=== PATIENT | male | born 2000 | race Caucasian/White ===

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

== ENCOUNTER 2021-06-27 12:58 | Observation (INO) | payer MEDICAID ==
[2021-06-27 15:10] LABS: Hematocrit 16.9 % (42-50); Mean Cell Volume 63.5 fl (78-100); Mean Corpuscular Hemoglobin 16.2 pg (26-32); Mean Corpuscular Hgb Concent. 25.4 g/dl (32-36); Mean Platelet Volume 8.5 fl (7.5-11.0); Platelet Count 655 K/mm3 (150-450); Red Blood Count 2.66 M/mm3 (4.1-5.6); Red Cell Distribution Width 21.7 % (11.5-14.0); White Blood Count 14.9 K/mm3 (4.0-10.5)
[2021-06-27 15:25] LABS: Hemoglobin 4.3 gm/dl (12.5-18.0)
[2021-06-27 15:38] LABS: CK-Creatinine Phosphokinase 74 U/L (55-170); NT PRO BNP 147 pg/mL (0-450)
[2021-06-27 15:42] LABS: Erythrocyte Sedimentation Rate 10 mm/hr (0-15)
[2021-06-27] MEDS ORDERED: NORCO 5/325 MG PO ONE (15:47)
[2021-06-27] MEDS ORDERED: NORCO 5/325 MG ONE (15:51)
[2021-06-27 15:52] LABS: ALBUMIN 2.7 g/dL (3.5-5.0); ALKALINE PHOSPHATASE 75 U/L (38-126); ANION GAP 10.2 MEQ/L (5-15); BILIRUBIN,TOTAL < 0.10 mg/dL (0.2-1.3); BLOOD UREA NITROGEN 7 mg/dL (9-20); CHLORIDE 99 mmol/L (98-107); Calcium 7.8 mg/dL (8.4-10.2); Carbon Dioxide 27 mmol/L (22-30); Creatinine 1 0.81 mg/dL (0.66-1.25); EST GLOMERULAR FILTRATION RATE > 60.0 ML/MIN; Glucose 99 mg/dL (74-106); Potassium 3.3 mmol/L (3.5-5.1); SGOT/AST 16 U/L (17-59); SGPT/ALT 6 U/L (0-50); SODIUM 132 mmol/L (137-145); Total Protein 5.7 g/dL (6.3-8.2)
[2021-06-27 15:55] LABS: BAND 2 % (0.0-2.0); Basophil 1 % (0.0-1.0); Lymphocytes 18 % (24-44); Monocyte 1 % (0.0-12.0); Neutrophils 78 % (36.-66.); Total Cells Counted 100
--- NOTE | 2021-06-27 15:55 | ERPHSYRPT ---
- History of Present Illness Time Seen by Provider: 06/27/21 13:40 Source: patient Exam Limitations: no limitations Patient Subjective Stated Complaint: Pt states "About 10 days ago I got this red bump on my lower left leg and now my foot is really swollen." Triage Nursing Assessment: Pt presented alert and oriented X 3, skin pwd. Pt ambulates witha limp. Pt left foot swollen , csm x 4, pt has small red primitivo on felix of left leg. PT has no apprent respiratory distress. Physician History: Is a 21-year-old white male who presents with a chief complaint of swelling for 10 days of his left lower leg medial aspect just above the ankle it started as a small red spot now is quite large and the ankle is very swollen. It is a burning pain. He also has a diagnosis of ulcerative colitis and has had multiple bloody stools for some time states that he was at [facility] about 3 weeks ago and was told he had about a half of the blood that he needed and his hemoglobin was quite low. However they did not transfuse him. He also complains of being dizzy especially with standing dark vision loss of hearing with these episodes. Method of Injury: unknown Occurred: days ago (10) Quality: burning Severity of Pain-Max: moderate Severity of Pain-Current: moderate Modifying Factors: Improves With: movement Allergies/Adverse Reactions: No Known Drug Allergies Allergy (Verified 07/01/19 19:53) Home Medications: Sulfasalazine [Sulfasalazine Dr] 500 mg PO DAILY 06/27/21 [History] Hx Tetanus, Diphtheria Vaccination/Date Given: No Hx Influenza Vaccination/Date Given: No Hx Pneumococcal Vaccination/Date Given: No Immunizations Up to Date: Yes Travel Risk - International Travel Have you traveled outside of the country in past 3 weeks: No - Coronavirus Screening Are you exhibiting any of the following symptoms?: No Close contact with a COVID-19 positive Pt in past 14-21 Days: No - Vaccine Status Have you recieved a Covid-19 vaccination: No - Review of Systems Constitutional: Fatigue, Lethargy, Malaise, No Fever, No Chills Eyes: Vision Changes Ears, Nose, & Throat: No Symptoms Respiratory: Dyspnea, Dyspnea on Exertion (LU), No Cough Cardiac: No Chest Pain, No Edema, No Syncope Abdominal/Gastrointestinal: Diarrhea, Hematochezia, Melena, No Abdominal Pain, No Nausea, No Vomiting Genitourinary Symptoms: No Dysuria Musculoskeletal: Joint Redness, Joint Pain, Joint Swelling, No Back Pain, No Neck Pain Skin: No Rash Neurological: No Dizziness, No Focal Weakness, No Sensory Changes Psychological: No Symptoms Endocrine: No Symptoms All Other Systems: Reviewed and Negative - Past Medical History Pertinent Past Medical History: Yes Neurological History: No Pertinent History ENT History: No Pertinent History Cardiac History: No Pertinent History Respiratory History: No Pertinent History Endocrine Medical History: No Pertinent History Musculoskeletal History: No Pertinent History GI Medical History: No Pertinent History History: No Pertinent History Psycho-Social History: Other Male Reproductive Disorders: No Pertinent History Other Medical History: pt has ADHD and oppositional defiance disorder - Past Surgical History Past Surgical History: Yes Neuro Surgical History: No Pertinent History Cardiac: No Pertinent History Respiratory: No Pertinent History Gastrointestinal: No Pertinent History Genitourinary: No Pertinent History Musculoskeletal: Orthopedic Surgery Male Surgical History: No Pertinent History Other Surgical History: right wrist glass removed in surgery - Social History Smoking Status: Current every day smoker How long have you smoked: years Exposure to second hand smoke: Yes Drug Use: none Patient Lives Alone: No - Nursing Vital Signs Nursing Vital Signs: Initial Vital Signs Temperature 99.2 F 06/27/21 13:33 Pulse Rate 109 H 06/27/21 13:33 Respiratory Rate 22 06/27/21 13:33 Blood Pressure 108/68 06/27/21 13:33 O2 Sat by Pulse Oximetry 100 06/27/21 13:33 Pain Scale Pain Intensity 4 - Physical Exam General Appearance: moderate distress, alert Eyes, Ears, Nose, Throat Exam: other (Junk of a very pale) Neck Exam: normal inspection, non-tender, supple Cardiovascular/Respiratory Exam: chest non-tender, normal breath sounds, regular rate/rhythm Gastrointestinal/Abdominal Exam: non-tender, soft Back Exam: normal inspection, normal range of motion Legs Exam: left leg: limited range of motion, pain, soft tissue tenderness, swelling Foot Exam: left foot: pain, soft tissue tenderness, swelling Neuro/Tendon Exam: normal sensation, normal motor functions, normal tendon functions Mental Status Exam: alert, oriented x 3, cooperative Skin Exam: warm, dry, pale SpO2 Interpretation: normal SpO2: 100 O2 Delivery: Room Air - Course Nursing assessment & vital signs reviewed: Yes - Radiology Exams Other X-ray Interpretation: Interpreted by me (X-ray of the ankle is negative) Ordered Tests: Active Orders 24 hr Category Date Time Status ANKLE (3 VIEWS) Stat Exams 06/27/21 13:40 Taken LOWER LEG Stat Exams 06/27/21 13:40 Taken CBC W DIFF Stat Lab 06/27/21 14:45 Results CK-Creatinine Phosphokinase Stat Lab 06/27/21 14:45 Completed CMP Stat Lab 06/27/21 14:45 Received D-DIMER QUANTITATIVE Stat Lab 06/27/21 13:41 Completed Erythrocyte Sedimentation Rate Stat Lab 06/27/21 14:45 Results Lactic Acid Stat Lab 06/27/21 13:41 Completed Manual Differential NC Stat Lab 06/27/21 14:45 Results NT PRO BNP Stat Lab 06/27/21 14:45 Completed Pathologist Review Stat Lab 06/27/21 14:45 Results UA W/RFX UR CULTURE Stat Lab 06/27/21 13:42 Ordered Medication Summary Discontinued Medications Generic Name Dose Route Start Last Admin Trade Name Freq PRN Reason Stop Dose Admin Hydrocodone Bitart/Acetaminophen 1 tab 06/27/21 15:47 [place] 5/325 Mg PO 06/27/21 15:48 STAT ONE Lab/Rad Data: Laboratory Result Diagrams 06/27/21 14:45 Laboratory Results 06/27/21 06/27/21 06/27/21 Range/Units 14:45 14:45 13:41 WBC 14.9 H (4.0-10.5) K/mm3 RBC 2.66 L (4.1-5.6) M/mm3 Hgb 4.3 L* (12.5-18.0) gm/dl Hct 16.9 L (42-50) % MCV 63.5 L (78-100) fl MCH 16.2 L (26-32) pg MCHC 25.4 L (32-36) g/dl RDW 21.7 H (11.5-14.0) % Plt Count 655 H (150-450) K/mm3 MPV 8.5 (7.5-11.0) fl Smear Path Review Pending ESR 10 (0-15) mm/hr D-Dimer 2753 H* (215-500) ng/mL Lactic Acid (0.4-2.0) Creatine Kinase 74 (55-170) U/L NT-Pro-B Natriuret Pep 147 (0-450) pg/mL 06/27/21 Range/Units 13:41 WBC (4.0-10.5) K/mm3 RBC (4.1-5.6) M/mm3 Hgb (12.5-18.0) gm/dl Hct (42-50) % MCV (78-100) fl MCH (26-32) pg MCHC (32-36) g/dl RDW (11.5-14.0) % Plt Count (150-450) K/mm3 MPV (7.5-11.0) fl Smear Path Review ESR (0-15) mm/hr D-Dimer (215-500) ng/mL Lactic Acid 1.1 (0.4-2.0) Creatine Kinase (55-170) U/L NT-Pro-B Natriuret Pep (0-450) pg/mL - Progress Progress: unchanged - Departure Departure Disposition: Observation Clinical Impression: Profound anemia, Hematemesis, History of ulcerative colitis, Suspected DVT (deep vein thrombosis) Condition: Fair Critical Care Time: No Referrals: ADRIAN BAIN [employer] DEVELOPER [Primary Care Provider] -
[2021-06-27 15:56] LABS: ANISOCYTOSIS 2+; Basophilic Stippling 1+; Poikilocytosis 2+; Polychromasia 1+
[2021-06-27 15:57] LABS: Hypochromia 2+
[2021-06-27 15:58] LABS: Schistocytes 1+; Spherocyte 1+
[2021-06-27] MEDS ORDERED: Hydromorphone 1 mg/ml Injection IV PRN (15:58)
[2021-06-27 15:59] LABS: Platelet Estimate INCREASED (NORMAL)
[2021-06-27] MEDS ORDERED: Sodium Chloride 0.9% 1000 ML 1,000 ML IV SCH ×2 (16:00→18:00)
[2021-06-27] MEDS ORDERED: Sodium Chloride 0.9% 1000 ML 1,000 ML ONE (16:20)
[2021-06-27 16:59] LABS: ABO TYPING A; Antibody Screen NEGATIVE (NEGATIVE); RH TYPING POSITIVE
[2021-06-27 17:00] LABS: CROSS MATCH (PRBC) COMPATIBLE (COMPATIBLE)
[2021-06-27] MEDS: Hydromorphone 1 mg/ml Injection IV PRN ×2 (18:03→22:31)
[2021-06-27] MEDS ORDERED: Sodium Chloride 0.9% 500 ML 500 ML IV ONE (18:11)
--- NOTE | 2021-06-27 20:18 | XRAY ---
Indication: Pain and swelling. No known injury. Comparison: None 3 view left ankle demonstrates mild anterior medial soft tissue swelling. No other bony, articular, or soft tissue abnormalities.
--- NOTE | 2021-06-27 20:18 | XRAY ---
Indication: Pain and swelling. No known injury. Comparison: None 2 view left lower leg obtained. No bony, articular, or soft tissue abnormalities.
[2021-06-27] MEDS: Zofran 4 MG/2 ML VIAL IV PRN (22:31)
[2021-06-28] MEDS: Hydromorphone 1 mg/ml Injection IV PRN ×3 (03:13→12:44)
[2021-06-28] MEDS: Zofran 4 MG/2 ML VIAL IV PRN (04:46)
[2021-06-28 06:14] LABS: Mean Cell Volume 71.9 fl (78-100); Mean Corpuscular Hemoglobin 21.8 pg (26-32); Mean Corpuscular Hgb Concent. 30.3 g/dl (32-36); Mean Platelet Volume 8.8 fl (7.5-11.0); Platelet Count 636 K/mm3 (150-450); Red Blood Count 4.59 M/mm3 (4.1-5.6)
[2021-06-28 07:00] LABS: ALBUMIN 3.6 g/dL (3.5-5.0); ALKALINE PHOSPHATASE 96 U/L (38-126); ANION GAP 14.9 MEQ/L (5-15); BLOOD UREA NITROGEN 8 mg/dL (9-20); CHLORIDE 94 mmol/L (98-107); Calcium 8.5 mg/dL (8.4-10.2); Carbon Dioxide 28 mmol/L (22-30); Creatinine 1 0.85 mg/dL (0.66-1.25); EST GLOMERULAR FILTRATION RATE > 60.0 ML/MIN; Glucose 105 mg/dL (74-106); Potassium 3.5 mmol/L (3.5-5.1); SGOT/AST 20 U/L (17-59); SGPT/ALT 11 U/L (0-50); SODIUM 134 mmol/L (137-145); Total Protein 7.1 g/dL (6.3-8.2)
[2021-06-28] MEDS ORDERED: Hydromorphone 1 mg/ml Injection ONE (07:29)
--- NOTE | 2021-06-28 07:58 | PCM.HP ---
History of Present Illness - Chief Complaint Chief Complaint: bloody stools for 2-3 days. History of Present Illness: is a 21 year old male.who presents with a chief complaint of swelling for 10 days of his left lower leg medial aspect just above the ankle it started as a small red spot now is quite large and the ankle is very swollen. It is a burning pain. He also has a diagnosis of ulcerative colitis and has had multiple bloody stools for some time states that he was at [facility] about 3 weeks ago and was told he had about a half of the blood that he needed and his hemoglobin was quite low. However they did not transfuse him. He also complains of being dizzy especially with standing dark vision loss of hearing with these episodes. Method of Injury: unknown Occurred: days ago (10) Quality: burning Severity of Pain-Max: moderate Severity of Pain-Current: moderate Modifying Factors: Improves With: movement - Review of Systems Constitutional: No Fever, No Chills Eyes: No Symptoms Ears, Nose, & Throat: No Symptoms Respiratory: No Cough, No Short Of Breath Cardiac: No Chest Pain, No Edema, No Syncope Abdominal/Gastrointestinal: Abdominal Pain, Hematochezia, No Nausea, No Vomiting, No Diarrhea Genitourinary Symptoms: No Dysuria Musculoskeletal: No Back Pain, No Neck Pain Skin: No Rash Neurological: No Dizziness, No Focal Weakness, No Sensory Changes Psychological: No Symptoms Endocrine: No Symptoms Hematologic/Lymphatic: No Symptoms Immunological/Allergic: No Symptoms Medications & Allergies Home Medications: Home Medication List Sulfasalazine [Sulfasalazine Dr] 500 mg PO DAILY 06/27/21 [History Confirmed 06/27/21] Allergies/Adverse Reactions: Allergies Allergy/AdvReac Type Severity Reaction Status Date / Time No Known Drug Allergies Allergy Verified 07/01/19 19:53 - Past Medical History Past Medical History: Yes Neurological History: No Pertinent History ENT History: No Pertinent History Cardiac History: No Pertinent History Respiratory History: No Pertinent History Endocrine Medical History: No Pertinent History Musculoskelatal History: No Pertinent History GI Medical History: Colitis History: No Pertinent History Pyscho-Social History: Other Male Reproductive Disorders: No Pertinent History Comment: pt has ADHD and oppositional defiance disorder - Past Surgical History Past Surgical History: Yes Neuro Surgical History: No Pertinent History Cardiac History: No Pertinent History Respiratory Surgery: No Pertinent History GI Surgical History: No Pertinent History Genitourinary Surgical Hx: No Pertinent History Musculskeletal Surgical Hx: Orthopedic Surgery Male Surgical History: No Pertinent History Other Surgical History: right wrist glass removed in surgery, colonoscopy - Social History Smoking Status: Current every day smoker How long have you smoked: yr Exposure to second hand smoke: Yes Alcohol: None Drug Use: marijuana - Physical Exam Vital Signs: Vital Signs - 24 hr Temp Pulse Resp BP Pulse Ox 06/28/21 07:07 99 06/28/21 03:31 98.0 F 70 20 104/65 98 06/28/21 00:00 98.3 F 89 18 115/58 96 06/27/21 20:00 98.4 F 86 102/63 06/27/21 19:47 97 06/27/21 17:20 98.6 F 76 18 108/61 100 06/27/21 16:26 89 18 112/65 100 06/27/21 15:58 100 06/27/21 15:10 86 18 100/64 100 06/27/21 14:46 74 18 102/59 100 06/27/21 13:33 99.2 F 109 H 22 108/68 100 General Appearance: no apparent distress, alert Neurologic Exam: alert, oriented x 3, cooperative, normal mood/affect, nml cerebellar function, nml station & gait, sensation nml, No motor deficits Eye Exam: PERRL/EOMI, eyes nml inspection Ears, Nose, Throat Exam: normal ENT inspection, TMs normal, pharynx normal, moist mucous membranes Neck Exam: normal inspection, non-tender, supple, full range of motion Respiratory Exam: normal breath sounds, lungs clear, No respiratory distress Cardiovascular Exam: regular rate/rhythm, normal heart sounds, normal peripheral pulses Gastrointestinal/Abdomen Exam: soft, tenderness, guarding, No mass Back Exam: normal inspection, normal range of motion, No CVA tenderness, No vertebral tenderness Extremity Exam: normal inspection, normal range of motion, pelvis stable Skin Exam: normal color, warm, dry, No rash Lymphatic Exam: No adenopathy Results - Labs Lab/Micro Results: Lab Results-Last 24 Hours 06/27/21 06/27/21 06/27/21 Range/Units 13:41 13:41 14:45 WBC 14.9 H (4.0-10.5) K/mm3 RBC 2.66 L (4.1-5.6) M/mm3 Hgb 4.3 L* (12.5-18.0) gm/dl Hct 16.9 L (42-50) % MCV 63.5 L (78-100) fl MCH 16.2 L (26-32) pg MCHC 25.4 L (32-36) g/dl RDW 21.7 H (11.5-14.0) % Plt Count 655 H (150-450) K/mm3 MPV 8.5 (7.5-11.0) fl Segmented Neutrophils 78 H (36.-66.) % Band Neutrophils 2 (0.0-2.0) % Lymphocytes (Manual) 18 L (24-44) % Monocytes (Manual) 1 (0.0-12.0) % Basophils (Manual) 1 (0.0-1.0) % Hypochromia 2+ Platelet Estimate INCREASED (NORMAL) RBC Morphology ABNORMAL Polychromasia 1+ Poikilocytosis 2+ Basophilic Stippling 1+ Anisocytosis 2+ Spherocytes 1+ Schistocytes 1+ Smear Path Review Pending ESR 10 (0-15) mm/hr D-Dimer 2753 H* (215-500) ng/mL Sodium (137-145) mmol/L Potassium (3.5-5.1) mmol/L Chloride (98-107) mmol/L Carbon Dioxide (22-30) mmol/L Anion Gap (5-15) MEQ/L BUN (9-20) mg/dL Creatinine (0.66-1.25) mg/dL Estimated GFR ML/MIN Glucose (74-106) mg/dL Lactic Acid 1.1 (0.4-2.0) Calcium (8.4-10.2) mg/dL Total Bilirubin (0.2-1.3) mg/dL AST (17-59) U/L ALT (0-50) U/L Alkaline Phosphatase (38-126) U/L Creatine Kinase (55-170) U/L NT-Pro-B Natriuret Pep (0-450) pg/mL Serum Total Protein (6.3-8.2) g/dL Albumin (3.5-5.0) g/dL SARS-CoV-2 (PCR) (NEGATIVE) ABO Group Rh Factor Antibody Screen (NEGATIVE) Crossmatch (COMPATIBLE) 06/27/21 06/27/21 06/27/21 Range/Units 14:45 14:45 14:45 WBC (4.0-10.5) K/mm3 RBC (4.1-5.6) M/mm3 Hgb (12.5-18.0) gm/dl Hct (42-50) % MCV (78-100) fl MCH (26-32) pg MCHC (32-36) g/dl RDW (11.5-14.0) % Plt Count (150-450) K/mm3 MPV (7.5-11.0) fl Segmented Neutrophils (36.-66.) % Band Neutrophils (0.0-2.0) % Lymphocytes (Manual) (24-44) % Monocytes (Manual) (0.0-12.0) % Basophils (Manual) (0.0-1.0) % Hypochromia Platelet Estimate (NORMAL) RBC Morphology Polychromasia Poikilocytosis Basophilic Stippling Anisocytosis Spherocytes Schistocytes Smear Path Review ESR (0-15) mm/hr D-Dimer (215-500) ng/mL Sodium 132 L (137-145) mmol/L Potassium 3.3 L (3.5-5.1) mmol/L Chloride 99 (98-107) mmol/L Carbon Dioxide 27 (22-30) mmol/L Anion Gap 10.2 (5-15) MEQ/L BUN 7 L (9-20) mg/dL Creatinine 0.81 (0.66-1.25) mg/dL Estimated GFR > 60.0 ML/MIN Glucose 99 (74-106) mg/dL Lactic Acid (0.4-2.0) Calcium 7.8 L (8.4-10.2) mg/dL Total Bilirubin < 0.10 L (0.2-1.3) mg/dL AST 16 L (17-59) U/L ALT 6 (0-50) U/L Alkaline Phosphatase 75 (38-126) U/L Creatine Kinase 74 (55-170) U/L NT-Pro-B Natriuret Pep 147 (0-450) pg/mL Serum Total Protein 5.7 L (6.3-8.2) g/dL Albumin 2.7 L (3.5-5.0) g/dL SARS-CoV-2 (PCR) (NEGATIVE) ABO Group A Rh Factor POSITIVE Antibody Screen NEGATIVE (NEGATIVE) Crossmatch COMPATIBLE (COMPATIBLE) 06/27/21 06/27/21 06/27/21 Range/Units 14:45 14:45 15:26 WBC (4.0-10.5) K/mm3 RBC (4.1-5.6) M/mm3 Hgb (12.5-18.0) gm/dl Hct (42-50) % MCV (78-100) fl MCH (26-32) pg MCHC (32-36) g/dl RDW (11.5-14.0) % Plt Count (150-450) K/mm3 MPV (7.5-11.0) fl Segmented Neutrophils (36.-66.) % Band Neutrophils (0.0-2.0) % Lymphocytes (Manual) (24-44) % Monocytes (Manual) (0.0-12.0) % Basophils (Manual) (0.0-1.0) % Hypochromia Platelet Estimate (NORMAL) RBC Morphology Polychromasia Poikilocytosis Basophilic Stippling Anisocytosis Spherocytes Schistocytes Smear Path Review ESR (0-15) mm/hr D-Dimer (215-500) ng/mL Sodium (137-145) mmol/L Potassium (3.5-5.1) mmol/L Chloride (98-107) mmol/L Carbon Dioxide (22-30) mmol/L Anion Gap (5-15) MEQ/L BUN (9-20) mg/dL Creatinine (0.66-1.25) mg/dL Estimated GFR ML/MIN Glucose (74-106) mg/dL Lactic Acid (0.4-2.0) Calcium (8.4-10.2) mg/dL Total Bilirubin (0.2-1.3) mg/dL AST (17-59) U/L ALT (0-50) U/L Alkaline Phosphatase (38-126) U/L Creatine Kinase (55-170) U/L NT-Pro-B Natriuret Pep (0-450) pg/mL Serum Total Protein (6.3-8.2) g/dL Albumin (3.5-5.0) g/dL SARS-CoV-2 (PCR) NEGATIVE (NEGATIVE) ABO Group Rh Factor Antibody Screen (NEGATIVE) Crossmatch COMPATIBLE COMPATIBLE (COMPATIBLE) 06/28/21 06/28/21 06/28/21 Range/Units 04:00 05:55 05:55 WBC 21.0 H (4.0-10.5) K/mm3 RBC 4.59 (4.1-5.6) M/mm3 Hgb 10.0 L D (12.5-18.0) gm/dl Hct 33.0 L (42-50) % MCV 71.9 L D (78-100) fl MCH 21.8 L (26-32) pg MCHC 30.3 L (32-36) g/dl RDW (11.5-14.0) % Plt Count 636 H (150-450) K/mm3 MPV 8.8 (7.5-11.0) fl Segmented Neutrophils (36.-66.) % Band Neutrophils (0.0-2.0) % Lymphocytes (Manual) (24-44) % Monocytes (Manual) (0.0-12.0) % Basophils (Manual) (0.0-1.0) % Hypochromia Platelet Estimate (NORMAL) RBC Morphology Polychromasia Poikilocytosis Basophilic Stippling Anisocytosis Spherocytes Schistocytes Smear Path Review ESR (0-15) mm/hr D-Dimer (215-500) ng/mL Sodium 134 L (137-145) mmol/L Potassium 3.5 (3.5-5.1) mmol/L Chloride 94 L (98-107) mmol/L Carbon Dioxide 28 (22-30) mmol/L Anion Gap 14.9 (5-15) MEQ/L BUN 8 L (9-20) mg/dL Creatinine 0.85 (0.66-1.25) mg/dL Estimated GFR > 60.0 ML/MIN Glucose 105 (74-106) mg/dL Lactic Acid 2.3 H (0.4-2.0) Calcium 8.5 (8.4-10.2) mg/dL Total Bilirubin 0.70 (0.2-1.3) mg/dL AST 20 (17-59) U/L ALT 11 (0-50) U/L Alkaline Phosphatase 96 (38-126) U/L Creatine Kinase (55-170) U/L NT-Pro-B Natriuret Pep (0-450) pg/mL Serum Total Protein 7.1 (6.3-8.2) g/dL Albumin 3.6 (3.5-5.0) g/dL SARS-CoV-2 (PCR) (NEGATIVE) ABO Group Rh Factor Antibody Screen (NEGATIVE) Crossmatch (COMPATIBLE) - Radiology Impressions Radiology Exams & Impressions: Radiology Procedures Category Date Time Status ANKLE (3 VIEWS) Stat Exams 06/27/21 13:40 Completed LOWER LEG Stat Exams 06/27/21 13:40 Completed VENOUS BILATERAL EXTREMITY [US] Stat Exams 06/28/21 Ordered - Other Procedures and Tests Respiratory Therapy 06/27/21 17:51 Oxygen Nasal Cannula 2 lpm Assessment/Plan (1) Profound anemia Current Visit: Yes Status: Acute Qualifiers: Iron deficiency anemia type: chronic blood loss Assessment & Plan: Chief Complaint Diagnosis anemia Allergies Allergy/AdvReac Type Severity Reaction Status Date / Time No Known Drug Allergies Allergy Verified 07/01/19 19:53 Vital Signs (Last 24 hours) Temp Pulse Resp BP Pulse Ox 06/28/21 07:07 99 06/28/21 03:31 98.0 F 70 20 104/65 98 06/28/21 00:00 98.3 F 89 18 115/58 96 06/27/21 20:00 98.4 F 86 102/63 06/27/21 19:47 97 06/27/21 17:20 98.6 F 76 18 108/61 100 06/27/21 16:26 89 18 112/65 100 06/27/21 15:58 100 06/27/21 15:10 86 18 100/64 100 06/27/21 14:46 74 18 102/59 100 06/27/21 13:33 99.2 F 109 H 22 108/68 100 Home Medications Medication Instructions Recorded Confirmed Last Taken Type Sulfasalazine [Sulfasalazine Dr] 500 mg PO DAILY 06/27/21 06/27/21 Unknown History Current Medications Generic Name Dose Route Start Last Admin Trade Name Freq PRN Reason Stop Dose Admin Hydromorphone HCl 1 mg 06/27/21 17:53 06/28/21 03:13 Hydromorphone 1 Mg/Ml Injection IV 07/02/21 17:52 1 mg Q4H PRN PRN Administration PAIN Sodium Chloride 1,000 mls @ 100 mls/hr 06/27/21 18:00 Sodium Chloride 0.9% 1000 Ml IV 07/27/21 17:59 .Q10H ALEXIS Ondansetron HCl 4 mg 06/27/21 22:19 06/28/21 04:46 Zofran 4 Mg/2 Ml Vial IV 07/27/21 22:18 4 mg Q6H PRN PRN Administration NAUSEA/VOMITING Discontinued Medications Generic Name Dose Route Start Last Admin Trade Name Freq PRN Reason Stop Dose Admin Hydrocodone Bitart/Acetaminophen 1 tab 06/27/21 15:47 06/27/21 15:52 [place] 5/325 Mg PO 06/27/21 15:48 1 tab STAT ONE Administration Hydrocodone Bitart/Acetaminophen Confirm 06/27/21 15:51 [place] 5/325 Mg Administered 06/27/21 15:52 Dose 1 tab .ROUTE .STK-MED ONE Hydromorphone HCl 1 mg 06/27/21 15:58 Hydromorphone 1 Mg/Ml Injection IV 07/02/21 15:57 Q4H PRN PRN PAIN Hydromorphone HCl Confirm 06/28/21 07:29 Hydromorphone 1 Mg/Ml Injection Administered 06/28/21 07:30 Dose 1 mg .ROUTE .STK-MED ONE Sodium Chloride 1,000 mls @ 100 mls/hr 06/27/21 16:00 06/27/21 16:22 Sodium Chloride 0.9% 1000 Ml IV 07/27/21 15:59 100 mls/hr .Q10H ALEXIS Administration Sodium Chloride Confirm 06/27/21 16:20 Sodium Chloride 0.9% 1000 Ml Administered 06/27/21 16:21 Dose 1,000 mls @ ud .ROUTE .STK-MED ONE Sodium Chloride Confirm 06/27/21 18:11 Sodium Chloride 0.9% 500 Ml Administered 06/27/21 18:12 Dose 500 mls @ ud IV .STK-MED ONE Intake & Output (Last 24 hours) 06/25/21 06/26/21 06/27/21 06/28/21 11:59 11:59 11:59 11:59 Intake Total 900 Output Total 400 Balance 500 Weight 56.8 kg Laboratory Results (Last 24 hours) 06/28/21 06/28/21 06/28/21 05:55 05:55 04:00 WBC 21.0 H RBC 4.59 Hgb 10.0 L D Hct 33.0 L MCV 71.9 L D MCH 21.8 L MCHC 30.3 L RDW Plt Count 636 H MPV 8.8 Segmented Neutrophils Band Neutrophils Lymphocytes (Manual) Monocytes (Manual) Basophils (Manual) Hypochromia Platelet Estimate RBC Morphology Polychromasia Poikilocytosis Basophilic Stippling Anisocytosis Spherocytes Schistocytes ESR D-Dimer Sodium 134 L Potassium 3.5 Chloride 94 L Carbon Dioxide 28 Anion Gap 14.9 BUN 8 L Creatinine 0.85 Estimated GFR > 60.0 Glucose 105 Lactic Acid 2.3 H Calcium 8.5 Total Bilirubin 0.70 AST 20 ALT 11 Alkaline Phosphatase 96 Creatine Kinase NT-Pro-B Natriuret Pep Serum Total Protein 7.1 Albumin 3.6 SARS-CoV-2 (PCR) ABO Group Rh Factor Antibody Screen Crossmatch 06/27/21 06/27/21 06/27/21 15:26 14:45 14:45 WBC RBC Hgb Hct MCV MCH MCHC RDW Plt Count MPV Segmented Neutrophils Band Neutrophils Lymphocytes (Manual) Monocytes (Manual) Basophils (Manual) Hypochromia Platelet Estimate RBC Morphology Polychromasia Poikilocytosis Basophilic Stippling Anisocytosis Spherocytes Schistocytes ESR D-Dimer Sodium Potassium Chloride Carbon Dioxide Anion Gap BUN Creatinine Estimated GFR Glucose Lactic Acid Calcium Total Bilirubin AST ALT Alkaline Phosphatase Creatine Kinase NT-Pro-B Natriuret Pep Serum Total Protein Albumin SARS-CoV-2 (PCR) NEGATIVE ABO Group Rh Factor Antibody Screen Crossmatch COMPATIBLE COMPATIBLE 06/27/21 06/27/21 06/27/21 14:45 14:45 14:45 WBC RBC Hgb Hct MCV MCH MCHC RDW Plt Count MPV Segmented Neutrophils Band Neutrophils Lymphocytes (Manual) Monocytes (Manual) Basophils (Manual) Hypochromia Platelet Estimate RBC Morphology Polychromasia Poikilocytosis Basophilic Stippling Anisocytosis Spherocytes Schistocytes ESR D-Dimer Sodium 132 L Potassium 3.3 L Chloride 99 Carbon Dioxide 27 Anion Gap 10.2 BUN 7 L Creatinine 0.81 Estimated GFR > 60.0 Glucose 99 Lactic Acid Calcium 7.8 L Total Bilirubin < 0.10 L AST 16 L ALT 6 Alkaline Phosphatase 75 Creatine Kinase 74 NT-Pro-B Natriuret Pep 147 Serum Total Protein 5.7 L Albumin 2.7 L SARS-CoV-2 (PCR) ABO Group A Rh Factor POSITIVE Antibody Screen NEGATIVE Crossmatch COMPATIBLE 06/27/21 06/27/21 06/27/21 14:45 13:41 13:41 WBC 14.9 H RBC 2.66 L Hgb 4.3 L* Hct 16.9 L MCV 63.5 L MCH 16.2 L MCHC 25.4 L RDW 21.7 H Plt Count 655 H MPV 8.5 Segmented Neutrophils 78 H Band Neutrophils 2 Lymphocytes (Manual) 18 L Monocytes (Manual) 1 Basophils (Manual) 1 Hypochromia 2+ Platelet Estimate INCREASED RBC Morphology ABNORMAL Polychromasia 1+ Poikilocytosis 2+ Basophilic Stippling 1+ Anisocytosis 2+ Spherocytes 1+ Schistocytes 1+ ESR 10 D-Dimer 2753 H* Sodium Potassium Chloride Carbon Dioxide Anion Gap BUN Creatinine Estimated GFR Glucose Lactic Acid 1.1 Calcium Total Bilirubin AST ALT Alkaline Phosphatase Creatine Kinase NT-Pro-B Natriuret Pep Serum Total Protein Albumin SARS-CoV-2 (PCR) ABO Group Rh Factor Antibody Screen Crossmatch Orders (Last 24 hours) Category Date Time Status Code Status Order ROUTINE Care 06/27/21 15:58 Active IV Care Q6H Care 06/27/21 15:[address] in Observation ROUTINE Care 06/27/21 15:58 Active House Regular Diet Diet 06/27/21 Dinner Active ANKLE (3 VIEWS) Stat Exams 06/27/21 13:40 Completed LOWER LEG Stat Exams 06/27/21 13:40 Completed VENOUS BILATERAL EXTREMITY [US] Stat Exams 06/28/21 Ordered ABO TYPING Stat Lab 06/27/21 14:45 Completed Antibody Screen Stat Lab 06/27/21 14:45 Completed BLOOD COMPONENT REQUEST Stat Lab 06/27/21 14:45 Completed CBC W DIFF AM.LAB Lab 06/28/21 05:55 Completed CBC W DIFF Stat Lab 06/27/21 14:45 Results CK-Creatinine Phosphokinase Stat Lab 06/27/21 14:45 Completed CMP AM.LAB Lab 06/28/21 05:55 Completed CMP Stat Lab 06/27/21 14:45 Completed D-DIMER QUANTITATIVE Stat Lab 06/27/21 13:41 Completed Erythrocyte Sedimentation Rate Stat Lab 06/27/21 14:45 Results Lactic Acid AM.LAB Lab 06/28/21 04:00 Completed Lactic Acid Stat Lab 06/27/21 13:41 Completed Manual Differential NC Routine Lab 06/28/21 05:55 Completed Manual Differential NC Stat Lab 06/27/21 14:45 Results NT PRO BNP Stat Lab 06/27/21 14:45 Completed Pathologist Review Stat Lab 06/27/21 14:45 Results RH TYPING Stat Lab 06/27/21 14:45 Completed SARS-CoV-2 Xpert Express Routine Lab 06/27/21 15:26 Completed UA W/RFX UR CULTURE Stat Lab 06/27/21 13:42 Ordered Hydrocodone/APAP 5/325 [[place] 5/325 mg] Med 06/27/21 15:51 Discontinued 1 tab .ROUTE .STK-MED ONE Hydrocodone/APAP 5/325 [[place] 5/325 mg] Med 06/27/21 15:47 Discontinued 1 tab PO STAT ONE Hydromorphone 1 mg/1Ml Inj [Hydromorphone 1 mg/ml Med 06/28/21 07:29 Discontinued Injection] 1 mg .ROUTE .STK-MED ONE Hydromorphone 1 mg/1Ml Inj [Hydromorphone 1 mg/ml Med 06/27/21 15:58 Discontinued Injection] 1 mg IV Q4H PRN PRN Hydromorphone 1 mg/1Ml Inj [Hydromorphone 1 mg/ml Med 06/27/21 17:53 Active Injection] 1 mg IV Q4H PRN PRN NaCl 0.9% 1000 ml [Sodium Chloride 0.9% 1000 ML] 1,000 Med 06/27/21 16:20 Discontinued ml .ROUTE UD NaCl 0.9% 1000 ml [Sodium Chloride 0.9% 1000 ML] 1,000 Med 06/27/21 16:00 Discontinued ml IV 100 mls/hr NaCl 0.9% 1000 ml [Sodium Chloride 0.9% 1000 ML] 1,000 Med 06/27/21 18:00 Active ml IV 100 mls/hr NaCl 0.9% 500 ml [Sodium Chloride 0.9% 500 ML] 500 ml Med 06/27/21 18:11 Discontinued IV UD Ondansetron HCl 4 mg/2 ml [Zofran 4 MG/2 ML VIAL] Med 06/27/21 22:19 Active 4 mg IV Q6H PRN PRN Oxygen Nasal Cannula 2 lpm RT 06/27/21 17:51 Active Pulse Oximetry .continuos RT 06/27/21 19:45 Active Smoking Cessation Education ONCE RT 06/27/21 17:45 Completed Patient Care Notes (Last 24 hours) 06/28/21 06:10 Nursing Note by Raissa White Pt has had episodes of bloody diarrhea x4 throughout the night and so far this am. Dark red manisha blood watery with small amounts of brown stool. Unable to measure d/t pt throwing paper into BSC. Most recent episode was a couple of inches deep in BSC. Initialized on 06/28/21 06:10 - END OF NOTE 06/27/21 22:18 SBAR Note by Raissa White SITUATION I am calling about [employer] the patient's code status is Full Code The problem I am calling about is: pt having nausea and vomiting ASSESSMENT Pt is having nausea and large episodes of emesis RECOMMENDATION Physician notified at [id number] New Orders received: 4 mg zofran IV Q6 PRN Vital Signs (Last 4 hours) Temp Pulse BP Pulse Ox 06/27/21 20:00 98.4 F 86 102/63 06/27/21 19:47 97 Diagnois, Code Status Date of Arrival on Unit 06/27/21 Admitted From Emergency Dept Diagnosis anemia Resucitation Status Full Code Intake and Output 12 Hours 06/27/21 06/28/21 18:59 06:59 Intake Total 100 Output Total 400 Balance 100 -400 Weight 56.8 kg Intake: Intake, Oral Amount 100 Output: Output, Emesis Amount 400 Other: Number of Voids 1 Number of Bowel Movements 1 Physical Assessment Anxiety Level None,at ease,Awake,Calm Mental Status Alert Patient Orientation Person,Place,Time Breath Sounds [Anterior/ Clear Posterior Bilateral Throughout ] Bowel Sounds [All Quadrants] Present,Hyperactive Abdomen Description Soft,Tender with Palpation Urine Appearance Not Voided Skin Color Pale Skin Temperature Warm Pain Scale (Last 12 Hours) Pain Intensity 0 Pain Intensity 0 Pain Intensity 4 Pain Intensity 4 Pain Intensity 4 Pain Intensity 4 Pain Intensity 9 Pain Intensity 4 Pain Intensity 4 Pain Intensity 4 Pain Intensity 4 Pain Intensity 4 Pain Intensity 4 Pain Intensity 4 PAST MEDICAL HISTORY Neurological History No Pertinent History ENT History No Pertinent History Endocrine Medical History No Pertinent History Respiratory History No Pertinent History Cardiac History No Pertinent History GI Medical History Colitis History No Pertinent History Pyscho-Social History Other Communicable Disease No Pertinent History Comment pt has ADHD and oppositional defiance disorder Diet Order (Last 12 Hours) 06/27/21 Dinner House Regular Diet Lab Results (Last 12 Hours) 06/27/21 06/27/21 06/27/21 Range/Units 15:26 14:45 14:45 WBC (4.0-10.5) K/mm3 RBC (4.1-5.6) M/mm3 Hgb (12.5-18.0) gm/dl Hct (42-50) % MCV (78-100) fl MCH (26-32) pg MCHC (32-36) g/dl RDW (11.5-14.0) % Plt Count (150-450) K/mm3 MPV (7.5-11.0) fl Segmented Neutrophils (36.-66.) % Band Neutrophils (0.0-2.0) % Lymphocytes (Manual) (24-44) % Monocytes (Manual) (0.0-12.0) % Basophils (Manual) (0.0-1.0) % Hypochromia Platelet Estimate (NORMAL) RBC Morphology Polychromasia Poikilocytosis Basophilic Stippling Anisocytosis Spherocytes Schistocytes Smear Path Review ESR (0-15) mm/hr D-Dimer (215-500) ng/mL Sodium (137-145) mmol/L Potassium (3.5-5.1) mmol/L Chloride (98-107) mmol/L Carbon Dioxide (22-30) mmol/L Anion Gap (5-15) MEQ/L BUN (9-20) mg/dL Creatinine (0.66-1.25) mg/dL Estimated GFR ML/MIN Glucose (74-106) mg/dL Lactic Acid (0.4-2.0) Calcium (8.4-10.2) mg/dL Total Bilirubin (0.2-1.3) mg/dL AST (17-59) U/L ALT (0-50) U/L Alkaline Phosphatase (38-126) U/L Creatine Kinase (55-170) U/L NT-Pro-B Natriuret Pep (0-450) pg/mL Serum Total Protein (6.3-8.2) g/dL Albumin (3.5-5.0) g/dL SARS-CoV-2 (PCR) NEGATIVE (NEGATIVE) ABO Group Rh Factor Antibody Screen (NEGATIVE) Crossmatch COMPATIBLE COMPATIBLE (COMPATIBLE) 06/27/21 06/27/21 06/27/21 Range/Units 14:45 14:45 14:45 WBC (4.0-10.5) K/mm3 RBC (4.1-5.6) M/mm3 Hgb (12.5-18.0) gm/dl Hct (42-50) % MCV (78-100) fl MCH (26-32) pg MCHC (32-36) g/dl RDW (11.5-14.0) % Plt Count (150-450) K/mm3 MPV (7.5-11.0) fl Segmented Neutrophils (36.-66.) % Band Neutrophils (0.0-2.0) % Lymphocytes (Manual) (24-44) % Monocytes (Manual) (0.0-12.0) % Basophils (Manual) (0.0-1.0) % Hypochromia Platelet Estimate (NORMAL) RBC Morphology Polychromasia Poikilocytosis Basophilic Stippling Anisocytosis Spherocytes Schistocytes Smear Path Review ESR (0-15) mm/hr D-Dimer (215-500) ng/mL Sodium 132 L (137-145) mmol/L Potassium 3.3 L (3.5-5.1) mmol/L Chloride 99 (98-107) mmol/L Carbon Dioxide 27 (22-30) mmol/L Anion Gap 10.2 (5-15) MEQ/L BUN 7 L (9-20) mg/dL Creatinine 0.81 (0.66-1.25) mg/dL Estimated GFR > 60.0 ML/MIN Glucose 99 (74-106) mg/dL Lactic Acid (0.4-2.0) Calcium 7.8 L (8.4-10.2) mg/dL Total Bilirubin < 0.10 L (0.2-1.3) mg/dL AST 16 L (17-59) U/L ALT 6 (0-50) U/L Alkaline Phosphatase 75 (38-126) U/L Creatine Kinase 74 (55-170) U/L NT-Pro-B Natriuret Pep 147 (0-450) pg/mL Serum Total Protein 5.7 L (6.3-8.2) g/dL Albumin 2.7 L (3.5-5.0) g/dL SARS-CoV-2 (PCR) (NEGATIVE) ABO Group A Rh Factor POSITIVE Antibody Screen NEGATIVE (NEGATIVE) Crossmatch COMPATIBLE (COMPATIBLE) 06/27/21 06/27/21 06/27/21 Range/Units 14:45 13:41 13:41 WBC 14.9 H (4.0-10.5) K/mm3 RBC 2.66 L (4.1-5.6) M/mm3 Hgb 4.3 L* (12.5-18.0) gm/dl Hct 16.9 L (42-50) % MCV 63.5 L (78-100) fl MCH 16.2 L (26-32) pg MCHC 25.4 L (32-36) g/dl RDW 21.7 H (11.5-14.0) % Plt Count 655 H (150-450) K/mm3 MPV 8.5 (7.5-11.0) fl Segmented Neutrophils 78 H (36.-66.) % Band Neutrophils 2 (0.0-2.0) % Lymphocytes (Manual) 18 L (24-44) % Monocytes (Manual) 1 (0.0-12.0) % Basophils (Manual) 1 (0.0-1.0) % Hypochromia 2+ Platelet Estimate INCREASED (NORMAL) RBC Morphology ABNORMAL Polychromasia 1+ Poikilocytosis 2+ Basophilic Stippling 1+ Anisocytosis 2+ Spherocytes 1+ Schistocytes 1+ Smear Path Review Pending ESR 10 (0-15) mm/hr D-Dimer 2753 H* (215-500) ng/mL Sodium (137-145) mmol/L Potassium (3.5-5.1) mmol/L Chloride (98-107) mmol/L Carbon Dioxide (22-30) mmol/L Anion Gap (5-15) MEQ/L BUN (9-20) mg/dL Creatinine (0.66-1.25) mg/dL Estimated GFR ML/MIN Glucose (74-106) mg/dL Lactic Acid 1.1 (0.4-2.0) Calcium (8.4-10.2) mg/dL Total Bilirubin (0.2-1.3) mg/dL AST (17-59) U/L ALT (0-50) U/L Alkaline Phosphatase (38-126) U/L Creatine Kinase (55-170) U/L NT-Pro-B Natriuret Pep (0-450) pg/mL Serum Total Protein (6.3-8.2) g/dL Albumin (3.5-5.0) g/dL SARS-CoV-2 (PCR) (NEGATIVE) ABO Group Rh Factor Antibody Screen (NEGATIVE) Crossmatch (COMPATIBLE) Lactic Acid (Last 12 Hours) 06/27/21 13:41 Lactic Acid 1.1 Orders (Last 12 Hours) Category Date Time Status Code Status Order ROUTINE Care 06/27/21 15:58 Active IV Care Q6H Care 06/27/21 15:[address] in Observation ROUTINE Care 06/27/21 15:58 Active House Regular Diet Diet 06/27/21 Dinner Active VENOUS BILATERAL EXTREMITY [US] Stat Exams 06/28/21 Ordered CBC W DIFF AM.LAB Lab 06/28/21 04:00 Ordered CBC W DIFF Stat Lab 06/27/21 14:45 Results CMP AM.LAB Lab 06/28/21 04:00 Ordered Erythrocyte Sedimentation Rate Stat Lab 06/27/21 14:45 Results Lactic Acid AM.LAB Lab 06/28/21 04:00 Ordered Manual Differential NC Stat Lab 06/27/21 14:45 Results Pathologist Review Stat Lab 06/27/21 14:45 Results UA W/RFX UR CULTURE Stat Lab 06/27/21 13:42 Ordered Hydromorphone 1 mg/1Ml Inj [Hydromorphone 1 mg/ml Med 06/27/21 17:53 Ordered Injection] 1 mg IV Q4H PRN PRN NaCl 0.9% 1000 ml [Sodium Chloride 0.9% 1000 ML] 1,000 Med 06/27/21 18:00 Ordered ml IV 100 mls/hr Oxygen Nasal Cannula 2 lpm RT 06/27/21 17:51 Active Pulse Oximetry .continuos RT 06/27/21 19:45 Active Active Visit Medications Generic Name Dose Route Start Last Admin Trade Name Freq PRN Reason Stop Dose Admin Hydromorphone HCl 1 mg 06/27/21 17:53 06/27/21 18:03 Hydromorphone 1 Mg/Ml Injection IV 07/02/21 17:52 1 mg Q4H PRN PRN Administration PAIN Sodium Chloride 1,000 mls @ 100 mls/hr 06/27/21 18:00 Sodium Chloride 0.9% 1000 Ml IV 07/27/21 17:59 .Q10H [facility] Home Medications Medication Instructions Recorded Confirmed Last Taken Type Sulfasalazine [Sulfasalazine Dr] 500 mg PO DAILY 06/27/21 06/27/21 Unknown History Initialized on 06/27/21 22:18 - END OF NOTE Code(s): D64.9 - ANEMIA, UNSPECIFIED (2) History of ulcerative colitis Current Visit: Yes Status: Acute Code(s): Z87.19 - PERSONAL HISTORY OF OTHER DISEASES OF THE DIGESTIVE SYSTEM (3) Suspected DVT (deep vein thrombosis) Current Visit: Yes Status: Acute Code(s): R09.89 - OTH SYMPTOMS AND SIGNS INVOLVING THE CIRC AND RESP SYSTEMS
[2021-06-28] MEDS ORDERED: TYLENOL EXTRA STRENGTH 500 MG PO PRN (08:40)
[2021-06-28] MEDS ORDERED: solu-MEDROL 125 MG, Sterile H2O 10 ml 2 ML IV ONE ×4 (09:00→15:00)
[2021-06-28 09:14] LABS: BAND 18 % (0.0-2.0); Basophil 1 % (0.0-1.0); Hypochromia 2+; Lymphocytes 24 % (24-44); Monocyte 6 % (0.0-12.0); Neutrophils 51 % (36.-66.); Platelet Estimate INCREASED (NORMAL); Polychromasia 2+; Total Cells Counted 100
[2021-06-28 09:15] LABS: ANISOCYTOSIS 2+; Microcytosis 1+
[2021-06-28 09:17] LABS: Poikilocytosis 1+
[2021-06-28 10:13] LABS: Appearance CLEAR (CLEAR); Bilirubin NEGATIVE (NEGATIVE); Blood NEGATIVE Ery/ul (0-5); Glucose NEGATIVE (NEGATIVE); Ketones NEGATIVE (NEGATIVE); Leukocyte Esterase NEGATIVE (NEGATIVE); Mucus SLIGHT /HPF (NEGATIVE); Nitrite NEGATIVE (NEGATIVE); Protein,Urine Dip NEGATIVE (Negative); Specific Gravity 1.018 (1.005-1.025); Urobilinogen NEGATIVE mg/dL (0-1)
[2021-06-28 10:26] LABS: Bacteria NONE SEEN /HPF (NEGATIVE)
[2021-06-28 12:22] VITALS: BP 97/54; PULSE 90; O2SAT 97
[2021-06-28] MEDS ORDERED: solu-MEDROL 125 MG, Sterile H2O 10 ml 2 ML IV SCH ×4 (13:00→21:00)
--- NOTE | 2021-06-28 13:57 | PCM.DS ---
Discharge Summary Date of Admission: 06/27/21 16:55 Admitting Physician: ERNIE PEDRO Primary Care Provider: ADRIAN BAIN Allergies Allergies No Known Drug Allergies Allergy (Verified 07/01/19 19:53) Hospital Summary - Hospital Course Hospital Course: Chief Complaint Diagnosis bloody stools for 2-3 days. Allergies Allergy/AdvReac Type Severity Reaction Status Date / Time No Known Drug Allergies Allergy Verified 07/01/19 19:53 Vital Signs (Last 24 hours) Temp Pulse Resp BP BP Pulse Ox 06/28/21 12:00 99.2 F 90 16 97/54 97 06/28/21 08:00 100.3 F 104 H 16 103/60 99 06/28/21 07:07 99 06/28/21 03:31 98.0 F 70 20 104/65 98 06/28/21 00:00 98.3 F 89 18 115/58 96 06/27/21 20:00 98.4 F 86 102/63 06/27/21 19:47 97 06/27/21 17:20 98.6 F 76 18 108/61 100 06/27/21 16:26 89 18 112/65 100 06/27/21 15:58 100 06/27/21 15:10 86 18 100/64 100 06/27/21 14:46 74 18 102/59 100 Home Medications Medication Instructions Recorded Confirmed Last Taken Type Sulfasalazine [Sulfasalazine Dr] 500 mg PO DAILY 06/27/21 06/27/21 Unknown History Current Medications Generic Name Dose Route Start Last Admin Trade Name Freq PRN Reason Stop Dose Admin Acetaminophen 500 mg 06/28/21 08:40 Tylenol Extra Strength 500 Mg PO 07/28/21 08:39 Q4H PRN PRN FEVER Methylprednisolone Sodium 0 mg 06/28/21 15:00 Succinate 125 mg/ Sterile IV 06/28/21 15:01 Water 2 ml ONCE ONE Methylprednisolone Sodium 0 mg 06/28/21 21:00 Succinate 125 mg/ Sterile IV 07/28/21 20:59 Water 2 ml Q6H ALEXIS Hydromorphone HCl 1 mg 06/27/21 17:53 06/28/21 12:44 Hydromorphone 1 Mg/Ml Injection IV 07/02/21 17:52 1 mg Q4H PRN PRN Administration PAIN Sodium Chloride 1,000 mls @ 150 mls/hr 06/27/21 18:00 06/28/21 12:44 Sodium Chloride 0.9% 1000 Ml IV 07/27/21 17:59 150 mls/hr .Q6H40M ALEXIS Administration Ondansetron HCl 4 mg 06/27/21 22:19 06/28/21 04:46 Zofran 4 Mg/2 Ml Vial IV 07/27/21 22:18 4 mg Q6H PRN PRN Administration NAUSEA/VOMITING Discontinued Medications Generic Name Dose Route Start Last Admin Trade Name Freq PRN Reason Stop Dose Admin Hydrocodone Bitart/Acetaminophen 1 tab 06/27/21 15:47 06/27/21 15:52 Aubrey 5/325 Mg PO 06/27/21 15:48 1 tab STAT ONE Administration Hydrocodone Bitart/Acetaminophen Confirm 06/27/21 15:51 Aubrey 5/325 Mg Administered 06/27/21 15:52 Dose 1 tab .ROUTE .STK-MED ONE Methylprednisolone Sodium 0 mg 06/28/21 09:00 06/28/21 09:27 Succinate 125 mg/ Sterile IV 06/28/21 09:01 125 mg Water 2 ml ONCE ONE Administration Methylprednisolone Sodium 0 mg 06/28/21 13:00 Succinate 125 mg/ Sterile IV 07/28/21 12:59 Water 2 ml Q6HT ALEXIS Hydromorphone HCl 1 mg 06/27/21 15:58 Hydromorphone 1 Mg/Ml Injection IV 07/02/21 15:57 Q4H PRN PRN PAIN Hydromorphone HCl Confirm 06/28/21 07:29 Hydromorphone 1 Mg/Ml Injection Administered 06/28/21 07:30 Dose 1 mg .ROUTE .STK-MED ONE Sodium Chloride 1,000 mls @ 100 mls/hr 06/27/21 16:00 06/27/21 16:22 Sodium Chloride 0.9% 1000 Ml IV 07/27/21 15:59 100 mls/hr .Q10H ALEXIS Administration Sodium Chloride Confirm 06/27/21 16:20 Sodium Chloride 0.9% 1000 Ml Administered 06/27/21 16:21 Dose 1,000 mls @ ud .ROUTE .STK-MED ONE Sodium Chloride Confirm 06/27/21 18:11 Sodium Chloride 0.9% 500 Ml Administered 06/27/21 18:12 Dose 500 mls @ ud IV .STK-MED ONE Intake & Output (Last 24 hours) 06/26/21 06/27/21 06/28/21 06/29/21 11:59 11:59 11:59 11:59 Intake Total 1100 Output Total 500 Balance 600 Weight 56.8 kg Laboratory Results (Last 24 hours) 06/28/21 06/28/21 06/28/21 10:05 05:55 05:55 WBC 21.0 H RBC 4.59 Hgb 10.0 L D Hct 33.0 L MCV 71.9 L D MCH 21.8 L MCHC 30.3 L RDW Plt Count 636 H MPV 8.8 Segmented Neutrophils 51 Band Neutrophils 18 H Lymphocytes (Manual) 24 Monocytes (Manual) 6 Basophils (Manual) 1 Hypochromia 2+ Platelet Estimate INCREASED RBC Morphology ABNORMAL Polychromasia 2+ Poikilocytosis 1+ Basophilic Stippling Anisocytosis 2+ Microcytosis 1+ Spherocytes Schistocytes ESR D-Dimer Sodium 134 L Potassium 3.5 Chloride 94 L Carbon Dioxide 28 Anion Gap 14.9 BUN 8 L Creatinine 0.85 Estimated GFR > 60.0 Glucose 105 Lactic Acid Calcium 8.5 Total Bilirubin 0.70 AST 20 ALT 11 Alkaline Phosphatase 96 Creatine Kinase NT-Pro-B Natriuret Pep Serum Total Protein 7.1 Albumin 3.6 Urine Color YELLOW Urine Appearance CLEAR Urine pH 6.0 Ur Specific [place] 1.018 Urine Protein NEGATIVE Urine Ketones NEGATIVE Urine Blood NEGATIVE Urine Nitrite NEGATIVE Urine Bilirubin NEGATIVE Urine Urobilinogen NEGATIVE Ur Leukocyte Esterase NEGATIVE Urine WBC (Auto) 3-5 Urine RBC (Auto) NONE U Epithel Cells (Auto) NONE Urine Bacteria (Auto) NONE SEEN Urine Mucus (Auto) SLIGHT Urine Culture Reflexed NO Urine Glucose NEGATIVE SARS-CoV-2 (PCR) ABO Group Rh Factor Antibody Screen Crossmatch 06/28/21 06/27/21 06/27/21 04:00 15:26 14:45 WBC RBC Hgb Hct MCV MCH MCHC RDW Plt Count MPV Segmented Neutrophils Band Neutrophils Lymphocytes (Manual) Monocytes (Manual) Basophils (Manual) Hypochromia Platelet Estimate RBC Morphology Polychromasia Poikilocytosis Basophilic Stippling Anisocytosis Microcytosis Spherocytes Schistocytes ESR D-Dimer Sodium Potassium Chloride Carbon Dioxide Anion Gap BUN Creatinine Estimated GFR Glucose Lactic Acid 2.3 H Calcium Total Bilirubin AST ALT Alkaline Phosphatase Creatine Kinase NT-Pro-B Natriuret Pep Serum Total Protein Albumin Urine Color Urine Appearance Urine pH Ur Specific [place] Urine Protein Urine Ketones Urine Blood Urine Nitrite Urine Bilirubin Urine Urobilinogen Ur Leukocyte Esterase Urine WBC (Auto) Urine RBC (Auto) U Epithel Cells (Auto) Urine Bacteria (Auto) Urine Mucus (Auto) Urine Culture Reflexed Urine Glucose SARS-CoV-2 (PCR) NEGATIVE ABO Group Rh Factor Antibody Screen Crossmatch COMPATIBLE 06/27/21 06/27/21 06/27/21 14:45 14:45 14:45 WBC RBC Hgb Hct MCV MCH MCHC RDW Plt Count MPV Segmented Neutrophils Band Neutrophils Lymphocytes (Manual) Monocytes (Manual) Basophils (Manual) Hypochromia Platelet Estimate RBC Morphology Polychromasia Poikilocytosis Basophilic Stippling Anisocytosis Microcytosis Spherocytes Schistocytes ESR D-Dimer Sodium 132 L Potassium 3.3 L Chloride 99 Carbon Dioxide 27 Anion Gap 10.2 BUN 7 L Creatinine 0.81 Estimated GFR > 60.0 Glucose 99 Lactic Acid Calcium 7.8 L Total Bilirubin < 0.10 L AST 16 L ALT 6 Alkaline Phosphatase 75 Creatine Kinase NT-Pro-B Natriuret Pep Serum Total Protein 5.7 L Albumin 2.7 L Urine Color Urine Appearance Urine pH Ur Specific [place] Urine Protein Urine Ketones Urine Blood Urine Nitrite Urine Bilirubin Urine Urobilinogen Ur Leukocyte Esterase Urine WBC (Auto) Urine RBC (Auto) U Epithel Cells (Auto) Urine Bacteria (Auto) Urine Mucus (Auto) Urine Culture Reflexed Urine Glucose SARS-CoV-2 (PCR) ABO Group A Rh Factor POSITIVE Antibody Screen NEGATIVE Crossmatch COMPATIBLE COMPATIBLE 06/27/21 06/27/21 06/27/21 14:45 14:45 13:41 WBC 14.9 H RBC 2.66 L Hgb 4.3 L* Hct 16.9 L MCV 63.5 L MCH 16.2 L MCHC 25.4 L RDW 21.7 H Plt Count 655 H MPV 8.5 Segmented Neutrophils 78 H Band Neutrophils 2 Lymphocytes (Manual) 18 L Monocytes (Manual) 1 Basophils (Manual) 1 Hypochromia 2+ Platelet Estimate INCREASED RBC Morphology ABNORMAL Polychromasia 1+ Poikilocytosis 2+ Basophilic Stippling 1+ Anisocytosis 2+ Microcytosis Spherocytes 1+ Schistocytes 1+ ESR 10 D-Dimer 2753 H* Sodium Potassium Chloride Carbon Dioxide Anion Gap BUN Creatinine Estimated GFR Glucose Lactic Acid Calcium Total Bilirubin AST ALT Alkaline Phosphatase Creatine Kinase 74 NT-Pro-B Natriuret Pep 147 Serum Total Protein Albumin Urine Color Urine Appearance Urine pH Ur Specific [place] Urine Protein Urine Ketones Urine Blood Urine Nitrite Urine Bilirubin Urine Urobilinogen Ur Leukocyte Esterase Urine WBC (Auto) Urine RBC (Auto) U Epithel Cells (Auto) Urine Bacteria (Auto) Urine Mucus (Auto) Urine Culture Reflexed Urine Glucose SARS-CoV-2 (PCR) ABO Group Rh Factor Antibody Screen Crossmatch 06/27/21 13:41 WBC RBC Hgb Hct MCV MCH MCHC RDW Plt Count MPV Segmented Neutrophils Band Neutrophils Lymphocytes (Manual) Monocytes (Manual) Basophils (Manual) Hypochromia Platelet Estimate RBC Morphology Polychromasia Poikilocytosis Basophilic Stippling Anisocytosis Microcytosis Spherocytes Schistocytes ESR D-Dimer Sodium Potassium Chloride Carbon Dioxide Anion Gap BUN Creatinine Estimated GFR Glucose Lactic Acid 1.1 Calcium Total Bilirubin AST ALT Alkaline Phosphatase Creatine Kinase NT-Pro-B Natriuret Pep Serum Total Protein Albumin Urine Color Urine Appearance Urine pH Ur Specific [place] Urine Protein Urine Ketones Urine Blood Urine Nitrite Urine Bilirubin Urine Urobilinogen Ur Leukocyte Esterase Urine WBC (Auto) Urine RBC (Auto) U Epithel Cells (Auto) Urine Bacteria (Auto) Urine Mucus (Auto) Urine Culture Reflexed Urine Glucose SARS-CoV-2 (PCR) ABO Group Rh Factor Antibody Screen Crossmatch Orders (Last 24 hours) Category Date Time Status Code Status Order ROUTINE Care 06/27/21 15:58 Active IV Care Q6H Care 06/27/21 15:[address] in Observation ROUTINE Care 06/27/21 15:58 Active Telemetry q6h Care 06/27/21 16:55 Active House Regular Diet Diet 06/27/21 Dinner Active Discharge Routine Discharge 06/28/21 Ordered Discharge/Telephone Order Routine Discharge 06/28/21 Active ANKLE (3 VIEWS) Stat Exams 06/27/21 13:40 Completed LOWER LEG Stat Exams 06/27/21 13:40 Completed VENOUS BILATERAL EXTREMITY [US] Stat Exams 06/28/21 10:59 Taken ABO TYPING Stat Lab 06/27/21 14:45 Completed Antibody Screen Stat Lab 06/27/21 14:45 Completed BLOOD COMPONENT REQUEST Stat Lab 06/27/21 14:45 Completed CBC W DIFF AM.LAB Lab 06/28/21 05:55 Completed CBC W DIFF Stat Lab 06/27/21 14:45 Results CK-Creatinine Phosphokinase Stat Lab 06/27/21 14:45 Completed CMP AM.LAB Lab 06/28/21 05:55 Completed CMP Stat Lab 06/27/21 14:45 Completed D-DIMER QUANTITATIVE Stat Lab 06/27/21 13:41 Completed Erythrocyte Sedimentation Rate Stat Lab 06/27/21 14:45 Results Lactic Acid AM.LAB Lab 06/28/21 04:00 Completed Lactic Acid Stat Lab 06/27/21 13:41 Completed Lactic Acid Stat Lab 06/28/21 08:16 Received Manual Differential NC Routine Lab 06/28/21 05:55 Completed Manual Differential NC Stat Lab 06/27/21 14:45 Results NT PRO BNP Stat Lab 06/27/21 14:45 Completed Pathologist Review Stat Lab 06/27/21 14:45 Results RH TYPING Stat Lab 06/27/21 14:45 Completed SARS-CoV-2 Xpert Express Routine Lab 06/27/21 15:26 Completed UA W/RFX UR CULTURE Stat Lab 06/28/21 10:05 Completed Acetaminophen 500 mg [Tylenol Extra Strength 500 mg* Med 06/28/21 08:40 Active ] 500 mg PO Q4H PRN PRN Hydrocodone/APAP 5/325 [Aubrey 5/325 mg] Med 06/27/21 15:51 Discontinued 1 tab .ROUTE .STK-MED ONE Hydrocodone/APAP 5/325 [Aubrey 5/325 mg] Med 06/27/21 15:47 Discontinued 1 tab PO STAT ONE Hydromorphone 1 mg/1Ml Inj [Hydromorphone 1 mg/ml Med 06/28/21 07:29 Discontinued Injection] 1 mg .ROUTE .STK-MED ONE Hydromorphone 1 mg/1Ml Inj [Hydromorphone 1 mg/ml Med 06/27/21 15:58 Discontinued Injection] 1 mg IV Q4H PRN PRN Hydromorphone 1 mg/1Ml Inj [Hydromorphone 1 mg/ml Med 06/27/21 17:53 Active Injection] 1 mg IV Q4H PRN PRN Methylprednis Sod Succ 125 mg* [solu-MEDROL] 125 mg Med 06/28/21 09:00 Discontinued Water For Injection,Sterile [Sterile H2O 10 ml] 2 ml IV ONCE Methylprednis Sod Succ 125 mg* [solu-MEDROL] 125 mg Med 06/28/21 15:00 Active Water For Injection,Sterile [Sterile H2O 10 ml] 2 ml IV ONCE Methylprednis Sod Succ 125 mg* [solu-MEDROL] 125 mg Med 06/28/21 21:00 Active Water For Injection,Sterile [Sterile H2O 10 ml] 2 ml IV Q6H Methylprednis Sod Succ 125 mg* [solu-MEDROL] 125 mg Med 06/28/21 13:00 Discontinued Water For Injection,Sterile [Sterile H2O 10 ml] 2 ml IV Q6HT NaCl 0.9% 1000 ml [Sodium Chloride 0.9% 1000 ML] 1,000 Med 06/27/21 16:20 Discontinued ml .ROUTE UD NaCl 0.9% 1000 ml [Sodium Chloride 0.9% 1000 ML] 1,000 Med 06/27/21 16:00 Discontinued ml IV 100 mls/hr NaCl 0.9% 1000 ml [Sodium Chloride 0.9% 1000 ML] 1,000 Med 06/27/21 18:00 Active ml IV 150 mls/hr NaCl 0.9% 500 ml [Sodium Chloride 0.9% 500 ML] 500 ml Med 06/27/21 18:11 Discontinued IV UD Ondansetron HCl 4 mg/2 ml [Zofran 4 MG/2 ML VIAL] Med 06/27/21 22:19 Active 4 mg IV Q6H PRN PRN Oxygen Nasal Cannula 2 lpm RT 06/27/21 17:51 Active Pulse Oximetry .continuos RT 06/27/21 19:45 Active Smoking Cessation Education ONCE RT 06/27/21 17:45 Completed Patient Care Notes (Last 24 hours) 06/28/21 13:38 Nursing Note by Reba Doyle gave report to ANAHI De La Vega at [facility] Initialized on 06/28/21 13:38 - END OF NOTE 06/28/21 12:16 Nursing Note by Kacie Lopez ROUNDED WITH DR. PEDRO. GAVE ORDERS TO TRANSFER TO PATIENT'S GI DOC DR. LOMELI. HYDROCORTISONE ENEMA. Addendum entered by Kacie Lopez RN 06/28/21 12:23: ORDER FOR HYDROCORTISONE ENEMA. WE DO NOT HAVE IN STOCK. DR PEDRO NOTIFIED Initialized on 06/28/21 12:16 - END OF NOTE 06/28/21 09:38 Nursing Note by Isabell Trotter Patient refused the Tylenol at this time, states causes upset stomach, temp down to 99 currently. Tylenol returned to the pyxis Initialized on 06/28/21 09:38 - END OF NOTE 06/28/21 06:10 Nursing Note by Raissa White Pt has had episodes of bloody diarrhea x4 throughout the night and so far this am. Dark red manisha blood watery with small amounts of brown stool. Unable to measure d/t pt throwing paper into BSC. Most recent episode was a couple of inches deep in BSC. Initialized on 06/28/21 06:10 - END OF NOTE 06/27/21 22:18 SBAR Note by Raissa White SITUATION I am calling about [employer] the patient's code status is Full Code The problem I am calling about is: pt having nausea and vomiting ASSESSMENT Pt is having nausea and large episodes of emesis RECOMMENDATION Physician notified at [id number] New Orders received: 4 mg zofran IV Q6 PRN Vital Signs (Last 4 hours) Temp Pulse BP Pulse Ox 06/27/21 20:00 98.4 F 86 102/63 06/27/21 19:47 97 [place], Code Status Date of Arrival on Unit 06/27/21 Admitted From Emergency Dept Diagnosis anemia Resucitation Status Full Code Intake and Output 12 Hours 06/27/21 06/28/21 18:59 06:59 Intake Total 100 Output Total 400 Balance 100 -400 Weight 56.8 kg Intake: Intake, Oral Amount 100 Output: Output, Emesis Amount 400 Other: Number of Voids 1 Number of Bowel Movements 1 Physical Assessment Anxiety Level None,at ease,Awake,Calm Mental Status Alert Patient Orientation Person,Place,Time Breath Sounds [Anterior/ Clear Posterior Bilateral Throughout ] Bowel Sounds [All Quadrants] Present,Hyperactive Abdomen Description Soft,Tender with Palpation Urine Appearance Not Voided Skin Color Pale Skin Temperature Warm Pain Scale (Last 12 Hours) Pain Intensity 0 Pain Intensity 0 Pain Intensity 4 Pain Intensity 4 Pain Intensity 4 Pain Intensity 4 Pain Intensity 9 Pain Intensity 4 Pain Intensity 4 Pain Intensity 4 Pain Intensity 4 Pain Intensity 4 Pain Intensity 4 Pain Intensity 4 PAST MEDICAL HISTORY Neurological History No Pertinent History ENT History No Pertinent History Endocrine Medical History No Pertinent History Respiratory History No Pertinent History Cardiac History No Pertinent History GI Medical History Colitis History No Pertinent History Pyscho-Social History Other Communicable Disease No Pertinent History Comment pt has ADHD and oppositional defiance disorder Diet Order (Last 12 Hours) 06/27/21 Dinner House Regular Diet Lab Results (Last 12 Hours) 06/27/21 06/27/21 06/27/21 Range/Units 15:26 14:45 14:45 WBC (4.0-10.5) K/mm3 RBC (4.1-5.6) M/mm3 Hgb (12.5-18.0) gm/dl Hct (42-50) % MCV (78-100) fl MCH (26-32) pg MCHC (32-36) g/dl RDW (11.5-14.0) % Plt Count (150-450) K/mm3 MPV (7.5-11.0) fl Segmented Neutrophils (36.-66.) % Band Neutrophils (0.0-2.0) % Lymphocytes (Manual) (24-44) % Monocytes (Manual) (0.0-12.0) % Basophils (Manual) (0.0-1.0) % Hypochromia Platelet Estimate (NORMAL) RBC Morphology Polychromasia Poikilocytosis Basophilic Stippling Anisocytosis Spherocytes Schistocytes Smear Path Review ESR (0-15) mm/hr D-Dimer (215-500) ng/mL Sodium (137-145) mmol/L Potassium (3.5-5.1) mmol/L Chloride (98-107) mmol/L Carbon Dioxide (22-30) mmol/L Anion Gap (5-15) MEQ/L BUN (9-20) mg/dL Creatinine (0.66-1.25) mg/dL Estimated GFR ML/MIN Glucose (74-106) mg/dL Lactic Acid (0.4-2.0) Calcium (8.4-10.2) mg/dL Total Bilirubin (0.2-1.3) mg/dL AST (17-59) U/L ALT (0-50) U/L Alkaline Phosphatase (38-126) U/L Creatine Kinase (55-170) U/L NT-Pro-B Natriuret Pep (0-450) pg/mL Serum Total Protein (6.3-8.2) g/dL Albumin (3.5-5.0) g/dL SARS-CoV-2 (PCR) NEGATIVE (NEGATIVE) ABO Group Rh Factor Antibody Screen (NEGATIVE) Crossmatch COMPATIBLE COMPATIBLE (COMPATIBLE) 06/27/21 06/27/21 06/27/21 Range/Units 14:45 14:45 14:45 WBC (4.0-10.5) K/mm3 RBC (4.1-5.6) M/mm3 Hgb (12.5-18.0) gm/dl Hct (42-50) % MCV (78-100) fl MCH (26-32) pg MCHC (32-36) g/dl RDW (11.5-14.0) % Plt Count (150-450) K/mm3 MPV (7.5-11.0) fl Segmented Neutrophils (36.-66.) % Band Neutrophils (0.0-2.0) % Lymphocytes (Manual) (24-44) % Monocytes (Manual) (0.0-12.0) % Basophils (Manual) (0.0-1.0) % Hypochromia Platelet Estimate (NORMAL) RBC Morphology Polychromasia Poikilocytosis Basophilic Stippling Anisocytosis Spherocytes Schistocytes Smear Path Review ESR (0-15) mm/hr D-Dimer (215-500) ng/mL Sodium 132 L (137-145) mmol/L Potassium 3.3 L (3.5-5.1) mmol/L Chloride 99 (98-107) mmol/L Carbon Dioxide 27 (22-30) mmol/L Anion Gap 10.2 (5-15) MEQ/L BUN 7 L (9-20) mg/dL Creatinine 0.81 (0.66-1.25) mg/dL Estimated GFR > 60.0 ML/MIN Glucose 99 (74-106) mg/dL Lactic Acid (0.4-2.0) Calcium 7.8 L (8.4-10.2) mg/dL Total Bilirubin < 0.10 L (0.2-1.3) mg/dL AST 16 L (17-59) U/L ALT 6 (0-50) U/L Alkaline Phosphatase 75 (38-126) U/L Creatine Kinase 74 (55-170) U/L NT-Pro-B Natriuret Pep 147 (0-450) pg/mL Serum Total Protein 5.7 L (6.3-8.2) g/dL Albumin 2.7 L (3.5-5.0) g/dL SARS-CoV-2 (PCR) (NEGATIVE) ABO Group A Rh Factor POSITIVE Antibody Screen NEGATIVE (NEGATIVE) Crossmatch COMPATIBLE (COMPATIBLE) 06/27/21 06/27/21 06/27/21 Range/Units 14:45 13:41 13:41 WBC 14.9 H (4.0-10.5) K/mm3 RBC 2.66 L (4.1-5.6) M/mm3 Hgb 4.3 L* (12.5-18.0) gm/dl Hct 16.9 L (42-50) % MCV 63.5 L (78-100) fl MCH 16.2 L (26-32) pg MCHC 25.4 L (32-36) g/dl RDW 21.7 H (11.5-14.0) % Plt Count 655 H (150-450) K/mm3 MPV 8.5 (7.5-11.0) fl Segmented Neutrophils 78 H (36.-66.) % Band Neutrophils 2 (0.0-2.0) % Lymphocytes (Manual) 18 L (24-44) % Monocytes (Manual) 1 (0.0-12.0) % Basophils (Manual) 1 (0.0-1.0) % Hypochromia 2+ Platelet Estimate INCREASED (NORMAL) RBC Morphology ABNORMAL Polychromasia 1+ Poikilocytosis 2+ Basophilic Stippling 1+ Anisocytosis 2+ Spherocytes 1+ Schistocytes 1+ Smear Path Review Pending ESR 10 (0-15) mm/hr D-Dimer 2753 H* (215-500) ng/mL Sodium (137-145) mmol/L Potassium (3.5-5.1) mmol/L Chloride (98-107) mmol/L Carbon Dioxide (22-30) mmol/L Anion Gap (5-15) MEQ/L BUN (9-20) mg/dL Creatinine (0.66-1.25) mg/dL Estimated GFR ML/MIN Glucose (74-106) mg/dL Lactic Acid 1.1 (0.4-2.0) Calcium (8.4-10.2) mg/dL Total Bilirubin (0.2-1.3) mg/dL AST (17-59) U/L ALT (0-50) U/L Alkaline Phosphatase (38-126) U/L Creatine Kinase (55-170) U/L NT-Pro-B Natriuret Pep (0-450) pg/mL Serum Total Protein (6.3-8.2) g/dL Albumin (3.5-5.0) g/dL SARS-CoV-2 (PCR) (NEGATIVE) ABO Group Rh Factor Antibody Screen (NEGATIVE) Crossmatch (COMPATIBLE) Lactic Acid (Last 12 Hours) 06/27/21 13:41 Lactic Acid 1.1 Orders (Last 12 Hours) Category Date Time Status Code Status Order ROUTINE Care 06/27/21 15:58 Active IV Care Q6H Care 06/27/21 15:[address] in Observation ROUTINE Care 06/27/21 15:58 Active House Regular Diet Diet 06/27/21 Dinner Active VENOUS BILATERAL EXTREMITY [US] Stat Exams 06/28/21 Ordered CBC W DIFF AM.LAB Lab 06/28/21 04:00 Ordered CBC W DIFF Stat Lab 06/27/21 14:45 Results CMP AM.LAB Lab 06/28/21 04:00 Ordered Erythrocyte Sedimentation Rate Stat Lab 06/27/21 14:45 Results Lactic Acid AM.LAB Lab 06/28/21 04:00 Ordered Manual Differential NC Stat Lab 06/27/21 14:45 Results Pathologist Review Stat Lab 06/27/21 14:45 Results UA W/RFX UR CULTURE Stat Lab 06/27/21 13:42 Ordered Hydromorphone 1 mg/1Ml Inj [Hydromorphone 1 mg/ml Med 06/27/21 17:53 Ordered Injection] 1 mg IV Q4H PRN PRN NaCl 0.9% 1000 ml [Sodium Chloride 0.9% 1000 ML] 1,000 Med 06/27/21 18:00 Ordered ml IV 100 mls/hr Oxygen Nasal Cannula 2 lpm RT 06/27/21 17:51 Active Pulse Oximetry .continuos RT 06/27/21 19:45 Active Active Visit Medications Generic Name Dose Route Start Last Admin Trade Name Freq PRN Reason Stop Dose Admin Hydromorphone HCl 1 mg 06/27/21 17:53 06/27/21 18:03 Hydromorphone 1 Mg/Ml Injection IV 07/02/21 17:52 1 mg Q4H PRN PRN Administration PAIN Sodium Chloride 1,000 mls @ 100 mls/hr 06/27/21 18:00 Sodium Chloride 0.9% 1000 Ml IV 07/27/21 17:59 .Q10H ALEXIS Home Medications Medication Instructions Recorded Confirmed Last Taken Type Sulfasalazine [Sulfasalazine Dr] 500 mg PO DAILY 06/27/21 06/27/21 Unknown History Initialized on 06/27/21 22:18 - END OF NOTE Patient has ulcerative colitis and his GI specialist is Dr Fisher who is in [facility]. Covering physician advised patient to be transferred to [facility] for further management. DR Horta (hospitalist) accepted patient. Will transfer patient to [facility], [place]. - Vitals & Intake/Output Vital Signs: Vital Signs Temperature 99.2 F 06/28/21 12:00 Pulse Rate 90 06/28/21 12:00 Respiratory Rate 16 06/28/21 12:00 Blood Pressure 97/54 06/28/21 12:00 O2 Sat by Pulse Oximetry 97 06/28/21 12:00 Intake & Output: Intake & Output 06/26/21 06/27/21 06/28/21 06/29/21 11:59 11:59 11:59 11:59 Intake Total 1100 Output Total 500 Balance 600 Weight 56.8 kg - Lab Result Diagrams: 06/28/21 05:55 06/28/21 05:55 Lab Results-Last 24 Hrs: Lab Results-Last 24 Hours 06/27/21 06/27/21 06/27/21 Range/Units 13:41 13:41 14:45 WBC 14.9 H (4.0-10.5) K/mm3 RBC 2.66 L (4.1-5.6) M/mm3 Hgb 4.3 L* (12.5-18.0) gm/dl Hct 16.9 L (42-50) % MCV 63.5 L (78-100) fl MCH 16.2 L (26-32) pg MCHC 25.4 L (32-36) g/dl RDW 21.7 H (11.5-14.0) % Plt Count 655 H (150-450) K/mm3 MPV 8.5 (7.5-11.0) fl Segmented Neutrophils 78 H (36.-66.) % Band Neutrophils 2 (0.0-2.0) % Lymphocytes (Manual) 18 L (24-44) % Monocytes (Manual) 1 (0.0-12.0) % Basophils (Manual) 1 (0.0-1.0) % Hypochromia 2+ Platelet Estimate INCREASED (NORMAL) RBC Morphology ABNORMAL Polychromasia 1+ Poikilocytosis 2+ Basophilic Stippling 1+ Anisocytosis 2+ Microcytosis Spherocytes 1+ Schistocytes 1+ Smear Path Review Pending ESR 10 (0-15) mm/hr D-Dimer 2753 H* (215-500) ng/mL Sodium (137-145) mmol/L Potassium (3.5-5.1) mmol/L Chloride (98-107) mmol/L Carbon Dioxide (22-30) mmol/L Anion Gap (5-15) MEQ/L BUN (9-20) mg/dL Creatinine (0.66-1.25) mg/dL Estimated GFR ML/MIN Glucose (74-106) mg/dL Lactic Acid 1.1 (0.4-2.0) Calcium (8.4-10.2) mg/dL Total Bilirubin (0.2-1.3) mg/dL AST (17-59) U/L ALT (0-50) U/L Alkaline Phosphatase (38-126) U/L Creatine Kinase (55-170) U/L NT-Pro-B Natriuret Pep (0-450) pg/mL Serum Total Protein (6.3-8.2) g/dL Albumin (3.5-5.0) g/dL Urine Color (YELLOW) Urine Appearance (CLEAR) Urine pH (5-6) Ur Specific [place] (1.005-1.025) Urine Protein (Negative) Urine Ketones (NEGATIVE) Urine Blood (0-5) Aaron/ul Urine Nitrite (NEGATIVE) Urine Bilirubin (NEGATIVE) Urine Urobilinogen (0-1) mg/dL Ur Leukocyte Esterase (NEGATIVE) Urine WBC (Auto) (0-5) /HPF Urine RBC (Auto) (0-2) /HPF U Epithel Cells (Auto) (FEW) /HPF Urine Bacteria (Auto) (NEGATIVE) /HPF Urine Mucus (Auto) (NEGATIVE) /HPF Urine Culture Reflexed (NO) Urine Glucose (NEGATIVE) mg/dL SARS-CoV-2 (PCR) (NEGATIVE) ABO Group Rh Factor Antibody Screen (NEGATIVE) Crossmatch (COMPATIBLE) 06/27/21 06/27/21 06/27/21 Range/Units 14:45 14:45 14:45 WBC (4.0-10.5) K/mm3 RBC (4.1-5.6) M/mm3 Hgb (12.5-18.0) gm/dl Hct (42-50) % MCV (78-100) fl MCH (26-32) pg MCHC (32-36) g/dl RDW (11.5-14.0) % Plt Count (150-450) K/mm3 MPV (7.5-11.0) fl Segmented Neutrophils (36.-66.) % Band Neutrophils (0.0-2.0) % Lymphocytes (Manual) (24-44) % Monocytes (Manual) (0.0-12.0) % Basophils (Manual) (0.0-1.0) % Hypochromia Platelet Estimate (NORMAL) RBC Morphology Polychromasia Poikilocytosis Basophilic Stippling Anisocytosis Microcytosis Spherocytes Schistocytes Smear Path Review ESR (0-15) mm/hr D-Dimer (215-500) ng/mL Sodium 132 L (137-145) mmol/L Potassium 3.3 L (3.5-5.1) mmol/L Chloride 99 (98-107) mmol/L Carbon Dioxide 27 (22-30) mmol/L Anion Gap 10.2 (5-15) MEQ/L BUN 7 L (9-20) mg/dL Creatinine 0.81 (0.66-1.25) mg/dL Estimated GFR > 60.0 ML/MIN Glucose 99 (74-106) mg/dL Lactic Acid (0.4-2.0) Calcium 7.8 L (8.4-10.2) mg/dL Total Bilirubin < 0.10 L (0.2-1.3) mg/dL AST 16 L (17-59) U/L ALT 6 (0-50) U/L Alkaline Phosphatase 75 (38-126) U/L Creatine Kinase 74 (55-170) U/L NT-Pro-B Natriuret Pep 147 (0-450) pg/mL Serum Total Protein 5.7 L (6.3-8.2) g/dL Albumin 2.7 L (3.5-5.0) g/dL Urine Color (YELLOW) Urine Appearance (CLEAR) Urine pH (5-6) Ur Specific [place] (1.005-1.025) Urine Protein (Negative) Urine Ketones (NEGATIVE) Urine Blood (0-5) Aaron/ul Urine Nitrite (NEGATIVE) Urine Bilirubin (NEGATIVE) Urine Urobilinogen (0-1) mg/dL Ur Leukocyte Esterase (NEGATIVE) Urine WBC (Auto) (0-5) /HPF Urine RBC (Auto) (0-2) /HPF U Epithel Cells (Auto) (FEW) /HPF Urine Bacteria (Auto) (NEGATIVE) /HPF Urine Mucus (Auto) (NEGATIVE) /HPF Urine Culture Reflexed (NO) Urine Glucose (NEGATIVE) mg/dL SARS-CoV-2 (PCR) (NEGATIVE) ABO Group A Rh Factor POSITIVE Antibody Screen NEGATIVE (NEGATIVE) Crossmatch COMPATIBLE (COMPATIBLE) 06/27/21 06/27/21 06/27/21 Range/Units 14:45 14:45 15:26 WBC (4.0-10.5) K/mm3 RBC (4.1-5.6) M/mm3 Hgb (12.5-18.0) gm/dl Hct (42-50) % MCV (78-100) fl MCH (26-32) pg MCHC (32-36) g/dl RDW (11.5-14.0) % Plt Count (150-450) K/mm3 MPV (7.5-11.0) fl Segmented Neutrophils (36.-66.) % Band Neutrophils (0.0-2.0) % Lymphocytes (Manual) (24-44) % Monocytes (Manual) (0.0-12.0) % Basophils (Manual) (0.0-1.0) % Hypochromia Platelet Estimate (NORMAL) RBC Morphology Polychromasia Poikilocytosis Basophilic Stippling Anisocytosis Microcytosis Spherocytes Schistocytes Smear Path Review ESR (0-15) mm/hr D-Dimer (215-500) ng/mL Sodium (137-145) mmol/L Potassium (3.5-5.1) mmol/L Chloride (98-107) mmol/L Carbon Dioxide (22-30) mmol/L Anion Gap (5-15) MEQ/L BUN (9-20) mg/dL Creatinine (0.66-1.25) mg/dL Estimated GFR ML/MIN Glucose (74-106) mg/dL Lactic Acid (0.4-2.0) Calcium (8.4-10.2) mg/dL Total Bilirubin (0.2-1.3) mg/dL AST (17-59) U/L ALT (0-50) U/L Alkaline Phosphatase (38-126) U/L Creatine Kinase (55-170) U/L NT-Pro-B Natriuret Pep (0-450) pg/mL Serum Total Protein (6.3-8.2) g/dL Albumin (3.5-5.0) g/dL Urine Color (YELLOW) Urine Appearance (CLEAR) Urine pH (5-6) Ur Specific [place] (1.005-1.025) Urine Protein (Negative) Urine Ketones (NEGATIVE) Urine Blood (0-5) Aaron/ul Urine Nitrite (NEGATIVE) Urine Bilirubin (NEGATIVE) Urine Urobilinogen (0-1) mg/dL Ur Leukocyte Esterase (NEGATIVE) Urine WBC (Auto) (0-5) /HPF Urine RBC (Auto) (0-2) /HPF U Epithel Cells (Auto) (FEW) /HPF Urine Bacteria (Auto) (NEGATIVE) /HPF Urine Mucus (Auto) (NEGATIVE) /HPF Urine Culture Reflexed (NO) Urine Glucose (NEGATIVE) mg/dL SARS-CoV-2 (PCR) NEGATIVE (NEGATIVE) ABO Group Rh Factor Antibody Screen (NEGATIVE) Crossmatch COMPATIBLE COMPATIBLE (COMPATIBLE) 06/28/21 06/28/21 06/28/21 Range/Units 04:00 05:55 05:55 WBC 21.0 H (4.0-10.5) K/mm3 RBC 4.59 (4.1-5.6) M/mm3 Hgb 10.0 L D (12.5-18.0) gm/dl Hct 33.0 L (42-50) % MCV 71.9 L D (78-100) fl MCH 21.8 L (26-32) pg MCHC 30.3 L (32-36) g/dl RDW (11.5-14.0) % Plt Count 636 H (150-450) K/mm3 MPV 8.8 (7.5-11.0) fl Segmented Neutrophils 51 (36.-66.) % Band Neutrophils 18 H (0.0-2.0) % Lymphocytes (Manual) 24 (24-44) % Monocytes (Manual) 6 (0.0-12.0) % Basophils (Manual) 1 (0.0-1.0) % Hypochromia 2+ Platelet Estimate INCREASED (NORMAL) RBC Morphology ABNORMAL Polychromasia 2+ Poikilocytosis 1+ Basophilic Stippling Anisocytosis 2+ Microcytosis 1+ Spherocytes Schistocytes Smear Path Review ESR (0-15) mm/hr D-Dimer (215-500) ng/mL Sodium 134 L (137-145) mmol/L Potassium 3.5 (3.5-5.1) mmol/L Chloride 94 L (98-107) mmol/L Carbon Dioxide 28 (22-30) mmol/L Anion Gap 14.9 (5-15) MEQ/L BUN 8 L (9-20) mg/dL Creatinine 0.85 (0.66-1.25) mg/dL Estimated GFR > 60.0 ML/MIN Glucose 105 (74-106) mg/dL Lactic Acid 2.3 H (0.4-2.0) Calcium 8.5 (8.4-10.2) mg/dL Total Bilirubin 0.70 (0.2-1.3) mg/dL AST 20 (17-59) U/L ALT 11 (0-50) U/L Alkaline Phosphatase 96 (38-126) U/L Creatine Kinase (55-170) U/L NT-Pro-B Natriuret Pep (0-450) pg/mL Serum Total Protein 7.1 (6.3-8.2) g/dL Albumin 3.6 (3.5-5.0) g/dL Urine Color (YELLOW) Urine Appearance (CLEAR) Urine pH (5-6) Ur Specific [place] (1.005-1.025) Urine Protein (Negative) Urine Ketones (NEGATIVE) Urine Blood (0-5) Aaron/ul Urine Nitrite (NEGATIVE) Urine Bilirubin (NEGATIVE) Urine Urobilinogen (0-1) mg/dL Ur Leukocyte Esterase (NEGATIVE) Urine WBC (Auto) (0-5) /HPF Urine RBC (Auto) (0-2) /HPF U Epithel Cells (Auto) (FEW) /HPF Urine Bacteria (Auto) (NEGATIVE) /HPF Urine Mucus (Auto) (NEGATIVE) /HPF Urine Culture Reflexed (NO) Urine Glucose (NEGATIVE) mg/dL SARS-CoV-2 (PCR) (NEGATIVE) ABO Group Rh Factor Antibody Screen (NEGATIVE) Crossmatch (COMPATIBLE) 06/28/21 Range/Units 10:05 WBC (4.0-10.5) K/mm3 RBC (4.1-5.6) M/mm3 Hgb (12.5-18.0) gm/dl Hct (42-50) % MCV (78-100) fl MCH (26-32) pg MCHC (32-36) g/dl RDW (11.5-14.0) % Plt Count (150-450) K/mm3 MPV (7.5-11.0) fl Segmented Neutrophils (36.-66.) % Band Neutrophils (0.0-2.0) % Lymphocytes (Manual) (24-44) % Monocytes (Manual) (0.0-12.0) % Basophils (Manual) (0.0-1.0) % Hypochromia Platelet Estimate (NORMAL) RBC Morphology Polychromasia Poikilocytosis Basophilic Stippling Anisocytosis Microcytosis Spherocytes Schistocytes Smear Path Review ESR (0-15) mm/hr D-Dimer (215-500) ng/mL Sodium (137-145) mmol/L Potassium (3.5-5.1) mmol/L Chloride (98-107) mmol/L Carbon Dioxide (22-30) mmol/L Anion Gap (5-15) MEQ/L BUN (9-20) mg/dL Creatinine (0.66-1.25) mg/dL Estimated GFR ML/MIN Glucose (74-106) mg/dL Lactic Acid (0.4-2.0) Calcium (8.4-10.2) mg/dL Total Bilirubin (0.2-1.3) mg/dL AST (17-59) U/L ALT (0-50) U/L Alkaline Phosphatase (38-126) U/L Creatine Kinase (55-170) U/L NT-Pro-B Natriuret Pep (0-450) pg/mL Serum Total Protein (6.3-8.2) g/dL Albumin (3.5-5.0) g/dL Urine Color YELLOW (YELLOW) Urine Appearance CLEAR (CLEAR) Urine pH 6.0 (5-6) Ur Specific [place] 1.018 (1.005-1.025) Urine Protein NEGATIVE (Negative) Urine Ketones NEGATIVE (NEGATIVE) Urine Blood NEGATIVE (0-5) Aaron/ul Urine Nitrite NEGATIVE (NEGATIVE) Urine Bilirubin NEGATIVE (NEGATIVE) Urine Urobilinogen NEGATIVE (0-1) mg/dL Ur Leukocyte Esterase NEGATIVE (NEGATIVE) Urine WBC (Auto) 3-5 (0-5) /HPF Urine RBC (Auto) NONE (0-2) /HPF U Epithel Cells (Auto) NONE (FEW) /HPF Urine Bacteria (Auto) NONE SEEN (NEGATIVE) /HPF Urine Mucus (Auto) SLIGHT (NEGATIVE) /HPF Urine Culture Reflexed NO (NO) Urine Glucose NEGATIVE (NEGATIVE) mg/dL SARS-CoV-2 (PCR) (NEGATIVE) ABO Group Rh Factor Antibody Screen (NEGATIVE) Crossmatch (COMPATIBLE) - Radiology Exams Ordered Rad Exams-Entire Visit: Radiology Procedures Category Date Time Status ANKLE (3 VIEWS) Stat Exams 06/27/21 13:40 Completed LOWER LEG Stat Exams 06/27/21 13:40 Completed VENOUS BILATERAL EXTREMITY [US] Stat Exams 06/28/21 10:59 Taken - Procedures and Test Procedures and Tests throughout Hospitalization: Therapy Orders & Screens 06/27/21 17:45 Smoking Cessation Education ONCE Comment: Diagnosis: anemia Smoking Status: Current every day smoker How long have you smoked: yr Have you smoked in the past 12 months: Yes Approximately how many cigarettes per day: 10 Do you dip or chew tobacco: No 06/27/21 17:51 Oxygen Nasal Cannula 2 lpm Comment: Diagnosis: anemia Discharge Exam General Appearance: no apparent distress, alert Neurologic Exam: alert, oriented x 3, cooperative, normal mood/affect, nml cerebellar function, sensation nml, No motor deficits Eye Exam: PERRL, EOMI, eyes nml inspection Ears, Nose, Throat Exam: normal ENT inspection, pharynx normal, moist mucous membranes Neck Exam: normal inspection, non-tender, supple, full range of motion Respiratory Exam: normal breath sounds, lungs clear, No respiratory distress Cardiovascular Exam: regular rate/rhythm, normal heart sounds Gastrointestinal/Abdomen Exam: soft, No tenderness, No mass Male Genitalia Exam: deferred Rectal Exam: deferred Back Exam: normal inspection, normal range of motion, No CVA tenderness, No ashley tebral tenderness Extremity Exam: normal inspection, normal range of motion Skin Exam: normal color, warm, dry Final Diagnosis/Problem List - Final Discharge Diagnosis/Problem (1) Ulcerative colitis with rectal bleeding Current Visit: Yes Status: Acute Assessment & Plan: Last Vital Signs Temp 99.2 F 06/28/21 12:00 Pulse 90 06/28/21 12:00 Resp 16 06/28/21 12:00 BP 97/54 06/28/21 12:00 Pulse Ox 97 06/28/21 12:00 Allergies No Known Drug Allergies Allergy (Verified 07/01/19 19:53) Active Medications Acetaminophen (Tylenol Extra Strength 500 Mg) 500 mg PO Q4H PRN PRN PRN Reason: FEVER Stop: 07/28/21 08:39 Methylprednisolone Sodium Succinate 125 mg/ Sterile Water 2 ml 0 mg IV ONCE ONE Stop: 06/28/21 15:01 Methylprednisolone Sodium Succinate 125 mg/ Sterile Water 2 ml 0 mg IV Q6H [facility] Stop: 07/28/21 20:59 Hydromorphone HCl (Hydromorphone 1 Mg/Ml Injection) 1 mg IV Q4H PRN PRN PRN Reason: PAIN Stop: 07/02/21 17:52 Last Admin: 06/28/21 12:44 Dose: 1 mg Documented by: Sodium Chloride (Sodium Chloride 0.9% 1000 Ml) 1,000 mls @ 150 mls/hr IV .Q6H40M [facility] Stop: 07/27/21 17:59 Last Admin: 06/28/21 12:44 Dose: 150 mls/hr Documented by: Ondansetron HCl (Zofran 4 Mg/2 Ml Vial) 4 mg IV Q6H PRN PRN PRN Reason: NAUSEA/VOMITING Stop: 07/27/21 22:18 Last Admin: 06/28/21 04:46 Dose: 4 mg Documented by: Intake & Output 06/28/21 06/29/21 11:59 11:59 Intake Total 1100 Output Total 500 Balance 600 Weight 56.8 kg Orders 06/27/21 16:55 Telemetry q6h 06/27/21 17:51 Oxygen Nasal Cannula 2 lpm 06/27/21 19:45 Pulse Oximetry .continuos 06/27/21 22:19 Ondansetron HCl 4 mg/2 ml [Zofran 4 MG/2 ML VIAL] 4 mg IV Q6H PRN PRN 06/28/21 Discharge Routine Discharge/Telephone Order Routine 06/28/21 08:40 Acetaminophen 500 mg [Tylenol Extra Strength 500 mg] 500 mg PO Q4H PRN PRN 06/28/21 15:00 Methylprednis Sod Succ 125 mg* [solu-MEDROL] 125 mg Water For Injection,Sterile [Sterile H2O 10 ml] 2 ml IV ONCE 06/28/21 21:00 Methylprednis Sod Succ 125 mg* [solu-MEDROL] 125 mg Water For Injection,Sterile [Sterile H2O 10 ml] 2 ml IV Q6H Lab Tests 06/27/21 06/27/21 06/27/21 13:41 13:41 14:45 WBC 14.9 H RBC 2.66 L Hgb 4.3 L* Hct 16.9 L MCV 63.5 L MCH 16.2 L MCHC 25.4 L RDW 21.7 H Plt Count 655 H MPV 8.5 Segmented Neutrophils 78 H Band Neutrophils 2 Lymphocytes (Manual) 18 L Monocytes (Manual) 1 Basophils (Manual) 1 Hypochromia 2+ Platelet Estimate INCREASED RBC Morphology ABNORMAL Polychromasia 1+ Poikilocytosis 2+ Basophilic Stippling 1+ Anisocytosis 2+ Microcytosis Spherocytes 1+ Schistocytes 1+ Smear Path Review Pending ESR 10 D-Dimer 2753 H* Sodium Potassium Chloride Carbon Dioxide Anion Gap BUN Creatinine Estimated GFR Glucose Lactic Acid 1.1 Calcium Total Bilirubin AST ALT Alkaline Phosphatase Creatine Kinase NT-Pro-B Natriuret Pep Serum Total Protein Albumin Urine Color Urine Appearance Urine pH Ur Specific [place] Urine Protein Urine Ketones Urine Blood Urine Nitrite Urine Bilirubin Urine Urobilinogen Ur Leukocyte Esterase Urine WBC (Auto) Urine RBC (Auto) U Epithel Cells (Auto) Urine Bacteria (Auto) Urine Mucus (Auto) Urine Culture Reflexed Urine Glucose SARS-CoV-2 (PCR) ABO Group Rh Factor Antibody Screen Crossmatch 06/27/21 06/27/21 06/27/21 14:45 14:45 14:45 WBC RBC Hgb Hct MCV MCH MCHC RDW Plt Count MPV Segmented Neutrophils Band Neutrophils Lymphocytes (Manual) Monocytes (Manual) Basophils (Manual) Hypochromia Platelet Estimate RBC Morphology Polychromasia Poikilocytosis Basophilic Stippling Anisocytosis Microcytosis Spherocytes Schistocytes Smear Path Review ESR D-Dimer Sodium 132 L Potassium 3.3 L Chloride 99 Carbon Dioxide 27 Anion Gap 10.2 BUN 7 L Creatinine 0.81 Estimated GFR > 60.0 Glucose 99 Lactic Acid Calcium 7.8 L Total Bilirubin < 0.10 L AST 16 L ALT 6 Alkaline Phosphatase 75 Creatine Kinase 74 NT-Pro-B Natriuret Pep 147 Serum Total Protein 5.7 L Albumin 2.7 L Urine Color Urine Appearance Urine pH Ur Specific [place] Urine Protein Urine Ketones Urine Blood Urine Nitrite Urine Bilirubin Urine Urobilinogen Ur Leukocyte Esterase Urine WBC (Auto) Urine RBC (Auto) U Epithel Cells (Auto) Urine Bacteria (Auto) Urine Mucus (Auto) Urine Culture Reflexed Urine Glucose SARS-CoV-2 (PCR) ABO Group A Rh Factor POSITIVE Antibody Screen NEGATIVE Crossmatch COMPATIBLE 06/27/21 06/27/21 06/27/21 14:45 14:45 15:26 WBC RBC Hgb Hct MCV MCH MCHC RDW Plt Count MPV Segmented Neutrophils Band Neutrophils Lymphocytes (Manual) Monocytes (Manual) Basophils (Manual) Hypochromia Platelet Estimate RBC Morphology Polychromasia Poikilocytosis Basophilic Stippling Anisocytosis Microcytosis Spherocytes Schistocytes Smear Path Review ESR D-Dimer Sodium Potassium Chloride Carbon Dioxide Anion Gap BUN Creatinine Estimated GFR Glucose Lactic Acid Calcium Total Bilirubin AST ALT Alkaline Phosphatase Creatine Kinase NT-Pro-B Natriuret Pep Serum Total Protein Albumin Urine Color Urine Appearance Urine pH Ur Specific [place] Urine Protein Urine Ketones Urine Blood Urine Nitrite Urine Bilirubin Urine Urobilinogen Ur Leukocyte Esterase Urine WBC (Auto) Urine RBC (Auto) U Epithel Cells (Auto) Urine Bacteria (Auto) Urine Mucus (Auto) Urine Culture Reflexed Urine Glucose SARS-CoV-2 (PCR) NEGATIVE ABO Group Rh Factor Antibody Screen Crossmatch COMPATIBLE COMPATIBLE 06/28/21 06/28/21 06/28/21 04:00 05:55 05:55 WBC 21.0 H RBC 4.59 Hgb 10.0 L D Hct 33.0 L MCV 71.9 L D MCH 21.8 L MCHC 30.3 L RDW Plt Count 636 H MPV 8.8 Segmented Neutrophils 51 Band Neutrophils 18 H Lymphocytes (Manual) 24 Monocytes (Manual) 6 Basophils (Manual) 1 Hypochromia 2+ Platelet Estimate INCREASED RBC Morphology ABNORMAL Polychromasia 2+ Poikilocytosis 1+ Basophilic Stippling Anisocytosis 2+ Microcytosis 1+ Spherocytes Schistocytes Smear Path Review ESR D-Dimer Sodium 134 L Potassium 3.5 Chloride 94 L Carbon Dioxide 28 Anion Gap 14.9 BUN 8 L Creatinine 0.85 Estimated GFR > 60.0 Glucose 105 Lactic Acid 2.3 H Calcium 8.5 Total Bilirubin 0.70 AST 20 ALT 11 Alkaline Phosphatase 96 Creatine Kinase NT-Pro-B Natriuret Pep Serum Total Protein 7.1 Albumin 3.6 Urine Color Urine Appearance Urine pH Ur Specific [place] Urine Protein Urine Ketones Urine Blood Urine Nitrite Urine Bilirubin Urine Urobilinogen Ur Leukocyte Esterase Urine WBC (Auto) Urine RBC (Auto) U Epithel Cells (Auto) Urine Bacteria (Auto) Urine Mucus (Auto) Urine Culture Reflexed Urine Glucose SARS-CoV-2 (PCR) ABO Group Rh Factor Antibody Screen Crossmatch 06/28/21 10:05 WBC RBC Hgb Hct MCV MCH MCHC RDW Plt Count MPV Segmented Neutrophils Band Neutrophils Lymphocytes (Manual) Monocytes (Manual) Basophils (Manual) Hypochromia Platelet Estimate RBC Morphology Polychromasia Poikilocytosis Basophilic Stippling Anisocytosis Microcytosis Spherocytes Schistocytes Smear Path Review ESR D-Dimer Sodium Potassium Chloride Carbon Dioxide Anion Gap BUN Creatinine Estimated GFR Glucose Lactic Acid Calcium Total Bilirubin AST ALT Alkaline Phosphatase Creatine Kinase NT-Pro-B Natriuret Pep Serum Total Protein Albumin Urine Color YELLOW Urine Appearance CLEAR Urine pH 6.0 Ur Specific [place] 1.018 Urine Protein NEGATIVE Urine Ketones NEGATIVE Urine Blood NEGATIVE Urine Nitrite NEGATIVE Urine Bilirubin NEGATIVE Urine Urobilinogen NEGATIVE Ur Leukocyte Esterase NEGATIVE Urine WBC (Auto) 3-5 Urine RBC (Auto) NONE U Epithel Cells (Auto) NONE Urine Bacteria (Auto) NONE SEEN Urine Mucus (Auto) SLIGHT Urine Culture Reflexed NO Urine Glucose NEGATIVE SARS-CoV-2 (PCR) ABO Group Rh Factor Antibody Screen Crossmatch Chief Complaint Diagnosis bloody stools for 2-3 days. Allergies Allergy/AdvReac Type Severity Reaction Status Date / Time No Known Drug Allergies Allergy Verified 07/01/19 19:53 Vital Signs (Last 24 hours) Temp Pulse Resp BP BP Pulse Ox 06/28/21 12:00 99.2 F 90 16 97/54 97 06/28/21 08:00 100.3 F 104 H 16 103/60 99 06/28/21 07:07 99 06/28/21 03:31 98.0 F 70 20 104/65 98 06/28/21 00:00 98.3 F 89 18 115/58 96 06/27/21 20:00 98.4 F 86 102/63 06/27/21 19:47 97 06/27/21 17:20 98.6 F 76 18 108/61 100 06/27/21 16:26 89 18 112/65 100 06/27/21 15:58 100 06/27/21 15:10 86 18 100/64 100 06/27/21 14:46 74 18 102/59 100 Home Medications Medication Instructions Recorded Confirmed Last Taken Type Sulfasalazine [Sulfasalazine Dr] 500 mg PO DAILY 06/27/21 06/27/21 Unknown History Current Medications Generic Name Dose Route Start Last Admin Trade Name Freq PRN Reason Stop Dose Admin Acetaminophen 500 mg 06/28/21 08:40 Tylenol Extra Strength 500 Mg PO 07/28/21 08:39 Q4H PRN PRN FEVER Methylprednisolone Sodium 0 mg 06/28/21 15:00 Succinate 125 mg/ Sterile IV 06/28/21 15:01 Water 2 ml ONCE ONE Methylprednisolone Sodium 0 mg 06/28/21 21:00 Succinate 125 mg/ Sterile IV 07/28/21 20:59 Water 2 ml Q6H ALEXIS Hydromorphone HCl 1 mg 06/27/21 17:53 06/28/21 12:44 Hydromorphone 1 Mg/Ml Injection IV 07/02/21 17:52 1 mg Q4H PRN PRN Administration PAIN Sodium Chloride 1,000 mls @ 150 mls/hr 06/27/21 18:00 06/28/21 12:44 Sodium Chloride 0.9% 1000 Ml IV 07/27/21 17:59 150 mls/hr .Q6H40M ALEXIS Administration Ondansetron HCl 4 mg 06/27/21 22:19 06/28/21 04:46 Zofran 4 Mg/2 Ml Vial IV 07/27/21 22:18 4 mg Q6H PRN PRN Administration NAUSEA/VOMITING Discontinued Medications Generic Name Dose Route Start Last Admin Trade Name Freq PRN Reason Stop Dose Admin Hydrocodone Bitart/Acetaminophen 1 tab 06/27/21 15:47 06/27/21 15:52 Aubrey 5/325 Mg PO 06/27/21 15:48 1 tab STAT ONE Administration Hydrocodone Bitart/Acetaminophen Confirm 06/27/21 15:51 Aubrey 5/325 Mg Administered 06/27/21 15:52 Dose 1 tab .ROUTE .STK-MED ONE Methylprednisolone Sodium 0 mg 06/28/21 09:00 06/28/21 09:27 Succinate 125 mg/ Sterile IV 06/28/21 09:01 125 mg Water 2 ml ONCE ONE Administration Methylprednisolone Sodium 0 mg 06/28/21 13:00 Succinate 125 mg/ Sterile IV 07/28/21 12:59 Water 2 ml Q6HT [facility]LEXIS Hydromorphone HCl 1 mg 06/27/21 15:58 Hydromorphone 1 Mg/Ml Injection IV 07/02/21 15:57 Q4H PRN PRN PAIN Hydromorphone HCl Confirm 06/28/21 07:29 Hydromorphone 1 Mg/Ml Injection Administered 06/28/21 07:30 Dose 1 mg .ROUTE .STK-MED ONE Sodium Chloride 1,000 mls @ 100 mls/hr 06/27/21 16:00 06/27/21 16:22 Sodium Chloride 0.9% 1000 Ml IV 07/27/21 15:59 100 mls/hr .Q10H ALEXIS Administration Sodium Chloride Confirm 06/27/21 16:20 Sodium Chloride 0.9% 1000 Ml Administered 06/27/21 16:21 Dose 1,000 mls @ ud .ROUTE .STK-MED ONE Sodium Chloride Confirm 06/27/21 18:11 Sodium Chloride 0.9% 500 Ml Administered 06/27/21 18:12 Dose 500 mls @ ud IV .STK-MED ONE Intake & Output (Last 24 hours) 06/26/21 06/27/21 06/28/21 06/29/21 11:59 11:59 11:59 11:59 Intake Total 1100 Output Total 500 Balance 600 Weight 56.8 kg Laboratory Results (Last 24 hours) 06/28/21 06/28/21 06/28/21 10:05 05:55 05:55 WBC 21.0 H RBC 4.59 Hgb 10.0 L D Hct 33.0 L MCV 71.9 L D MCH 21.8 L MCHC 30.3 L RDW Plt Count 636 H MPV 8.8 Segmented Neutrophils 51 Band Neutrophils 18 H Lymphocytes (Manual) 24 Monocytes (Manual) 6 Basophils (Manual) 1 Hypochromia 2+ Platelet Estimate INCREASED RBC Morphology ABNORMAL Polychromasia 2+ Poikilocytosis 1+ Basophilic Stippling Anisocytosis 2+ Microcytosis 1+ Spherocytes Schistocytes ESR D-Dimer Sodium 134 L Potassium 3.5 Chloride 94 L Carbon Dioxide 28 Anion Gap 14.9 BUN 8 L Creatinine 0.85 Estimated GFR > 60.0 Glucose 105 Lactic Acid Calcium 8.5 Total Bilirubin 0.70 AST 20 ALT 11 Alkaline Phosphatase 96 Creatine Kinase NT-Pro-B Natriuret Pep Serum Total Protein 7.1 Albumin 3.6 Urine Color YELLOW Urine Appearance CLEAR Urine pH 6.0 Ur Specific [place] 1.018 Urine Protein NEGATIVE Urine Ketones NEGATIVE Urine Blood NEGATIVE Urine Nitrite NEGATIVE Urine Bilirubin NEGATIVE Urine Urobilinogen NEGATIVE Ur Leukocyte Esterase NEGATIVE Urine WBC (Auto) 3-5 Urine RBC (Auto) NONE U Epithel Cells (Auto) NONE Urine Bacteria (Auto) NONE SEEN Urine Mucus (Auto) SLIGHT Urine Culture Reflexed NO Urine Glucose NEGATIVE SARS-CoV-2 (PCR) ABO Group Rh Factor Antibody Screen Crossmatch 06/28/21 06/27/21 06/27/21 04:00 15:26 14:45 WBC RBC Hgb Hct MCV MCH MCHC RDW Plt Count MPV Segmented Neutrophils Band Neutrophils Lymphocytes (Manual) Monocytes (Manual) Basophils (Manual) Hypochromia Platelet Estimate RBC Morphology Polychromasia Poikilocytosis Basophilic Stippling Anisocytosis Microcytosis Spherocytes Schistocytes ESR D-Dimer Sodium Potassium Chloride Carbon Dioxide Anion Gap BUN Creatinine Estimated GFR Glucose Lactic Acid 2.3 H Calcium Total Bilirubin AST ALT Alkaline Phosphatase Creatine Kinase NT-Pro-B Natriuret Pep Serum Total Protein Albumin Urine Color Urine Appearance Urine pH Ur Specific [place] Urine Protein Urine Ketones Urine Blood Urine Nitrite Urine Bilirubin Urine Urobilinogen Ur Leukocyte Esterase Urine WBC (Auto) Urine RBC (Auto) U Epithel Cells (Auto) Urine Bacteria (Auto) Urine Mucus (Auto) Urine Culture Reflexed Urine Glucose SARS-CoV-2 (PCR) NEGATIVE ABO Group Rh Factor Antibody Screen Crossmatch COMPATIBLE 06/27/21 06/27/21 06/27/21 14:45 14:45 14:45 WBC RBC Hgb Hct MCV MCH MCHC RDW Plt Count MPV Segmented Neutrophils Band Neutrophils Lymphocytes (Manual) Monocytes (Manual) Basophils (Manual) Hypochromia Platelet Estimate RBC Morphology Polychromasia Poikilocytosis Basophilic Stippling Anisocytosis Microcytosis Spherocytes Schistocytes ESR D-Dimer Sodium 132 L Potassium 3.3 L Chloride 99 Carbon Dioxide 27 Anion Gap 10.2 BUN 7 L Creatinine 0.81 Estimated GFR > 60.0 Glucose 99 Lactic Acid Calcium 7.8 L Total Bilirubin < 0.10 L AST 16 L ALT 6 Alkaline Phosphatase 75 Creatine Kinase NT-Pro-B Natriuret Pep Serum Total Protein 5.7 L Albumin 2.7 L Urine Color Urine Appearance Urine pH Ur Specific [place] Urine Protein Urine Ketones Urine Blood Urine Nitrite Urine Bilirubin Urine Urobilinogen Ur Leukocyte Esterase Urine WBC (Auto) Urine RBC (Auto) U Epithel Cells (Auto) Urine Bacteria (Auto) Urine Mucus (Auto) Urine Culture Reflexed Urine Glucose SARS-CoV-2 (PCR) ABO Group A Rh Factor POSITIVE Antibody Screen NEGATIVE Crossmatch COMPATIBLE COMPATIBLE 06/27/21 06/27/21 06/27/21 14:45 14:45 13:41 WBC 14.9 H RBC 2.66 L Hgb 4.3 L* Hct 16.9 L MCV 63.5 L MCH 16.2 L MCHC 25.4 L RDW 21.7 H Plt Count 655 H MPV 8.5 Segmented Neutrophils 78 H Band Neutrophils 2 Lymphocytes (Manual) 18 L Monocytes (Manual) 1 Basophils (Manual) 1 Hypochromia 2+ Platelet Estimate INCREASED RBC Morphology ABNORMAL Polychromasia 1+ Poikilocytosis 2+ Basophilic Stippling 1+ Anisocytosis 2+ Microcytosis Spherocytes 1+ Schistocytes 1+ ESR 10 D-Dimer 2753 H* Sodium Potassium Chloride Carbon Dioxide Anion Gap BUN Creatinine Estimated GFR Glucose Lactic Acid Calcium Total Bilirubin AST ALT Alkaline Phosphatase Creatine Kinase 74 NT-Pro-B Natriuret Pep 147 Serum Total Protein Albumin Urine Color Urine Appearance Urine pH Ur Specific [place] Urine Protein Urine Ketones Urine Blood Urine Nitrite Urine Bilirubin Urine Urobilinogen Ur Leukocyte Esterase Urine WBC (Auto) Urine RBC (Auto) U Epithel Cells (Auto) Urine Bacteria (Auto) Urine Mucus (Auto) Urine Culture Reflexed Urine Glucose SARS-CoV-2 (PCR) ABO Group Rh Factor Antibody Screen Crossmatch 06/27/21 13:41 WBC RBC Hgb Hct MCV MCH MCHC RDW Plt Count MPV Segmented Neutrophils Band Neutrophils Lymphocytes (Manual) Monocytes (Manual) Basophils (Manual) Hypochromia Platelet Estimate RBC Morphology Polychromasia Poikilocytosis Basophilic Stippling Anisocytosis Microcytosis Spherocytes Schistocytes ESR D-Dimer Sodium Potassium Chloride Carbon Dioxide Anion Gap BUN Creatinine Estimated GFR Glucose Lactic Acid 1.1 Calcium Total Bilirubin AST ALT Alkaline Phosphatase Creatine Kinase NT-Pro-B Natriuret Pep Serum Total Protein Albumin Urine Color Urine Appearance Urine pH Ur Specific [place] Urine Protein Urine Ketones Urine Blood Urine Nitrite Urine Bilirubin Urine Urobilinogen Ur Leukocyte Esterase Urine WBC (Auto) Urine RBC (Auto) U Epithel Cells (Auto) Urine Bacteria (Auto) Urine Mucus (Auto) Urine Culture Reflexed Urine Glucose SARS-CoV-2 (PCR) ABO Group Rh Factor Antibody Screen Crossmatch Orders (Last 24 hours) Category Date Time Status Code Status Order ROUTINE Care 06/27/21 15:58 Active IV Care Q6H Care 06/27/21 15:58 Active Place in Observation ROUTINE Care 06/27/21 15:58 Active Telemetry q6h Care 06/27/21 16:55 Active House Regular Diet Diet 06/27/21 Dinner Active Discharge Routine Discharge 06/28/21 Ordered Discharge/Telephone Order Routine Discharge 06/28/21 Active ANKLE (3 VIEWS) Stat Exams 06/27/21 13:40 Completed LOWER LEG Stat Exams 06/27/21 13:40 Completed VENOUS BILATERAL EXTREMITY [US] Stat Exams 06/28/21 10:59 Taken ABO TYPING Stat Lab 06/27/21 14:45 Completed Antibody Screen Stat Lab 06/27/21 14:45 Completed BLOOD COMPONENT REQUEST Stat Lab 06/27/21 14:45 Completed CBC W DIFF AM.LAB Lab 06/28/21 05:55 Completed CBC W DIFF Stat Lab 06/27/21 14:45 Results CK-Creatinine Phosphokinase Stat Lab 06/27/21 14:45 Completed CMP AM.LAB Lab 06/28/21 05:55 Completed CMP Stat Lab 06/27/21 14:45 Completed D-DIMER QUANTITATIVE Stat Lab 06/27/21 13:41 Completed Erythrocyte Sedimentation Rate Stat Lab 06/27/21 14:45 Results Lactic Acid AM.LAB Lab 06/28/21 04:00 Completed Lactic Acid Stat Lab 06/27/21 13:41 Completed Lactic Acid Stat Lab 06/28/21 08:16 Received Manual Differential NC Routine Lab 06/28/21 05:55 Completed Manual Differential NC Stat Lab 06/27/21 14:45 Results NT PRO BNP Stat Lab 06/27/21 14:45 Completed Pathologist Review Stat Lab 06/27/21 14:45 Results RH TYPING Stat Lab 06/27/21 14:45 Completed SARS-CoV-2 Xpert Express Routine Lab 06/27/21 15:26 Completed UA W/RFX UR CULTURE Stat Lab 06/28/21 10:05 Completed Acetaminophen 500 mg [Tylenol Extra Strength 500 mg* Med 06/28/21 08:40 Active ] 500 mg PO Q4H PRN PRN Hydrocodone/APAP 5/325 [Aubrey 5/325 mg] Med 06/27/21 15:51 Discontinued 1 tab .ROUTE .STK-MED ONE Hydrocodone/APAP 5/325 [Aubrey 5/325 mg] Med 06/27/21 15:47 Discontinued 1 tab PO STAT ONE Hydromorphone 1 mg/1Ml Inj [Hydromorphone 1 mg/ml Med 06/28/21 07:29 Discontinued Injection] 1 mg .ROUTE .STK-MED ONE Hydromorphone 1 mg/1Ml Inj [Hydromorphone 1 mg/ml Med 06/27/21 15:58 Discontinued Injection] 1 mg IV Q4H PRN PRN Hydromorphone 1 mg/1Ml Inj [Hydromorphone 1 mg/ml Med 06/27/21 17:53 Active Injection] 1 mg IV Q4H PRN PRN Methylprednis Sod Succ 125 mg* [solu-MEDROL] 125 mg Med 06/28/21 09:00 Discontinued Water For Injection,Sterile [Sterile H2O 10 ml] 2 ml IV ONCE Methylprednis Sod Succ 125 mg* [solu-MEDROL] 125 mg Med 06/28/21 15:00 Active Water For Injection,Sterile [Sterile H2O 10 ml] 2 ml IV ONCE Methylprednis Sod Succ 125 mg* [solu-MEDROL] 125 mg Med 06/28/21 21:00 Active Water For Injection,Sterile [Sterile H2O 10 ml] 2 ml IV Q6H Methylprednis Sod Succ 125 mg* [solu-MEDROL] 125 mg Med 06/28/21 13:00 Discontinued Water For Injection,Sterile [Sterile H2O 10 ml] 2 ml IV Q6HT NaCl 0.9% 1000 ml [Sodium Chloride 0.9% 1000 ML] 1,000 Med 06/27/21 16:20 Discontinued ml .ROUTE UD NaCl 0.9% 1000 ml [Sodium Chloride 0.9% 1000 ML] 1,000 Med 06/27/21 16:00 Discontinued ml IV 100 mls/hr NaCl 0.9% 1000 ml [Sodium Chloride 0.9% 1000 ML] 1,000 Med 06/27/21 18:00 Active ml IV 150 mls/hr NaCl 0.9% 500 ml [Sodium Chloride 0.9% 500 ML] 500 ml Med 06/27/21 18:11 Discontinued IV UD Ondansetron HCl 4 mg/2 ml [Zofran 4 MG/2 ML VIAL] Med 06/27/21 22:19 Active 4 mg IV Q6H PRN PRN Oxygen Nasal Cannula 2 lpm RT 06/27/21 17:51 Active Pulse Oximetry .continuos RT 06/27/21 19:45 Active Smoking Cessation Education ONCE RT 06/27/21 17:45 Completed Patient Care Notes (Last 24 hours) 06/28/21 13:38 Nursing Note by Reba Doyle gave report to ANAHI De La Vega at [facility] Initialized on 06/28/21 13:38 - END OF NOTE 06/28/21 12:16 Nursing Note by Kacie Lopez ROUNDED WITH DR. PEDRO. GAVE ORDERS TO TRANSFER TO PATIENT'S GI DOC DR. LOMELI. HYDROCORTISONE ENEMA. Addendum entered by Kacie Lopez RN 06/28/21 12:23: ORDER FOR HYDROCORTISONE ENEMA. WE DO NOT HAVE IN STOCK. DR PEDRO NOTIFIED Initialized on 06/28/21 12:16 - END OF NOTE 06/28/21 09:38 Nursing Note by Isabell Trotter Patient refused the Tylenol at this time, states causes upset stomach, temp down to 99 currently. Tylenol returned to the pyxis Initialized on 06/28/21 09:38 - END OF NOTE 06/28/21 06:10 Nursing Note by Raissa White Pt has had episodes of bloody diarrhea x4 throughout the night and so far this am. Dark red manisha blood watery with small amounts of brown stool. Unable to measure d/t pt throwing paper into BSC. Most recent episode was a couple of inches deep in BSC. Initialized on 06/28/21 06:10 - END OF NOTE 06/27/21 22:18 SBAR Note by Raissa White SITUATION I am calling about [employer] the patient's code status is Full Code The problem I am calling about is: pt having nausea and vomiting ASSESSMENT Pt is having nausea and large episodes of emesis RECOMMENDATION Physician notified at [id number] New Orders received: 4 mg zofran IV Q6 PRN Vital Signs (Last 4 hours) Temp Pulse BP Pulse Ox 06/27/21 20:00 98.4 F 86 102/63 06/27/21 19:47 97 Diagnois, Code Status Date of Arrival on Unit 06/27/21 Admitted From Emergency Dept Diagnosis anemia Resucitation Status Full Code Intake and Output 12 Hours 06/27/21 06/28/21 18:59 06:59 Intake Total 100 Output Total 400 Balance 100 -400 Weight 56.8 kg Intake: Intake, Oral Amount 100 Output: Output, Emesis Amount 400 Other: Number of Voids 1 Number of Bowel Movements 1 Physical Assessment Anxiety Level None,at ease,Awake,Calm Mental Status Alert Patient Orientation Person,Place,Time Breath Sounds [Anterior/ Clear Posterior Bilateral Throughout ] Bowel Sounds [All Quadrants] Present,Hyperactive Abdomen Description Soft,Tender with Palpation Urine Appearance Not Voided Skin Color Pale Skin Temperature Warm Pain Scale (Last 12 Hours) Pain Intensity 0 Pain Intensity 0 Pain Intensity 4 Pain Intensity 4 Pain Intensity 4 Pain Intensity 4 Pain Intensity 9 Pain Intensity 4 Pain Intensity 4 Pain Intensity 4 Pain Intensity 4 Pain Intensity 4 Pain Intensity 4 Pain Intensity 4 PAST MEDICAL HISTORY Neurological History No Pertinent History ENT History No Pertinent History Endocrine Medical History No Pertinent History Respiratory History No Pertinent History Cardiac History No Pertinent History GI Medical History Colitis History No Pertinent History Pyscho-Social History Other Communicable Disease No Pertinent History Comment pt has ADHD and oppositional defiance disorder Diet Order (Last 12 Hours) 06/27/21 Dinner House Regular Diet Lab Results (Last 12 Hours) 06/27/21 06/27/21 06/27/21 Range/Units 15:26 14:45 14:45 WBC (4.0-10.5) K/mm3 RBC (4.1-5.6) M/mm3 Hgb (12.5-18.0) gm/dl Hct (42-50) % MCV (78-100) fl MCH (26-32) pg MCHC (32-36) g/dl RDW (11.5-14.0) % Plt Count (150-450) K/mm3 MPV (7.5-11.0) fl Segmented Neutrophils (36.-66.) % Band Neutrophils (0.0-2.0) % Lymphocytes (Manual) (24-44) % Monocytes (Manual) (0.0-12.0) % Basophils (Manual) (0.0-1.0) % Hypochromia Platelet Estimate (NORMAL) RBC Morphology Polychromasia Poikilocytosis Basophilic Stippling Anisocytosis Spherocytes Schistocytes Smear Path Review ESR (0-15) mm/hr D-Dimer (215-500) ng/mL Sodium (137-145) mmol/L Potassium (3.5-5.1) mmol/L Chloride (98-107) mmol/L Carbon Dioxide (22-30) mmol/L Anion Gap (5-15) MEQ/L BUN (9-20) mg/dL Creatinine (0.66-1.25) mg/dL Estimated GFR ML/MIN Glucose (74-106) mg/dL Lactic Acid (0.4-2.0) Calcium (8.4-10.2) mg/dL Total Bilirubin (0.2-1.3) mg/dL AST (17-59) U/L ALT (0-50) U/L Alkaline Phosphatase (38-126) U/L Creatine Kinase (55-170) U/L NT-Pro-B Natriuret Pep (0-450) pg/mL Serum Total Protein (6.3-8.2) g/dL Albumin (3.5-5.0) g/dL SARS-CoV-2 (PCR) NEGATIVE (NEGATIVE) ABO Group Rh Factor Antibody Screen (NEGATIVE) Crossmatch COMPATIBLE COMPATIBLE (COMPATIBLE) 06/27/21 06/27/21 06/27/21 Range/Units 14:45 14:45 14:45 WBC (4.0-10.5) K/mm3 RBC (4.1-5.6) M/mm3 Hgb (12.5-18.0) gm/dl Hct (42-50) % MCV (78-100) fl MCH (26-32) pg MCHC (32-36) g/dl RDW (11.5-14.0) % Plt Count (150-450) K/mm3 MPV (7.5-11.0) fl Segmented Neutrophils (36.-66.) % Band Neutrophils (0.0-2.0) % Lymphocytes (Manual) (24-44) % Monocytes (Manual) (0.0-12.0) % Basophils (Manual) (0.0-1.0) % Hypochromia Platelet Estimate (NORMAL) RBC Morphology Polychromasia Poikilocytosis Basophilic Stippling Anisocytosis Spherocytes Schistocytes Smear Path Review ESR (0-15) mm/hr D-Dimer (215-500) ng/mL Sodium 132 L (137-145) mmol/L Potassium 3.3 L (3.5-5.1) mmol/L Chloride 99 (98-107) mmol/L Carbon Dioxide 27 (22-30) mmol/L Anion Gap 10.2 (5-15) MEQ/L BUN 7 L (9-20) mg/dL Creatinine 0.81 (0.66-1.25) mg/dL Estimated GFR > 60.0 ML/MIN Glucose 99 (74-106) mg/dL Lactic Acid (0.4-2.0) Calcium 7.8 L (8.4-10.2) mg/dL Total Bilirubin < 0.10 L (0.2-1.3) mg/dL AST 16 L (17-59) U/L ALT 6 (0-50) U/L Alkaline Phosphatase 75 (38-126) U/L Creatine Kinase 74 (55-170) U/L NT-Pro-B Natriuret Pep 147 (0-450) pg/mL Serum Total Protein 5.7 L (6.3-8.2) g/dL Albumin 2.7 L (3.5-5.0) g/dL SARS-CoV-2 (PCR) (NEGATIVE) ABO Group A Rh Factor POSITIVE Antibody Screen NEGATIVE (NEGATIVE) Crossmatch COMPATIBLE (COMPATIBLE) 06/27/21 06/27/21 06/27/21 Range/Units 14:45 13:41 13:41 WBC 14.9 H (4.0-10.5) K/mm3 RBC 2.66 L (4.1-5.6) M/mm3 Hgb 4.3 L* (12.5-18.0) gm/dl Hct 16.9 L (42-50) % MCV 63.5 L (78-100) fl MCH 16.2 L (26-32) pg MCHC 25.4 L (32-36) g/dl RDW 21.7 H (11.5-14.0) % Plt Count 655 H (150-450) K/mm3 MPV 8.5 (7.5-11.0) fl Segmented Neutrophils 78 H (36.-66.) % Band Neutrophils 2 (0.0-2.0) % Lymphocytes (Manual) 18 L (24-44) % Monocytes (Manual) 1 (0.0-12.0) % Basophils (Manual) 1 (0.0-1.0) % Hypochromia 2+ Platelet Estimate INCREASED (NORMAL) RBC Morphology ABNORMAL Polychromasia 1+ Poikilocytosis 2+ Basophilic Stippling 1+ Anisocytosis 2+ Spherocytes 1+ Schistocytes 1+ Smear Path Review Pending ESR 10 (0-15) mm/hr D-Dimer 2753 H* (215-500) ng/mL Sodium (137-145) mmol/L Potassium (3.5-5.1) mmol/L Chloride (98-107) mmol/L Carbon Dioxide (22-30) mmol/L Anion Gap (5-15) MEQ/L BUN (9-20) mg/dL Creatinine (0.66-1.25) mg/dL Estimated GFR ML/MIN Glucose (74-106) mg/dL Lactic Acid 1.1 (0.4-2.0) Calcium (8.4-10.2) mg/dL Total Bilirubin (0.2-1.3) mg/dL AST (17-59) U/L ALT (0-50) U/L Alkaline Phosphatase (38-126) U/L Creatine Kinase (55-170) U/L NT-Pro-B Natriuret Pep (0-450) pg/mL Serum Total Protein (6.3-8.2) g/dL Albumin (3.5-5.0) g/dL SARS-CoV-2 (PCR) (NEGATIVE) ABO Group Rh Factor Antibody Screen (NEGATIVE) Crossmatch (COMPATIBLE) Lactic Acid (Last 12 Hours) 06/27/21 13:41 Lactic Acid 1.1 Orders (Last 12 Hours) Category Date Time Status Code Status Order ROUTINE Care 06/27/21 15:58 Active IV Care Q6H Care 06/27/21 15:[address] in Observation ROUTINE Care 06/27/21 15:58 Active House Regular Diet Diet 06/27/21 Dinner Active VENOUS BILATERAL EXTREMITY [US] Stat Exams 06/28/21 Ordered CBC W DIFF AM.LAB Lab 06/28/21 04:00 Ordered CBC W DIFF Stat Lab 06/27/21 14:45 Results CMP AM.LAB Lab 06/28/21 04:00 Ordered Erythrocyte Sedimentation Rate Stat Lab 06/27/21 14:45 Results Lactic Acid AM.LAB Lab 06/28/21 04:00 Ordered Manual Differential NC Stat Lab 06/27/21 14:45 Results Pathologist Review Stat Lab 06/27/21 14:45 Results UA W/RFX UR CULTURE Stat Lab 06/27/21 13:42 Ordered Hydromorphone 1 mg/1Ml Inj [Hydromorphone 1 mg/ml Med 06/27/21 17:53 Ordered Injection] 1 mg IV Q4H PRN PRN NaCl 0.9% 1000 ml [Sodium Chloride 0.9% 1000 ML] 1,000 Med 06/27/21 18:00 Ordered ml IV 100 mls/hr Oxygen Nasal Cannula 2 lpm RT 06/27/21 17:51 Active Pulse Oximetry .continuos RT 06/27/21 19:45 Active Active Visit Medications Generic Name Dose Route Start Last Admin Trade Name Freq PRN Reason Stop Dose Admin Hydromorphone HCl 1 mg 06/27/21 17:53 06/27/21 18:03 Hydromorphone 1 Mg/Ml Injection IV 07/02/21 17:52 1 mg Q4H PRN PRN Administration PAIN Sodium Chloride 1,000 mls @ 100 mls/hr 06/27/21 18:00 Sodium Chloride 0.9% 1000 Ml IV 07/27/21 17:59 .Q10H [facility] Home Medications Medication Instructions Recorded Confirmed Last Taken Type Sulfasalazine [Sulfasalazine Dr] 500 mg PO DAILY 06/27/21 06/27/21 Unknown History Initialized on 06/27/21 22:18 - END OF NOTE Code(s): K51.911 - ULCERATIVE COLITIS, UNSPECIFIED WITH RECTAL BLEEDING (2) Profound anemia Current Visit: Yes Status: Acute Code(s): D64.9 - ANEMIA, UNSPECIFIED (3) History of ulcerative colitis Current Visit: Yes Status: Acute Code(s): Z87.19 - PERSONAL HISTORY OF OTHER DISEASES OF THE DIGESTIVE SYSTEM (4) Suspected DVT (deep vein thrombosis) Current Visit: Yes Status: Acute Code(s): R09.89 - OTH SYMPTOMS AND SIGNS INVOLVING THE CIRC AND RESP SYSTEMS (5) Superficial thrombophlebitis of lower extremity Current Visit: Yes Status: Acute Code(s): I80.00 - PHLBTS AND THOMBOPHLB OF SUPERFIC VESSELS OF UNSP LOW EXTRM - Discharge Discharge Date: 06/28/21 Disposition: XFER OTHER Condition: Stable Prescriptions: No Action Sulfasalazine [Sulfasalazine Dr] 500 mg PO DAILY Additional Instructions: Patient is being transfer to [facility] [place]. Follow up with: ADRIAN BAIN NP [Primary Care Provider] -
--- NOTE | 2021-06-28 21:09 | XRAY ---
Indication: Bilateral lower extremity swelling. Two-dimensional sonogram and color Doppler imaging of the major venous vessels of the left and right leg performed. Comparison: None No thrombus seen in the deep venous vessels of the left and right leg including greater saphenous vein. Veins demonstrate normal compressibility. Venous waveforms are normal with and without augmentation. Impression: Left and right legs negative for DVT. Comment: Preliminary report was given.
== END 2021-06-28 14:40 ==
LOC: ED 12:58 → MED SURG 16:55
PROVIDERS: ADMIT General Practice; ATTEND General Practice
DX: K51.911 Ulcerative colitis, unspecified with rectal bleeding (principal); M79.89 Other specified soft tissue disorders; D64.9 Anemia, unspecified; R42 Dizziness and giddiness; I80.00 Phlebitis and thrombophlebitis of superficial vessels of unspecified lower extremity; R09.89 Other specified symptoms and signs involving the circulatory and respiratory systems; Z87.19 Personal history of other diseases of the digestive system; Z20.828 Contact with and (suspected) exposure to other viral communicable diseases
CPT/HCPCS: 36000; 36415; 36430; 73590; 73610; 80053; 81001; 82550; 83605; 83880; 85025; 85379; 85652; 86850; 86900; 86901; 86922; 93268; 93970; 94762; 99285; G0378; P9016; U0003; J1170; J2405; J2930; A9270-GY

== ENCOUNTER 2021-09-25 12:22 | Observation (INO) | payer MEDICAID ==
[2021-09-25 12:45] VITALS: O2SAT 100
[2021-09-25 13:28] VITALS: BP 119/75; PULSE 104
[2021-09-25 13:32] LABS: INR 1.14 (0.8-3.0); PROTIME 13.5 SECONDS (9.4-12.5)
[2021-09-25 13:34] LABS: PTT 29.8 SECONDS (25.1-36.5)
[2021-09-25 13:40] LABS: Hematocrit 25.1 % (42-50); Mean Cell Volume 66.6 fl (78-100); Mean Corpuscular Hemoglobin 18.3 pg (26-32); Mean Corpuscular Hgb Concent. 27.5 g/dl (32-36); Mean Platelet Volume 8.3 fl (7.5-11.0); Platelet Count 850 K/mm3 (150-450); Red Blood Count 3.77 M/mm3 (4.1-5.6); Red Cell Distribution Width 18.4 % (11.5-14.0); White Blood Count 10.7 K/mm3 (4.0-10.5)
--- NOTE | 2021-09-25 13:50 | ERPHSYRPT ---
- History of Present Illness Historian: patient Exam Limitations: no limitations Patient Subjective Stated Complaint: pt had blood work done yesterday at [facility] and his GI doctor, Dr. Fisher, from [facility] called today and stated that he needed to get to a hospital because he was in the critical numbers for his hemoglobin, pt states that he has a GI bleed and has had it since January and received blood in June Triage Nursing Assessment: Pt was brought to the ER by his girlfriend, rates abdominal pain as 5/10, states that they have not found where or what he is blee ding from, last colonoscopy was last September, tachycardic, occassional chest pain, pt states that there is a gross amount of blood in his stools, pulses normal, skin pale/cold/dry, doesn't appear to be in any distress Physician History: 21yo wm w h/o UC since age 16 presents w rectal bleeding since 02/08. Pt sees Dr. Reyna in [place] who had labs done, and he was told to come to ER for low Hb. Pt has generalized abdominal cramping. He was started on Remicade this year. N/V/D/fever/alcohol use denied. Timing/Duration: other (02/08) Activities at Onset: rest Quality: cramping (Chronic, generalized abdominal cramping) Abdominal Pain Onset Location: generalized abdomen Pain Radiation: no radiation Severity of Pain-Max: moderate Severity of Pain-Current: mild Modifying Factors: Improves With: nothing, defecating Associated Symptoms: diarrhea, fatigue, weakness, No back, No chest pain, No diaphoresis, No fever/chills, No headache, No heartburn, No loss of appetite, No nausea, No neck pain, No rash, No shortness of breath, No syncope, No testicular pain, No vomiting Previous symptoms: same symptoms as today Allergies/Adverse Reactions: No Known Drug Allergies Allergy (Verified 09/25/21 12:45) Home Medications: Infliximab 100 mg [Remicade 100MG Injection] 100 mg IV UD 09/25/21 [History] Hx Tetanus, Diphtheria Vaccination/Date Given: No Hx Influenza Vaccination/Date Given: No Hx Pneumococcal Vaccination/Date Given: No Travel Risk - International Travel Have you traveled outside of the country in past 3 weeks: No - Coronavirus Screening Are you exhibiting any of the following symptoms?: No - Vaccine Status Have you recieved a Covid-19 vaccination: No - Review of Systems Constitutional: No Symptoms Eyes: No Symptoms Ears, Nose, & Throat: No Symptoms Respiratory: No Symptoms Cardiac: No Symptoms Abdominal/Gastrointestinal: No Symptoms, Abdominal Pain, Hematochezia Genitourinary Symptoms: No Symptoms Musculoskeletal: No Symptoms Skin: No Symptoms Neurological: No Symptoms Psychological: No Symptoms Endocrine: No Symptoms Hematologic/Lymphatic: No Symptoms Immunological/Allergic: No Symptoms - Past Medical History Pertinent Past Medical History: Yes Neurological History: No Pertinent History ENT History: No Pertinent History Cardiac History: No Pertinent History Respiratory History: No Pertinent History Endocrine Medical History: No Pertinent History Musculoskeletal History: No Pertinent History GI Medical History: Colitis, GI Bleed History: No Pertinent History Psycho-Social History: Other Male Reproductive Disorders: No Pertinent History Other Medical History: pt has ADHD and oppositional defiance disorder - Past Surgical History Past Surgical History: Yes Neuro Surgical History: No Pertinent History Cardiac: No Pertinent History Respiratory: No Pertinent History Gastrointestinal: No Pertinent History Genitourinary: No Pertinent History Musculoskeletal: Orthopedic Surgery Male Surgical History: No Pertinent History Other Surgical History: right wrist glass removed in surgery, colonoscopy - Social History Smoking Status: Current every day smoker How long have you smoked: yr Exposure to second hand smoke: Yes Drug Use: none Patient Lives Alone: No - Nursing Vital Signs Nursing Vital Signs: Initial Vital Signs Temperature 98.7 F 09/25/21 12:33 Pulse Rate 103 H 09/25/21 12:33 Blood Pressure 132/77 09/25/21 12:33 O2 Sat by Pulse Oximetry 100 09/25/21 12:33 Pain Scale Pain Intensity 5 Tachy - Physical Exam General Appearance: no apparent distress Eye Exam: PERRL/EOMI, eyes nml inspection Ears, Nose, Throat Exam: normal ENT inspection, TMs normal, pharynx normal, moist mucous membranes Neck Exam: normal inspection, non-tender, supple, full range of motion Respiratory Exam: normal breath sounds, lungs clear, airway intact, No respiratory distress Cardiovascular Exam: tachycardia Gastrointestinal/Abdomen Exam: soft, normal bowel sounds, tenderness (Mild diffuse wo guarding or rebound) Back Exam: normal inspection, normal range of motion Extremity Exam: normal inspection, normal range of motion Neurologic Exam: alert, oriented x 3, cooperative, rec therapist II-XII nml as tested, normal mood/affect, nml cerebellar function, nml station & gait, sensation nml Skin Exam: pale Lymphatic Exam: No adenopathy SpO2 Interpretation: normal SpO2: 100 O2 Delivery: Room Air - Course Nursing assessment & vital signs reviewed: Yes Ordered Tests: Active Orders 24 hr Category Date Time Status NPO Diet 09/25/21 14:49 Completed CBC W DIFF AM.LAB Lab 09/26/21 04:00 Ordered CBC W DIFF Stat Lab 09/25/21 13:35 Results CMP Stat Lab 09/25/21 13:35 Completed ESR [Erythrocyte Sedimentation Rate] Stat Lab 09/25/21 13:35 Completed Manual Differential NC Stat Lab 09/25/21 13:35 Results PROTIME WITH INR Stat Lab 09/25/21 13:12 Completed PTT Stat Lab 09/25/21 13:12 Completed Pathologist Review Stat Lab 09/25/21 13:35 Results Transfer Order Routine Transfer 09/25/21 Completed Medication Summary Generic Name Dose Route Start Last Admin Trade Name Freq PRN Reason Stop Dose Admin Methylprednisolone Sodium 0 mg 09/25/21 20:00 09/25/21 20:16 Succinate 125 mg/ Sterile IV 10/25/21 19:59 125 mg Water 2 ml Q6HT ALEXIS Administration Diphenhydramine HCl 50 mg 09/25/21 21:13 09/25/21 21:38 Diphenhydramine Hcl 25 Mg Capsule PO 10/25/21 21:12 50 mg HS PRN PRN Administration INSOMNIA Furosemide 20 mg 09/25/21 15:00 09/25/21 20:23 Furosemide 20 Mg/Vial IV 09/26/21 10:00 20 mg BETWEEN UNITS ALEXIS Administration Sodium Chloride 1,000 mls @ 50 mls/hr 09/25/21 17:15 09/25/21 17:11 Sodium Chloride 0.9% 1000 Ml IV 10/25/21 17:14 50 mls/hr .Q20H ALEXIS Administration Ondansetron HCl 4 mg 09/25/21 14:48 Ondansetron Hcl 4 Mg/2 Ml Vial IV 10/25/21 14:47 Q6H PRN PRN NAUSEA/VOMITING Discontinued Medications Generic Name Dose Route Start Last Admin Trade Name Freq PRN Reason Stop Dose Admin Methylprednisolone Sodium Succinate Confirm 09/25/21 20:11 Methylprednis Sod Succ 125 Mg/2 Ml Vial Administered 09/25/21 20:12 Dose 125 mg .ROUTE .STK-MED ONE Sterile Water Confirm 09/25/21 20:11 Water For Injection,Sterile 10 Ml Vial Administered 09/25/21 20:12 Dose 10 ml IJ .STK-MED ONE Lab/Rad Data: Laboratory Result Diagrams 09/25/21 13:35 09/25/21 13:35 Laboratory Results 09/25/21 09/25/21 09/25/21 Range/Units 15:04 15:04 15:04 WBC (4.0-10.5) K/mm3 RBC (4.1-5.6) M/mm3 Hgb (12.5-18.0) gm/dl Hct (42-50) % MCV (78-100) fl MCH (26-32) pg MCHC (32-36) g/dl RDW (11.5-14.0) % Plt Count (150-450) K/mm3 MPV (7.5-11.0) fl Segmented Neutrophils (36.-66.) % Band Neutrophils (0.0-2.0) % Lymphocytes (Manual) (24-44) % Monocytes (Manual) (0.0-12.0) % Eosinophils (Manual) (0.00-3.0) % Basophils (Manual) (0.0-1.0) % Hypochromia Platelet Estimate (NORMAL) RBC Morphology Polychromasia Poikilocytosis Microcytosis Target Cells Schistocytes Smear Path Review ESR (0-15) mm/hr PT (9.4-12.5) SECONDS INR (0.8-3.0) APTT (25.1-36.5) SECONDS Sodium (137-145) mmol/L Potassium (3.5-5.1) mmol/L Chloride (98-107) mmol/L Carbon Dioxide (22-30) mmol/L Anion Gap (5-15) MEQ/L BUN (9-20) mg/dL Creatinine (0.66-1.25) mg/dL Estimated GFR ML/MIN Glucose (74-106) mg/dL Calcium (8.4-10.2) mg/dL Total Bilirubin (0.2-1.3) mg/dL AST (17-59) U/L ALT (0-50) U/L Alkaline Phosphatase (38-126) U/L Serum Total Protein (6.3-8.2) g/dL Albumin (3.5-5.0) g/dL SARS-CoV-2 (PCR) (NEGATIVE) ABO Group A Rh Factor POSITIVE Antibody Screen NEGATIVE (NEGATIVE) Crossmatch COMPATIBLE COMPATIBLE COMPATIBLE (COMPATIBLE) 09/25/21 09/25/21 09/25/21 Range/Units 15:00 13:35 13:35 WBC (4.0-10.5) K/mm3 RBC (4.1-5.6) M/mm3 Hgb (12.5-18.0) gm/dl Hct (42-50) % MCV (78-100) fl MCH (26-32) pg MCHC (32-36) g/dl RDW (11.5-14.0) % Plt Count (150-450) K/mm3 MPV (7.5-11.0) fl Segmented Neutrophils (36.-66.) % Band Neutrophils (0.0-2.0) % Lymphocytes (Manual) (24-44) % Monocytes (Manual) (0.0-12.0) % Eosinophils (Manual) (0.00-3.0) % Basophils (Manual) (0.0-1.0) % Hypochromia Platelet Estimate (NORMAL) RBC Morphology Polychromasia Poikilocytosis Microcytosis Target Cells Schistocytes Smear Path Review ESR 58 H (0-15) mm/hr PT (9.4-12.5) SECONDS INR (0.8-3.0) APTT (25.1-36.5) SECONDS Sodium 137 (137-145) mmol/L Potassium 4.3 (3.5-5.1) mmol/L Chloride 102 (98-107) mmol/L Carbon Dioxide 28 (22-30) mmol/L Anion Gap 11.3 (5-15) MEQ/L BUN 6 L (9-20) mg/dL Creatinine 0.79 (0.66-1.25) mg/dL Estimated GFR > 60.0 ML/MIN Glucose 94 (74-106) mg/dL Calcium 8.4 (8.4-10.2) mg/dL Total Bilirubin 0.20 (0.2-1.3) mg/dL AST 15 L (17-59) U/L ALT 6 (0-50) U/L Alkaline Phosphatase 76 (38-126) U/L Serum Total Protein 5.9 L (6.3-8.2) g/dL Albumin 2.9 L (3.5-5.0) g/dL SARS-CoV-2 (PCR) NEGATIVE (NEGATIVE) ABO Group Rh Factor Antibody Screen (NEGATIVE) Crossmatch (COMPATIBLE) 09/25/21 09/25/21 Range/Units 13:35 13:12 WBC 10.7 H (4.0-10.5) K/mm3 RBC 3.77 L (4.1-5.6) M/mm3 Hgb 6.9 L* (12.5-18.0) gm/dl Hct 25.1 L (42-50) % MCV 66.6 L (78-100) fl MCH 18.3 L (26-32) pg MCHC 27.5 L (32-36) g/dl RDW 18.4 H (11.5-14.0) % Plt Count 850 H (150-450) K/mm3 MPV 8.3 (7.5-11.0) fl Segmented Neutrophils 64 (36.-66.) % Band Neutrophils 1 (0.0-2.0) % Lymphocytes (Manual) 21 L (24-44) % Monocytes (Manual) 8 (0.0-12.0) % Eosinophils (Manual) 5 H (0.00-3.0) % Basophils (Manual) 1 (0.0-1.0) % Hypochromia 2+ Platelet Estimate INCREASED (NORMAL) RBC Morphology ABNORMAL Polychromasia 1+ Poikilocytosis 2+ Microcytosis 2+ Target Cells 1+ Schistocytes 1+ Smear Path Review Pending ESR (0-15) mm/hr PT 13.5 H (9.4-12.5) SECONDS INR 1.14 (0.8-3.0) APTT 29.8 (25.1-36.5) SECONDS Sodium (137-145) mmol/L Potassium (3.5-5.1) mmol/L Chloride (98-107) mmol/L Carbon Dioxide (22-30) mmol/L Anion Gap (5-15) MEQ/L BUN (9-20) mg/dL Creatinine (0.66-1.25) mg/dL Estimated GFR ML/MIN Glucose (74-106) mg/dL Calcium (8.4-10.2) mg/dL Total Bilirubin (0.2-1.3) mg/dL AST (17-59) U/L ALT (0-50) U/L Alkaline Phosphatase (38-126) U/L Serum Total Protein (6.3-8.2) g/dL Albumin (3.5-5.0) g/dL SARS-CoV-2 (PCR) (NEGATIVE) ABO Group Rh Factor Antibody Screen (NEGATIVE) Crossmatch (COMPATIBLE) - Progress Progress Note: 09/25/21 14:[address] Coley Discussed with : Nitza Counseled pt/family regarding: lab results, diagnosis - Departure Departure Disposition: Observation Clinical Impression: Ulcerative colitis, Rectal bleeding Condition: Stable Critical Care Time: No
[2021-09-25 13:53] LABS: ALBUMIN 2.9 g/dL (3.5-5.0); ALKALINE PHOSPHATASE 76 U/L (38-126); ANION GAP 11.3 MEQ/L (5-15); BLOOD UREA NITROGEN 6 mg/dL (9-20); CHLORIDE 102 mmol/L (98-107); Calcium 8.4 mg/dL (8.4-10.2); Carbon Dioxide 28 mmol/L (22-30); Creatinine 1 0.79 mg/dL (0.66-1.25); EST GLOMERULAR FILTRATION RATE > 60.0 ML/MIN; Glucose 94 mg/dL (74-106); Potassium 4.3 mmol/L (3.5-5.1); SGOT/AST 15 U/L (17-59); SGPT/ALT 6 U/L (0-50); SODIUM 137 mmol/L (137-145); Total Protein 5.9 g/dL (6.3-8.2)
[2021-09-25 14:15] LABS: Hemoglobin 6.9 gm/dl (12.5-18.0)
[2021-09-25 14:18] LABS: BAND 1 % (0.0-2.0); Basophil 1 % (0.0-1.0); Eosinophil 5 % (0.00-3.0); Hypochromia 2+; Lymphocytes 21 % (24-44); Monocyte 8 % (0.0-12.0); Neutrophils 64 % (36.-66.); Platelet Estimate INCREASED (NORMAL); Polychromasia 1+; Total Cells Counted 100
[2021-09-25 14:19] LABS: Microcytosis 2+; Poikilocytosis 2+; Schistocytes 1+; Targert Cells 1+
[2021-09-25] MEDS ORDERED: Zofran 4 MG/2 ML VIAL IV PRN (14:48)
[2021-09-25 15:56] LABS: ABO TYPING A
[2021-09-25 15:57] LABS: Antibody Screen NEGATIVE (NEGATIVE); RH TYPING POSITIVE
[2021-09-25 16:00] LABS: CROSS MATCH (PRBC) COMPATIBLE (COMPATIBLE)
[2021-09-25] MEDS ORDERED: Sodium Chloride 0.9% 1000 ML 1,000 ML IV SCH (17:15)
[2021-09-25] MEDS ORDERED: solu-MEDROL ONE (20:11)
[2021-09-25] MEDS ORDERED: Sterile H2O 10 ml IJ ONE (20:11)
[2021-09-25] MEDS: solu-MEDROL 125 MG, Sterile H2O 10 ml 2 ML IV SCH ×2 (20:16)
[2021-09-25] MEDS: Lasix 20 MG/2 ML IV SCH ×2 (20:23→23:27)
[2021-09-25] MEDS ORDERED: BENADRYL 25 MG CAPSULE PO PRN (21:13)
[2021-09-26] MEDS ORDERED: Sterile H2O 10 ml IJ ONE (01:33)
[2021-09-26] MEDS ORDERED: solu-MEDROL ONE (01:33)
[2021-09-26] MEDS: solu-MEDROL 125 MG, Sterile H2O 10 ml 2 ML IV SCH ×4 (02:46→08:55)
[2021-09-26 04:36] LABS: Hematocrit 35.8 % (42-50); Hemoglobin 10.7 gm/dl (12.5-18.0); Mean Cell Volume 70.6 fl (78-100); Mean Corpuscular Hemoglobin 21.1 pg (26-32); Mean Corpuscular Hgb Concent. 29.9 g/dl (32-36); Mean Platelet Volume 8.3 fl (7.5-11.0); Platelet Count 761 K/mm3 (150-450); Red Blood Count 5.07 M/mm3 (4.1-5.6); Red Cell Distribution Width 21.3 % (11.5-14.0); White Blood Count 7.8 K/mm3 (4.0-10.5)
[2021-09-26 07:29] LABS: BAND 5 % (0.0-2.0); Lymphocytes 9 % (24-44); Monocyte 1 % (0.0-12.0); Neutrophils 85 % (36.-66.); Total Cells Counted 100
[2021-09-26 07:30] LABS: ANISOCYTOSIS 1+; Hypochromia 2+; Platelet Estimate INCREASED (NORMAL); Poikilocytosis 1+; Polychromasia 1+; Schistocytes 1+
[2021-09-26] MEDS ORDERED: NORCO 5/325 MG PO PRN (10:28)
--- NOTE | 2021-09-28 12:50 | SSS ---
DISCHARGE DIAGNOSES: 1) BLOOD LOSS ANEMIA. 2) ULCERATIVE COLITIS FLARE UP. HISTORY: The patient is a 21-year-old white male patient who has history of ulcerative colitis over the last five years. He has recently been placed on Remicade IV which he had three treatments for but he had some fairly persistent colitis over the past three months resulting in bleeding from the rectum which now has been a little worse. The patient has been following his blood count and he became significantly anemic with a blood count less than 7. He was therefore sent to the hospital for blood transfusions. The patient was admitted to the hospital where we gave him some IV Solu-Medrol which the patient did report helped as he was not passing blood in his stool anymore only on the toilet paper when he wiped and he was feeling better. With 3 units of packed red blood cells, we got his hemoglobin above 10 and by the morning of 09/26/2021, he was felt to be ready for discharge home. The discharge plans were to send him home on prednisone at 30 mg a day for five days, 20 mg for five days and 10 mg for five days. He was also getting 325 mg dose of iron to take. The patient also reports a history of migraine headaches and he was complaining of one this morning. Will give him 5/325 mg dose of [place] one time in the hospital to see how it might help him. PHYSICAL EXAMINATION: Revealed a thin, white male patient who reports he weighs in the 120's at present time but he reports he has not weighed less than 140 however throughout his life and high school. HEENT: Normocephalic, atraumatic. Pupils equal round reactive to light. Extraocular movements intact. Oropharynx is pink and moist. NECK: Supple without lymphadenopathy, thyromegaly or JVD. CHEST: Clear to auscultation. HEART: Heart is regular rate and rhythm. ABDOMEN: Somewhat tender throughout. No palpable masses are felt. EXTREMITIES: Without cyanosis, clubbing or edema. NEUROLOGIC: The patient is alert and oriented x3. No focal deficits noted. SKIN: His skin is somewhat pallor to his complexion. HOSPITAL COURSE: Again, the patient reports that he has been seeing Dr. Hipolito Galan as an outpatient now who is supposed to be getting him another GI specialist to see. He is supposed to hear this on 09/28/2021, on Tuesday. Again, the patient is felt to be ready for discharge home at this time to follow up with Dr. Dinero as an outpatient and he will continue to use the prednisone and the iron at home in the interim. He may return to the hospital if he has any further problems with increase in blood in the stool or abdominal pain.
== END 2021-09-26 13:37 | disposition home or self-care (01) ==
LOC: ED 12:22 → MED SURG 17:00
PROVIDERS: ADMIT Family Medicine; ATTEND Family Medicine
DX: D50.0 Iron deficiency anemia secondary to blood loss (chronic) (principal); K51.90 Ulcerative colitis, unspecified, without complications; Z20.822 Contact with and (suspected) exposure to COVID-19; Z79.899 Other long term (current) drug therapy
CPT/HCPCS: 36415; 36430; 80053; 85025; 85610; 85652; 85730; 86850; 86900; 86901; 86922; 93268; 99283; J1940; J2930; P9016; U0003; A9270-GY; G0378

== ENCOUNTER 2021-10-03 21:18 | Emergency (ER) | payer MEDICAID ==
[2021-10-03] MEDS ORDERED: Sodium Chloride 0.9% 1000 ML 1,000 ML IV STA (21:30)
[2021-10-03 21:48] LABS: Hemoglobin 9.7 gm/dl (12.5-18.0); Mean Cell Volume 70.2 fl (78-100); Mean Corpuscular Hemoglobin 21.3 pg (26-32); Mean Corpuscular Hgb Concent. 30.3 g/dl (32-36); Platelet Count 671 K/mm3 (150-450); Red Blood Count 4.56 M/mm3 (4.1-5.6); Red Cell Distribution Width 22.2 % (11.5-14.0); White Blood Count 13.9 K/mm3 (4.0-10.5)
[2021-10-03 21:59] LABS: ALKALINE PHOSPHATASE 84 U/L (38-126); AMYLASE 40 U/L (30-110); BLOOD UREA NITROGEN 4 mg/dL (9-20); CHLORIDE 100 mmol/L (98-107); Calcium 7.7 mg/dL (8.4-10.2); Carbon Dioxide 28 mmol/L (22-30); Creatinine 1 0.83 mg/dL (0.66-1.25); EST GLOMERULAR FILTRATION RATE > 60.0 ML/MIN; Glucose 107 mg/dL (74-106); LIPASE 47 U/L (23-300); Potassium 3.6 mmol/L (3.5-5.1); SGOT/AST 13 U/L (17-59); SGPT/ALT 9 U/L (0-50); SODIUM 135 mmol/L (137-145); Total Protein 6.1 g/dL (6.3-8.2)
--- NOTE | 2021-10-03 21:59 | ERPHSYRPT ---
- History of Present Illness Time Seen by Provider: 10/03/21 21:57 Historian: patient Exam Limitations: no limitations Patient Subjective Stated Complaint: "My stomach hurts and I'm having diarrhea." Triage Nursing Assessment: patient presented via [facility] ambulance. Pt reported history of ulcerative collitus with multiple blood transfusions. Patient reported ongoing abdominal pain, diarrhea, and hematochezia. He denied any headache, dizziness, chest pain, or shortness of breath. Pupils 3mm bilateral. Oral mucosa pale/dry. neck supple without lymphadenopathy. Symmetrical chest expansion. Heart tones S1/S2 RRR. Lungs vesicular with adequate airflow. Abdomen non-distended with tenderness to the LLQ. Bowel sounds active throughout all quadrants. Physician History: "My stomach hurts and I'm having diarrhea." for 2-3 days. Pt reported history of ulcerative collitus with multiple blood transfusions. Patient reported ongoing abdominal pain, diarrhea, and hematochezia. He denied any headache, dizziness, chest pain, or shortness of breath. 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 Timing/Duration: day(s) Activities at Onset: none Quality: cramping Abdominal Pain Onset Location: epigastric Severity of Pain-Max: moderate Severity of Pain-Current: moderate Modifying Factors: Improves With: nothing Associated Symptoms: diarrhea, loss of appetite Allergies/Adverse Reactions: No Known Drug Allergies Allergy (Verified 10/03/21 21:26) Home Medications: Infliximab 100 mg [Remicade 100MG Injection] 100 mg IV UD 09/25/21 [History] Hx Tetanus, Diphtheria Vaccination/Date Given: No Hx Influenza Vaccination/Date Given: No Hx Pneumococcal Vaccination/Date Given: No Travel Risk - International Travel Have you traveled outside of the country in past 3 weeks: No - Coronavirus Screening Are you exhibiting any of the following symptoms?: No Close contact with a COVID-19 positive Pt in past 14-21 Days: No - Vaccine Status Have you recieved a Covid-19 vaccination: No - Review of Systems Constitutional: No Fever, No Chills Eyes: No Symptoms Ears, Nose, & Throat: No Symptoms Respiratory: No Cough, No Dyspnea Cardiac: No Chest Pain, No Edema, No Syncope Abdominal/Gastrointestinal: Abdominal Pain, Diarrhea, No Nausea, No Vomiting Genitourinary Symptoms: No Dysuria Musculoskeletal: No Back Pain, No Neck Pain Skin: No Rash Neurological: No Dizziness, No Focal Weakness, No Sensory Changes Psychological: No Symptoms Endocrine: No Symptoms All Other Systems: Reviewed and Negative - Past Medical History Pertinent Past Medical History: Yes Neurological History: No Pertinent History ENT History: No Pertinent History Cardiac History: No Pertinent History Respiratory History: No Pertinent History Endocrine Medical History: No Pertinent History Musculoskeletal History: No Pertinent History GI Medical History: Colitis, GI Bleed History: No Pertinent History Psycho-Social History: Other Male Reproductive Disorders: No Pertinent History Other Medical History: pt has ADHD and oppositional defiance disorder - Past Surgical History Past Surgical History: Yes Neuro Surgical History: No Pertinent History Cardiac: No Pertinent History Respiratory: No Pertinent History Gastrointestinal: No Pertinent History Genitourinary: No Pertinent History Musculoskeletal: Orthopedic Surgery Male Surgical History: No Pertinent History Other Surgical History: right wrist glass removed in surgery, colonoscopy - Social History Smoking Status: Current every day smoker How long have you smoked: yr Exposure to second hand smoke: Yes Drug Use: none Patient Lives Alone: No - Nursing Vital Signs Nursing Vital Signs: Initial Vital Signs Temperature 99.0 F 10/03/21 21:18 Pulse Rate 96 H 10/03/21 21:18 Respiratory Rate 16 10/03/21 21:18 Blood Pressure 124/71 10/03/21 21:18 O2 Sat by Pulse Oximetry 97 10/03/21 21:18 Pain Scale Pain Intensity 4 - Physical Exam General Appearance: no apparent distress, alert Eye Exam: PERRL/EOMI, eyes nml inspection Ears, Nose, Throat Exam: normal ENT inspection, pharynx normal, moist mucous membranes Neck Exam: normal inspection, non-tender, supple, full range of motion Respiratory Exam: normal breath sounds, lungs clear, No respiratory distress Cardiovascular Exam: regular rate/rhythm, normal heart sounds Gastrointestinal/Abdomen Exam: soft, No tenderness, No mass Back Exam: normal inspection, normal range of motion, No CVA tenderness, No vertebral tenderness Extremity Exam: normal inspection, normal range of motion, pelvis stable Neurologic Exam: alert, oriented x 3, cooperative, normal mood/affect, nml cerebellar function, sensation nml, No motor deficits Skin Exam: normal color, warm, dry SpO2: 97 - Course Nursing assessment & vital signs reviewed: Yes - CT Exams Abdomen/Pelvis CT Interpretation: Tele-radiologist Report (xaviertis) Ordered Tests: Active Orders 24 hr Category Date Time Status ABDOMEN AND PELVIS W/0 CONTRAS [CT] Stat Exams 10/03/21 21:31 Ordered AMYLASE Stat Lab 10/03/21 21:45 Completed CBC W DIFF Stat Lab 10/03/21 21:45 Completed CMP Stat Lab 10/03/21 21:45 Completed LIPASE Stat Lab 10/03/21 21:45 Completed Manual Differential NC Stat Lab 10/03/21 21:45 Completed UA W/RFX UR CULTURE Stat Lab 10/03/21 21:30 Ordered Medication Summary Discontinued Medications Generic Name Dose Route Start Last Admin Trade Name Freq PRN Reason Stop Dose Admin Sodium Chloride 1,000 mls @ 999 mls/hr 10/03/21 21:30 10/03/21 22:07 Sodium Chloride 0.9% 1000 Ml IV 10/03/21 22:30 999 mls/hr .Q1H1M STA Administration Sodium Chloride Confirm 10/03/21 22:06 Sodium Chloride 0.9% 1000 Ml Administered 10/03/21 22:07 Dose 1,000 mls @ ud .ROUTE .K-MED ONE Lab/Rad Data: Laboratory Result Diagrams 10/03/21 21:45 10/03/21 21:45 Laboratory Results 10/03/21 10/03/21 Range/Units 21:45 21:45 WBC 13.9 H (4.0-10.5) K/mm3 RBC 4.56 (4.1-5.6) M/mm3 Hgb 9.7 L (12.5-18.0) gm/dl Hct 32.0 L (42-50) % MCV 70.2 L (78-100) fl MCH 21.3 L (26-32) pg MCHC 30.3 L (32-36) g/dl RDW 22.2 H (11.5-14.0) % Plt Count 671 H (150-450) K/mm3 MPV 8.0 (7.5-11.0) fl Segmented Neutrophils 66 (36.-66.) % Band Neutrophils 10 H (0.0-2.0) % Lymphocytes (Manual) 8 L (24-44) % Monocytes (Manual) 10 (0.0-12.0) % Eosinophils (Manual) 6 H (0.00-3.0) % Hypochromia 2+ Platelet Estimate NORMAL (NORMAL) RBC Morphology ABNORMAL Poikilocytosis 1+ Anisocytosis 2+ Microcytosis 1+ Ovalocytes 1+ Schistocytes 1+ Sodium 135 L (137-145) mmol/L Potassium 3.6 (3.5-5.1) mmol/L Chloride 100 (98-107) mmol/L Carbon Dioxide 28 (22-30) mmol/L Anion Gap 11.0 (5-15) MEQ/L BUN 4 L (9-20) mg/dL Creatinine 0.83 (0.66-1.25) mg/dL Estimated GFR > 60.0 ML/MIN Glucose 107 H (74-106) mg/dL Calcium 7.7 L (8.4-10.2) mg/dL Total Bilirubin 0.20 (0.2-1.3) mg/dL AST 13 L (17-59) U/L ALT 9 (0-50) U/L Alkaline Phosphatase 84 (38-126) U/L Serum Total Protein 6.1 L (6.3-8.2) g/dL Albumin 3.0 L (3.5-5.0) g/dL Amylase 40 (30-110) U/L Lipase 47 (23-300) U/L - Progress Progress: improved Counseled pt/family regarding: lab results, diagnosis, need for follow-up, rad results - Departure Departure Disposition: Home Clinical Impression: Ulcerative colitis with rectal bleeding Qualifiers: Ulcerative colitis location: ulcerative rectosigmoiditis Qualified Code(s): 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 The patient was counseled regarding Diagnosis,Lab results, Imaging studies, need for follow up and when to return to the Emergency Room. Prescriptions given: Discharge Note I have spoken with the patient and/or caregivers. I have explained the patient's condition, diagnosis and treatment plan based on the information available to me at this time. I have answered the patient's and/or caregiver's questions and addressed any concerns. The patient and/or caregivers have as good understanding of the patient's diagnosis, condition and treatment plan as can be expected at this point. The vital signs have been stable. The patient's condition is stable and appropriate for discharge from the emergency department. The patient will pursue further outpatient evaluation with the primary care phys ician or other designated or consulting physician as outlined in the discharge instructions. The patient and/or caregivers are agreeable to this plan of care and follow-up instructions have been explained in detail. The patient and/or caregivers have received these instruction. The patient/and or caregivers are aware that any significant change in condition or worsening of symptoms should prompt an immediate return to this or the closest emergency department or call 911. CARLOSHERMANNJAYSON MARGE was seen on 10/03/21 n the Emergency Room. At that time you were treated for an emergent condition, during your visit Laboratory, Radiology and/or other procedures may have been ordered. It is very important that you follow-up with your Primary Care Physician NAA MURILLO within the next 24- 48 hours to review your Emergency Room visit and the final results of testing that was ordered. Some test results such as Urine Cultures, Blood Cultures, and other cultures if ordered will not be finalized for 24-48 hours. If you do not have a Primary Care Provider please call the medical records department at [phone] ext [phone] to obtain a copy of your results or you may sign into our patient portal to obtain these results by visiting us @ [email or web address] and completing the following steps: 1. Click on the Patient Portal link 2. Click the Patient Self Enrollment Link to complete the enrollment form and entering your 3. Once the enrollment form is completed you will receive an email with a temporary ID and password at the email address you provided. 4. Next choose a user name and password. Your user name must be at least 4 characters long and your password must be at least 4 characters long. 5. Choose a security question from the list and provide your answer to the qu estion. If you already have signed into the Health Portal you may access your Health [employer] Information 13/06 by the following steps: 1. Login to our website @ [email or web address] 2. Enter your original user name and password. FAQS The [facility] Health Portal is an online tool that contains your Lab Results, Radiology Reports, Visit History, Discharge Instructions and Health Summary Lab and Radiology Results will not be available for 72 hours on the portal. The Portal is a secure site, passwords are encryted and URLs are re-written so they cannot be copied and pasted. You and authorized family members are the only ones who can access your Portal. Also there is a timeout feature that protects your information if you leave the Portal page open. If you have technical difficulty please use the Contact Us link on the page this will allow you to submit any questions you have regarding the Portal or you may contact the Medical Record Department at [phone].
[2021-10-03] MEDS ORDERED: Sodium Chloride 0.9% 1000 ML 1,000 ML ONE (22:06)
[2021-10-03 22:34] LABS: ANISOCYTOSIS 2+; BAND 10 % (0.0-2.0); Eosinophil 6 % (0.00-3.0); Hypochromia 2+; Lymphocytes 8 % (24-44); Microcytosis 1+; Monocyte 10 % (0.0-12.0); Neutrophils 66 % (36.-66.); Ovalocytes 1+; Platelet Estimate NORMAL (NORMAL); Poikilocytosis 1+; Schistocytes 1+; Total Cells Counted 100
--- NOTE | 2021-10-04 08:08 | XRAY ---
Indication: Bilateral lower quadrant pain. Fever. Rectal abscess. Multiple contiguous axial images obtained through the abdomen and pelvis without contrast. Comparison: None Lung bases demonstrates 4 mm right base subpleural noncalcified nodule presumed granulomatous. No infiltrate or effusion. Heart not enlarged. Stomach is distended with food/fluid. Noncontrasted stomach and bowel loops appear nonobstructed. Normal appendix. Sigmoid colon and lesser degree descending colon demonstrates mild circumferential wall thickening with pericolonic stranding favoring colitis. Perirectal/perianal region unremarkable for noncontrast exam. No free fluid/air. Gallbladder contracted without gallstones. Remaining liver, pancreas, spleen, adrenal glands, kidneys, ureters, bladder, and aorta are unremarkable for noncontrast exam. Osseous structures intact with incidental bilateral L5 spondylolysis without spondylolisthesis. Impression: 1. CT findings favoring colitis. 2. Incidental right lower lobe noncalcified micronodule presumed granulomatous and L5 spondylolysis without spondylolisthesis. Comment: Preliminary interpretation made by [facility]. No critical discrepancy.
== END 2021-10-03 23:10 | disposition home or self-care (01) ==
LOC: ED 21:18
DX: K51.311 Ulcerative (chronic) rectosigmoiditis with rectal bleeding (principal); Z72.0 Tobacco use; R19.7 Diarrhea, unspecified; K92.1 Melena
CPT/HCPCS: 36415; 74176; 80053; 82150; 83690; 85025; 99284; 99291

== ENCOUNTER 2021-12-08 13:34 | Observation (INO) | payer MEDICAID ==
[2021-12-08 14:01] LABS: Hematocrit 18.8 % (42-50); Mean Cell Volume 62.9 fl (78-100); Mean Corpuscular Hemoglobin 16.7 pg (26-32); Mean Corpuscular Hgb Concent. 26.6 g/dl (32-36); Mean Platelet Volume 8.1 fl (7.5-11.0); Platelet Count 629 K/mm3 (150-450); Red Blood Count 2.99 M/mm3 (4.1-5.6); Red Cell Distribution Width 18.6 % (11.5-14.0); White Blood Count 11.6 K/mm3 (4.0-10.5)
[2021-12-08 14:09] LABS: INR 1.16 (0.8-3.0); PROTIME 13.7 SECONDS (9.4-12.5)
[2021-12-08 14:12] LABS: PTT 32.3 SECONDS (25.1-36.5)
[2021-12-08 14:13] LABS: ALBUMIN 2.7 g/dL (3.5-5.0); ALKALINE PHOSPHATASE 87 U/L (38-126); ANION GAP 10.6 MEQ/L (5-15); BLOOD UREA NITROGEN 10 mg/dL (9-20); CHLORIDE 98 mmol/L (98-107); Carbon Dioxide 28 mmol/L (22-30); Creatinine 1 0.89 mg/dL (0.66-1.25); EST GLOMERULAR FILTRATION RATE > 60.0 ML/MIN; Glucose 92 mg/dL (74-106); Potassium 3.9 mmol/L (3.5-5.1); SGOT/AST 16 U/L (17-59); SGPT/ALT 8 U/L (0-50); SODIUM 133 mmol/L (137-145); Total Protein 5.9 g/dL (6.3-8.2)
--- NOTE | 2021-12-08 14:25 | ERPHSYRPT ---
- History of Present Illness Historian: patient Exam Limitations: no limitations Patient Subjective Stated Complaint: weakness Triage Nursing Assessment: Pt presents to ED ambulatory, A & OX3. Pt slightly tachycardic upon arrival to room, HR comes below 100 at rest. Patient skin is pale and dry. Pt c/o weakness x 3 days, states hx of anemia r/t UC. Receives medication infusion q2mo for UC, last infusion November 09. Reports rectal bleeding with BM's daily since January 2021. States color alternates between bright red blood and dark with clots. Currently waiting to see new specialist in January. Reports SOB with exertion, none at rest. Vital signs stable. Last blood transfusion was 2 months ago per patient. Reports non radiating, constant mid abdominal pain 05/30. Denies nausea, vomiting, diarrhea, or constipation. Physician History: 21 yo wm w h/o UC presents w rectal bleeding. Pt states that he has been bleeding since 02/08. He is a pt of Dr. Reyna and uses [facility] for his UC. He denies fever/N/V/D. Timing/Duration: other (02/07) Activities at Onset: sleep Quality: cramping Abdominal Pain Onset Location: generalized abdomen Pain Radiation: no radiation Severity of Pain-Max: moderate Severity of Pain-Current: mild Modifying Factors: Improves With: nothing Associated Symptoms: No back, No chest pain, No diaphoresis, No diarrhea, No fever/chills, No fatigue, No headache, No heartburn, No loss of appetite, No nausea, No neck pain, No rash, No shortness of breath, No syncope, No vomiting, No weakness Previous symptoms: same symptoms as today Allergies/Adverse Reactions: No Known Drug Allergies Allergy (Verified 12/08/21 13:49) Home Medications: Infliximab [Remicade Injection] 100 mg IV UD 09/25/21 [History] Hx Tetanus, Diphtheria Vaccination/Date Given: No Hx Influenza Vaccination/Date Given: No Hx Pneumococcal Vaccination/Date Given: No Travel Risk - International Travel Have you traveled outside of the country in past 3 weeks: No - Coronavirus Screening Are you exhibiting any of the following symptoms?: No Close contact with a COVID-19 positive Pt in past 14-21 Days: No - Vaccine Status Have you recieved a Covid-19 vaccination: No - Review of Systems Constitutional: No Symptoms, Fever, Chills Eyes: No Symptoms Ears, Nose, & Throat: No Symptoms Respiratory: No Symptoms Cardiac: No Symptoms Abdominal/Gastrointestinal: No Symptoms, Abdominal Pain, Hematochezia Genitourinary Symptoms: No Symptoms Musculoskeletal: No Symptoms Skin: No Symptoms Neurological: No Symptoms Psychological: No Symptoms Endocrine: No Symptoms Hematologic/Lymphatic: No Symptoms Immunological/Allergic: No Symptoms - Past Medical History Pertinent Past Medical History: Yes Neurological History: No Pertinent History ENT History: No Pertinent History Cardiac History: No Pertinent History Respiratory History: No Pertinent History Endocrine Medical History: No Pertinent History Musculoskeletal History: No Pertinent History GI Medical History: Colitis, GI Bleed History: No Pertinent History Psycho-Social History: Other Male Reproductive Disorders: No Pertinent History Other Medical History: pt has ADHD and oppositional defiance disorder - Past Surgical History Past Surgical History: Yes Neuro Surgical History: No Pertinent History Cardiac: No Pertinent History Respiratory: No Pertinent History Gastrointestinal: No Pertinent History Genitourinary: No Pertinent History Musculoskeletal: Orthopedic Surgery Male Surgical History: No Pertinent History Other Surgical History: right wrist glass removed in surgery, colonoscopy - Social History Smoking Status: Never smoker How long have you smoked: yr Exposure to second hand smoke: Yes Drug Use: none Patient Lives Alone: No Significant Family History: no pertinent family hx - Nursing Vital Signs Nursing Vital Signs: Initial Vital Signs Temperature 98.9 F 12/08/21 13:42 Pulse Rate 109 H 12/08/21 13:42 Respiratory Rate 14 12/08/21 13:42 Blood Pressure 108/64 12/08/21 13:42 O2 Sat by Pulse Oximetry 100 12/08/21 13:42 Pain Scale Pain Intensity 7 Tachy - Physical Exam General Appearance: no apparent distress Eye Exam: PERRL/EOMI, eyes nml inspection Ears, Nose, Throat Exam: normal ENT inspection, TMs normal, pharynx normal, moist mucous membranes Neck Exam: normal inspection, non-tender, supple, full range of motion Respiratory Exam: normal breath sounds, lungs clear, airway intact, No respiratory distress Cardiovascular Exam: tachycardia, No murmur Gastrointestinal/Abdomen Exam: soft, normal bowel sounds, tenderness (Mild diffuse) Back Exam: normal inspection, normal range of motion Extremity Exam: normal inspection, normal range of motion Neurologic Exam: alert, oriented x 3, cooperative, 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, normal mood/affect, nml cerebellar function, nml station & gait, sensation nml, No motor deficits, No sensory deficit Skin Exam: pale Lymphatic Exam: No adenopathy SpO2 Interpretation: normal SpO2: 100 O2 Delivery: Room Air - Course Nursing assessment & vital signs reviewed: Yes Ordered Tests: Active Orders 24 hr Category Date Time Status NPO Diet 12/08/21 14:35 Active CBC W DIFF Stat Lab 12/08/21 13:49 Completed CMP Stat Lab 12/08/21 13:49 Completed ESR [Erythrocyte Sedimentation Rate] Stat Lab 12/08/21 14:10 Completed Manual Differential NC Stat Lab 12/08/21 13:49 Completed PROTIME WITH INR Stat Lab 12/08/21 13:49 Completed PTT Stat Lab 12/08/21 13:49 Completed Transfer Order Routine Transfer 12/08/21 Completed Medication Summary Generic Name Dose Route Start Last Admin Trade Name Hans PRN Reason Stop Dose Admin Furosemide 20 mg 12/08/21 23:51 Furosemide 20 Mg/Vial IV 12/08/21 23:52 AFTER EA UNIT BLOOD ONE Sodium Chloride 1,000 mls @ 100 mls/hr 12/08/21 14:45 12/08/21 16:37 Sodium Chloride 0.9% 1000 Ml IV 01/07/22 14:44 100 mls/hr .Q10H ALEXIS Administration Discontinued Medications Generic Name Dose Route Start Last Admin Trade Name Hans PRN Reason Stop Dose Admin Diphenoxylate HCl/Atropine 2 tablet 12/08/21 15:50 12/08/21 15:52 Diphenoxylate Hcl/Atropine 1 Tablet PO 12/08/21 15:51 2 tablet STAT ONE Administration Diphenoxylate HCl/Atropine Confirm 12/08/21 15:51 Diphenoxylate Hcl/Atropine 1 Tablet Administered 12/08/21 15:52 Dose 2 tablet .ROUTE .STK-MED ONE Furosemide 20 mg 12/08/21 14:40 12/08/21 20:04 Furosemide 20 Mg/Vial IV 12/08/21 14:41 20 mg AFTER EA UNIT BLOOD ONE Administration Furosemide Confirm 12/08/21 19:34 Furosemide 20 Mg/Vial Administered 12/08/21 19:35 Dose 20 mg .ROUTE .STK-MED ONE Furosemide Confirm 12/08/21 23:43 Furosemide 20 Mg/Vial Administered 01/18/22 23:44 Dose 20 mg .ROUTE .STK-MED ONE Lab/Rad Data: Laboratory Result Diagrams 12/08/21 13:49 12/08/21 13:49 Laboratory Results 12/08/21 12/08/21 12/08/21 Range/Units 15:01 14:10 14:10 WBC (4.0-10.5) K/mm3 RBC (4.1-5.6) M/mm3 Hgb (12.5-18.0) gm/dl Hct (42-50) % MCV (78-100) fl MCH (26-32) pg MCHC (32-36) g/dl RDW (11.5-14.0) % Plt Count (150-450) K/mm3 MPV (7.5-11.0) fl Segmented Neutrophils (36.-66.) % Band Neutrophils (0.0-2.0) % Lymphocytes (Manual) (24-44) % Monocytes (Manual) (0.0-12.0) % Nucleated RBCs % Hypochromia Platelet Estimate (NORMAL) RBC Morphology Poikilocytosis Anisocytosis Microcytosis Schistocytes ESR (0-15) mm/hr PT (9.4-12.5) SECONDS INR (0.8-3.0) APTT (25.1-36.5) SECONDS Sodium (137-145) mmol/L Potassium (3.5-5.1) mmol/L Chloride (98-107) mmol/L Carbon Dioxide (22-30) mmol/L Anion Gap (5-15) MEQ/L BUN (9-20) mg/dL Creatinine (0.66-1.25) mg/dL Estimated GFR ML/MIN Glucose (74-106) mg/dL Calcium (8.4-10.2) mg/dL Total Bilirubin (0.2-1.3) mg/dL AST (17-59) U/L ALT (0-50) U/L Alkaline Phosphatase (38-126) U/L Serum Total Protein (6.3-8.2) g/dL Albumin (3.5-5.0) g/dL Influenza Type A Ag NEGATIVE (NEGATIVE) Influenza Type B Ag NEGATIVE (NEGATIVE) RSV (PCR) NEGATIVE (Negative) SARS-CoV-2 (PCR) NEGATIVE (NEGATIVE) ABO Group Rh Factor Antibody Screen (NEGATIVE) Crossmatch COMPATIBLE COMPATIBLE (COMPATIBLE) 12/08/21 12/08/21 12/08/21 Range/Units 14:10 14:10 14:10 WBC (4.0-10.5) K/mm3 RBC (4.1-5.6) M/mm3 Hgb (12.5-18.0) gm/dl Hct (42-50) % MCV (78-100) fl MCH (26-32) pg MCHC (32-36) g/dl RDW (11.5-14.0) % Plt Count (150-450) K/mm3 MPV (7.5-11.0) fl Segmented Neutrophils (36.-66.) % Band Neutrophils (0.0-2.0) % Lymphocytes (Manual) (24-44) % Monocytes (Manual) (0.0-12.0) % Nucleated RBCs % Hypochromia Platelet Estimate (NORMAL) RBC Morphology Poikilocytosis Anisocytosis Microcytosis Schistocytes ESR 75 H (0-15) mm/hr PT (9.4-12.5) SECONDS INR (0.8-3.0) APTT (25.1-36.5) SECONDS Sodium (137-145) mmol/L Potassium (3.5-5.1) mmol/L Chloride (98-107) mmol/L Carbon Dioxide (22-30) mmol/L Anion Gap (5-15) MEQ/L BUN (9-20) mg/dL Creatinine (0.66-1.25) mg/dL Estimated GFR ML/MIN Glucose (74-106) mg/dL Calcium (8.4-10.2) mg/dL Total Bilirubin (0.2-1.3) mg/dL AST (17-59) U/L ALT (0-50) U/L Alkaline Phosphatase (38-126) U/L Serum Total Protein (6.3-8.2) g/dL Albumin (3.5-5.0) g/dL Influenza Type A Ag (NEGATIVE) Influenza Type B Ag (NEGATIVE) RSV (PCR) (Negative) SARS-CoV-2 (PCR) (NEGATIVE) ABO Group A Rh Factor POSITIVE Antibody Screen NEGATIVE (NEGATIVE) Crossmatch COMPATIBLE (COMPATIBLE) 12/08/21 12/08/21 12/08/21 Range/Units 13:49 13:49 13:49 WBC 11.6 H (4.0-10.5) K/mm3 RBC 2.99 L (4.1-5.6) M/mm3 Hgb 5.0 L* (12.5-18.0) gm/dl Hct 18.8 L (42-50) % MCV 62.9 L (78-100) fl MCH 16.7 L (26-32) pg MCHC 26.6 L (32-36) g/dl RDW 18.6 H (11.5-14.0) % Plt Count 629 H (150-450) K/mm3 MPV 8.1 (7.5-11.0) fl Segmented Neutrophils 66 (36.-66.) % Band Neutrophils 1 (0.0-2.0) % Lymphocytes (Manual) 19 L (24-44) % Monocytes (Manual) 14 H (0.0-12.0) % Nucleated RBCs 1 % Hypochromia 2+ Platelet Estimate INCREASED (NORMAL) RBC Morphology ABNORMAL Poikilocytosis 1+ Anisocytosis 2+ Microcytosis 1+ Schistocytes 1+ ESR (0-15) mm/hr PT 13.7 H (9.4-12.5) SECONDS INR 1.16 (0.8-3.0) APTT 32.3 (25.1-36.5) SECONDS Sodium 133 L (137-145) mmol/L Potassium 3.9 (3.5-5.1) mmol/L Chloride 98 (98-107) mmol/L Carbon Dioxide 28 (22-30) mmol/L Anion Gap 10.6 (5-15) MEQ/L BUN 10 (9-20) mg/dL Creatinine 0.89 (0.66-1.25) mg/dL Estimated GFR > 60.0 ML/MIN Glucose 92 (74-106) mg/dL Calcium 8.0 L (8.4-10.2) mg/dL Total Bilirubin 0.30 (0.2-1.3) mg/dL AST 16 L (17-59) U/L ALT 8 (0-50) U/L Alkaline Phosphatase 87 (38-126) U/L Serum Total Protein 5.9 L (6.3-8.2) g/dL Albumin 2.7 L (3.5-5.0) g/dL Influenza Type A Ag (NEGATIVE) Influenza Type B Ag (NEGATIVE) RSV (PCR) (Negative) SARS-CoV-2 (PCR) (NEGATIVE) ABO Group Rh Factor Antibody Screen (NEGATIVE) Crossmatch (COMPATIBLE) - Progress Progress: improved Progress Note: 12/08/21 14:[address] Ospina 12/08/21 20:48 Admitting orders written Discussed with Dr.: Lunsford Counseled pt/family regarding: diagnosis - Departure Departure Disposition: Observation Clinical Impression: Ulcerative colitis, Anemia Condition: Stable Critical Care Time: No
[2021-12-08] MEDS ORDERED: Lasix 20 MG/2 ML IV ONE (14:40)
[2021-12-08 15:35] LABS: ABO TYPING A; Antibody Screen NEGATIVE (NEGATIVE); RH TYPING POSITIVE
[2021-12-08 15:38] LABS: CROSS MATCH (PRBC) COMPATIBLE (COMPATIBLE)
[2021-12-08] MEDS ORDERED: Lomotil PO ONE (15:50)
[2021-12-08] MEDS ORDERED: Lomotil ONE (15:51)
[2021-12-08 15:57] LABS: INFLUENZA A NEGATIVE (NEGATIVE); INFLUENZA B NEGATIVE (NEGATIVE); RESPIRATORY SYNCTIAL VIRUS NEGATIVE (Negative); SARS-CoV-2 Xpert Express NEGATIVE (NEGATIVE)
[2021-12-08 16:30] LABS: BAND 1 % (0.0-2.0); Lymphocytes 19 % (24-44); Monocyte 14 % (0.0-12.0); Neutrophils 66 % (36.-66.); Nucleated Red Blood Cell 1 %; Total Cells Counted 100
[2021-12-08 16:31] LABS: ANISOCYTOSIS 2+; Hypochromia 2+; Microcytosis 1+; Platelet Estimate INCREASED (NORMAL); Poikilocytosis 1+; Schistocytes 1+
[2021-12-08] MEDS: Sodium Chloride 0.9% 1000 ML 1,000 ML IV SCH (16:37)
[2021-12-08] MEDS ORDERED: Lasix 20 MG/2 ML ONE ×2 (19:34→23:43)
[2021-12-09] MEDS: Lasix 20 MG/2 ML IV ONE ×2 (00:03→05:55)
[2021-12-09] MEDS ORDERED: TYLENOL 325 MG PO PRN (00:13)
[2021-12-09] MEDS ORDERED: Sodium Chloride 0.9% 1000 ML 1,000 ML ONE (05:15)
[2021-12-09] MEDS: Sodium Chloride 0.9% 1000 ML 1,000 ML IV SCH (05:17)
[2021-12-09 09:27] LABS: Hematocrit 27.3 % (42-50); Hemoglobin 8.4 gm/dl (12.5-18.0)
[2021-12-09] MEDS ORDERED: Lasix 20 MG/2 ML IV PRN (13:22)
--- NOTE | 2021-12-09 13:44 | PCM.HP ---
History of Present Illness - Chief Complaint Chief Complaint: weakness for few days History of Present Illness: is a 21 year old male.w h/o UC presents w rectal bleeding. Pt states that he has been bleeding since 02/08. He is a pt of Dr. Reyna and uses [facility] for his UC. He denies fever/N/V/D. Timing/Duration: other (02/07) Activities at Onset: sleep Quality: cramping Abdominal Pain Onset Location: generalized abdomen Pain Radiation: no radiation Severity of Pain-Max: moderate Severity of Pain-Current: mild Modifying Factors: Improves With: nothing Associated Symptoms: No back, No chest pain, No diaphoresis, No diarrhea, No fever/chills, No fatigue, No headache, No heartburn, No loss of appetite, No nausea, No neck pain, No rash, No shortness of breath, No syncope, No vomiting, No weakness Previous symptoms: same symptoms as today - Review of Systems Constitutional: No Fever, No Chills Eyes: No Symptoms Ears, Nose, & Throat: No Symptoms Respiratory: No Cough, No Short Of Breath Cardiac: No Chest Pain, No Edema, No Syncope Abdominal/Gastrointestinal: Abdominal Pain, Melena, Appetite Changes, No Nausea, No Vomiting, No Diarrhea, No Hematemesis, No Hematochezia Genitourinary Symptoms: No Dysuria Musculoskeletal: No Back Pain, No Neck Pain Skin: No Rash Neurological: No Dizziness, No Focal Weakness, No Sensory Changes Psychological: No Symptoms Endocrine: No Symptoms Hematologic/Lymphatic: No Symptoms Immunological/Allergic: No Symptoms Medications & Allergies Home Medications: Home Medication List Infliximab [Remicade Injection] 100 mg IV UD 09/25/21 [History Confirmed 12/08/21] Allergies/Adverse Reactions: Allergies Allergy/AdvReac Type Severity Reaction Status Date / Time No Known Drug Allergies Allergy Verified 12/08/21 13:49 - Past Medical History Past Medical History: Yes Neurological History: No Pertinent History ENT History: No Pertinent History Cardiac History: No Pertinent History Respiratory History: No Pertinent History Endocrine Medical History: No Pertinent History Musculoskelatal History: No Pertinent History GI Medical History: Colitis, GI Bleed History: No Pertinent History Pyscho-Social History: Other Male Reproductive Disorders: No Pertinent History Comment: pt has ADHD and oppositional defiance disorder - Past Surgical History Past Surgical History: Yes Neuro Surgical History: No Pertinent History Cardiac History: No Pertinent History Respiratory Surgery: No Pertinent History GI Surgical History: No Pertinent History Genitourinary Surgical Hx: No Pertinent History Musculskeletal Surgical Hx: Orthopedic Surgery Male Surgical History: No Pertinent History Other Surgical History: right wrist glass removed in surgery, colonoscopy - Social History Smoking Status: Never smoker How long have you smoked: yr Exposure to second hand smoke: Yes Alcohol: None Drug Use: none Significant Family History: no pertinent family hx - Physical Exam Vital Signs: Vital Signs - 24 hr Temp Pulse Resp BP Pulse Ox 12/09/21 11:25 98.2 F 74 18 87/53 99 12/09/21 07:33 98.5 F 91 H 18 89/52 100 12/09/21 04:00 98.5 F 88 16 92/54 100 12/09/21 00:00 98.2 F 100 H 16 99/64 100 12/08/21 23:58 100 12/08/21 20:00 98.2 F 79 16 105/67 100 12/08/21 18:16 98.2 F 101 H 16 105/67 100 12/08/21 14:35 98.2 F 101 H 21 105/67 100 General Appearance: no apparent distress, alert Neurologic Exam: alert, oriented x 3, cooperative, normal mood/affect, nml cerebellar function, nml station & gait, sensation nml, No motor deficits Eye Exam: PERRL/EOMI, eyes nml inspection Ears, Nose, Throat Exam: normal ENT inspection, TMs normal, pharynx normal, moist mucous membranes Neck Exam: normal inspection, non-tender, supple, full range of motion Respiratory Exam: normal breath sounds, lungs clear, No respiratory distress Cardiovascular Exam: regular rate/rhythm, normal heart sounds, normal peripheral pulses Gastrointestinal/Abdomen Exam: soft, normal bowel sounds, No tenderness, No mass Back Exam: normal inspection, normal range of motion, No CVA tenderness, No vertebral tenderness Extremity Exam: normal inspection, normal range of motion, pelvis stable Skin Exam: normal color, warm, dry, No rash Lymphatic Exam: No adenopathy Results - Labs Lab/Micro Results: Lab Results-Last 24 Hours 12/08/21 12/08/21 12/08/21 Range/Units 13:49 13:49 13:49 WBC 11.6 H (4.0-10.5) K/mm3 RBC 2.99 L (4.1-5.6) M/mm3 Hgb 5.0 L* (12.5-18.0) gm/dl Hct 18.8 L (42-50) % MCV 62.9 L (78-100) fl MCH 16.7 L (26-32) pg MCHC 26.6 L (32-36) g/dl RDW 18.6 H (11.5-14.0) % Plt Count 629 H (150-450) K/mm3 MPV 8.1 (7.5-11.0) fl Segmented Neutrophils 66 (36.-66.) % Band Neutrophils 1 (0.0-2.0) % Lymphocytes (Manual) 19 L (24-44) % Monocytes (Manual) 14 H (0.0-12.0) % Nucleated RBCs 1 % Hypochromia 2+ Platelet Estimate INCREASED (NORMAL) RBC Morphology ABNORMAL Poikilocytosis 1+ Anisocytosis 2+ Microcytosis 1+ Schistocytes 1+ ESR (0-15) mm/hr PT 13.7 H (9.4-12.5) SECONDS INR 1.16 (0.8-3.0) APTT 32.3 (25.1-36.5) SECONDS Sodium 133 L (137-145) mmol/L Potassium 3.9 (3.5-5.1) mmol/L Chloride 98 (98-107) mmol/L Carbon Dioxide 28 (22-30) mmol/L Anion Gap 10.6 (5-15) MEQ/L BUN 10 (9-20) mg/dL Creatinine 0.89 (0.66-1.25) mg/dL Estimated GFR > 60.0 ML/MIN Glucose 92 (74-106) mg/dL Calcium 8.0 L (8.4-10.2) mg/dL Total Bilirubin 0.30 (0.2-1.3) mg/dL AST 16 L (17-59) U/L ALT 8 (0-50) U/L Alkaline Phosphatase 87 (38-126) U/L Serum Total Protein 5.9 L (6.3-8.2) g/dL Albumin 2.7 L (3.5-5.0) g/dL Influenza Type A Ag (NEGATIVE) Influenza Type B Ag (NEGATIVE) RSV (PCR) (Negative) SARS-CoV-2 (PCR) (NEGATIVE) ABO Group Rh Factor Antibody Screen (NEGATIVE) Crossmatch (COMPATIBLE) 12/08/21 12/08/21 12/08/21 Range/Units 14:10 14:10 14:10 WBC (4.0-10.5) K/mm3 RBC (4.1-5.6) M/mm3 Hgb (12.5-18.0) gm/dl Hct (42-50) % MCV (78-100) fl MCH (26-32) pg MCHC (32-36) g/dl RDW (11.5-14.0) % Plt Count (150-450) K/mm3 MPV (7.5-11.0) fl Segmented Neutrophils (36.-66.) % Band Neutrophils (0.0-2.0) % Lymphocytes (Manual) (24-44) % Monocytes (Manual) (0.0-12.0) % Nucleated RBCs % Hypochromia Platelet Estimate (NORMAL) RBC Morphology Poikilocytosis Anisocytosis Microcytosis Schistocytes ESR 75 H (0-15) mm/hr PT (9.4-12.5) SECONDS INR (0.8-3.0) APTT (25.1-36.5) SECONDS Sodium (137-145) mmol/L Potassium (3.5-5.1) mmol/L Chloride (98-107) mmol/L Carbon Dioxide (22-30) mmol/L Anion Gap (5-15) MEQ/L BUN (9-20) mg/dL Creatinine (0.66-1.25) mg/dL Estimated GFR ML/MIN Glucose (74-106) mg/dL Calcium (8.4-10.2) mg/dL Total Bilirubin (0.2-1.3) mg/dL AST (17-59) U/L ALT (0-50) U/L Alkaline Phosphatase (38-126) U/L Serum Total Protein (6.3-8.2) g/dL Albumin (3.5-5.0) g/dL Influenza Type A Ag (NEGATIVE) Influenza Type B Ag (NEGATIVE) RSV (PCR) (Negative) SARS-CoV-2 (PCR) (NEGATIVE) ABO Group A Rh Factor POSITIVE Antibody Screen NEGATIVE (NEGATIVE) Crossmatch COMPATIBLE (COMPATIBLE) 12/08/21 12/08/21 12/08/21 Range/Units 14:10 14:10 15:01 WBC (4.0-10.5) K/mm3 RBC (4.1-5.6) M/mm3 Hgb (12.5-18.0) gm/dl Hct (42-50) % MCV (78-100) fl MCH (26-32) pg MCHC (32-36) g/dl RDW (11.5-14.0) % Plt Count (150-450) K/mm3 MPV (7.5-11.0) fl Segmented Neutrophils (36.-66.) % Band Neutrophils (0.0-2.0) % Lymphocytes (Manual) (24-44) % Monocytes (Manual) (0.0-12.0) % Nucleated RBCs % Hypochromia Platelet Estimate (NORMAL) RBC Morphology Poikilocytosis Anisocytosis Microcytosis Schistocytes ESR (0-15) mm/hr PT (9.4-12.5) SECONDS INR (0.8-3.0) APTT (25.1-36.5) SECONDS Sodium (137-145) mmol/L Potassium (3.5-5.1) mmol/L Chloride (98-107) mmol/L Carbon Dioxide (22-30) mmol/L Anion Gap (5-15) MEQ/L BUN (9-20) mg/dL Creatinine (0.66-1.25) mg/dL Estimated GFR ML/MIN Glucose (74-106) mg/dL Calcium (8.4-10.2) mg/dL Total Bilirubin (0.2-1.3) mg/dL AST (17-59) U/L ALT (0-50) U/L Alkaline Phosphatase (38-126) U/L Serum Total Protein (6.3-8.2) g/dL Albumin (3.5-5.0) g/dL Influenza Type A Ag NEGATIVE (NEGATIVE) Influenza Type B Ag NEGATIVE (NEGATIVE) RSV (PCR) NEGATIVE (Negative) SARS-CoV-2 (PCR) NEGATIVE (NEGATIVE) ABO Group Rh Factor Antibody Screen (NEGATIVE) Crossmatch COMPATIBLE COMPATIBLE (COMPATIBLE) 12/09/21 Range/Units 08:20 WBC (4.0-10.5) K/mm3 RBC (4.1-5.6) M/mm3 Hgb 8.4 L D (12.5-18.0) gm/dl Hct 27.3 L (42-50) % MCV (78-100) fl MCH (26-32) pg MCHC (32-36) g/dl RDW (11.5-14.0) % Plt Count (150-450) K/mm3 MPV (7.5-11.0) fl Segmented Neutrophils (36.-66.) % Band Neutrophils (0.0-2.0) % Lymphocytes (Manual) (24-44) % Monocytes (Manual) (0.0-12.0) % Nucleated RBCs % Hypochromia Platelet Estimate (NORMAL) RBC Morphology Poikilocytosis Anisocytosis Microcytosis Schistocytes ESR (0-15) mm/hr PT (9.4-12.5) SECONDS INR (0.8-3.0) APTT (25.1-36.5) SECONDS Sodium (137-145) mmol/L Potassium (3.5-5.1) mmol/L Chloride (98-107) mmol/L Carbon Dioxide (22-30) mmol/L Anion Gap (5-15) MEQ/L BUN (9-20) mg/dL Creatinine (0.66-1.25) mg/dL Estimated GFR ML/MIN Glucose (74-106) mg/dL Calcium (8.4-10.2) mg/dL Total Bilirubin (0.2-1.3) mg/dL AST (17-59) U/L ALT (0-50) U/L Alkaline Phosphatase (38-126) U/L Serum Total Protein (6.3-8.2) g/dL Albumin (3.5-5.0) g/dL Influenza Type A Ag (NEGATIVE) Influenza Type B Ag (NEGATIVE) RSV (PCR) (Negative) SARS-CoV-2 (PCR) (NEGATIVE) ABO Group Rh Factor Antibody Screen (NEGATIVE) Crossmatch (COMPATIBLE) Assessment/Plan (1) Profound anemia Current Visit: Yes Status: Acute Qualifiers: Iron deficiency anemia type: chronic blood loss Code(s): D64.9 - ANEMIA, UNSPECIFIED (2) Ulcerative colitis Current Visit: Yes Status: Acute Qualifiers: Ulcerative colitis location: ulcerative pancolitis Digestive disease complication type: unspecified complication Qualified Code(s): K51.019 - Ulcerative (chronic) pancolitis with unspecified complications Assessment & Plan: Chief Complaint Diagnosis weakness for few days Allergies Allergy/AdvReac Type Severity Reaction Status Date / Time No Known Drug Allergies Allergy Verified 12/08/21 13:49 Vital Signs (Last 24 hours) Temp Pulse Resp BP Pulse Ox 12/09/21 11:25 98.2 F 74 18 87/53 99 12/09/21 07:33 98.5 F 91 H 18 89/52 100 12/09/21 04:00 98.5 F 88 16 92/54 100 12/09/21 00:00 98.2 F 100 H 16 99/64 100 12/08/21 23:58 100 12/08/21 20:00 98.2 F 79 16 105/67 100 12/08/21 18:16 98.2 F 101 H 16 105/67 100 12/08/21 14:35 98.2 F 101 H 21 105/67 100 Current Medications Generic Name Dose Route Start Last Admin Trade Name Freq PRN Reason Stop Dose Admin Acetaminophen 325 mg 12/09/21 00:13 Acetaminophen 325 Mg Tablet PO 01/08/22 00:12 Q4H PRN PRN PAIN, FEVER, HEADACHE Furosemide 20 mg 12/09/21 13:22 Furosemide 20 Mg/Vial IV 12/09/21 23:50 AFTER EA UNIT BLOOD PRN Sodium Chloride 1,000 mls @ 100 mls/hr 12/08/21 14:45 12/09/21 05:17 Sodium Chloride 0.9% 1000 Ml IV 01/07/22 14:44 100 mls/hr .Q10H ALEXIS Administration Discontinued Medications Generic Name Dose Route Start Last Admin Trade Name Freq PRN Reason Stop Dose Admin Diphenoxylate HCl/Atropine 2 tablet 12/08/21 15:50 12/08/21 15:52 Diphenoxylate Hcl/Atropine 1 Tablet PO 12/08/21 15:51 2 tablet STAT ONE Administration Diphenoxylate HCl/Atropine Confirm 12/08/21 15:51 Diphenoxylate Hcl/Atropine 1 Tablet Administered 12/08/21 15:52 Dose 2 tablet .ROUTE .STK-MED ONE Furosemide 20 mg 12/08/21 14:40 12/08/21 20:04 Furosemide 20 Mg/Vial IV 12/08/21 14:41 20 mg AFTER EA UNIT BLOOD ONE Administration Furosemide Confirm 12/08/21 19:34 Furosemide 20 Mg/Vial Administered 12/08/21 19:35 Dose 20 mg .ROUTE .STK-MED ONE Furosemide Confirm 12/08/21 23:43 Furosemide 20 Mg/Vial Administered 12/08/21 23:44 Dose 20 mg .ROUTE .STK-MED ONE Furosemide 20 mg 12/08/21 23:51 12/09/21 05:55 Furosemide 20 Mg/Vial IV 12/08/21 23:52 20 mg AFTER EA UNIT BLOOD ONE Administration Sodium Chloride Confirm 12/09/21 05:15 Sodium Chloride 0.9% 1000 Ml Administered 12/09/21 05:16 Dose 1,000 mls @ ud .ROUTE .STK-MED ONE Intake & Output (Last 24 hours) 12/07/21 12/08/21 12/09/21 12/10/21 11:59 11:59 11:59 11:59 Intake Total 1300 120 Output Total 102 Balance 1198 120 Weight 53.9 kg Laboratory Results (Last 24 hours) 12/09/21 12/08/21 12/08/21 08:20 15:01 14:10 WBC RBC Hgb 8.4 L D Hct 27.3 L MCV MCH MCHC RDW Plt Count MPV Segmented Neutrophils Band Neutrophils Lymphocytes (Manual) Monocytes (Manual) Nucleated RBCs Hypochromia Platelet Estimate RBC Morphology Poikilocytosis Anisocytosis Microcytosis Schistocytes ESR PT INR APTT Sodium Potassium Chloride Carbon Dioxide Anion Gap BUN Creatinine Estimated GFR Glucose Calcium Total Bilirubin AST ALT Alkaline Phosphatase Serum Total Protein Albumin Influenza Type A Ag NEGATIVE Influenza Type B Ag NEGATIVE RSV (PCR) NEGATIVE SARS-CoV-2 (PCR) NEGATIVE ABO Group Rh Factor Antibody Screen Crossmatch COMPATIBLE 12/08/21 12/08/21 12/08/21 14:10 14:10 14:10 WBC RBC Hgb Hct MCV MCH MCHC RDW Plt Count MPV Segmented Neutrophils Band Neutrophils Lymphocytes (Manual) Monocytes (Manual) Nucleated RBCs Hypochromia Platelet Estimate RBC Morphology Poikilocytosis Anisocytosis Microcytosis Schistocytes ESR PT INR APTT Sodium Potassium Chloride Carbon Dioxide Anion Gap BUN Creatinine Estimated GFR Glucose Calcium Total Bilirubin AST ALT Alkaline Phosphatase Serum Total Protein Albumin Influenza Type A Ag Influenza Type B Ag RSV (PCR) SARS-CoV-2 (PCR) ABO Group A Rh Factor POSITIVE Antibody Screen NEGATIVE Crossmatch COMPATIBLE COMPATIBLE 12/08/21 12/08/21 12/08/21 14:10 13:49 13:49 WBC RBC Hgb Hct MCV MCH MCHC RDW Plt Count MPV Segmented Neutrophils Band Neutrophils Lymphocytes (Manual) Monocytes (Manual) Nucleated RBCs Hypochromia Platelet Estimate RBC Morphology Poikilocytosis Anisocytosis Microcytosis Schistocytes ESR 75 H PT 13.7 H INR 1.16 APTT 32.3 Sodium 133 L Potassium 3.9 Chloride 98 Carbon Dioxide 28 Anion Gap 10.6 BUN 10 Creatinine 0.89 Estimated GFR > 60.0 Glucose 92 Calcium 8.0 L Total Bilirubin 0.30 AST 16 L ALT 8 Alkaline Phosphatase 87 Serum Total Protein 5.9 L Albumin 2.7 L Influenza Type A Ag Influenza Type B Ag RSV (PCR) SARS-CoV-2 (PCR) ABO Group Rh Factor Antibody Screen Crossmatch 12/08/21 13:49 WBC 11.6 H RBC 2.99 L Hgb 5.0 L* Hct 18.8 L MCV 62.9 L MCH 16.7 L MCHC 26.6 L RDW 18.6 H Plt Count 629 H MPV 8.1 Segmented Neutrophils 66 Band Neutrophils 1 Lymphocytes (Manual) 19 L Monocytes (Manual) 14 H Nucleated RBCs 1 Hypochromia 2+ Platelet Estimate INCREASED RBC Morphology ABNORMAL Poikilocytosis 1+ Anisocytosis 2+ Microcytosis 1+ Schistocytes 1+ ESR PT INR APTT Sodium Potassium Chloride Carbon Dioxide Anion Gap BUN Creatinine Estimated GFR Glucose Calcium Total Bilirubin AST ALT Alkaline Phosphatase Serum Total Protein Albumin Influenza Type A Ag Influenza Type B Ag RSV (PCR) SARS-CoV-2 (PCR) ABO Group Rh Factor Antibody Screen Crossmatch Orders (Last 24 hours) Category Date Time Status Bedrest with BRP/BSC ROUTINE Activity 12/08/21 14:36 Active Code Status Order ROUTINE Care 12/08/21 14:35 Active Consent,Obtain ROUTINE Care 12/09/21 13:23 Completed Fall Protocol ROUTINE Care 12/08/21 14:36 Completed H&H 1 Hr Post Transfusion 1 HR POST TRANSFUS Care 12/09/21 13:23 Active IV Care Q6H Care 12/08/21 14:35 Active Intake and Output Q12H Care 12/08/21 14:[address] in Observation ROUTINE Care 12/08/21 14:35 Active Weight,Daily 0600 Care 12/08/21 14:35 Active House Regular Diet Diet 12/09/21 Breakfast Active NPO Diet 12/08/21 14:35 Completed BLOOD COMPONENT REQUEST Stat Lab 12/08/21 14:10 Completed BLOOD COMPONENT REQUEST Stat Lab 12/09/21 13:22 Ordered CBC W DIFF Stat Lab 12/08/21 13:49 Completed CMP Stat Lab 12/08/21 13:49 Completed ESR [Erythrocyte Sedimentation Rate] Stat Lab 12/08/21 14:10 Completed HEMOGLOBIN AND HEMATOCRIT Urgent Lab 12/09/21 08:20 Completed Manual Differential NC Stat Lab 12/08/21 13:49 Completed PROTIME WITH INR Stat Lab 12/08/21 13:49 Completed PTT Stat Lab 12/08/21 13:49 Completed TYPE AND SCREEN Stat Lab 12/08/21 14:10 Completed Acetaminophen 325 mg [Tylenol 325 mg] Med 12/09/21 00:13 Active 325 mg PO Q4H PRN PRN Diphenoxylate HCl/Atropine [Lomotil] Med 12/08/21 15:51 Discontinued 2 tablet .ROUTE .STK-MED ONE Diphenoxylate HCl/Atropine [Lomotil] Med 12/08/21 15:50 Discontinued 2 tablet PO STAT ONE Furosemide 20 mg/2 ml [Lasix 20 MG/2 ML] Med 12/08/21 19:34 Discontinued 20 mg .ROUTE .STK-MED ONE Furosemide 20 mg/2 ml [Lasix 20 MG/2 ML] Med 12/08/21 23:43 Discontinued 20 mg .ROUTE .STK-MED ONE Furosemide 20 mg/2 ml [Lasix 20 MG/2 ML] Med 12/08/21 14:40 Discontinued 20 mg IV AFTER EA UNIT BLOOD ONE Furosemide 20 mg/2 ml [Lasix 20 MG/2 ML] Med 12/08/21 23:51 Discontinued 20 mg IV AFTER EA UNIT BLOOD ONE Furosemide 20 mg/2 ml [Lasix 20 MG/2 ML] Med 12/09/21 13:22 Active 20 mg IV AFTER EA UNIT BLOOD PRN NaCl 0.9% 1000 ml [Sodium Chloride 0.9% 1000 ML] 1,000 Med 12/09/21 05:15 Discontinued ml .ROUTE UD NaCl 0.9% 1000 ml [Sodium Chloride 0.9% 1000 ML] 1,000 Med 12/08/21 14:45 Active ml IV 100 mls/hr Patient Care Notes (Last 24 hours) 12/09/21 12:54 Nursing Note by Yoselin Bar Dr in to round on PT. Dr Ospina ordered 2 more units of blood and repeat H&H. If hemoglobin greater than 10 after the two units pt may discharge to home. Follow up with new gastro doctor that he has an appointment already scheduled for in January. Initialized on 12/09/21 12:54 - END OF NOTE 12/09/21 02:13 Nursing Note by Isabell Trotter 3rd unit of blood started at 0210, without difficulty Initialized on 12/09/21 02:13 - END OF NOTE 12/08/21 20:49 Nursing Note by Isabell Trotter Pt requests i call Dr Ospina to get a diet order, states when he doesnt eat his abdominal pain is worse. Dr Ospina notified and orders a regular diet at this time. Initialized on 12/08/21 20:49 - END OF NOTE 12/08/21 20:37 Nursing Note by Isabell Trotter Second unit of Blood statred at 2024 without difficulty Initialized on 12/08/21 20:37 - END OF NOTE Code(s): K51.90 - ULCERATIVE COLITIS, UNSPECIFIED, WITHOUT COMPLICATIONS
[2021-12-09 14:30] LABS: CROSS MATCH (PRBC) COMPATIBLE (COMPATIBLE)
[2021-12-10 05:22] LABS: Hematocrit 39.2 % (42-50); Hemoglobin 11.9 gm/dl (12.5-18.0)
[2021-12-10] MEDS: Sodium Chloride 0.9% 1000 ML 1,000 ML IV SCH (06:00)
[2021-12-10 14:07] VITALS: BP 101/65; PULSE 73; O2SAT 94
--- NOTE | 2021-12-10 16:57 | PCM.DS ---
Discharge Summary Date of Admission: 12/08/21 17:47 Admitting Physician: ERNIE PEDRO Primary Care Provider: NAA MURILLO Allergies Allergies No Known Drug Allergies Allergy (Verified 12/08/21 13:49) Hospital Summary - Hospital Course Hospital Course: Chief Complaint Diagnosis weakness for few days Allergies Allergy/AdvReac Type Severity Reaction Status Date / Time No Known Drug Allergies Allergy Verified 12/08/21 13:49 Vital Signs (Last 24 hours) Temp Pulse Resp BP Pulse Ox 12/10/21 12:00 97.4 F 73 16 101/65 94 L 12/10/21 08:00 97.4 F 57 L 16 103/63 100 12/10/21 04:00 97.4 F 43 L 16 93/51 100 12/10/21 00:00 98.2 F 49 L 16 95/55 98 12/09/21 20:00 98.8 F 90 20 129/57 95 Current Medications Discontinued Medications Generic Name Dose Route Start Last Admin Trade Name Freq PRN Reason Stop Dose Admin Acetaminophen 325 mg 12/09/21 00:13 12/09/21 20:02 Acetaminophen 325 Mg Tablet PO 01/08/22 00:12 325 mg Q4H PRN PRN Administration PAIN, FEVER, HEADACHE Diphenoxylate HCl/Atropine 2 tablet 12/08/21 15:50 12/08/21 15:52 Diphenoxylate Hcl/Atropine 1 Tablet PO 12/08/21 15:51 2 tablet STAT ONE Administration Diphenoxylate HCl/Atropine Confirm 12/08/21 15:51 Diphenoxylate Hcl/Atropine 1 Tablet Administered 12/08/21 15:52 Dose 2 tablet .ROUTE .STK-MED ONE Furosemide 20 mg 12/08/21 14:40 12/08/21 20:04 Furosemide 20 Mg/Vial IV 12/08/21 14:41 20 mg AFTER EA UNIT BLOOD ONE Administration Furosemide Confirm 12/08/21 19:34 Furosemide 20 Mg/Vial Administered 12/08/21 19:35 Dose 20 mg .ROUTE .STK-MED ONE Furosemide Confirm 12/08/21 23:43 Furosemide 20 Mg/Vial Administered 12/08/21 23:44 Dose 20 mg .ROUTE .STK-MED ONE Furosemide 20 mg 12/08/21 23:51 12/09/21 05:55 Furosemide 20 Mg/Vial IV 12/08/21 23:52 20 mg AFTER EA UNIT BLOOD ONE Administration Furosemide 20 mg 12/09/21 13:22 Furosemide 20 Mg/Vial IV 12/09/21 23:50 AFTER EA UNIT BLOOD PRN Sodium Chloride 1,000 mls @ 100 mls/hr 12/08/21 14:45 12/10/21 06:00 Sodium Chloride 0.9% 1000 Ml IV 01/07/22 14:44 100 mls/hr .Q10H ALEXIS Administration Sodium Chloride Confirm 12/09/21 05:15 Sodium Chloride 0.9% 1000 Ml Administered 12/09/21 05:16 Dose 1,000 mls @ ud .ROUTE .STK-MED ONE Intake & Output (Last 24 hours) 12/08/21 12/09/21 12/10/21 12/11/21 11:59 11:59 11:59 11:59 Intake Total 1300 1620 240 Output Total 102 Balance 1198 1620 240 Weight 53.9 kg Laboratory Results (Last 24 hours) 12/10/21 12/09/21 05:10 14:26 Hgb 11.9 L D Hct 39.2 L Crossmatch COMPATIBLE Orders (Last 24 hours) Category Date Time Status Discharge Routine Discharge 12/10/21 Ordered Discharge/Telephone Order Routine Discharge 12/10/21 Active HEMOGLOBIN AND HEMATOCRIT Stat Lab 12/10/21 05:10 Completed Patient Care Notes (Last 24 hours) 12/10/21 15:20 Nursing Note by Carley Schmidt Updated Nanette at DR. Pedro office of the above entry re.. follow up apt's with GI DOCTOR. Initialized on 12/10/21 15:20 - END OF NOTE 12/10/21 15:04 Nursing Note by Carley Schmidt Dr wanted nurse to find out where pt had a apt with GI called office staff informed me it was a Dr. payne in [facility], I called and was informed that DR. payne was no longer there but he had a apt with DR. LOPEZ AT [facility] on february 01 at 1.30 pm . Informed them that pt was here in hospital and his hx. and that Dr. Pedro was wanting to see if they could see him sooner than february 01. they will send a note back and let me kn ow. also pt has apt with DR. Sharif in [place] that he has already been seeing on 12/17/2021. pt voiced understanding. nurse talked to him about following up with doctors so he could get better. also talked about the risk of not doing so. Initialized on 12/10/21 15:04 - END OF NOTE 12/10/21 12:59 Case Management Note by Rhonda Blair REVIEWED CHART- NO NEW NEEDS IDENTIFIED FOR DC AT THIS TIME Initialized on 12/10/21 12:59 - END OF NOTE 12/10/21 10:09 (created 12/10/21 10:29) Nursing Note by Gemma Sanchez FAXED D/C RECORDS TO DR. HOBBS Initialized on 12/10/21 10:29 - END OF NOTE 12/10/21 10:01 (created 12/10/21 10:28) Nursing Note by Gemma Sanchez FAXED D/C RECORDS TO DR MURILLO'S OFFICE. Initialized on 12/10/21 10:28 - END OF NOTE 12/10/21 09:34 Case Management Note by Rhonda Blair DR. AWARE OF HGB- NEW ORDERS FOR DC Initialized on 12/10/21 09:34 - END OF NOTE 12/09/21 23:42 (created 12/10/21 00:34) Nursing Note by Isabell Trotter 2nd unit of blood for the day started at this time Initialized on 12/10/21 00:34 - END OF NOTE - Vitals & Intake/Output Vital Signs: Vital Signs Temperature 97.4 F 12/10/21 12:00 Pulse Rate 73 12/10/21 12:00 Respiratory Rate 16 12/10/21 12:00 Blood Pressure 101/65 12/10/21 12:00 O2 Sat by Pulse Oximetry 94 L 12/10/21 12:00 Intake & Output: Intake & Output 12/08/21 12/09/21 12/10/21 12/11/21 11:59 11:59 11:59 11:59 Intake Total 1300 1620 240 Output Total 102 Balance 1198 1620 240 Weight 53.9 kg - Lab Result Diagrams: 12/10/21 05:10 12/08/21 13:49 Lab Results-Last 24 Hrs: Lab Results-Last 24 Hours 12/09/21 12/10/21 Range/Units 14:26 05:10 Hgb 11.9 L D (12.5-18.0) gm/dl Hct 39.2 L (42-50) % Crossmatch COMPATIBLE (COMPATIBLE) Discharge Exam General Appearance: no apparent distress, alert Neurologic Exam: alert, oriented x 3, cooperative, normal mood/affect, nml cerebellar function, sensation nml, No motor deficits Eye Exam: PERRL, EOMI, eyes nml inspection Ears, Nose, Throat Exam: normal ENT inspection, pharynx normal, moist mucous membranes Neck Exam: normal inspection, non-tender, supple, full range of motion Respiratory Exam: normal breath sounds, lungs clear, No respiratory distress Cardiovascular Exam: regular rate/rhythm, normal heart sounds Gastrointestinal/Abdomen Exam: soft, No tenderness, No mass Male Genitalia Exam: deferred Rectal Exam: deferred Back Exam: normal inspection, normal range of motion, No CVA tenderness, No vertebral tenderness Extremity Exam: normal inspection, normal range of motion Skin Exam: normal color, warm, dry Final Diagnosis/Problem List - Final Discharge Diagnosis/Problem (1) Profound anemia Status: Resolved Code(s): D64.9 - ANEMIA, UNSPECIFIED (2) Ulcerative colitis Status: Acute Code(s): K51.90 - ULCERATIVE COLITIS, UNSPECIFIED, WITHOUT COMPLICATIONS - Discharge Discharge Date: 12/10/21 Disposition: Home, Self-Care Condition: Stable Prescriptions: Continue Infliximab [Remicade Injection] 100 mg IV UD Instructions: Ulcerative Colitis in Adults, Anemia of Chronic Disease Additional Instructions: apt with dr lopez at [facility] in [place] [phone] february 01 at 1.30 office will call if they can see pt sooner. Follow up with: NAA MURILLO [Primary Care Provider] - 12/16/21 1:20 pm JOSEPH HOBBS MD [NON-STAFF PHY W/O PRIVILEGES] - 12/17/21 2:00 pm Forms: Discharge Instructions, Discharge Skin Assessment
== END 2021-12-10 14:00 | disposition home or self-care (01) ==
LOC: ED 13:34 → MED SURG 17:47
PROVIDERS: ADMIT General Practice; ATTEND General Practice
DX: D64.9 Anemia, unspecified (principal); K51.90 Ulcerative colitis, unspecified, without complications; Z20.828 Contact with and (suspected) exposure to other viral communicable diseases
CPT/HCPCS: 0241U; 36000; 36415; 36430; 80053; 85014; 85018; 85025; 85610; 85652; 85730; 86850; 86900; 86901; 86922; 93041; 96374; 99285; P9016; J1940; A9270-GY

== ENCOUNTER 2022-09-18 13:56 | Observation (INO) | payer MEDICAID ==
--- NOTE | 2022-09-18 14:00 | ERPHSYRPT ---
- History of Present Illness Time Seen by Provider: 09/18/22 13:59 Source: patient Exam Limitations: no limitations Physician History: This is a 22-year-old white male who has a history of ulcerative colitis and is only taking prednisone at this time and presents with weakness and paleness as well as pain in the medial aspect of his left knee. His weakness and paleness and associated dizziness has been present for approximately 1 week. Symptoms have been been worsening. He no longer sees a crab fisher. Approximately 3 days ago he noticed some redness and tenderness the medial aspect of his left knee. He is unsure if it is present from an insect bite. Is very localized. Because of the weakness and dizziness and the pain in the medial aspect of the left knee, and the concern of a low hemoglobin, patient came to the emergency department. He denies chest pain. He has no significant abdominal pain at this time. He chronically has bloody bowel movements per his report but nothing is changed in that way. Timing/Duration: week(s) (1 week), worse Severity: moderate Modifying Factors: Improves With: nothing Associated Symptoms: weakness Allergies/Adverse Reactions: No Known Drug Allergies Allergy (Verified 09/18/22 14:18) Home Medications: Ferrous Gluconate [Iron] 1 ea DAILY 09/18/22 [History] Prednisone 10 mg [Deltasone 10 mg] 10 mg PO DAILY 09/18/22 [History] Sertraline HCl 100 mg PO DAILY 09/18/22 [History] Hx Tetanus, Diphtheria Vaccination/Date Given: No Hx Influenza Vaccination/Date Given: No Hx Pneumococcal Vaccination/Date Given: No Travel Risk - International Travel Have you traveled outside of the country in past 3 weeks: No - Coronavirus Screening Are you exhibiting any of the following symptoms?: No Close contact with a COVID-19 positive Pt in past 14-21 Days: No - Vaccine Status Have you recieved a Covid-19 vaccination: No - Review of Systems Constitutional: Weakness Eyes: No Symptoms Ears, Nose, & Throat: No Symptoms Respiratory: No Symptoms Cardiac: No Symptoms Abdominal/Gastrointestinal: No Symptoms Genitourinary Symptoms: No Symptoms Musculoskeletal: No Symptoms Skin: Cellulitis (Medial aspect skin, localized left knee) Neurological: No Symptoms Psychological: No Symptoms Endocrine: No Symptoms Hematologic/Lymphatic: No Symptoms Immunological/Allergic: No Symptoms All Other Systems: Reviewed and Negative - Past Medical History Pertinent Past Medical History: Yes Neurological History: No Pertinent History ENT History: No Pertinent History Cardiac History: No Pertinent History Respiratory History: No Pertinent History Endocrine Medical History: No Pertinent History Musculoskeletal History: No Pertinent History GI Medical History: Colitis, GI Bleed History: No Pertinent History Psycho-Social History: Other Male Reproductive Disorders: No Pertinent History Other Medical History: pt has ADHD and oppositional defiance disorder - Past Surgical History Past Surgical History: Yes Neuro Surgical History: No Pertinent History Cardiac: No Pertinent History Respiratory: No Pertinent History Gastrointestinal: No Pertinent History Genitourinary: No Pertinent History Musculoskeletal: Orthopedic Surgery Male Surgical History: No Pertinent History Other Surgical History: right wrist glass removed in surgery, colonoscopy - Social History Smoking Status: Never smoker How long have you smoked: yr Exposure to second hand smoke: Yes Drug Use: none Patient Lives Alone: No Significant Family History: no pertinent family hx - Nursing Vital Signs Nursing Vital Signs: Initial Vital Signs Temperature 99.7 F 09/18/22 14:17 Pulse Rate 115 H 09/18/22 14:17 Respiratory Rate 20 09/18/22 14:17 Blood Pressure 122/70 09/18/22 14:17 O2 Sat by Pulse Oximetry 99 09/18/22 14:17 Pain Scale Pain Intensity 6 - Physical Exam General Appearance: mild distress, alert, anxiety, thin Eye Exam: PERRL/EOMI, pale conjunctivae Ears, Nose, Throat Exam: normal ENT inspection, dry mucous membranes Neck Exam: normal inspection, non-tender, supple, full range of motion Respiratory Exam: normal breath sounds, lungs clear, airway intact, No chest tenderness, No respiratory distress Cardiovascular Exam: tachycardia Gastrointestinal/Abdomen Exam: soft, normal bowel sounds, No tenderness Rectal Exam: not done Back Exam: normal inspection, normal range of motion, No CVA tenderness, No vertebral tenderness Extremity Exam: normal range of motion, pelvis stable, inflammation (Of the skin, medial aspect left knee. Redness and tenderness is localized) Neurologic Exam: alert, oriented x 3, cooperative, recovery room nurse II-XII nml as tested, normal mood/affect, nml cerebellar function, nml station & gait, sensation nml Skin Exam: pale Lymphatic Exam: No adenopathy SpO2 Interpretation: normal O2 Delivery: Room Air - Course Nursing assessment & vital signs reviewed: Yes Ordered Tests: Active Orders 24 hr Category Date Time Status IV Insertion STAT Care 09/18/22 14:23 Active IV Insertion-2nd Peripheral STAT Care 09/18/22 15:06 Active Pulse Oximetry (ED) STAT Care 09/18/22 14:23 Active ABDOMEN AND PELVIS W/0 CONTRAS [CT] Stat Exams 09/18/22 14:23 Taken BLOOD CULTURE Stat Lab 09/18/22 14:58 Received CBC W DIFF Stat Lab 09/18/22 14:10 Completed CMP Stat Lab 09/18/22 14:10 Completed Lactic Acid Stat Lab 09/18/22 14:52 Completed [place] Screen Stat Lab 09/18/22 14:35 Completed UA W/RFX CULTURE Stat Lab 09/18/22 15:27 Completed Transfer Order Routine Transfer 09/18/22 Ordered Medication Summary Generic Name Dose Route Start Last Admin Trade Name Freq PRN Reason Stop Dose Admin Meropenem 1 gm/ Sodium 100 mls @ 200 mls/hr 09/18/22 16:15 Chloride IV 09/18/22 16:44 STAT ONE Discontinued Medications Generic Name Dose Route Start Last Admin Trade Name Freq PRN Reason Stop Dose Admin Methylprednisolone Sodium 0 mg 09/18/22 16:15 Succinate 125 mg/ Sterile IV 09/18/22 16:16 Water 2 ml STAT ONE Sodium Chloride 1,000 mls @ 999 mls/hr 09/18/22 14:23 09/18/22 15:54 Sodium Chloride 0.9% 1000 Ml IV 09/18/22 15:23 Infused .Q1H1M STA Infusion Sodium Chloride Confirm 09/18/22 14:51 Sodium Chloride 0.9% 1000 Ml Administered 09/18/22 14:52 Dose 1,000 mls @ ud .ROUTE .STK-MED ONE Morphine Sulfate 2 mg 09/18/22 15:16 09/18/22 15:30 Morphine Sulfate 2 Mg/Ml Inj IV 09/18/22 15:17 2 mg STAT ONE Administration Morphine Sulfate Confirm 09/18/22 15:30 Morphine Sulfate 2 Mg/Ml Inj Administered 09/18/22 15:31 Dose 2 mg .ROUTE .STK-MED ONE Ondansetron HCl 4 mg 09/18/22 14:23 09/18/22 14:53 Ondansetron Hcl 4 Mg/2 Ml Vial IV 09/18/22 14:24 4 mg STAT STA Administration Ondansetron HCl Confirm 09/18/22 14:51 Ondansetron Hcl 4 Mg/2 Ml Vial Administered 09/18/22 14:52 Dose 4 mg .ROUTE .STK-MED ONE Lab/Rad Data: Laboratory Result Diagrams 09/18/22 14:10 09/18/22 14:10 Laboratory Results 09/18/22 09/18/22 09/18/22 Range/Units 15:27 14:52 14:35 WBC (4.0-10.5) x10^3/uL RBC (4.1-5.6) x10^6/uL Hgb (12.5-18.0) g/dL Hct (42-50) % MCV (78-100) fL MCH (26-32) pg MCHC (32-36) g/dL RDW (11.5-14.0) % Plt Count (150-450) x10^3/uL MPV (7.5-11.0) fL Gran % (36.0-66.0) % Immature Gran % (Auto) (0.00-0.4) % Nucleat RBC Rel Count (0.00-0.1) % Eos # (Auto) (0-0.5) x10^3/uL Immature Gran # (Auto) (0.00-0.03) x10^3u/L Absolute Lymphs (auto) (1.0-4.6) x10^3/uL Absolute Monos (auto) (0.0-1.3) x10^3/uL Absolute Nucleated RBC (0.00-0.01) x10^3u/L Lymphocytes % (24.0-44.0) % Monocytes % (0.0-12.0) % Eosinophils % (0.00-5.0) % Basophils % (0.0-0.4) % Absolute Granulocytes (1.4-6.9) x10^3/uL Basophils # (0-0.4) x10^3/uL Sodium (137-145) mmol/L Potassium (3.5-5.1) mmol/L Chloride (98-107) mmol/L Carbon Dioxide (22-30) mmol/L Anion Gap (5-15) MEQ/L BUN (9-20) mg/dL Creatinine (0.66-1.25) mg/dL Estimated GFR ML/MIN Glucose (74-106) mg/dL Lactic Acid 1.3 (0.4-2.0) Calcium (8.4-10.2) mg/dL Total Bilirubin (0.2-1.3) mg/dL AST (17-59) U/L ALT (0-50) U/L Alkaline Phosphatase (38-126) U/L Serum Total Protein (6.3-8.2) g/dL Albumin (3.5-5.0) g/dL Urinalys Dipstick Clnc MAIN LAB Urine Color YELLOW (YELLOW) Urine Appearance CLEAR (CLEAR) Urine pH 7.0 (5-6) Ur Specific [place] 1.020 (1.005-1.025) POC Urine Protein Conf NEGATIVE (Negative) Urine Ketones NEGATIVE (NEGATIVE) Urine Nitrite NEGATIVE (NEGATIVE) Urine Bilirubin NEGATIVE (NEGATIVE) Urine Urobilinogen 0.2 (0-1) mg/dL Urine Leukocytes NEGATIVE (NEGATIVE) Urine WBC (Auto) NONE (0-5) /HPF Urine RBC (Auto) NONE (0-2) /HPF U Epithel Cells (Auto) NONE (FEW) /HPF Urine Bacteria (Auto) RARE (NEGATIVE) /HPF Urine RBC NEGATIVE (0-5) Aaron/ul Urine Mucus (Auto) SLIGHT A (NEGATIVE) /HPF Ur Culture Indicated? NO Urine Glucose NEGATIVE (NEGATIVE) mg/dL Monoscreen (Negative) Influenza Type A Ag NEGATIVE (NEGATIVE) Influenza Type B Ag NEGATIVE (NEGATIVE) RSV (PCR) NEGATIVE (Negative) SARS-CoV-2 (PCR) NEGATIVE (NEGATIVE) 09/18/22 09/18/22 09/18/22 Range/Units 14:35 14:10 14:10 WBC 19.4 H (4.0-10.5) x10^3/uL RBC 2.51 L (4.1-5.6) x10^6/uL Hgb 4.5 L* (12.5-18.0) g/dL Hct 17.1 L (42-50) % MCV 68.1 L (78-100) fL MCH 17.9 L (26-32) pg MCHC 26.3 L (32-36) g/dL RDW 18.7 H (11.5-14.0) % Plt Count 546 H (150-450) x10^3/uL MPV 9.5 (7.5-11.0) fL Gran % 77.4 H (36.0-66.0) % Immature Gran % (Auto) 1.1 H (0.00-0.4) % Nucleat RBC Rel Count 0.7 H (0.00-0.1) % Eos # (Auto) 0.06 (0-0.5) x10^3/uL Immature Gran # (Auto) 0.21 H (0.00-0.03) x10^3u/L Absolute Lymphs (auto) 1.78 (1.0-4.6) x10^3/uL Absolute Monos (auto) 2.22 H (0.0-1.3) x10^3/uL Absolute Nucleated RBC 0.14 H (0.00-0.01) x10^3u/L Lymphocytes % 9.2 L (24.0-44.0) % Monocytes % 11.5 (0.0-12.0) % Eosinophils % 0.3 (0.00-5.0) % Basophils % 0.5 (0.0-0.4) % Absolute Granulocytes 15.02 H (1.4-6.9) x10^3/uL Basophils # 0.09 (0-0.4) x10^3/uL Sodium 133 L (137-145) mmol/L Potassium 3.8 (3.5-5.1) mmol/L Chloride 97 L (98-107) mmol/L Carbon Dioxide 29 (22-30) mmol/L Anion Gap 10.1 (5-15) MEQ/L BUN 8 L (9-20) mg/dL Creatinine 0.75 (0.66-1.25) mg/dL Estimated GFR > 60.0 ML/MIN Glucose 119 H (74-106) mg/dL Lactic Acid (0.4-2.0) Calcium 7.7 L (8.4-10.2) mg/dL Total Bilirubin 0.40 (0.2-1.3) mg/dL AST 43 (17-59) U/L ALT 10 (0-50) U/L Alkaline Phosphatase 74 (38-126) U/L Serum Total Protein 6.1 L (6.3-8.2) g/dL Albumin 3.1 L (3.5-5.0) g/dL Urinalys Dipstick Clnc Urine Color (YELLOW) Urine Appearance (CLEAR) Urine pH (5-6) Ur Specific [place] (1.005-1.025) POC Urine Protein Conf (Negative) Urine Ketones (NEGATIVE) Urine Nitrite (NEGATIVE) Urine Bilirubin (NEGATIVE) Urine Urobilinogen (0-1) mg/dL Urine Leukocytes (NEGATIVE) Urine WBC (Auto) (0-5) /HPF Urine RBC (Auto) (0-2) /HPF U Epithel Cells (Auto) (FEW) /HPF Urine Bacteria (Auto) (NEGATIVE) /HPF Urine RBC (0-5) Aaron/ul Urine Mucus (Auto) (NEGATIVE) /HPF Ur Culture Indicated? Urine Glucose (NEGATIVE) mg/dL Monoscreen NEGATIVE (Negative) Influenza Type A Ag (NEGATIVE) Influenza Type B Ag (NEGATIVE) RSV (PCR) (Negative) SARS-CoV-2 (PCR) (NEGATIVE) - Progress Progress: improved Progress Note: 09/18/22 16:08 Medical decision making: This patient is well-known to Dr. Ospina. Patient is not compliant and he has symptomatic anemia that is profound with a level of 4.5 hemoglobin. We will admit the patient in the hospital provide him with transfusions of packed red blood cells. He will also give IV hydration. We will also put him on intravenous antibiotics as well as IV steroids. 09/18/22 16:17 CT scan of the abdomen pelvis shows thickened inflamed wall of colon with relative sparing of the right colon consistent with ulcerative colitis. Discussed with : Jonn Counseled pt/family regarding: lab results, diagnosis, need for follow-up, rad results - Departure Departure Disposition: Home Clinical Impression: Ulcerative colitis, Profound anemia Condition: Fair Critical Care Time: Yes Critical Care Time(excluding separately billable procedures): Critical 30-74 mins (40 minutes) Referrals: NAA MURILLO [Primary Care Provider] - Follow up/PCP as directed
[2022-09-18] MEDS ORDERED: Zofran 4 MG/2 ML VIAL IV STA (14:23)
[2022-09-18] MEDS ORDERED: Sodium Chloride 0.9% 1000 ML 1,000 ML IV STA (14:23)
[2022-09-18 14:51] LABS: Absolute Neutrophil Ct (ANC) 15.02 x10^3/uL (1.4-6.9); Basophil (Absolute #) 0.09 x10^3/uL (0-0.4); Eosinophil % 0.3 % (0.00-5.0); Eosinophil (Absolute #) 0.06 x10^3/uL (0-0.5); Hematocrit 17.1 % (42-50); Lymphocyte (Absolute #) 1.78 x10^3/uL (1.0-4.6); Lymphocytes % 9.2 % (24.0-44.0); Mean Cell Volume 68.1 fL (78-100); Mean Corpuscular Hemoglobin 17.9 pg (26-32); Mean Corpuscular Hgb Concent. 26.3 g/dL (32-36); Mean Platelet Volume 9.5 fL (7.5-11.0); Monocyte (Absolute #) 2.22 x10^3/uL (0.0-1.3); Monocytes % 11.5 % (0.0-12.0); Neutrophil % 77.4 % (36.0-66.0); Platelet Count 546 x10^3/uL (150-450); Red Blood Count 2.51 x10^6/uL (4.1-5.6); Red Cell Distribution Width 18.7 % (11.5-14.0); White Blood Count 19.4 x10^3/uL (4.0-10.5)
[2022-09-18] MEDS ORDERED: Zofran 4 MG/2 ML VIAL ONE (14:51)
[2022-09-18] MEDS ORDERED: Sodium Chloride 0.9% 1000 ML 1,000 ML ONE (14:51)
[2022-09-18 14:54] LABS: Hemoglobin 4.5 g/dL (12.5-18.0)
[2022-09-18 15:07] LABS: ALBUMIN 3.1 g/dL (3.5-5.0); ALKALINE PHOSPHATASE 74 U/L (38-126); ANION GAP 10.1 MEQ/L (5-15); BLOOD UREA NITROGEN 8 mg/dL (9-20); CHLORIDE 97 mmol/L (98-107); Calcium 7.7 mg/dL (8.4-10.2); Carbon Dioxide 29 mmol/L (22-30); Creatinine 1 0.75 mg/dL (0.66-1.25); EST GLOMERULAR FILTRATION RATE > 60.0 ML/MIN; Glucose 119 mg/dL (74-106); Potassium 3.8 mmol/L (3.5-5.1); SGOT/AST 43 U/L (17-59); SGPT/ALT 10 U/L (0-50); SODIUM 133 mmol/L (137-145); Total Protein 6.1 g/dL (6.3-8.2)
[2022-09-18] MEDS ORDERED: MORPHINE SULFATE 2 MG INJ IV ONE (15:16)
[2022-09-18 15:27] LABS: INFLUENZA A NEGATIVE (NEGATIVE); INFLUENZA B NEGATIVE (NEGATIVE); RESPIRATORY SYNCTIAL VIRUS NEGATIVE (Negative); SARS-CoV-2 Xpert Express NEGATIVE (NEGATIVE)
[2022-09-18] MEDS ORDERED: MORPHINE SULFATE 2 MG INJ ONE (15:30)
[2022-09-18 16:03] LABS: Bacteria RARE /HPF (NEGATIVE); Mucus SLIGHT /HPF (NEGATIVE)
[2022-09-18 16:04] LABS: Appearance CLEAR (CLEAR); Bilirubin NEGATIVE (NEGATIVE); Dipstick done @ ? MAIN LAB; Glucose NEGATIVE (NEGATIVE); Ketones NEGATIVE (NEGATIVE); Nitrite NEGATIVE (NEGATIVE); Protein,Urine Dip NEGATIVE (Negative); RBC NEGATIVE Ery/ul (0-5); Urine Cultured Indicated? NO; Urobilinogen 0.2 mg/dL (0-1)
[2022-09-18] MEDS ORDERED: solu-MEDROL 125 MG, Sterile H2O 10 ml 2 ML IV ONE ×2 (16:15)
[2022-09-18] MEDS ORDERED: Merrem 1 GM in Sodium Chloride 100ML MINI-BAG PLUS 100 ML IV ONE (16:15)
[2022-09-18] MEDS ORDERED: solu-MEDROL ONE ×2 (16:17→21:25)
[2022-09-18] MEDS ORDERED: Sterile H2O 10 ml IJ ONE ×2 (16:17→21:25)
[2022-09-18] MEDS ORDERED: Merrem IV ONE (16:17)
[2022-09-18] MEDS ORDERED: Sodium Chloride 100ML MINI-BAG PLUS 100 ML IV ONE ×2 (16:19→21:24)
[2022-09-18 16:28] LABS: RH TYPING POSITIVE
[2022-09-18] MEDS ORDERED: TYLENOL 325 MG PO PRN (16:33)
[2022-09-18] MEDS ORDERED: Sodium Chloride 0.9% 1000 ML 1,000 ML IV SCH (16:33)
[2022-09-18] MEDS ORDERED: Zofran 4 MG/2 ML VIAL IV PRN (16:33)
[2022-09-18 16:36] LABS: CROSS MATCH (PRBC) COMPATIBLE (COMPATIBLE)
[2022-09-18 17:00] LABS: Slide Review 1 YES
--- NOTE | 2022-09-18 19:19 | XRAY ---
Indication: Blood in stool. History of ulcerative colitis. Multiple contiguous axial images obtained through the abdomen and pelvis without contrast. Comparison: October 03, 2021 Lung bases demonstrate stable tiny benign posterior right lower lobe noncalcified nodule. No infiltrate or effusion. Heart not enlarged. Stomach distended with food/fluid. Noncontrasted stomach and bowel loops appear nonobstructed with normal appendix. Transverse, descending, and sigmoid colon again demonstrates mild/moderate wall thickening with minimal pericolonic stranding favoring colitis. No free fluid/air. Remaining liver, gallbladder, pancreas, spleen, adrenal glands, kidneys, ureters, bladder, and aorta are unremarkable for noncontrast exam. Osseous structures intact again with incidental bilateral L5 spondylolysis without listhesis. Impression: 1. Again CT findings favoring colitis. No complications. 2. Again incidental benign right lower lobe noncalcified micronodule and L5 spondylolysis without listhesis. Comment: Preliminary interpretation made by C. No critical discrepancy.
[2022-09-18] MEDS: MORPHINE SULFATE 4 MG INJ IV PRN (19:49)
[2022-09-18] MEDS ORDERED: MERREM IV ONE (21:23)
[2022-09-18] MEDS: MERREM 500 MG in Sodium Chloride 100ML MINI-BAG PLUS 100 ML IV SCH (21:38)
[2022-09-18] MEDS: solu-MEDROL 80 MG, Sterile H2O 10 ml 2 ML IV SCH ×2 (21:38)
[2022-09-19] MEDS: MORPHINE SULFATE 4 MG INJ IV PRN ×2 (01:02→06:21)
[2022-09-19] MEDS ORDERED: solu-MEDROL ONE (06:08)
[2022-09-19] MEDS ORDERED: MERREM IV ONE (06:08)
[2022-09-19] MEDS ORDERED: Sodium Chloride 100ML MINI-BAG PLUS 100 ML IV ONE (06:08)
[2022-09-19] MEDS ORDERED: MORPHINE SULFATE 4 MG INJ ONE (06:19)
[2022-09-19] MEDS: MERREM 500 MG in Sodium Chloride 100ML MINI-BAG PLUS 100 ML IV SCH (06:39)
[2022-09-19] MEDS: solu-MEDROL 80 MG, Sterile H2O 10 ml 2 ML IV SCH ×2 (06:40)
[2022-09-19] MEDS ORDERED: Sodium Chloride 0.9% 1000 ML 1,000 ML ONE (06:50)
[2022-09-19 08:57] LABS: Basophil (Absolute #) 0.03 x10^3/uL (0-0.4); Eosinophil (Absolute #) 0 x10^3/uL (0-0.5); Lymphocyte (Absolute #) 1.31 x10^3/uL (1.0-4.6); Mean Cell Volume 78.7 fL (78-100); Mean Corpuscular Hemoglobin 23.4 pg (26-32); Mean Corpuscular Hgb Concent. 29.7 g/dL (32-36); Monocyte (Absolute #) 0.76 x10^3/uL (0.0-1.3); Neutrophil % 87.7 % (36.0-66.0); Platelet Count 466 x10^3/uL (150-450); Red Blood Count 3.94 x10^6/uL (4.1-5.6); Red Cell Distribution Width 21.4 % (11.5-14.0); White Blood Count 18.8 x10^3/uL (4.0-10.5)
[2022-09-19 09:00] LABS: Hemoglobin 9.2 g/dL (12.5-18.0)
[2022-09-19 09:10] LABS: ALBUMIN 3.2 g/dL (3.5-5.0); ALKALINE PHOSPHATASE 83 U/L (38-126); ANION GAP 11.1 MEQ/L (5-15); BLOOD UREA NITROGEN 9 mg/dL (9-20); CHLORIDE 104 mmol/L (98-107); Carbon Dioxide 24 mmol/L (22-30); Creatinine 1 0.57 mg/dL (0.66-1.25); EST GLOMERULAR FILTRATION RATE > 60.0 ML/MIN; Glucose 144 mg/dL (74-106); Potassium 4.1 mmol/L (3.5-5.1); SGOT/AST 15 U/L (17-59); SGPT/ALT 10 U/L (0-50); SODIUM 135 mmol/L (137-145); Total Protein 6.4 g/dL (6.3-8.2)
[2022-09-19] MEDS ORDERED: FEOSOL 325 MG PO SCH (13:00)
[2022-09-19] MEDS ORDERED: ZOLOFT 50 MG TABLET PO SCH (13:00)
[2022-09-19 13:06] VITALS: BP 108/56; PULSE 58; O2SAT 96
--- NOTE | 2022-09-19 13:20 | PCM.SSS ---
History of Present Illness - Chief Complaint Chief Complaint: weakness and left knee pain for 2-3 days History of Present Illness: is a 22 year old male.who has a history of ulcerative colitis and is only taking prednisone at this time and presents with weakness and paleness as well as pain in the medial aspect of his left knee. His weakness and paleness and associated dizziness has been present for approximately 1 week. Symptoms have been been worsening. 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 Approximately 3 days ago he noticed some redness and tenderness the medial aspect of his left knee. He is unsure if it is present from an insect bite. Is very localized. Because of the weakness and dizziness and the pain in the medial aspect of the left knee, and the concern of a low hemoglobin, patient came to the emergency department. He denies chest pain. He has no significant abdominal pain at this time. He chronically has bloody bowel movements per his report but nothing is changed in that way. Timing/Duration: week(s) (1 week), worse Severity: moderate Modifying Factors: Improves With: nothing Associated Symptoms: weakness - Review of Systems Constitutional: Fatigue, Lethargy, Malaise, No Fever, No Chills Eyes: No Symptoms Ears, Nose, & Throat: No Symptoms Respiratory: No Cough, No Short Of Breath Cardiac: No Chest Pain, No Edema, No Syncope Abdominal/Gastrointestinal: No Abdominal Pain, No Nausea, No Vomiting, No Diarrhea Genitourinary Symptoms: No Dysuria Musculoskeletal: Joint Pain (left knee medial side pain), No Back Pain, No Neck Pain Skin: No Rash Neurological: No Dizziness, No Focal Weakness, No Sensory Changes Psychological: No Symptoms Endocrine: No Symptoms Hematologic/Lymphatic: No Symptoms Immunological/Allergic: No Symptoms Medications & Allergies Home Medications: Home Medication List Ferrous Gluconate [Iron] 1 ea DAILY 09/18/22 [History Confirmed 09/18/22] Prednisone 10 mg [Deltasone 10 mg] 10 mg PO DAILY 09/18/22 [History Confirmed 09/18/22] Sertraline HCl 100 mg PO DAILY 09/18/22 [History Confirmed 09/18/22] Allergies/Adverse Reactions: Allergies Allergy/AdvReac Type Severity Reaction Status Date / Time No Known Drug Allergies Allergy Verified 09/18/22 14:18 - Past Medical History Past Medical History: Yes Neurological History: No Pertinent History ENT History: No Pertinent History Cardiac History: No Pertinent History Respiratory History: No Pertinent History Endocrine Medical History: No Pertinent History Musculoskelatal History: No Pertinent History GI Medical History: Colitis, GI Bleed History: No Pertinent History Pyscho-Social History: Anxiety, Depression Male Reproductive Disorders: No Pertinent History Comment: pt has ADHD and oppositional defiance disorder - Past Surgical History Past Surgical History: Yes Neuro Surgical History: No Pertinent History Cardiac History: No Pertinent History Respiratory Surgery: No Pertinent History GI Surgical History: No Pertinent History Genitourinary Surgical Hx: No Pertinent History Musculskeletal Surgical Hx: Orthopedic Surgery Male Surgical History: No Pertinent History Other Surgical History: right wrist glass removed in surgery, colonoscopy - Social History Smoking Status: Light tobacco smoker How long have you smoked: 5 years Exposure to second hand smoke: Yes Alcohol: Occasionally Drug Use: marijuana Significant Family History: no pertinent family hx - Physical Exam Vital Signs: Vital Signs - 24 hr Temp Pulse Resp BP Pulse Ox 09/19/22 12:00 97.6 F 58 L 16 108/56 96 09/19/22 08:02 97.7 F 56 L 16 101/57 95 09/19/22 07:15 98.1 F 54 L 18 101/60 09/19/22 04:00 98.0 F 75 16 98/54 97 09/19/22 00:30 98.3 F 60 18 104/53 09/18/22 20:00 98.5 F 86 17 110/55 98 09/18/22 16:33 100.0 F 102 H 16 114/55 100 09/18/22 16:00 108 H 16 112/66 99 09/18/22 15:05 114 H 18 114/63 99 09/18/22 14:26 99 09/18/22 14:17 99.7 F 115 H 20 122/70 99 General Appearance: no apparent distress, alert Neurologic Exam: alert, oriented x 3, cooperative, normal mood/affect, nml cerebellar function, nml station & gait, sensation nml, No motor deficits Eye Exam: PERRL/EOMI, eyes nml inspection Ears, Nose, Throat Exam: normal ENT inspection, TMs normal, pharynx normal, m oist mucous membranes Neck Exam: normal inspection, non-tender, supple, full range of motion Respiratory Exam: normal breath sounds, lungs clear, No respiratory distress Cardiovascular Exam: regular rate/rhythm, normal heart sounds, normal peripheral pulses Gastrointestinal/Abdomen Exam: soft, normal bowel sounds, No tenderness, No mass Back Exam: normal inspection, normal range of motion, No CVA tenderness, No vertebral tenderness Extremity Exam: normal inspection, normal range of motion, pelvis stable, inflammation (left medial knee) Skin Exam: normal color, warm, dry, No rash Lymphatic Exam: No adenopathy Results - Labs Lab/Micro Results: Lab Results-Last 24 Hours 09/18/22 09/18/22 09/18/22 Range/Units 14:10 14:10 14:35 WBC 19.4 H (4.0-10.5) x10^3/uL RBC 2.51 L (4.1-5.6) x10^6/uL Hgb 4.5 L* (12.5-18.0) g/dL Hct 17.1 L (42-50) % MCV 68.1 L (78-100) fL MCH 17.9 L (26-32) pg MCHC 26.3 L (32-36) g/dL RDW 18.7 H (11.5-14.0) % Plt Count 546 H (150-450) x10^3/uL MPV 9.5 (7.5-11.0) fL Gran % 77.4 H (36.0-66.0) % Immature Gran % (Auto) 1.1 H (0.00-0.4) % Nucleat RBC Rel Count 0.7 H (0.00-0.1) % Eos # (Auto) 0.06 (0-0.5) x10^3/uL Immature Gran # (Auto) 0.21 H (0.00-0.03) x10^3u/L Absolute Lymphs (auto) 1.78 (1.0-4.6) x10^3/uL Absolute Monos (auto) 2.22 H (0.0-1.3) x10^3/uL Absolute Nucleated RBC 0.14 H (0.00-0.01) x10^3u/L Lymphocytes % 9.2 L (24.0-44.0) % Monocytes % 11.5 (0.0-12.0) % Eosinophils % 0.3 (0.00-5.0) % Basophils % 0.5 (0.0-0.4) % Absolute Granulocytes 15.02 H (1.4-6.9) x10^3/uL Basophils # 0.09 (0-0.4) x10^3/uL Sodium 133 L (137-145) mmol/L Potassium 3.8 (3.5-5.1) mmol/L Chloride 97 L (98-107) mmol/L Carbon Dioxide 29 (22-30) mmol/L Anion Gap 10.1 (5-15) MEQ/L BUN 8 L (9-20) mg/dL Creatinine 0.75 (0.66-1.25) mg/dL Estimated GFR > 60.0 ML/MIN Glucose 119 H (74-106) mg/dL Lactic Acid (0.4-2.0) Calcium 7.7 L (8.4-10.2) mg/dL Total Bilirubin 0.40 (0.2-1.3) mg/dL AST 43 (17-59) U/L ALT 10 (0-50) U/L Alkaline Phosphatase 74 (38-126) U/L Serum Total Protein 6.1 L (6.3-8.2) g/dL Albumin 3.1 L (3.5-5.0) g/dL Urinalys Dipstick Clnc Urine Color (YELLOW) Urine Appearance (CLEAR) Urine pH (5-6) Ur Specific [place] (1.005-1.025) POC Urine Protein Conf (Negative) Urine Ketones (NEGATIVE) Urine Nitrite (NEGATIVE) Urine Bilirubin (NEGATIVE) Urine Urobilinogen (0-1) mg/dL Urine Leukocytes (NEGATIVE) Urine WBC (Auto) (0-5) /HPF Urine RBC (Auto) (0-2) /HPF U Epithel Cells (Auto) (FEW) /HPF Urine Bacteria (Auto) (NEGATIVE) /HPF Urine RBC (0-5) Aaron/ul Urine Mucus (Auto) (NEGATIVE) /HPF Ur Culture Indicated? Urine Glucose (NEGATIVE) mg/dL Stool Occult Blood (NEGATIVE) Monoscreen NEGATIVE (Negative) Influenza Type A Ag (NEGATIVE) Influenza Type B Ag (NEGATIVE) RSV (PCR) (Negative) SARS-CoV-2 (PCR) (NEGATIVE) Slides for Path Review YES ABO Group Rh Factor Antibody Screen (NEGATIVE) Crossmatch (COMPATIBLE) 09/18/22 09/18/22 09/18/22 Range/Units 14:35 14:52 14:58 WBC (4.0-10.5) x10^3/uL RBC (4.1-5.6) x10^6/uL Hgb (12.5-18.0) g/dL Hct (42-50) % MCV (78-100) fL MCH (26-32) pg MCHC (32-36) g/dL RDW (11.5-14.0) % Plt Count (150-450) x10^3/uL MPV (7.5-11.0) fL Gran % (36.0-66.0) % Immature Gran % (Auto) (0.00-0.4) % Nucleat RBC Rel Count (0.00-0.1) % Eos # (Auto) (0-0.5) x10^3/uL Immature Gran # (Auto) (0.00-0.03) x10^3u/L Absolute Lymphs (auto) (1.0-4.6) x10^3/uL Absolute Monos (auto) (0.0-1.3) x10^3/uL Absolute Nucleated RBC (0.00-0.01) x10^3u/L Lymphocytes % (24.0-44.0) % Monocytes % (0.0-12.0) % Eosinophils % (0.00-5.0) % Basophils % (0.0-0.4) % Absolute Granulocytes (1.4-6.9) x10^3/uL Basophils # (0-0.4) x10^3/uL Sodium (137-145) mmol/L Potassium (3.5-5.1) mmol/L Chloride (98-107) mmol/L Carbon Dioxide (22-30) mmol/L Anion Gap (5-15) MEQ/L BUN (9-20) mg/dL Creatinine (0.66-1.25) mg/dL Estimated GFR ML/MIN Glucose (74-106) mg/dL Lactic Acid 1.3 (0.4-2.0) Calcium (8.4-10.2) mg/dL Total Bilirubin (0.2-1.3) mg/dL AST (17-59) U/L ALT (0-50) U/L Alkaline Phosphatase (38-126) U/L Serum Total Protein (6.3-8.2) g/dL Albumin (3.5-5.0) g/dL Urinalys Dipstick Clnc Urine Color (YELLOW) Urine Appearance (CLEAR) Urine pH (5-6) Ur Specific [place] (1.005-1.025) POC Urine Protein Conf (Negative) Urine Ketones (NEGATIVE) Urine Nitrite (NEGATIVE) Urine Bilirubin (NEGATIVE) Urine Urobilinogen (0-1) mg/dL Urine Leukocytes (NEGATIVE) Urine WBC (Auto) (0-5) /HPF Urine RBC (Auto) (0-2) /HPF U Epithel Cells (Auto) (FEW) /HPF Urine Bacteria (Auto) (NEGATIVE) /HPF Urine RBC (0-5) Aaron/ul Urine Mucus (Auto) (NEGATIVE) /HPF Ur Culture Indicated? Urine Glucose (NEGATIVE) mg/dL Stool Occult Blood (NEGATIVE) Monoscreen (Negative) Influenza Type A Ag NEGATIVE (NEGATIVE) Influenza Type B Ag NEGATIVE (NEGATIVE) RSV (PCR) NEGATIVE (Negative) SARS-CoV-2 (PCR) NEGATIVE (NEGATIVE) Slides for Path Review ABO Group A Rh Factor Antibody Screen (NEGATIVE) Crossmatch (COMPATIBLE) 09/18/22 09/18/22 09/18/22 Range/Units 14:58 14:58 15:27 WBC (4.0-10.5) x10^3/uL RBC (4.1-5.6) x10^6/uL Hgb (12.5-18.0) g/dL Hct (42-50) % MCV (78-100) fL MCH (26-32) pg MCHC (32-36) g/dL RDW (11.5-14.0) % Plt Count (150-450) x10^3/uL MPV (7.5-11.0) fL Gran % (36.0-66.0) % Immature Gran % (Auto) (0.00-0.4) % Nucleat RBC Rel Count (0.00-0.1) % Eos # (Auto) (0-0.5) x10^3/uL Immature Gran # (Auto) (0.00-0.03) x10^3u/L Absolute Lymphs (auto) (1.0-4.6) x10^3/uL Absolute Monos (auto) (0.0-1.3) x10^3/uL Absolute Nucleated RBC (0.00-0.01) x10^3u/L Lymphocytes % (24.0-44.0) % Monocytes % (0.0-12.0) % Eosinophils % (0.00-5.0) % Basophils % (0.0-0.4) % Absolute Granulocytes (1.4-6.9) x10^3/uL Basophils # (0-0.4) x10^3/uL Sodium (137-145) mmol/L Potassium (3.5-5.1) mmol/L Chloride (98-107) mmol/L Carbon Dioxide (22-30) mmol/L Anion Gap (5-15) MEQ/L BUN (9-20) mg/dL Creatinine (0.66-1.25) mg/dL Estimated GFR ML/MIN Glucose (74-106) mg/dL Lactic Acid (0.4-2.0) Calcium (8.4-10.2) mg/dL Total Bilirubin (0.2-1.3) mg/dL AST (17-59) U/L ALT (0-50) U/L Alkaline Phosphatase (38-126) U/L Serum Total Protein (6.3-8.2) g/dL Albumin (3.5-5.0) g/dL Urinalys Dipstick Clnc MAIN LAB Urine Color YELLOW (YELLOW) Urine Appearance CLEAR (CLEAR) Urine pH 7.0 (5-6) Ur Specific [place] 1.020 (1.005-1.025) POC Urine Protein Conf NEGATIVE (Negative) Urine Ketones NEGATIVE (NEGATIVE) Urine Nitrite NEGATIVE (NEGATIVE) Urine Bilirubin NEGATIVE (NEGATIVE) Urine Urobilinogen 0.2 (0-1) mg/dL Urine Leukocytes NEGATIVE (NEGATIVE) Urine WBC (Auto) NONE (0-5) /HPF Urine RBC (Auto) NONE (0-2) /HPF U Epithel Cells (Auto) NONE (FEW) /HPF Urine Bacteria (Auto) RARE (NEGATIVE) /HPF Urine RBC NEGATIVE (0-5) Aaron/ul Urine Mucus (Auto) SLIGHT A (NEGATIVE) /HPF Ur Culture Indicated? NO Urine Glucose NEGATIVE (NEGATIVE) mg/dL Stool Occult Blood (NEGATIVE) Monoscreen (Negative) Influenza Type A Ag (NEGATIVE) Influenza Type B Ag (NEGATIVE) RSV (PCR) (Negative) SARS-CoV-2 (PCR) (NEGATIVE) Slides for Path Review ABO Group Rh Factor POSITIVE Antibody Screen NEGATIVE (NEGATIVE) Crossmatch COMPATIBLE (COMPATIBLE) 09/18/22 09/18/22 09/18/22 Range/Units 16:32 16:32 16:33 WBC (4.0-10.5) x10^3/uL RBC (4.1-5.6) x10^6/uL Hgb (12.5-18.0) g/dL Hct (42-50) % MCV (78-100) fL MCH (26-32) pg MCHC (32-36) g/dL RDW (11.5-14.0) % Plt Count (150-450) x10^3/uL MPV (7.5-11.0) fL Gran % (36.0-66.0) % Immature Gran % (Auto) (0.00-0.4) % Nucleat RBC Rel Count (0.00-0.1) % Eos # (Auto) (0-0.5) x10^3/uL Immature Gran # (Auto) (0.00-0.03) x10^3u/L Absolute Lymphs (auto) (1.0-4.6) x10^3/uL Absolute Monos (auto) (0.0-1.3) x10^3/uL Absolute Nucleated RBC (0.00-0.01) x10^3u/L Lymphocytes % (24.0-44.0) % Monocytes % (0.0-12.0) % Eosinophils % (0.00-5.0) % Basophils % (0.0-0.4) % Absolute Granulocytes (1.4-6.9) x10^3/uL Basophils # (0-0.4) x10^3/uL Sodium (137-145) mmol/L Potassium (3.5-5.1) mmol/L Chloride (98-107) mmol/L Carbon Dioxide (22-30) mmol/L Anion Gap (5-15) MEQ/L BUN (9-20) mg/dL Creatinine (0.66-1.25) mg/dL Estimated GFR ML/MIN Glucose (74-106) mg/dL Lactic Acid (0.4-2.0) Calcium (8.4-10.2) mg/dL Total Bilirubin (0.2-1.3) mg/dL AST (17-59) U/L ALT (0-50) U/L Alkaline Phosphatase (38-126) U/L Serum Total Protein (6.3-8.2) g/dL Albumin (3.5-5.0) g/dL Urinalys Dipstick Clnc Urine Color (YELLOW) Urine Appearance (CLEAR) Urine pH (5-6) Ur Specific [place] (1.005-1.025) POC Urine Protein Conf (Negative) Urine Ketones (NEGATIVE) Urine Nitrite (NEGATIVE) Urine Bilirubin (NEGATIVE) Urine Urobilinogen (0-1) mg/dL Urine Leukocytes (NEGATIVE) Urine WBC (Auto) (0-5) /HPF Urine RBC (Auto) (0-2) /HPF U Epithel Cells (Auto) (FEW) /HPF Urine Bacteria (Auto) (NEGATIVE) /HPF Urine RBC (0-5) Aaron/ul Urine Mucus (Auto) (NEGATIVE) /HPF Ur Culture Indicated? Urine Glucose (NEGATIVE) mg/dL Stool Occult Blood (NEGATIVE) Monoscreen (Negative) Influenza Type A Ag (NEGATIVE) Influenza Type B Ag (NEGATIVE) RSV (PCR) (Negative) SARS-CoV-2 (PCR) (NEGATIVE) Slides for Path Review ABO Group Rh Factor Antibody Screen (NEGATIVE) Crossmatch COMPATIBLE COMPATIBLE COMPATIBLE (COMPATIBLE) 09/18/22 09/19/22 09/19/22 Range/Units 18:22 08:56 08:56 WBC 18.8 H (4.0-10.5) x10^3/uL RBC 3.94 L (4.1-5.6) x10^6/uL Hgb 9.2 L D (12.5-18.0) g/dL Hct 31.0 L (42-50) % MCV 78.7 D (78-100) fL MCH 23.4 L (26-32) pg MCHC 29.7 L (32-36) g/dL RDW 21.4 H (11.5-14.0) % Plt Count 466 H (150-450) x10^3/uL MPV 10.0 (7.5-11.0) fL Gran % 87.7 H (36.0-66.0) % Immature Gran % (Auto) 1.1 H (0.00-0.4) % Nucleat RBC Rel Count 1.0 H (0.00-0.1) % Eos # (Auto) 0 (0-0.5) x10^3/uL Immature Gran # (Auto) 0.21 H (0.00-0.03) x10^3u/L Absolute Lymphs (auto) 1.31 (1.0-4.6) x10^3/uL Absolute Monos (auto) 0.76 (0.0-1.3) x10^3/uL Absolute Nucleated RBC 0.18 H (0.00-0.01) x10^3u/L Lymphocytes % 7.0 L (24.0-44.0) % Monocytes % 4.0 (0.0-12.0) % Eosinophils % 0.0 (0.00-5.0) % Basophils % 0.2 (0.0-0.4) % Absolute Granulocytes 16.50 H (1.4-6.9) x10^3/uL Basophils # 0.03 (0-0.4) x10^3/uL Sodium 135 L (137-145) mmol/L Potassium 4.1 (3.5-5.1) mmol/L Chloride 104 (98-107) mmol/L Carbon Dioxide 24 (22-30) mmol/L Anion Gap 11.1 (5-15) MEQ/L BUN 9 (9-20) mg/dL Creatinine 0.57 L (0.66-1.25) mg/dL Estimated GFR > 60.0 ML/MIN Glucose 144 H (74-106) mg/dL Lactic Acid (0.4-2.0) Calcium 8.0 L (8.4-10.2) mg/dL Total Bilirubin 0.60 (0.2-1.3) mg/dL AST 15 L (17-59) U/L ALT 10 (0-50) U/L Alkaline Phosphatase 83 (38-126) U/L Serum Total Protein 6.4 (6.3-8.2) g/dL Albumin 3.2 L (3.5-5.0) g/dL Urinalys Dipstick Clnc Urine Color (YELLOW) Urine Appearance (CLEAR) Urine pH (5-6) Ur Specific [place] (1.005-1.025) POC Urine Protein Conf (Negative) Urine Ketones (NEGATIVE) Urine Nitrite (NEGATIVE) Urine Bilirubin (NEGATIVE) Urine Urobilinogen (0-1) mg/dL Urine Leukocytes (NEGATIVE) Urine WBC (Auto) (0-5) /HPF Urine RBC (Auto) (0-2) /HPF U Epithel Cells (Auto) (FEW) /HPF Urine Bacteria (Auto) (NEGATIVE) /HPF Urine RBC (0-5) Aaron/ul Urine Mucus (Auto) (NEGATIVE) /HPF Ur Culture Indicated? Urine Glucose (NEGATIVE) mg/dL Stool Occult Blood POSITIVE A (NEGATIVE) Monoscreen (Negative) Influenza Type A Ag (NEGATIVE) Influenza Type B Ag (NEGATIVE) RSV (PCR) (Negative) SARS-CoV-2 (PCR) (NEGATIVE) Slides for Path Review ABO Group Rh Factor Antibody Screen (NEGATIVE) Crossmatch (COMPATIBLE) - Radiology Impressions Radiology Exams & Impressions: Radiology Procedures Category Date Time Status ABDOMEN AND PELVIS W/0 CONTRAS [CT] Stat Exams 09/18/22 14:[address]/ABDOMEN AND PELVIS W/0 CONTRAS Indication: Blood in stool. History of ulcerative colitis. Multiple contiguous axial images obtained through the abdomen and pelvis without contrast. Comparison: October 03, 2021 Lung bases demonstrate stable tiny benign posterior right lower lobe noncalcified nodule. No infiltrate or effusion. Heart not enlarged. Stomach distended with food/fluid. Noncontrasted stomach and bowel loops appear nonobstructed with normal appendix. Transverse, descending, and sigmoid colon again demonstrates mild/moderate wall thickening with minimal pericolonic stranding favoring colitis. No free fluid/air. Remaining liver, gallbladder, pancreas, spleen, adrenal glands, kidneys, ureters, bladder, and aorta are unremarkable for noncontrast exam. Osseous structures intact again with incidental bilateral L5 spondylolysis without listhesis. Impression: 1. Again CT findings favoring colitis. No complications. 2. Again incidental benign right lower lobe noncalcified micronodule and L5 spondylolysis without listhesis. Assessment/Plan (1) Profound anemia Current Visit: Yes Status: Acute Qualifiers: Anemia type: iron deficiency Iron deficiency anemia type: chronic blood loss Qualified Code(s): D50.0 - Iron deficiency anemia secondary to blood loss (chronic) Assessment & Plan: Chief Complaint Diagnosis Profound anemia Allergies Allergy/AdvReac Type Severity Reaction Status Date / Time No Known Drug Allergies Allergy Verified 09/18/22 14:18 Vital Signs (Last 24 hours) Temp Pulse Resp BP Pulse Ox 09/19/22 12:00 97.6 F 58 L 16 108/56 96 09/19/22 08:02 97.7 F 56 L 16 101/57 95 09/19/22 07:15 98.1 F 54 L 18 101/60 09/19/22 04:00 98.0 F 75 16 98/54 97 09/19/22 00:30 98.3 F 60 18 104/53 09/18/22 20:00 98.5 F 86 17 110/55 98 09/18/22 16:33 100.0 F 102 H 16 114/55 100 09/18/22 16:00 108 H 16 112/66 99 09/18/22 15:05 114 H 18 114/63 99 09/18/22 14:26 99 09/18/22 14:17 99.7 F 115 H 20 122/70 99 Home Medications Medication Instructions Recorded Confirmed Last Taken Type Ferrous Gluconate [Iron] 1 ea DAILY 09/18/22 09/18/22 09/17/22 History Prednisone 10 mg [Deltasone 10 10 mg PO DAILY 09/18/22 09/18/22 09/17/22 History mg] Sertraline HCl 100 mg PO DAILY 09/18/22 09/18/22 09/17/22 History Current Medications Generic Name Dose Route Start Last Admin Trade Name Freq PRN Reason Stop Dose Admin Acetaminophen 650 mg 09/18/22 16:33 09/18/22 17:50 Acetaminophen 325 Mg Tablet PO 10/18/22 16:32 650 mg Q4H PRN PRN Administration PAIN, FEVER, HEADACHE Methylprednisolone Sodium 0 mg 09/18/22 22:00 09/19/22 06:40 Succinate 80 mg/ Sterile Water IV 10/18/22 21:59 80 mg 2 ml Q8HT ALEXIS Administration Ferrous Sulfate 325 mg 09/19/22 13:00 Ferrous Sulfate 325 Mg Tablet PO 10/19/22 12:59 DAILY ALEXIS Sodium Chloride 1,000 mls @ 100 mls/hr 09/18/22 16:33 09/18/22 17:33 Sodium Chloride 0.9% 1000 Ml IV 10/18/22 16:32 100 mls/hr .Q10H ALEXIS Administration Meropenem 500 mg/ Sodium 100 mls @ 200 mls/hr 09/18/22 22:00 09/19/22 06:39 Chloride IV 10/18/22 21:59 200 mls/hr Q8HT ALEXIS Administration Morphine Sulfate 4 mg 09/18/22 16:33 09/19/22 06:21 Morphine Sulfate 4 Mg/Ml Injection IV 09/23/22 16:32 4 mg Q4H PRN PRN Administration PAIN Ondansetron HCl 4 mg 09/18/22 16:33 09/18/22 21:38 Ondansetron Hcl 4 Mg/2 Ml Vial IV 10/18/22 16:32 4 mg Q6H PRN PRN Administration NAUSEA/VOMITING Prednisone 10 mg 09/20/22 10:00 Prednisone 10 Mg Tablet PO 10/20/22 09:59 DAILY ALEXIS Sertraline HCl 100 mg 09/19/22 13:00 Sertraline Hcl 50 Mg Tab PO 10/19/22 12:59 DAILY ALEXIS Discontinued Medications Generic Name Dose Route Start Last Admin Trade Name Freq PRN Reason Stop Dose Admin Methylprednisolone Sodium 0 mg 09/18/22 16:15 09/18/22 16:22 Succinate 125 mg/ Sterile IV 09/18/22 16:16 125 mg Water 2 ml STAT ONE Administration Sodium Chloride 1,000 mls @ 999 mls/hr 09/18/22 14:23 09/18/22 15:54 Sodium Chloride 0.9% 1000 Ml IV 09/18/22 15:23 Infused .Q1H1M STA Infusion Sodium Chloride Confirm 09/18/22 14:51 Sodium Chloride 0.9% 1000 Ml Administered 09/18/22 14:52 Dose 1,000 mls @ ud .ROUTE .STK-MED ONE Meropenem 1 gm/ Sodium 100 mls @ 200 mls/hr 09/18/22 16:15 09/18/22 16:23 Chloride IV 09/18/22 16:44 200 mls/hr STAT ONE Administration Sodium Chloride Confirm 09/18/22 16:19 Sodium Chloride 100ml Mini-Bag Plus Administered 09/18/22 16:20 Dose 100 mls @ ud IV .STK-MED ONE Sodium Chloride Confirm 09/18/22 21:24 Sodium Chloride 100ml Mini-Bag Plus Administered 09/18/22 21:25 Dose 100 mls @ ud IV .STK-MED ONE Sodium Chloride Confirm 09/19/22 06:08 Sodium Chloride 100ml Mini-Bag Plus Administered 09/19/22 06:09 Dose 100 mls @ ud IV .STK-MED ONE Sodium Chloride Confirm 09/19/22 06:50 Sodium Chloride 0.9% 1000 Ml Administered 09/19/22 06:51 Dose 1,000 mls @ ud .ROUTE .STK-MED ONE Meropenem Confirm 09/18/22 16:17 Meropenem 1 Gm Vial Administered 09/18/22 16:18 Dose 1 gm IV .STK-MED ONE Meropenem Confirm 09/18/22 21:23 Meropenem 500 Mg Vial Administered 09/18/22 21:24 Dose 500 mg IV .STK-MED ONE Meropenem Confirm 09/19/22 06:08 Meropenem 500 Mg Vial Administered 09/19/22 06:09 Dose 500 mg IV .STK-MED ONE Methylprednisolone Sodium Succinate Confirm 09/18/22 16:17 Methylprednis Sod Succ 125 Mg/2 Ml Vial Administered 09/18/22 16:18 Dose 125 mg .ROUTE .STK-MED ONE Methylprednisolone Sodium Succinate Confirm 09/18/22 21:25 Methylprednis Sod Succ 125 Mg/2 Ml Vial Administered 09/18/22 21:26 Dose 125 mg .ROUTE .STK-MED ONE Methylprednisolone Sodium Succinate Confirm 09/19/22 06:08 Methylprednis Sod Succ 125 Mg/2 Ml Vial Administered 09/19/22 06:09 Dose 125 mg .ROUTE .STK-MED ONE Morphine Sulfate 2 mg 09/18/22 15:16 09/18/22 15:30 Morphine Sulfate 2 Mg/Ml Inj IV 09/18/22 15:17 2 mg STAT ONE Administration Morphine Sulfate Confirm 09/18/22 15:30 Morphine Sulfate 2 Mg/Ml Inj Administered 09/18/22 15:31 Dose 2 mg .ROUTE .STK-MED ONE Morphine Sulfate Confirm 09/19/22 06:19 Morphine Sulfate 4 Mg/Ml Injection Administered 09/19/22 06:20 Dose 4 mg .ROUTE .STK-MED ONE Ondansetron HCl 4 mg 09/18/22 14:23 09/18/22 14:53 Ondansetron Hcl 4 Mg/2 Ml Vial IV 09/18/22 14:24 4 mg STAT STA Administration Ondansetron HCl Confirm 09/18/22 14:51 Ondansetron Hcl 4 Mg/2 Ml Vial Administered 09/18/22 14:52 Dose 4 mg .ROUTE .STK-MED ONE Sterile Water Confirm 09/18/22 16:17 Water For Injection,Sterile 10 Ml Vial Administered 09/18/22 16:18 Dose 10 ml IJ .STK-MED ONE Sterile Water Confirm 09/18/22 21:25 Water For Injection,Sterile 10 Ml Vial Administered 09/18/22 21:26 Dose 10 ml IJ .STK-MED ONE Intake & Output (Last 24 hours) 09/17/22 09/18/22 09/19/22 09/20/22 11:59 11:59 11:59 11:59 Intake Total 920 240 Balance 920 240 Weight 61.1 kg Microbiology Results (Last 24 hours) 09/18/22 14:58 Blood Blood Culture Gram Stain - Pending 09/18/22 14:58 Blood Blood Culture - Pending 09/18/22 14:10 Blood Blood Culture Gram Stain - Pending 09/18/22 14:10 Blood Blood Culture - Pending Laboratory Results (Last 24 hours) 09/19/22 09/19/22 09/18/22 08:56 08:56 18:22 WBC 18.8 H RBC 3.94 L Hgb 9.2 L D Hct 31.0 L MCV 78.7 D MCH 23.4 L MCHC 29.7 L RDW 21.4 H Plt Count 466 H MPV 10.0 Gran % 87.7 H Immature Gran % (Auto) 1.1 H Nucleat RBC Rel Count 1.0 H Eos # (Auto) 0 Immature Gran # (Auto) 0.21 H Absolute Lymphs (auto) 1.31 Absolute Monos (auto) 0.76 Absolute Nucleated RBC 0.18 H Lymphocytes % 7.0 L Monocytes % 4.0 Eosinophils % 0.0 Basophils % 0.2 Absolute Granulocytes 16.50 H Basophils # 0.03 Sodium 135 L Potassium 4.1 Chloride 104 Carbon Dioxide 24 Anion Gap 11.1 BUN 9 Creatinine 0.57 L Estimated GFR > 60.0 Glucose 144 H Lactic Acid Calcium 8.0 L Total Bilirubin 0.60 AST 15 L ALT 10 Alkaline Phosphatase 83 Serum Total Protein 6.4 Albumin 3.2 L Urinalys Dipstick Clnc Urine Color Urine Appearance Urine pH Ur Specific [place] POC Urine Protein Conf Urine Ketones Urine Nitrite Urine Bilirubin Urine Urobilinogen Urine Leukocytes Urine WBC (Auto) Urine RBC (Auto) U Epithel Cells (Auto) Urine Bacteria (Auto) Urine RBC Urine Mucus (Auto) Ur Culture Indicated? Urine Glucose Stool Occult Blood POSITIVE A Monoscreen Influenza Type A Ag Influenza Type B Ag RSV (PCR) SARS-CoV-2 (PCR) Slides for Path Review ABO Group Rh Factor Antibody Screen Crossmatch 09/18/22 09/18/22 09/18/22 16:33 16:32 16:32 WBC RBC Hgb Hct MCV MCH MCHC RDW Plt Count MPV Gran % Immature Gran % (Auto) Nucleat RBC Rel Count Eos # (Auto) Immature Gran # (Auto) Absolute Lymphs (auto) Absolute Monos (auto) Absolute Nucleated RBC Lymphocytes % Monocytes % Eosinophils % Basophils % Absolute Granulocytes Basophils # Sodium Potassium Chloride Carbon Dioxide Anion Gap BUN Creatinine Estimated GFR Glucose Lactic Acid Calcium Total Bilirubin AST ALT Alkaline Phosphatase Serum Total Protein Albumin Urinalys Dipstick Clnc Urine Color Urine Appearance Urine pH Ur Specific [place] POC Urine Protein Conf Urine Ketones Urine Nitrite Urine Bilirubin Urine Urobilinogen Urine Leukocytes Urine WBC (Auto) Urine RBC (Auto) U Epithel Cells (Auto) Urine Bacteria (Auto) Urine RBC Urine Mucus (Auto) Ur Culture Indicated? Urine Glucose Stool Occult Blood Monoscreen Influenza Type A Ag Influenza Type B Ag RSV (PCR) SARS-CoV-2 (PCR) Slides for Path Review ABO Group Rh Factor Antibody Screen Crossmatch COMPATIBLE COMPATIBLE COMPATIBLE 09/18/22 09/18/22 09/18/22 15:27 14:58 14:58 WBC RBC Hgb Hct MCV MCH MCHC RDW Plt Count MPV Gran % Immature Gran % (Auto) Nucleat RBC Rel Count Eos # (Auto) Immature Gran # (Auto) Absolute Lymphs (auto) Absolute Monos (auto) Absolute Nucleated RBC Lymphocytes % Monocytes % Eosinophils % Basophils % Absolute Granulocytes Basophils # Sodium Potassium Chloride Carbon Dioxide Anion Gap BUN Creatinine Estimated GFR Glucose Lactic Acid Calcium Total Bilirubin AST ALT Alkaline Phosphatase Serum Total Protein Albumin Urinalys Dipstick Clnc MAIN LAB Urine Color YELLOW Urine Appearance CLEAR Urine pH 7.0 Ur Specific [place] 1.020 POC Urine Protein Conf NEGATIVE Urine Ketones NEGATIVE Urine Nitrite NEGATIVE Urine Bilirubin NEGATIVE Urine Urobilinogen 0.2 Urine Leukocytes NEGATIVE Urine WBC (Auto) NONE Urine RBC (Auto) NONE U Epithel Cells (Auto) NONE Urine Bacteria (Auto) RARE Urine RBC NEGATIVE Urine Mucus (Auto) SLIGHT A Ur Culture Indicated? NO Urine Glucose NEGATIVE Stool Occult Blood Monoscreen Influenza Type A Ag Influenza Type B Ag RSV (PCR) SARS-CoV-2 (PCR) Slides for Path Review ABO Group Rh Factor POSITIVE Antibody Screen NEGATIVE Crossmatch COMPATIBLE 09/18/22 09/18/22 09/18/22 14:58 14:52 14:35 WBC RBC Hgb Hct MCV MCH MCHC RDW Plt Count MPV Gran % Immature Gran % (Auto) Nucleat RBC Rel Count Eos # (Auto) Immature Gran # (Auto) Absolute Lymphs (auto) Absolute Monos (auto) Absolute Nucleated RBC Lymphocytes % Monocytes % Eosinophils % Basophils % Absolute Granulocytes Basophils # Sodium Potassium Chloride Carbon Dioxide Anion Gap BUN Creatinine Estimated GFR Glucose Lactic Acid 1.3 Calcium Total Bilirubin AST ALT Alkaline Phosphatase Serum Total Protein Albumin Urinalys Dipstick Clnc Urine Color Urine Appearance Urine pH Ur Specific [place] POC Urine Protein Conf Urine Ketones Urine Nitrite Urine Bilirubin Urine Urobilinogen Urine Leukocytes Urine WBC (Auto) Urine RBC (Auto) U Epithel Cells (Auto) Urine Bacteria (Auto) Urine RBC Urine Mucus (Auto) Ur Culture Indicated? Urine Glucose Stool Occult Blood Monoscreen Influenza Type A Ag NEGATIVE Influenza Type B Ag NEGATIVE RSV (PCR) NEGATIVE SARS-CoV-2 (PCR) NEGATIVE Slides for Path Review ABO Group A Rh Factor Antibody Screen Crossmatch 09/18/22 09/18/22 09/18/22 14:35 14:10 14:10 WBC 19.4 H RBC 2.51 L Hgb 4.5 L* Hct 17.1 L MCV 68.1 L MCH 17.9 L MCHC 26.3 L RDW 18.7 H Plt Count 546 H MPV 9.5 Gran % 77.4 H Immature Gran % (Auto) 1.1 H Nucleat RBC Rel Count 0.7 H Eos # (Auto) 0.06 Immature Gran # (Auto) 0.21 H Absolute Lymphs (auto) 1.78 Absolute Monos (auto) 2.22 H Absolute Nucleated RBC 0.14 H Lymphocytes % 9.2 L Monocytes % 11.5 Eosinophils % 0.3 Basophils % 0.5 Absolute Granulocytes 15.02 H Basophils # 0.09 Sodium 133 L Potassium 3.8 Chloride 97 L Carbon Dioxide 29 Anion Gap 10.1 BUN 8 L Creatinine 0.75 Estimated GFR > 60.0 Glucose 119 H Lactic Acid Calcium 7.7 L Total Bilirubin 0.40 AST 43 ALT 10 Alkaline Phosphatase 74 Serum Total Protein 6.1 L Albumin 3.1 L Urinalys Dipstick Clnc Urine Color Urine Appearance Urine pH Ur Specific [place] POC Urine Protein Conf Urine Ketones Urine Nitrite Urine Bilirubin Urine Urobilinogen Urine Leukocytes Urine WBC (Auto) Urine RBC (Auto) U Epithel Cells (Auto) Urine Bacteria (Auto) Urine RBC Urine Mucus (Auto) Ur Culture Indicated? Urine Glucose Stool Occult Blood Monoscreen NEGATIVE Influenza Type A Ag Influenza Type B Ag RSV (PCR) SARS-CoV-2 (PCR) Slides for Path Review YES ABO Group Rh Factor Antibody Screen Crossmatch Orders (Last 24 hours) Category Date Time Status Bedrest TOLERATED Activity 09/18/22 16:33 Active Admit as Inpatient ROUTINE Care 09/18/22 16:33 Completed Code Status Order ROUTINE Care 09/18/22 16:33 Active IV Insertion STAT Care 09/18/22 14:23 Completed IV Insertion-2nd Peripheral STAT Care 09/18/22 15:[address] in Observation ROUTINE Care 09/18/22 16:33 Active Pulse Oximetry (ED) STAT Care 09/18/22 14:23 Completed Telemetry PROTOCOL Care 09/18/22 16:33 Active Weight,Daily 0600 Care 09/18/22 16:33 Active Clear Liquid Diet 09/18/22 Dinner Active Discharge Routine Discharge 09/19/22 12:29 Ordered ABDOMEN AND PELVIS W/0 CONTRAS [CT] Stat Exams 09/18/22 14:23 Completed ABO TYPING Stat Lab 09/18/22 14:58 Completed Antibody Screen Stat Lab 09/18/22 14:58 Completed BLOOD COMPONENT REQUEST Stat Lab 09/18/22 14:58 Completed BLOOD CULTURE Stat Lab 09/18/22 14:58 Received CBC W DIFF AM.LAB Lab 09/19/22 08:56 Completed CBC W DIFF Stat Lab 09/18/22 14:10 Completed CMP AM.LAB Lab 09/19/22 08:56 Completed CMP Stat Lab 09/18/22 14:10 Completed COVID/FLU/RSV Panel Stat Lab 09/18/22 14:35 Completed FECAL OCCULT BLOOD - SCREENING Routine Lab 09/18/22 18:22 Completed GI Profile, Stool, PCR Stat Lab 09/18/22 15:37 Received Lactic Acid Stat Lab 09/18/22 14:52 Completed [place] Screen Stat Lab 09/18/22 14:35 Completed RH TYPING Stat Lab 09/18/22 14:58 Completed UA W/RFX CULTURE Stat Lab 09/18/22 15:27 Completed Acetaminophen 325 mg [Tylenol 325 mg] Med 09/18/22 16:33 Active 650 mg PO Q4H PRN PRN Ferrous Sulfate 325 mg [Feosol 325 mg] Med 09/19/22 13:00 Active 325 mg PO DAILY Meropenem [Merrem] Med 09/18/22 16:17 Discontinued 1 gm IV .STK-MED ONE Meropenem [Merrem] Med 09/18/22 21:23 Discontinued 500 mg IV .STK-MED ONE Meropenem [Merrem] Med 09/19/22 06:08 Discontinued 500 mg IV .STK-MED ONE Meropenem [Merrem] 1 gm Med 09/18/22 16:15 Discontinued NaCl 0.9% 100 ml Mini-Bag Plus [Sodium Chloride 100ML MINI-BAG PLUS] 100 ml IV STAT Meropenem [Merrem] 500 mg Med 09/18/22 22:00 Active NaCl 0.9% 100 ml Mini-Bag Plus [Sodium Chloride 100ML MINI-BAG PLUS] 100 ml IV Q8HT Methylprednis Sod Succ 125 mg* [solu-MEDROL] Med 09/18/22 16:17 Discontinued 125 mg .ROUTE .STK-MED ONE Methylprednis Sod Succ 125 mg* [solu-MEDROL] Med 09/18/22 21:25 Discontinued 125 mg .ROUTE .STK-MED ONE Methylprednis Sod Succ 125 mg* [solu-MEDROL] Med 09/19/22 06:08 Discontinued 125 mg .ROUTE .STK-MED ONE Methylprednis Sod Succ 125 mg* [solu-MEDROL] 125 mg Med 09/18/22 16:15 Discontinued Water For Injection,Sterile [Sterile H2O 10 ml] 2 ml IV STAT Methylprednis Sod Succ 125 mg* [solu-MEDROL] 80 mg Med 09/18/22 22:00 Active Water For Injection,Sterile [Sterile H2O 10 ml] 2 ml IV Q8HT Morphine Sulfate 2 mg Inj Med 09/18/22 15:30 Discontinued 2 mg .ROUTE .STK-MED ONE Morphine Sulfate 2 mg Inj Med 09/18/22 15:16 Discontinued 2 mg IV STAT ONE Morphine Sulfate 4 mg Inj Med 09/19/22 06:19 Discontinued 4 mg .ROUTE .STK-MED ONE Morphine Sulfate 4 mg Inj Med 09/18/22 16:33 Active 4 mg IV Q4H PRN PRN NaCl 0.9% 100 ml Mini-Bag Plus [Sodium Chloride 100ML Med 09/18/22 16:19 Discontinued MINI-BAG PLUS] 100 ml IV UD NaCl 0.9% 100 ml Mini-Bag Plus [Sodium Chloride 100ML Med 09/18/22 21:24 Discontinued MINI-BAG PLUS] 100 ml IV UD NaCl 0.9% 100 ml Mini-Bag Plus [Sodium Chloride 100ML Med 09/19/22 06:08 Discontinued MINI-BAG PLUS] 100 ml IV UD NaCl 0.9% 1000 ml [Sodium Chloride 0.9% 1000 ML] 1,000 Med 09/18/22 14:51 Discontinued ml .ROUTE UD NaCl 0.9% 1000 ml [Sodium Chloride 0.9% 1000 ML] 1,000 Med 09/19/22 06:50 Discontinued ml .ROUTE UD NaCl 0.9% 1000 ml [Sodium Chloride 0.9% 1000 ML] 1,000 Med 09/18/22 16:33 Active ml IV 100 mls/hr NaCl 0.9% 1000 ml [Sodium Chloride 0.9% 1000 ML] 1,000 Med 09/18/22 14:23 Discontinued ml IV 999 mls/hr Ondansetron HCl 4 mg/2 ml [Zofran 4 MG/2 ML VIAL] Med 09/18/22 14:51 Discontinued 4 mg .ROUTE .STK-MED ONE Ondansetron HCl 4 mg/2 ml [Zofran 4 MG/2 ML VIAL] Med 09/18/22 16:33 Active 4 mg IV Q6H PRN PRN Ondansetron HCl 4 mg/2 ml [Zofran 4 MG/2 ML VIAL] Med 09/18/22 14:23 Discontinued 4 mg IV STAT STA Prednisone 10 mg [Deltasone 10 mg] Med 09/20/22 10:00 Active 10 mg PO DAILY Sertraline HCl 50 mg [Zoloft 50 mg Tablet] Med 09/19/22 13:00 Active 100 mg PO DAILY Water For Injection,Sterile [Sterile H2O 10 ml] Med 09/18/22 16:17 Discontinued 10 ml IJ .STK-MED ONE Water For Injection,Sterile [Sterile H2O 10 ml] Med 09/18/22 21:25 Discontinued 10 ml IJ .STK-MED ONE Pulse Oximetry ROUTINE RT 09/18/22 16:33 Active Code(s): D64.9 - ANEMIA, UNSPECIFIED (2) Ulcerative colitis Current Visit: Yes Status: Acute Qualifiers: Ulcerative colitis location: unspecified ulcerative colitis location Digestive disease complication type: with rectal bleeding Qualified Code(s): K51.911 - Ulcerative colitis, unspecified with rectal bleeding Code(s): K51.90 - ULCERATIVE COLITIS, UNSPECIFIED, WITHOUT COMPLICATIONS (3) Left medial knee pain Current Visit: Yes Status: Acute Code(s): M25.562 - PAIN IN LEFT KNEE Hospital Summary - Hospital Course Hospital Course: Last Vital Signs Temp 97.6 F 09/19/22 12:00 Pulse 58 L 09/19/22 12:00 Resp 16 09/19/22 12:00 BP 108/56 09/19/22 12:00 Pulse Ox 96 09/19/22 12:00 Allergies No Known Drug Allergies Allergy (Verified 09/18/22 14:18) Active Medications Acetaminophen (Acetaminophen 325 Mg Tablet) 650 mg PO Q4H PRN PRN PRN Reason: PAIN, FEVER, HEADACHE Stop: 10/18/22 16:32 Last Admin: 09/18/22 17:50 Dose: 650 mg Methylprednisolone Sodium Succinate 80 mg/ Sterile Water 2 ml 0 mg IV Q8HT ALEXIS Stop: 10/18/22 21:59 Last Admin: 09/19/22 06:40 Dose: 80 mg Ferrous Sulfate (Ferrous Sulfate 325 Mg Tablet) 325 mg PO DAILY ALEXIS Stop: 10/19/22 12:59 Sodium Chloride (Sodium Chloride 0.9% 1000 Ml) 1,000 mls @ 100 mls/hr IV .Q10H ALEXIS Stop: 10/18/22 16:32 Last Admin: 09/18/22 17:33 Dose: 100 mls/hr Meropenem 500 mg/ Sodium (Chloride) 100 mls @ 200 mls/hr IV Q8HT ALEXIS Stop: 10/18/22 21:59 Last Admin: 09/19/22 06:39 Dose: 200 mls/hr Morphine Sulfate (Morphine Sulfate 4 Mg/Ml Injection) 4 mg IV Q4H PRN PRN PRN Reason: PAIN Stop: 09/23/22 16:32 Last Admin: 09/19/22 06:21 Dose: 4 mg Ondansetron HCl (Ondansetron Hcl 4 Mg/2 Ml Vial) 4 mg IV Q6H PRN PRN PRN Reason: NAUSEA/VOMITING Stop: 10/18/22 16:32 Last Admin: 09/18/22 21:38 Dose: 4 mg Prednisone (Prednisone 10 Mg Tablet) 10 mg PO DAILY ALEXIS Stop: 10/20/22 09:59 Sertraline HCl (Sertraline Hcl 50 Mg Tab) 100 mg PO DAILY [facility] Stop: 10/19/22 12:59 Intake & Output 09/19/22 09/20/22 11:59 11:59 Intake Total 920 240 Balance 920 240 Weight 61.1 kg Orders 09/18/22 16:33 Place in Observation ROUTINE 09/19/22 12:29 Discharge Routine 09/19/22 13:00 Ferrous Sulfate 325 mg [Feosol 325 mg] 325 mg PO DAILY Sertraline HCl 50 mg [Zoloft 50 mg Tablet] 100 mg PO DAILY 09/20/22 10:00 Prednisone 10 mg [Deltasone 10 mg] 10 mg PO DAILY Lab Tests 09/18/22 09/18/22 09/18/22 14:10 14:10 14:35 WBC 19.4 H RBC 2.51 L Hgb 4.5 L* Hct 17.1 L MCV 68.1 L MCH 17.9 L MCHC 26.3 L RDW 18.7 H Plt Count 546 H MPV 9.5 Gran % 77.4 H Immature Gran % (Auto) 1.1 H Nucleat RBC Rel Count 0.7 H Eos # (Auto) 0.06 Immature Gran # (Auto) 0.21 H Absolute Lymphs (auto) 1.78 Absolute Monos (auto) 2.22 H Absolute Nucleated RBC 0.14 H Lymphocytes % 9.2 L Monocytes % 11.5 Eosinophils % 0.3 Basophils % 0.5 Absolute Granulocytes 15.02 H Basophils # 0.09 Sodium 133 L Potassium 3.8 Chloride 97 L Carbon Dioxide 29 Anion Gap 10.1 BUN 8 L Creatinine 0.75 Estimated GFR > 60.0 Glucose 119 H Lactic Acid Calcium 7.7 L Total Bilirubin 0.40 AST 43 ALT 10 Alkaline Phosphatase 74 Serum Total Protein 6.1 L Albumin 3.1 L Urinalys Dipstick Clnc Urine Color Urine Appearance Urine pH Ur Specific [place] POC Urine Protein Conf Urine Ketones Urine Nitrite Urine Bilirubin Urine Urobilinogen Urine Leukocytes Urine WBC (Auto) Urine RBC (Auto) U Epithel Cells (Auto) Urine Bacteria (Auto) Urine RBC Urine Mucus (Auto) Ur Culture Indicated? Urine Glucose Stool Occult Blood Monoscreen NEGATIVE Influenza Type A Ag Influenza Type B Ag RSV (PCR) SARS-CoV-2 (PCR) Slides for Path Review YES ABO Group Rh Factor Antibody Screen Crossmatch 09/18/22 09/18/22 09/18/22 14:35 14:52 14:58 WBC RBC Hgb Hct MCV MCH MCHC RDW Plt Count MPV Gran % Immature Gran % (Auto) Nucleat RBC Rel Count Eos # (Auto) Immature Gran # (Auto) Absolute Lymphs (auto) Absolute Monos (auto) Absolute Nucleated RBC Lymphocytes % Monocytes % Eosinophils % Basophils % Absolute Granulocytes Basophils # Sodium Potassium Chloride Carbon Dioxide Anion Gap BUN Creatinine Estimated GFR Glucose Lactic Acid 1.3 Calcium Total Bilirubin AST ALT Alkaline Phosphatase Serum Total Protein Albumin Urinalys Dipstick Clnc Urine Color Urine Appearance Urine pH Ur Specific [place] POC Urine Protein Conf Urine Ketones Urine Nitrite Urine Bilirubin Urine Urobilinogen Urine Leukocytes Urine WBC (Auto) Urine RBC (Auto) U Epithel Cells (Auto) Urine Bacteria (Auto) Urine RBC Urine Mucus (Auto) Ur Culture Indicated? Urine Glucose Stool Occult Blood Monoscreen Influenza Type A Ag NEGATIVE Influenza Type B Ag NEGATIVE RSV (PCR) NEGATIVE SARS-CoV-2 (PCR) NEGATIVE Slides for Path Review ABO Group A Rh Factor Antibody Screen Crossmatch 09/18/22 09/18/22 09/18/22 14:58 14:58 15:27 WBC RBC Hgb Hct MCV MCH MCHC RDW Plt Count MPV Gran % Immature Gran % (Auto) Nucleat RBC Rel Count Eos # (Auto) Immature Gran # (Auto) Absolute Lymphs (auto) Absolute Monos (auto) Absolute Nucleated RBC Lymphocytes % Monocytes % Eosinophils % Basophils % Absolute Granulocytes Basophils # Sodium Potassium Chloride Carbon Dioxide Anion Gap BUN Creatinine Estimated GFR Glucose Lactic Acid Calcium Total Bilirubin AST ALT Alkaline Phosphatase Serum Total Protein Albumin Urinalys Dipstick Clnc MAIN LAB Urine Color YELLOW Urine Appearance CLEAR Urine pH 7.0 Ur Specific [place] 1.020 POC Urine Protein Conf NEGATIVE Urine Ketones NEGATIVE Urine Nitrite NEGATIVE Urine Bilirubin NEGATIVE Urine Urobilinogen 0.2 Urine Leukocytes NEGATIVE Urine WBC (Auto) NONE Urine RBC (Auto) NONE U Epithel Cells (Auto) NONE Urine Bacteria (Auto) RARE Urine RBC NEGATIVE Urine Mucus (Auto) SLIGHT A Ur Culture Indicated? NO Urine Glucose NEGATIVE Stool Occult Blood Monoscreen Influenza Type A Ag Influenza Type B Ag RSV (PCR) SARS-CoV-2 (PCR) Slides for Path Review ABO Group Rh Factor POSITIVE Antibody Screen NEGATIVE Crossmatch COMPATIBLE 09/18/22 09/18/22 09/18/22 16:32 16:32 16:33 WBC RBC Hgb Hct MCV MCH MCHC RDW Plt Count MPV Gran % Immature Gran % (Auto) Nucleat RBC Rel Count Eos # (Auto) Immature Gran # (Auto) Absolute Lymphs (auto) Absolute Monos (auto) Absolute Nucleated RBC Lymphocytes % Monocytes % Eosinophils % Basophils % Absolute Granulocytes Basophils # Sodium Potassium Chloride Carbon Dioxide Anion Gap BUN Creatinine Estimated GFR Glucose Lactic Acid Calcium Total Bilirubin AST ALT Alkaline Phosphatase Serum Total Protein Albumin Urinalys Dipstick Clnc Urine Color Urine Appearance Urine pH Ur Specific [place] POC Urine Protein Conf Urine Ketones Urine Nitrite Urine Bilirubin Urine Urobilinogen Urine Leukocytes Urine WBC (Auto) Urine RBC (Auto) U Epithel Cells (Auto) Urine Bacteria (Auto) Urine RBC Urine Mucus (Auto) Ur Culture Indicated? Urine Glucose Stool Occult Blood Monoscreen Influenza Type A Ag Influenza Type B Ag RSV (PCR) SARS-CoV-2 (PCR) Slides for Path Review ABO Group Rh Factor Antibody Screen Crossmatch COMPATIBLE COMPATIBLE COMPATIBLE 09/18/22 09/19/22 09/19/22 18:22 08:56 08:56 WBC 18.8 H RBC 3.94 L Hgb 9.2 L D Hct 31.0 L MCV 78.7 D MCH 23.4 L MCHC 29.7 L RDW 21.4 H Plt Count 466 H MPV 10.0 Gran % 87.7 H Immature Gran % (Auto) 1.1 H Nucleat RBC Rel Count 1.0 H Eos # (Auto) 0 Immature Gran # (Auto) 0.21 H Absolute Lymphs (auto) 1.31 Absolute Monos (auto) 0.76 Absolute Nucleated RBC 0.18 H Lymphocytes % 7.0 L Monocytes % 4.0 Eosinophils % 0.0 Basophils % 0.2 Absolute Granulocytes 16.50 H Basophils # 0.03 Sodium 135 L Potassium 4.1 Chloride 104 Carbon Dioxide 24 Anion Gap 11.1 BUN 9 Creatinine 0.57 L Estimated GFR > 60.0 Glucose 144 H Lactic Acid Calcium 8.0 L Total Bilirubin 0.60 AST 15 L ALT 10 Alkaline Phosphatase 83 Serum Total Protein 6.4 Albumin 3.2 L Urinalys Dipstick Clnc Urine Color Urine Appearance Urine pH Ur Specific [place] POC Urine Protein Conf Urine Ketones Urine Nitrite Urine Bilirubin Urine Urobilinogen Urine Leukocytes Urine WBC (Auto) Urine RBC (Auto) U Epithel Cells (Auto) Urine Bacteria (Auto) Urine RBC Urine Mucus (Auto) Ur Culture Indicated? Urine Glucose Stool Occult Blood POSITIVE A Monoscreen Influenza Type A Ag Influenza Type B Ag RSV (PCR) SARS-CoV-2 (PCR) Slides for Path Review ABO Group Rh Factor Antibody Screen Crossmatch Patient is strongly advised to follow up with his primary care physician Dr Fuentes and Yarn Handler Dr Fisher for further intervention of his ulcerative colitis and Anemia - Vitals & Intake/Output Vital Signs: Vital Signs Temperature 97.6 F 09/19/22 12:00 Pulse Rate 58 L 09/19/22 12:00 Respiratory Rate 16 09/19/22 12:00 Blood Pressure 108/56 09/19/22 12:00 O2 Sat by Pulse Oximetry 96 09/19/22 12:00 Intake & Output: Intake & Output 09/17/22 09/18/22 09/19/22 09/20/22 11:59 11:59 11:59 11:59 Intake Total 920 240 Balance 920 240 Weight 61.1 kg - Lab Result Diagrams: 09/19/22 08:56 09/19/22 08:56 Lab Results-Last 24 Hrs: Lab Results-Last 24 Hours 09/18/22 09/18/22 09/18/22 Range/Units 14:10 14:10 14:35 WBC 19.4 H (4.0-10.5) x10^3/uL RBC 2.51 L (4.1-5.6) x10^6/uL Hgb 4.5 L* (12.5-18.0) g/dL Hct 17.1 L (42-50) % MCV 68.1 L (78-100) fL MCH 17.9 L (26-32) pg MCHC 26.3 L (32-36) g/dL RDW 18.7 H (11.5-14.0) % Plt Count 546 H (150-450) x10^3/uL MPV 9.5 (7.5-11.0) fL Gran % 77.4 H (36.0-66.0) % Immature Gran % (Auto) 1.1 H (0.00-0.4) % Nucleat RBC Rel Count 0.7 H (0.00-0.1) % Eos # (Auto) 0.06 (0-0.5) x10^3/uL Immature Gran # (Auto) 0.21 H (0.00-0.03) x10^3u/L Absolute Lymphs (auto) 1.78 (1.0-4.6) x10^3/uL Absolute Monos (auto) 2.22 H (0.0-1.3) x10^3/uL Absolute Nucleated RBC 0.14 H (0.00-0.01) x10^3u/L Lymphocytes % 9.2 L (24.0-44.0) % Monocytes % 11.5 (0.0-12.0) % Eosinophils % 0.3 (0.00-5.0) % Basophils % 0.5 (0.0-0.4) % Absolute Granulocytes 15.02 H (1.4-6.9) x10^3/uL Basophils # 0.09 (0-0.4) x10^3/uL Sodium 133 L (137-145) mmol/L Potassium 3.8 (3.5-5.1) mmol/L Chloride 97 L (98-107) mmol/L Carbon Dioxide 29 (22-30) mmol/L Anion Gap 10.1 (5-15) MEQ/L BUN 8 L (9-20) mg/dL Creatinine 0.75 (0.66-1.25) mg/dL Estimated GFR > 60.0 ML/MIN Glucose 119 H (74-106) mg/dL Lactic Acid (0.4-2.0) Calcium 7.7 L (8.4-10.2) mg/dL Total Bilirubin 0.40 (0.2-1.3) mg/dL AST 43 (17-59) U/L ALT 10 (0-50) U/L Alkaline Phosphatase 74 (38-126) U/L Serum Total Protein 6.1 L (6.3-8.2) g/dL Albumin 3.1 L (3.5-5.0) g/dL Urinalys Dipstick Clnc Urine Color (YELLOW) Urine Appearance (CLEAR) Urine pH (5-6) Ur Specific [place] (1.005-1.025) POC Urine Protein Conf (Negative) Urine Ketones (NEGATIVE) Urine Nitrite (NEGATIVE) Urine Bilirubin (NEGATIVE) Urine Urobilinogen (0-1) mg/dL Urine Leukocytes (NEGATIVE) Urine WBC (Auto) (0-5) /HPF Urine RBC (Auto) (0-2) /HPF U Epithel Cells (Auto) (FEW) /HPF Urine Bacteria (Auto) (NEGATIVE) /HPF Urine RBC (0-5) Aaron/ul Urine Mucus (Auto) (NEGATIVE) /HPF Ur Culture Indicated? Urine Glucose (NEGATIVE) mg/dL Stool Occult Blood (NEGATIVE) Monoscreen NEGATIVE (Negative) Influenza Type A Ag (NEGATIVE) Influenza Type B Ag (NEGATIVE) RSV (PCR) (Negative) SARS-CoV-2 (PCR) (NEGATIVE) Slides for Path Review YES ABO Group Rh Factor Antibody Screen (NEGATIVE) Crossmatch (COMPATIBLE) 09/18/22 09/18/22 09/18/22 Range/Units 14:35 14:52 14:58 WBC (4.0-10.5) x10^3/uL RBC (4.1-5.6) x10^6/uL Hgb (12.5-18.0) g/dL Hct (42-50) % MCV (78-100) fL MCH (26-32) pg MCHC (32-36) g/dL RDW (11.5-14.0) % Plt Count (150-450) x10^3/uL MPV (7.5-11.0) fL Gran % (36.0-66.0) % Immature Gran % (Auto) (0.00-0.4) % Nucleat RBC Rel Count (0.00-0.1) % Eos # (Auto) (0-0.5) x10^3/uL Immature Gran # (Auto) (0.00-0.03) x10^3u/L Absolute Lymphs (auto) (1.0-4.6) x10^3/uL Absolute Monos (auto) (0.0-1.3) x10^3/uL Absolute Nucleated RBC (0.00-0.01) x10^3u/L Lymphocytes % (24.0-44.0) % Monocytes % (0.0-12.0) % Eosinophils % (0.00-5.0) % Basophils % (0.0-0.4) % Absolute Granulocytes (1.4-6.9) x10^3/uL Basophils # (0-0.4) x10^3/uL Sodium (137-145) mmol/L Potassium (3.5-5.1) mmol/L Chloride (98-107) mmol/L Carbon Dioxide (22-30) mmol/L Anion Gap (5-15) MEQ/L BUN (9-20) mg/dL Creatinine (0.66-1.25) mg/dL Estimated GFR ML/MIN Glucose (74-106) mg/dL Lactic Acid 1.3 (0.4-2.0) Calcium (8.4-10.2) mg/dL Total Bilirubin (0.2-1.3) mg/dL AST (17-59) U/L ALT (0-50) U/L Alkaline Phosphatase (38-126) U/L Serum Total Protein (6.3-8.2) g/dL Albumin (3.5-5.0) g/dL Urinalys Dipstick Clnc Urine Color (YELLOW) Urine Appearance (CLEAR) Urine pH (5-6) Ur Specific [place] (1.005-1.025) POC Urine Protein Conf (Negative) Urine Ketones (NEGATIVE) Urine Nitrite (NEGATIVE) Urine Bilirubin (NEGATIVE) Urine Urobilinogen (0-1) mg/dL Urine Leukocytes (NEGATIVE) Urine WBC (Auto) (0-5) /HPF Urine RBC (Auto) (0-2) /HPF U Epithel Cells (Auto) (FEW) /HPF Urine Bacteria (Auto) (NEGATIVE) /HPF Urine RBC (0-5) Aaron/ul Urine Mucus (Auto) (NEGATIVE) /HPF Ur Culture Indicated? Urine Glucose (NEGATIVE) mg/dL Stool Occult Blood (NEGATIVE) Monoscreen (Negative) Influenza Type A Ag NEGATIVE (NEGATIVE) Influenza Type B Ag NEGATIVE (NEGATIVE) RSV (PCR) NEGATIVE (Negative) SARS-CoV-2 (PCR) NEGATIVE (NEGATIVE) Slides for Path Review ABO Group A Rh Factor Antibody Screen (NEGATIVE) Crossmatch (COMPATIBLE) 09/18/22 09/18/22 09/18/22 Range/Units 14:58 14:58 15:27 WBC (4.0-10.5) x10^3/uL RBC (4.1-5.6) x10^6/uL Hgb (12.5-18.0) g/dL Hct (42-50) % MCV (78-100) fL MCH (26-32) pg MCHC (32-36) g/dL RDW (11.5-14.0) % Plt Count (150-450) x10^3/uL MPV (7.5-11.0) fL Gran % (36.0-66.0) % Immature Gran % (Auto) (0.00-0.4) % Nucleat RBC Rel Count (0.00-0.1) % Eos # (Auto) (0-0.5) x10^3/uL Immature Gran # (Auto) (0.00-0.03) x10^3u/L Absolute Lymphs (auto) (1.0-4.6) x10^3/uL Absolute Monos (auto) (0.0-1.3) x10^3/uL Absolute Nucleated RBC (0.00-0.01) x10^3u/L Lymphocytes % (24.0-44.0) % Monocytes % (0.0-12.0) % Eosinophils % (0.00-5.0) % Basophils % (0.0-0.4) % Absolute Granulocytes (1.4-6.9) x10^3/uL Basophils # (0-0.4) x10^3/uL Sodium (137-145) mmol/L Potassium (3.5-5.1) mmol/L Chloride (98-107) mmol/L Carbon Dioxide (22-30) mmol/L Anion Gap (5-15) MEQ/L BUN (9-20) mg/dL Creatinine (0.66-1.25) mg/dL Estimated GFR ML/MIN Glucose (74-106) mg/dL Lactic Acid (0.4-2.0) Calcium (8.4-10.2) mg/dL Total Bilirubin (0.2-1.3) mg/dL AST (17-59) U/L ALT (0-50) U/L Alkaline Phosphatase (38-126) U/L Serum Total Protein (6.3-8.2) g/dL Albumin (3.5-5.0) g/dL Urinalys Dipstick Clnc MAIN LAB Urine Color YELLOW (YELLOW) Urine Appearance CLEAR (CLEAR) Urine pH 7.0 (5-6) Ur Specific [place] 1.020 (1.005-1.025) POC Urine Protein Conf NEGATIVE (Negative) Urine Ketones NEGATIVE (NEGATIVE) Urine Nitrite NEGATIVE (NEGATIVE) Urine Bilirubin NEGATIVE (NEGATIVE) Urine Urobilinogen 0.2 (0-1) mg/dL Urine Leukocytes NEGATIVE (NEGATIVE) Urine WBC (Auto) NONE (0-5) /HPF Urine RBC (Auto) NONE (0-2) /HPF U Epithel Cells (Auto) NONE (FEW) /HPF Urine Bacteria (Auto) RARE (NEGATIVE) /HPF Urine RBC NEGATIVE (0-5) Aaron/ul Urine Mucus (Auto) SLIGHT A (NEGATIVE) /HPF Ur Culture Indicated? NO Urine Glucose NEGATIVE (NEGATIVE) mg/dL Stool Occult Blood (NEGATIVE) Monoscreen (Negative) Influenza Type A Ag (NEGATIVE) Influenza Type B Ag (NEGATIVE) RSV (PCR) (Negative) SARS-CoV-2 (PCR) (NEGATIVE) Slides for Path Review ABO Group Rh Factor POSITIVE Antibody Screen NEGATIVE (NEGATIVE) Crossmatch COMPATIBLE (COMPATIBLE) 09/18/22 09/18/22 09/18/22 Range/Units 16:32 16:32 16:33 WBC (4.0-10.5) x10^3/uL RBC (4.1-5.6) x10^6/uL Hgb (12.5-18.0) g/dL Hct (42-50) % MCV (78-100) fL MCH (26-32) pg MCHC (32-36) g/dL RDW (11.5-14.0) % Plt Count (150-450) x10^3/uL MPV (7.5-11.0) fL Gran % (36.0-66.0) % Immature Gran % (Auto) (0.00-0.4) % Nucleat RBC Rel Count (0.00-0.1) % Eos # (Auto) (0-0.5) x10^3/uL Immature Gran # (Auto) (0.00-0.03) x10^3u/L Absolute Lymphs (auto) (1.0-4.6) x10^3/uL Absolute Monos (auto) (0.0-1.3) x10^3/uL Absolute Nucleated RBC (0.00-0.01) x10^3u/L Lymphocytes % (24.0-44.0) % Monocytes % (0.0-12.0) % Eosinophils % (0.00-5.0) % Basophils % (0.0-0.4) % Absolute Granulocytes (1.4-6.9) x10^3/uL Basophils # (0-0.4) x10^3/uL Sodium (137-145) mmol/L Potassium (3.5-5.1) mmol/L Chloride (98-107) mmol/L Carbon Dioxide (22-30) mmol/L Anion Gap (5-15) MEQ/L BUN (9-20) mg/dL Creatinine (0.66-1.25) mg/dL Estimated GFR ML/MIN Glucose (74-106) mg/dL Lactic Acid (0.4-2.0) Calcium (8.4-10.2) mg/dL Total Bilirubin (0.2-1.3) mg/dL AST (17-59) U/L ALT (0-50) U/L Alkaline Phosphatase (38-126) U/L Serum Total Protein (6.3-8.2) g/dL Albumin (3.5-5.0) g/dL Urinalys Dipstick Clnc Urine Color (YELLOW) Urine Appearance (CLEAR) Urine pH (5-6) Ur Specific [place] (1.005-1.025) POC Urine Protein Conf (Negative) Urine Ketones (NEGATIVE) Urine Nitrite (NEGATIVE) Urine Bilirubin (NEGATIVE) Urine Urobilinogen (0-1) mg/dL Urine Leukocytes (NEGATIVE) Urine WBC (Auto) (0-5) /HPF Urine RBC (Auto) (0-2) /HPF U Epithel Cells (Auto) (FEW) /HPF Urine Bacteria (Auto) (NEGATIVE) /HPF Urine RBC (0-5) Aaron/ul Urine Mucus (Auto) (NEGATIVE) /HPF Ur Culture Indicated? Urine Glucose (NEGATIVE) mg/dL Stool Occult Blood (NEGATIVE) Monoscreen (Negative) Influenza Type A Ag (NEGATIVE) Influenza Type B Ag (NEGATIVE) RSV (PCR) (Negative) SARS-CoV-2 (PCR) (NEGATIVE) Slides for Path Review ABO Group Rh Factor Antibody Screen (NEGATIVE) Crossmatch COMPATIBLE COMPATIBLE COMPATIBLE (COMPATIBLE) 09/18/22 09/19/22 09/19/22 Range/Units 18:22 08:56 08:56 WBC 18.8 H (4.0-10.5) x10^3/uL RBC 3.94 L (4.1-5.6) x10^6/uL Hgb 9.2 L D (12.5-18.0) g/dL Hct 31.0 L (42-50) % MCV 78.7 D (78-100) fL MCH 23.4 L (26-32) pg MCHC 29.7 L (32-36) g/dL RDW 21.4 H (11.5-14.0) % Plt Count 466 H (150-450) x10^3/uL MPV 10.0 (7.5-11.0) fL Gran % 87.7 H (36.0-66.0) % Immature Gran % (Auto) 1.1 H (0.00-0.4) % Nucleat RBC Rel Count 1.0 H (0.00-0.1) % Eos # (Auto) 0 (0-0.5) x10^3/uL Immature Gran # (Auto) 0.21 H (0.00-0.03) x10^3u/L Absolute Lymphs (auto) 1.31 (1.0-4.6) x10^3/uL Absolute Monos (auto) 0.76 (0.0-1.3) x10^3/uL Absolute Nucleated RBC 0.18 H (0.00-0.01) x10^3u/L Lymphocytes % 7.0 L (24.0-44.0) % Monocytes % 4.0 (0.0-12.0) % Eosinophils % 0.0 (0.00-5.0) % Basophils % 0.2 (0.0-0.4) % Absolute Granulocytes 16.50 H (1.4-6.9) x10^3/uL Basophils # 0.03 (0-0.4) x10^3/uL Sodium 135 L (137-145) mmol/L Potassium 4.1 (3.5-5.1) mmol/L Chloride 104 (98-107) mmol/L Carbon Dioxide 24 (22-30) mmol/L Anion Gap 11.1 (5-15) MEQ/L BUN 9 (9-20) mg/dL Creatinine 0.57 L (0.66-1.25) mg/dL Estimated GFR > 60.0 ML/MIN Glucose 144 H (74-106) mg/dL Lactic Acid (0.4-2.0) Calcium 8.0 L (8.4-10.2) mg/dL Total Bilirubin 0.60 (0.2-1.3) mg/dL AST 15 L (17-59) U/L ALT 10 (0-50) U/L Alkaline Phosphatase 83 (38-126) U/L Serum Total Protein 6.4 (6.3-8.2) g/dL Albumin 3.2 L (3.5-5.0) g/dL Urinalys Dipstick Clnc Urine Color (YELLOW) Urine Appearance (CLEAR) Urine pH (5-6) Ur Specific [place] (1.005-1.025) POC Urine Protein Conf (Negative) Urine Ketones (NEGATIVE) Urine Nitrite (NEGATIVE) Urine Bilirubin (NEGATIVE) Urine Urobilinogen (0-1) mg/dL Urine Leukocytes (NEGATIVE) Urine WBC (Auto) (0-5) /HPF Urine RBC (Auto) (0-2) /HPF U Epithel Cells (Auto) (FEW) /HPF Urine Bacteria (Auto) (NEGATIVE) /HPF Urine RBC (0-5) Aaron/ul Urine Mucus (Auto) (NEGATIVE) /HPF Ur Culture Indicated? Urine Glucose (NEGATIVE) mg/dL Stool Occult Blood POSITIVE A (NEGATIVE) Monoscreen (Negative) Influenza Type A Ag (NEGATIVE) Influenza Type B Ag (NEGATIVE) RSV (PCR) (Negative) SARS-CoV-2 (PCR) (NEGATIVE) Slides for Path Review ABO Group Rh Factor Antibody Screen (NEGATIVE) Crossmatch (COMPATIBLE) - Radiology Exams Ordered Rad Exams-Entire Visit: Radiology Procedures Category Date Time Status ABDOMEN AND PELVIS W/0 CONTRAS [CT] Stat Exams 09/18/22 14:23 Completed - Discharge Discharge Date: 09/19/22 Disposition: Home, Self-Care Condition: Fair Prescriptions: Continue Prednisone 10 mg [Deltasone 10 mg] 10 mg PO DAILY Ferrous Gluconate [Iron] 1 ea DAILY Sertraline HCl 100 mg PO DAILY Instructions: Anemia of Inflammation (Anemia of Chronic Disease) Follow up with: NAA MURILLO [Primary Care Provider] - 5 Days
[2022-09-20] MEDS ORDERED: NON-FORMULARY ITEM (Sertraline Hcl [Sertraline Hcl] 100 MG Tablet) PO SCH (10:00)
[2022-09-20] MEDS ORDERED: DELTASONE 10 MG PO SCH (10:00)
[2022-09-20] MEDS ORDERED: FERROUS GLUCONATE 256 MG PO SCH (10:00)
== END 2022-09-19 13:06 | disposition home or self-care (01) ==
LOC: ED 13:56 → INTOOBSV 16:32 → MED SURG 16:32 → UNDODISOB 09-19 13:06
PROVIDERS: ADMIT General Practice; ATTEND General Practice
DX: D50.0 Iron deficiency anemia secondary to blood loss (chronic) (principal); K51.90 Ulcerative colitis, unspecified, without complications; M25.562 Pain in left knee; Z79.899 Other long term (current) drug therapy; Z20.828 Contact with and (suspected) exposure to other viral communicable diseases; Z72.0 Tobacco use
CPT/HCPCS: 0241U; 36000; 36415; 74176; 80053; 81015; 82274; 83605; 85025; 86308; 86850; 86900; 86901; 86922; 87040; 87507; 94760; 96360; 96374; 96375; 99284; 99291; P9016; 36430; 93268; J2270; J2405; J2930; A9270-GY; G0328; G0378

== ENCOUNTER 2023-03-07 22:08 | Observation (INO) | payer MEDICAID ==
[2023-03-07] MEDS ORDERED: Sodium Chloride 0.9% 1000 ML 1,000 ML IV STA (22:41)
--- NOTE | 2023-03-07 22:42 | ERPHSYRPT ---
- History of Present Illness Time Seen by Provider: 03/07/23 22:40 Source: patient Exam Limitations: no limitations Patient Subjective Stated Complaint: pt states he feels like his hgb is low, state he has headache and some shortness of breath with exertion. Triage Nursing Assessment: pt alert and oriented, answers questions approp. respirations nonlabored. skin warm, pale, and dry. pt ambulates into room with steady gait noted. Physician History: This is a 23-year-old white male who has a history of ulcerative colitis and is frequently has bloody bowel movements. He is on some iron supplementation at times in the past he has had episodes of profound anemia which have required blood transfusions. Patient's blood type is a positive. Patient states his symptoms are worsening and today he has a headache and he is shortness of air with exertion. He denies chest pain. He has no abdominal pain. There has been no changes into his chronic, frequent bloody bowel movements. 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 He has missed his appointments several times.. He is noncompliant. Timing/Duration: today, worse Severity: moderate Modifying Factors: Improves With: cold therapy Associated Symptoms: shortness of breath (With exertion), headaches, weakness, No abdominal pain, No chest pain Allergies/Adverse Reactions: No Known Drug Allergies Allergy (Verified 03/07/23 22:34) Home Medications: Prednisone 10 mg [Deltasone 10 mg] 10 mg PO DAILY 09/18/22 [History] Hx Tetanus, Diphtheria Vaccination/Date Given: No Hx Influenza Vaccination/Date Given: No Hx Pneumococcal Vaccination/Date Given: No Immunizations Up to Date: No Travel Risk - International Travel Have you traveled outside of the country in past 3 weeks: No - Coronavirus Screening Are you exhibiting any of the following symptoms?: No Close contact with a COVID-19 positive Pt in past 14-21 Days: No - Vaccine Status Have you recieved a Covid-19 vaccination: No - Review of Systems Constitutional: Weakness Eyes: No Symptoms Ears, Nose, & Throat: No Symptoms Respiratory: Dyspnea on Exertion (LU) Cardiac: No Symptoms Abdominal/Gastrointestinal: No Symptoms Genitourinary Symptoms: No Symptoms Musculoskeletal: No Symptoms Skin: No Symptoms Neurological: Headache Psychological: No Symptoms Endocrine: No Symptoms Hematologic/Lymphatic: No Symptoms Immunological/Allergic: No Symptoms All Other Systems: Reviewed and Negative - Past Medical History Pertinent Past Medical History: Yes Neurological History: No Pertinent History ENT History: No Pertinent History Cardiac History: No Pertinent History Respiratory History: No Pertinent History Endocrine Medical History: No Pertinent History Musculoskeletal History: No Pertinent History GI Medical History: Colitis, GI Bleed History: No Pertinent History Psycho-Social History: Anxiety, Depression Male Reproductive Disorders: No Pertinent History Other Medical History: pt has ADHD and oppositional defiance disorder. mult blood transfusions anemia - Past Surgical History Past Surgical History: Yes Neuro Surgical History: No Pertinent History Cardiac: No Pertinent History Respiratory: No Pertinent History Gastrointestinal: No Pertinent History Genitourinary: No Pertinent History Musculoskeletal: Orthopedic Surgery Male Surgical History: No Pertinent History Other Surgical History: right wrist glass removed in surgery, colonoscopy - Social History Smoking Status: Current every day smoker How long have you smoked: 5 yrs Exposure to second hand smoke: Yes Drug Use: marijuana Patient Lives Alone: No Significant Family History: no pertinent family hx - Nursing Vital Signs Nursing Vital Signs: Initial Vital Signs Temperature 99.4 F 03/07/23 22:14 Pulse Rate 110 H 03/07/23 22:14 Respiratory Rate 16 03/07/23 22:14 Blood Pressure 129/90 03/07/23 22:14 O2 Sat by Pulse Oximetry 99 03/07/23 22:14 Pain Scale Pain Intensity 7 - Physical Exam General Appearance: no apparent distress, alert, anxiety, thin Eye Exam: pale conjunctivae Ears, Nose, Throat Exam: dry mucous membranes Neck Exam: normal inspection, non-tender, supple, full range of motion Respiratory Exam: normal breath sounds, lungs clear, airway intact, No chest tenderness, No respiratory distress Cardiovascular Exam: tachycardia Gastrointestinal/Abdomen Exam: soft, normal bowel sounds, No tenderness Rectal Exam: not done Back Exam: normal inspection, normal range of motion, No CVA tenderness, No vertebral tenderness Extremity Exam: normal inspection, normal range of motion, pelvis stable Neurologic Exam: alert, oriented x 3, cooperative, field research associate II-XII nml as tested, normal mood/affect, nml cerebellar function, nml station & gait, sensation nml Skin Exam: dry, pale Lymphatic Exam: No adenopathy SpO2 Interpretation: normal SpO2: 99 O2 Delivery: Room Air - Course Nursing assessment & vital signs reviewed: Yes Ordered Tests: Active Orders 24 hr Category Date Time Status IV Insertion STAT Care 04/17/23 22:41 Active CBC W DIFF Stat Lab 03/07/23 22:30 Completed CMP Stat Lab 03/07/23 22:30 Completed Manual Differential NC Stat Lab 03/07/23 22:30 Completed PT INR [PROTIME WITH INR] Stat Lab 03/07/23 22:30 Completed Medication Summary Generic Name Dose Route Start Last Admin Trade Name Freq PRN Reason Stop Dose Admin Sodium Chloride 1,000 mls @ 999 mls/hr 03/07/23 22:41 03/07/23 23:02 Sodium Chloride 0.9% 1000 Ml IV 03/07/23 23:41 999 mls/hr .[id number] STA Administration Discontinued Medications Generic Name Dose Route Start Last Admin Trade Name Freq PRN Reason Stop Dose Admin Sodium Chloride Confirm 03/07/23 23:00 Sodium Chloride 0.9% 1000 Ml Administered 03/07/23 23:01 Dose 1,000 mls @ ud .ROUTE .STK-MED ONE Lab/Rad Data: Laboratory Result Diagrams 03/07/23 22:30 03/07/23 22:30 Laboratory Results 03/07/23 03/07/23 03/07/23 Range/Units 22:30 22:30 22:30 WBC 12.2 H (4.0-10.5) x10^3/uL RBC 3.34 L (4.1-5.6) x10^6/uL Hgb 4.9 L* (12.5-18.0) g/dL Hct 19.7 L (42-50) % MCV 59.0 L (78-100) fL MCH 14.7 L (26-32) pg MCHC 24.9 L (32-36) g/dL RDW 21.7 H (11.5-14.0) % Plt Count 509 H (150-450) x10^3/uL MPV 9.5 (7.5-11.0) fL Gran % 74.8 H (36.0-66.0) % Immature Gran % (Auto) 0.4 (0.00-0.4) % Nucleat RBC Rel Count 0.2 H (0.00-0.1) % Eos # (Auto) 0.52 H (0-0.5) x10^3/uL Immature Gran # (Auto) 0.05 H (0.00-0.03) x10^3u/L Absolute Lymphs (auto) 1.18 (1.0-4.6) x10^3/uL Absolute Monos (auto) 1.20 (0.0-1.3) x10^3/uL Absolute Nucleated RBC 0.02 H (0.00-0.01) x10^3u/L Lymphocytes % 9.7 L (24.0-44.0) % Monocytes % 9.8 (0.0-12.0) % Eosinophils % 4.3 (0.00-5.0) % Basophils % 1.0 (0.0-0.4) % Absolute Granulocytes 9.15 H (1.4-6.9) x10^3/uL Basophils # 0.12 (0-0.4) x10^3/uL PT 10.5 (9.4-12.5) SECONDS INR 0.96 (0.8-3.0) Sodium 139 (137-145) mmol/L Potassium 3.9 (3.5-5.1) mmol/L Chloride 102 (98-107) mmol/L Carbon Dioxide 28 (22-30) mmol/L Anion Gap 14.0 (5-15) MEQ/L BUN 7 L (9-20) mg/dL Creatinine 0.82 (0.66-1.25) mg/dL Estimated GFR > 60.0 ML/MIN Glucose 153 H (74-106) mg/dL Calcium 8.2 L (8.4-10.2) mg/dL Total Bilirubin 0.30 (0.2-1.3) mg/dL AST 16 L (17-59) U/L ALT 12 (0-50) U/L Alkaline Phosphatase 85 (38-126) U/L Serum Total Protein 7.1 (6.3-8.2) g/dL Albumin 3.8 (3.5-5.0) g/dL - Progress Progress: improved Progress Note: 03/07/23 23:37 This patient has medical issue of high complexity. The level of complexity in the work-up performed is based on the patient's past medical history, review of the patient's medication list on the review of the patient's drug allergy list as well as history of present illness and physical findings on examination. The work-up includes a placement of an intravenous line and instillation of normal saline solution. We also performed a type and crossmatch for 4 units, CMP, CBC and viral swabs including COVID-19 swab. I reviewed the results of this work- up. Patient has profound anemia with a hemoglobin of 4.9. The results were discussed with Dr. Eusebio Dia who is the hospitalist on-call today. Together, we formulated a plan to admit this patient in the hospital and provide him with intravenous packed red blood cells and repeat labs in the morning. Counseled pt/family regarding: lab results, diagnosis, need for follow-up Medical Desision Making - Discussion of managment Reviewed:: Test results, Need for additional workup Agreed on:: Treatment plan, decision to admit - Diagnostic Testing Diagnostic test were ordered, analyzed, and reviewed by me: Yes - Risk of complications The pt has a high risk of morbidity or mortality based on: Decision regarding hospitilization or escalation of hosp level of care - Departure Departure Disposition: In-patient Admission Clinical Impression: Profound anemia Condition: Fair Critical Care Time: Yes Critical Care Time(excluding separately billable procedures): Critical 30-74 mins (35 minutes) Referrals: NAA MURILLO [Primary Care Provider] - Follow up/PCP as directed
[2023-03-07 22:49] LABS: Absolute Neutrophil Ct (ANC) 9.15 x10^3/uL (1.4-6.9); Basophil (Absolute #) 0.12 x10^3/uL (0-0.4); Eosinophil % 4.3 % (0.00-5.0); Eosinophil (Absolute #) 0.52 x10^3/uL (0-0.5); Hematocrit 19.7 % (42-50); IMMATURE GRAN # 0.05 x10^3u/L (0.00-0.03); IMMATURE GRAN % 0.4 % (0.00-0.4); Lymphocyte (Absolute #) 1.18 x10^3/uL (1.0-4.6); Lymphocytes % 9.7 % (24.0-44.0); Mean Corpuscular Hemoglobin 14.7 pg (26-32); Mean Corpuscular Hgb Concent. 24.9 g/dL (32-36); Mean Platelet Volume 9.5 fL (7.5-11.0); Monocytes % 9.8 % (0.0-12.0); NUCLEATED RBC # 0.02 x10^3u/L (0.00-0.01); NUCLEATED RBC % 0.2 % (0.00-0.1); Neutrophil % 74.8 % (36.0-66.0); Platelet Count 509 x10^3/uL (150-450); Red Blood Count 3.34 x10^6/uL (4.1-5.6); Red Cell Distribution Width 21.7 % (11.5-14.0); White Blood Count 12.2 x10^3/uL (4.0-10.5)
[2023-03-07 22:59] LABS: ALBUMIN 3.8 g/dL (3.5-5.0); ALKALINE PHOSPHATASE 85 U/L (38-126); BLOOD UREA NITROGEN 7 mg/dL (9-20); CHLORIDE 102 mmol/L (98-107); Calcium 8.2 mg/dL (8.4-10.2); Carbon Dioxide 28 mmol/L (22-30); Creatinine 1 0.82 mg/dL (0.66-1.25); EST GLOMERULAR FILTRATION RATE > 60.0 ML/MIN; Glucose 153 mg/dL (74-106); INR 0.96 (0.8-3.0); PROTIME 10.5 SECONDS (9.4-12.5); Potassium 3.9 mmol/L (3.5-5.1); SGOT/AST 16 U/L (17-59); SGPT/ALT 12 U/L (0-50); SODIUM 139 mmol/L (137-145); Total Protein 7.1 g/dL (6.3-8.2)
[2023-03-07] MEDS ORDERED: Sodium Chloride 0.9% 1000 ML 1,000 ML ONE (23:00)
[2023-03-07 23:23] LABS: Hemoglobin 4.9 g/dL (12.5-18.0)
[2023-03-07 23:53] LABS: ABO TYPING A; Antibody Screen NEGATIVE (NEGATIVE); RH TYPING POSITIVE
[2023-03-07 23:54] LABS: CROSS MATCH (PRBC) COMPATIBLE (COMPATIBLE)
[2023-03-08] MEDS ORDERED: Sodium Chloride 0.9% 500 ML 500 ML IV ONE ×2 (00:08→06:43)
[2023-03-08 00:45] LABS: INFLUENZA A NEGATIVE (NEGATIVE); INFLUENZA B NEGATIVE (NEGATIVE); RESPIRATORY SYNCTIAL VIRUS NEGATIVE (NEGATIVE); SARS-CoV-2 Xpert Express NEGATIVE (NEGATIVE)
[2023-03-08] MEDS ORDERED: TYLENOL 325 MG PO PRN (01:24)
[2023-03-08] MEDS ORDERED: Zofran 4 MG/2 ML VIAL IV PRN (01:24)
[2023-03-08] MEDS: Sodium Chloride 0.9% 1000 ML 1,000 ML IV SCH ×2 (01:51→15:31)
[2023-03-08 02:11] LABS: Hypochromia 3+; Morphology Comment ABNORMAL; Tear Drop Cells 2+
[2023-03-08 02:18] LABS: Eosinophil 6 % (0.00-3.0); Lymphocytes 10 % (24-44); Monocyte 3 % (0.0-12.0); Neutrophils 81 % (36.-66.); Total Cells Counted 100; Toxic Granulation 1+
[2023-03-08 02:19] LABS: Platelet Estimate INCREASED (NORMAL)
[2023-03-08] MEDS ORDERED: Ativan 2 MG/1 ML VIAL IV ONE (02:21)
[2023-03-08 06:23] LABS: Hematocrit 25.2 % (42-50); Mean Cell Volume 64.6 fL (78-100); Mean Corpuscular Hemoglobin 17.7 pg (26-32); Mean Corpuscular Hgb Concent. 27.4 g/dL (32-36); Mean Platelet Volume 9.3 fL (7.5-11.0); Platelet Count 462 x10^3/uL (150-450); Red Cell Distribution Width 26.8 % (11.5-14.0)
[2023-03-08 06:38] LABS: ALBUMIN 3.5 g/dL (3.5-5.0); ALKALINE PHOSPHATASE 83 U/L (38-126); ANION GAP 12.7 MEQ/L (5-15); BLOOD UREA NITROGEN 6 mg/dL (9-20); CHLORIDE 104 mmol/L (98-107); Carbon Dioxide 26 mmol/L (22-30); Creatinine 1 0.74 mg/dL (0.66-1.25); EST GLOMERULAR FILTRATION RATE > 60.0 ML/MIN; Glucose 101 mg/dL (74-106); Potassium 3.9 mmol/L (3.5-5.1); SGOT/AST 17 U/L (17-59); SGPT/ALT 10 U/L (0-50); SODIUM 139 mmol/L (137-145); Total Protein 6.6 g/dL (6.3-8.2)
[2023-03-08 06:40] LABS: Hemoglobin 6.9 g/dL (12.5-18.0)
[2023-03-08 07:56] LABS: ANISOCYTOSIS 1+; Eosinophil 3 % (0.00-3.0); Hypochromia 2+; Lymphocytes 7 % (24-44); Monocyte 1 % (0.0-12.0); Neutrophils 89 % (36.-66.); Nucleated Red Blood Cell 1 %; Poikilocytosis 1+; Total Cells Counted 100
[2023-03-08 07:57] LABS: Ovalocytes 1+
[2023-03-08 08:00] LABS: Platelet Estimate NORMAL (NORMAL); Spherocyte 1+
[2023-03-08] MEDS: Ativan 2 MG/1 ML VIAL IV PRN ×4 (09:48→22:36)
[2023-03-08] MEDS ORDERED: NICOTINE PATCH 7MG TD SCH ×2 (10:00→22:00)
--- NOTE | 2023-03-08 12:44 | PCM.HP ---
History of Present Illness - Chief Complaint Chief Complaint: Profound anemia History of Present Illness: is a 23 year old male with ulcerative colitis (dx 2017) who came in through ER with HOBSON, LU, bloody BMs, and hgb of 4.9. He has been given 3 units of PRBC and his hgb is up to 8.0; a fourth unit is pending. He is feeling better this morning. His stools slowed down in ER but have returned. Described 5 or more stools/d for some time, bloody (maroon). Afebrile. No abd pain. He has historically been admittedly noncompliant. He had a colonoscopy in November with Dr. Tsang, but we have not been able to see the report as yet. Was given prednisone 10mg po daily which he takes "for the most part." He saw a GI specialist in [place] in the past as well, but prefers to return to Dr. Tsang. He was put on CLD here but was eating normally at home. Girlfriend says he is "a little loopy," and nurse notes he was recently given ativan. He reportedly drinks a fifth of liquor a day. - Review of Systems Respiratory: Short Of Breath Abdominal/Gastrointestinal: Diarrhea, Hematochezia Neurological: Dizziness Psychological: Alcohol Abuse (a fifth a day), Anxiety, Depression, No Suicidal Ideations, No Homicidal Ideations All Other Systems: Reviewed and Negative Medications & Allergies Home Medications: Home Medication List Prednisone 10 mg [Deltasone 10 mg] 10 mg PO DAILY 09/18/22 [History Confirmed 03/08/23] Allergies/Adverse Reactions: Allergies Allergy/AdvReac Type Severity Reaction Status Date / Time No Known Drug Allergies Allergy Verified 03/07/23 22:34 - Past Medical History Past Medical History: Yes Neurological History: No Pertinent History ENT History: No Pertinent History Cardiac History: No Pertinent History Respiratory History: No Pertinent History Endocrine Medical History: No Pertinent History Musculoskelatal History: No Pertinent History GI Medical History: Colitis, GI Bleed, Irritable Bowel History: No Pertinent History Pyscho-Social History: Anxiety, Depression Male Reproductive Disorders: No Pertinent History Comment: pt has ADHD and oppositional defiance disorder. mult blood trans fusions, anemia - Past Surgical History Past Surgical History: Yes Neuro Surgical History: No Pertinent History Cardiac History: No Pertinent History Respiratory Surgery: No Pertinent History GI Surgical History: No Pertinent History Genitourinary Surgical Hx: No Pertinent History Musculskeletal Surgical Hx: Orthopedic Surgery Male Surgical History: No Pertinent History Other Surgical History: right wrist glass removed in surgery, colonoscopy - Social History Smoking Status: Current every day smoker How long have you smoked: 4 years Exposure to second hand smoke: Yes Alcohol: Daily Drug Use: marijuana Significant Family History: no pertinent family hx - Physical Exam Vital Signs: Vital Signs - 24 hr Temp Pulse Resp BP BP Pulse Ox 03/08/23 11:39 97.5 F 92 H 17 124/73 99 03/08/23 07:13 98 F 106 H 16 113/72 100 03/08/23 03:35 99 F 111 H 16 114/69 100 03/08/23 02:29 88 16 106/63 03/08/23 01:53 98.5 F 93 H 16 114/69 100 03/08/23 00:13 99.2 F 108 H 12 129/65 99 03/07/23 23:40 99 03/07/23 23:23 108 H 21 129/90 100 03/07/23 22:14 99.4 F 110 H 16 129/90 99 General Appearance: no apparent distress, alert Neurologic Exam: alert, cooperative, other (limited affect, but eye contact is good) Ears, Nose, Throat Exam: moist mucous membranes Neck Exam: normal inspection, non-tender, No lymphadenopathy, No thyromegaly Respiratory Exam: normal breath sounds, lungs clear, No crackles/rales, No rhonchi, No wheezing Cardiovascular Exam: regular rate/rhythm, normal heart sounds, No murmur Gastrointestinal/Abdomen Exam: soft, No normal bowel sounds (hypoactive but present), No tenderness, No distention, No mass, No guarding, No rebound Back Exam: normal inspection, No CVA tenderness, No rash Extremity Exam: normal inspection, No pedal edema, No swelling Skin Exam: normal color, warm, dry, No rash Results - Labs Lab/Micro Results: Lab Results-Last 24 Hours 03/07/23 03/07/23 03/07/23 Range/Units 00:06 22:30 22:30 WBC 12.2 H (4.0-10.5) x10^3/uL RBC 3.34 L (4.1-5.6) x10^6/uL Hgb 4.9 L* (12.5-18.0) g/dL Hct 19.7 L (42-50) % MCV 59.0 L (78-100) fL MCH 14.7 L (26-32) pg MCHC 24.9 L (32-36) g/dL RDW 21.7 H (11.5-14.0) % Plt Count 509 H (150-450) x10^3/uL MPV 9.5 (7.5-11.0) fL Gran % 74.8 H (36.0-66.0) % Immature Gran % (Auto) 0.4 (0.00-0.4) % Nucleat RBC Rel Count 0.2 H (0.00-0.1) % Eos # (Auto) 0.52 H (0-0.5) x10^3/uL Immature Gran # (Auto) 0.05 H (0.00-0.03) x10^3u/L Absolute Lymphs (auto) 1.18 (1.0-4.6) x10^3/uL Absolute Monos (auto) 1.20 (0.0-1.3) x10^3/uL Absolute Nucleated RBC 0.02 H (0.00-0.01) x10^3u/L Lymphocytes % 9.7 L (24.0-44.0) % Monocytes % 9.8 (0.0-12.0) % Eosinophils % 4.3 (0.00-5.0) % Basophils % 1.0 (0.0-0.4) % Absolute Granulocytes 9.15 H (1.4-6.9) x10^3/uL Segmented Neutrophils 81 H (36.-66.) % Lymphocytes (Manual) 10 L (24-44) % Monocytes (Manual) 3 (0.0-12.0) % Eosinophils (Manual) 6 H (0.00-3.0) % Basophils # 0.12 (0-0.4) x10^3/uL Nucleated RBCs % Hypochromia 3+ Toxic Granulation 1+ Platelet Estimate INCREASED (NORMAL) RBC Morphology ABNORMAL Poikilocytosis Anisocytosis Spherocytes Tear Drop Cells 2+ Ovalocytes Morphology Comment ABNORMAL Smear Path Review Pending PT (9.4-12.5) SECONDS INR (0.8-3.0) Sodium 139 (137-145) mmol/L Potassium 3.9 (3.5-5.1) mmol/L Chloride 102 (98-107) mmol/L Carbon Dioxide 28 (22-30) mmol/L Anion Gap 14.0 (5-15) MEQ/L BUN 7 L (9-20) mg/dL Creatinine 0.82 (0.66-1.25) mg/dL Estimated GFR > 60.0 ML/MIN Glucose 153 H (74-106) mg/dL Calcium 8.2 L (8.4-10.2) mg/dL Total Bilirubin 0.30 (0.2-1.3) mg/dL AST 16 L (17-59) U/L ALT 12 (0-50) U/L Alkaline Phosphatase 85 (38-126) U/L Serum Total Protein 7.1 (6.3-8.2) g/dL Albumin 3.8 (3.5-5.0) g/dL Influenza Type A Ag NEGATIVE (NEGATIVE) Influenza Type B Ag NEGATIVE (NEGATIVE) RSV (PCR) NEGATIVE (NEGATIVE) SARS-CoV-2 (PCR) NEGATIVE (NEGATIVE) ABO Group Rh Factor Antibody Screen (NEGATIVE) Crossmatch (COMPATIBLE) 03/07/23 03/07/23 03/07/23 Range/Units 22:30 22:45 22:45 WBC (4.0-10.5) x10^3/uL RBC (4.1-5.6) x10^6/uL Hgb (12.5-18.0) g/dL Hct (42-50) % MCV (78-100) fL MCH (26-32) pg MCHC (32-36) g/dL RDW (11.5-14.0) % Plt Count (150-450) x10^3/uL MPV (7.5-11.0) fL Gran % (36.0-66.0) % Immature Gran % (Auto) (0.00-0.4) % Nucleat RBC Rel Count (0.00-0.1) % Eos # (Auto) (0-0.5) x10^3/uL Immature Gran # (Auto) (0.00-0.03) x10^3u/L Absolute Lymphs (auto) (1.0-4.6) x10^3/uL Absolute Monos (auto) (0.0-1.3) x10^3/uL Absolute Nucleated RBC (0.00-0.01) x10^3u/L Lymphocytes % (24.0-44.0) % Monocytes % (0.0-12.0) % Eosinophils % (0.00-5.0) % Basophils % (0.0-0.4) % Absolute Granulocytes (1.4-6.9) x10^3/uL Segmented Neutrophils (36.-66.) % Lymphocytes (Manual) (24-44) % Monocytes (Manual) (0.0-12.0) % Eosinophils (Manual) (0.00-3.0) % Basophils # (0-0.4) x10^3/uL Nucleated RBCs % Hypochromia Toxic Granulation Platelet Estimate (NORMAL) RBC Morphology Poikilocytosis Anisocytosis Spherocytes Tear Drop Cells Ovalocytes Morphology Comment Smear Path Review PT 10.5 (9.4-12.5) SECONDS INR 0.96 (0.8-3.0) Sodium (137-145) mmol/L Potassium (3.5-5.1) mmol/L Chloride (98-107) mmol/L Carbon Dioxide (22-30) mmol/L Anion Gap (5-15) MEQ/L BUN (9-20) mg/dL Creatinine (0.66-1.25) mg/dL Estimated GFR ML/MIN Glucose (74-106) mg/dL Calcium (8.4-10.2) mg/dL Total Bilirubin (0.2-1.3) mg/dL AST (17-59) U/L ALT (0-50) U/L Alkaline Phosphatase (38-126) U/L Serum Total Protein (6.3-8.2) g/dL Albumin (3.5-5.0) g/dL Influenza Type A Ag (NEGATIVE) Influenza Type B Ag (NEGATIVE) RSV (PCR) (NEGATIVE) SARS-CoV-2 (PCR) (NEGATIVE) ABO Group A Rh Factor POSITIVE Antibody Screen NEGATIVE (NEGATIVE) Crossmatch COMPATIBLE COMPATIBLE (COMPATIBLE) 03/07/23 03/07/23 03/08/23 Range/Units 22:45 22:45 06:06 WBC 11.0 H (4.0-10.5) x10^3/uL RBC 3.90 L (4.1-5.6) x10^6/uL Hgb 6.9 L* D (12.5-18.0) g/dL Hct 25.2 L (42-50) % MCV 64.6 L D (78-100) fL MCH 17.7 L (26-32) pg MCHC 27.4 L (32-36) g/dL RDW 26.8 H (11.5-14.0) % Plt Count 462 H (150-450) x10^3/uL MPV 9.3 (7.5-11.0) fL Gran % (36.0-66.0) % Immature Gran % (Auto) (0.00-0.4) % Nucleat RBC Rel Count (0.00-0.1) % Eos # (Auto) (0-0.5) x10^3/uL Immature Gran # (Auto) (0.00-0.03) x10^3u/L Absolute Lymphs (auto) (1.0-4.6) x10^3/uL Absolute Monos (auto) (0.0-1.3) x10^3/uL Absolute Nucleated RBC (0.00-0.01) x10^3u/L Lymphocytes % (24.0-44.0) % Monocytes % (0.0-12.0) % Eosinophils % (0.00-5.0) % Basophils % (0.0-0.4) % Absolute Granulocytes (1.4-6.9) x10^3/uL Segmented Neutrophils 89 H (36.-66.) % Lymphocytes (Manual) 7 L (24-44) % Monocytes (Manual) 1 (0.0-12.0) % Eosinophils (Manual) 3 (0.00-3.0) % Basophils # (0-0.4) x10^3/uL Nucleated RBCs 1 % Hypochromia 2+ Toxic Granulation Platelet Estimate NORMAL (NORMAL) RBC Morphology ABNORMAL Poikilocytosis 1+ Anisocytosis 1+ Spherocytes 1+ Tear Drop Cells Ovalocytes 1+ Morphology Comment Smear Path Review PT (9.4-12.5) SECONDS INR (0.8-3.0) Sodium (137-145) mmol/L Potassium (3.5-5.1) mmol/L Chloride (98-107) mmol/L Carbon Dioxide (22-30) mmol/L Anion Gap (5-15) MEQ/L BUN (9-20) mg/dL Creatinine (0.66-1.25) mg/dL Estimated GFR ML/MIN Glucose (74-106) mg/dL Calcium (8.4-10.2) mg/dL Total Bilirubin (0.2-1.3) mg/dL AST (17-59) U/L ALT (0-50) U/L Alkaline Phosphatase (38-126) U/L Serum Total Protein (6.3-8.2) g/dL Albumin (3.5-5.0) g/dL Influenza Type A Ag (NEGATIVE) Influenza Type B Ag (NEGATIVE) RSV (PCR) (NEGATIVE) SARS-CoV-2 (PCR) (NEGATIVE) ABO Group Rh Factor Antibody Screen (NEGATIVE) Crossmatch COMPATIBLE COMPATIBLE (COMPATIBLE) 03/08/23 03/08/23 Range/Units 06:06 11:14 WBC (4.0-10.5) x10^3/uL RBC (4.1-5.6) x10^6/uL Hgb 8.0 L (12.5-18.0) g/dL Hct 28.0 L (42-50) % MCV (78-100) fL MCH (26-32) pg MCHC (32-36) g/dL RDW (11.5-14.0) % Plt Count (150-450) x10^3/uL MPV (7.5-11.0) fL Gran % (36.0-66.0) % Immature Gran % (Auto) (0.00-0.4) % Nucleat RBC Rel Count (0.00-0.1) % Eos # (Auto) (0-0.5) x10^3/uL Immature Gran # (Auto) (0.00-0.03) x10^3u/L Absolute Lymphs (auto) (1.0-4.6) x10^3/uL Absolute Monos (auto) (0.0-1.3) x10^3/uL Absolute Nucleated RBC (0.00-0.01) x10^3u/L Lymphocytes % (24.0-44.0) % Monocytes % (0.0-12.0) % Eosinophils % (0.00-5.0) % Basophils % (0.0-0.4) % Absolute Granulocytes (1.4-6.9) x10^3/uL Segmented Neutrophils (36.-66.) % Lymphocytes (Manual) (24-44) % Monocytes (Manual) (0.0-12.0) % Eosinophils (Manual) (0.00-3.0) % Basophils # (0-0.4) x10^3/uL Nucleated RBCs % Hypochromia Toxic Granulation Platelet Estimate (NORMAL) RBC Morphology Poikilocytosis Anisocytosis Spherocytes Tear Drop Cells Ovalocytes Morphology Comment Smear Path Review PT (9.4-12.5) SECONDS INR (0.8-3.0) Sodium 139 (137-145) mmol/L Potassium 3.9 (3.5-5.1) mmol/L Chloride 104 (98-107) mmol/L Carbon Dioxide 26 (22-30) mmol/L Anion Gap 12.7 (5-15) MEQ/L BUN 6 L (9-20) mg/dL Creatinine 0.74 (0.66-1.25) mg/dL Estimated GFR > 60.0 ML/MIN Glucose 101 (74-106) mg/dL Calcium 8.0 L (8.4-10.2) mg/dL Total Bilirubin 0.90 (0.2-1.3) mg/dL AST 17 (17-59) U/L ALT 10 (0-50) U/L Alkaline Phosphatase 83 (38-126) U/L Serum Total Protein 6.6 (6.3-8.2) g/dL Albumin 3.5 (3.5-5.0) g/dL Influenza Type A Ag (NEGATIVE) Influenza Type B Ag (NEGATIVE) RSV (PCR) (NEGATIVE) SARS-CoV-2 (PCR) (NEGATIVE) ABO Group Rh Factor Antibody Screen (NEGATIVE) Crossmatch (COMPATIBLE) Assessment/Plan (1) Ulcerative colitis Current Visit: No Status: Chronic Qualifiers: Ulcerative colitis location: unspecified ulcerative colitis location Digestive disease complication type: with rectal bleeding Qualified Code(s): K51.911 - Ulcerative colitis, unspecified with rectal bleeding Assessment & Plan: I have a page out to Dr. Tsang. Will go ahead with 60mg po prednisone daily, and will discuss Asacol or similar med with dr. Tsang. Had advanced pt's diet but may have to scale back on that if he doesn't improve with the stools. Goal would be to decrease amount of bloody stools and emphasize the importance of compliance. Code(s): K51.90 - ULCERATIVE COLITIS, UNSPECIFIED, WITHOUT COMPLICATIONS (2) Profound anemia Current Visit: No Status: Resolved Qualifiers: Iron deficiency anemia type: chronic blood loss Code(s): D64.9 - ANEMIA, UNSPECIFIED (3) Bloody stool Current Visit: Yes Status: Chronic Assessment & Plan: check c.diff Code(s): K92.1 - MELENA (4) Hyperglycemia Current Visit: Yes Status: Acute Assessment & Plan: check a1c Code(s): R73.9 - HYPERGLYCEMIA, UNSPECIFIED (5) Non-compliant behavior Current Visit: Yes Status: Acute Code(s): R46.89 - OTHER SYMPTOMS AND SIGNS INVOLVING APPEARANCE AND BEHAVIOR (6) Hypocalcemia Current Visit: Yes Status: Acute Code(s): E83.51 - HYPOCALCEMIA (7) Alcohol abuse Current Visit: Yes Status: Chronic Code(s): F10.10 - ALCOHOL ABUSE, UNCOMPLICATED
[2023-03-08 13:03] LABS: CROSS MATCH (PRBC) COMPATIBLE (COMPATIBLE)
[2023-03-08 13:29] LABS: 027 TOX PROD PRESUMPTIVE NEGATIVE (NEGATIVE); TOXIGENIC C. DIFF ORG NEGATIVE (NEGATIVE)
[2023-03-08] MEDS: DELTASONE 10 MG PO SCH (13:58)
[2023-03-08] MEDS: AZULFIDINE 500 MG PO SCH (21:15)
[2023-03-09] MEDS ORDERED: ULTRAM 50 MG PO PRN (00:59)
[2023-03-09] MEDS ORDERED: Ativan 1 MG ONE (01:03)
[2023-03-09] MEDS ORDERED: Ativan 1 MG PO ONE (01:10)
[2023-03-09] MEDS: Ativan 2 MG/1 ML VIAL IV PRN ×2 (02:56→10:45)
[2023-03-09 04:10] LABS: Hematocrit 27.8 % (42-50); Mean Corpuscular Hemoglobin 19.3 pg (26-32); Mean Corpuscular Hgb Concent. 28.8 g/dL (32-36); Platelet Count 438 x10^3/uL (150-450); Red Blood Count 4.15 x10^6/uL (4.1-5.6); Red Cell Distribution Width 27.6 % (11.5-14.0); White Blood Count 10.4 x10^3/uL (4.0-10.5)
[2023-03-09] MEDS: Sodium Chloride 0.9% 1000 ML 1,000 ML IV SCH ×2 (07:02→08:43)
[2023-03-09 09:40] VITALS: PULSE 91
[2023-03-09] MEDS: DELTASONE 10 MG PO SCH (10:45)
[2023-03-09] MEDS: AZULFIDINE 500 MG PO SCH (10:45)
--- NOTE | 2023-03-09 12:01 | PCM.DS ---
Discharge Summary Date of Admission: 03/08/23 01:20 Admitting Physician: SALLY MCCANN Primary Care Provider: NAA GALAN Allergies Allergies No Known Drug Allergies Allergy (Verified 03/07/23 22:34) Hospital Summary - Hospital Course Hospital Course: Pt is a 23 yo noncompliant patient of Dr. Galan with Ulcerative Colitis (dx 2017) and alcohol use disorder, with chronic anemia, who was admitted through ER wtih profound anemia. Hgb was 4.9 and he was typed and crossed for 4 units of blood. After 3 units his hgb was 8.0 and remains 8.0 this morning. He was feeling better yesterday. He was placed on CIWA protocol due to reportedly drinking a fifth of liquor daily. Last night he became agitated, hit himself in the head repeatedly, locked himself in bathroom, wanted to d/c to home but had been given ativan. BP were stable and not elevated. This morning he only remembers part of that. I did tell him at length that alcohol use is dangerous, particularly with his ulcerative colitis, and I strongly recommend quitting but he would need to be u nder a doctor's care to do that since stopping alcohol suddenly can be fatal. I discussed his case with Dr. Inman yesterday, GI in [place] (election supervisor for Dr. Castellanos). He advised OK to send pt home on prednisone with a slow wean, and okay to start asacol. Pt is to f/u with GI within the next week. Also needs to f/u with PCP in1 week. I advised pt that many people live fulfilling lives with UC and if he would be compliant with treatment he would do much better. Pt did acknowledge that I talked to him about alcohol and UC but indicated to me that he is "probably not" ready to stop drinking. - Vitals & Intake/Output Vital Signs: Vital Signs Temperature 97.8 F 03/09/23 06:45 Pulse Rate 91 H 03/09/23 09:39 Respiratory Rate 16 03/09/23 09:39 Blood Pressure 108/66 03/09/23 09:39 O2 Sat by Pulse Oximetry 97 03/09/23 09:39 Intake & Output: Intake & Output 03/06/23 03/07/23 03/08/23 04/19/23 11:59 11:59 11:59 11:59 Intake Total 1147 1600 Output Total 1 Balance 1147 1599 Weight 62.9 kg - Lab Result Diagrams: 03/09/23 03:00 03/08/23 06:06 Lab Results-Last 24 Hrs: Lab Results-Last 24 Hours 03/07/23 03/08/23 03/08/23 Range/Units 22:30 11:56 12:36 WBC (4.0-10.5) x10^3/uL RBC (4.1-5.6) x10^6/uL Hgb (12.5-18.0) g/dL Hct (42-50) % MCV (78-100) fL MCH (26-32) pg MCHC (32-36) g/dL RDW (11.5-14.0) % Plt Count (150-450) x10^3/uL MPV (7.5-11.0) fL Smear Path Review ESR 23 H (0-15) mm/hr Hemoglobin A1c (4.8-5.6) % C. difficile Screen NEGATIVE (NEGATIVE) C.difficile 027-NAP1-B1 PRESUMPTIVE NEGATIVE (NEGATIVE) Crossmatch (COMPATIBLE) 03/08/23 03/08/23 03/08/23 Range/Units 13:00 13:00 Unknown WBC (4.0-10.5) x10^3/uL RBC (4.1-5.6) x10^6/uL Hgb (12.5-18.0) g/dL Hct (42-50) % MCV (78-100) fL MCH (26-32) pg MCHC (32-36) g/dL RDW (11.5-14.0) % Plt Count (150-450) x10^3/uL MPV (7.5-11.0) fL Smear Path Review ESR (0-15) mm/hr Hemoglobin A1c 5.3 (4.8-5.6) % C. difficile Screen (NEGATIVE) C.difficile 027-NAP1-B1 (NEGATIVE) Crossmatch COMPATIBLE COMPATIBLE (COMPATIBLE) 03/09/23 Range/Units 03:00 WBC 10.4 (4.0-10.5) x10^3/uL RBC 4.15 (4.1-5.6) x10^6/uL Hgb 8.0 L (12.5-18.0) g/dL Hct 27.8 L (42-50) % MCV 67.0 L (78-100) fL MCH 19.3 L (26-32) pg MCHC 28.8 L (32-36) g/dL RDW 27.6 H (11.5-14.0) % Plt Count 438 (150-450) x10^3/uL MPV 9.0 (7.5-11.0) fL Smear Path Review ESR (0-15) mm/hr Hemoglobin A1c (4.8-5.6) % C. difficile Screen (NEGATIVE) C.difficile 027-NAP1-B1 (NEGATIVE) Crossmatch (COMPATIBLE) - Procedures and Test Procedures and Tests throughout Hospitalization: Therapy Orders & Screens 03/08/23 02:09 Smoking Cessation Education ONCE Comment: Diagnosis: Profound anemia Smoking Status: Current every day smoker How long have you smoked: 4 years Have you smoked in the past 12 months: Yes Approximately how many cigarettes per day: 10 Do you dip or chew tobacco: No Discharge Exam General Appearance: no apparent distress, other (lies with eyes closed but answers questions.) Neurologic Exam: oriented x 3, cooperative Ears, Nose, Throat Exam: moist mucous membranes Neck Exam: normal inspection Respiratory Exam: normal breath sounds, lungs clear, No crackles/rales, No rhonchi, No wheezing Cardiovascular Exam: regular rate/rhythm, normal heart sounds, No murmur Gastrointestinal/Abdomen Exam: soft, normal bowel sounds, No tenderness, No distention, No mass, No guarding, No rebound Back Exam: normal inspection, No rash Extremity Exam: normal inspection, No pedal edema, No swelling Skin Exam: normal color, warm, dry, No rash Final Diagnosis/Problem List - Final Discharge Diagnosis/Problem (1) Ulcerative colitis Current Visit: No Status: Chronic Assessment & Plan: Will send him home on prednisone 60mg daily x 2 weeks, then taper 10mg/d down to 10mg/d. Needs to f/[facility] and Dr. Galan. Pt is alert and oriented and wants to go home so will discharge pt. Have discussed f/u with him and dangers of GI bleeding and alcohol use. Code(s): K51.90 - ULCERATIVE COLITIS, UNSPECIFIED, WITHOUT COMPLICATIONS (2) Profound anemia Current Visit: No Status: Resolved Assessment & Plan: Advised if symptomatic or more bloody stools, needs to come to ER [place]. Code(s): D64.9 - ANEMIA, UNSPECIFIED (3) Bloody stool Current Visit: Yes Status: Chronic Code(s): K92.1 - MELENA (4) Hyperglycemia Current Visit: Yes Status: Acute Assessment & Plan: a1c is pending. Code(s): R73.9 - HYPERGLYCEMIA, UNSPECIFIED (5) Non-compliant behavior Current Visit: Yes Status: Chronic Code(s): R46.89 - OTHER SYMPTOMS AND SIG NS INVOLVING APPEARANCE AND BEHAVIOR (6) Hypocalcemia Current Visit: Yes Status: Acute Assessment & Plan: needs to f/u with PCP. Mild. Code(s): E83.51 - HYPOCALCEMIA (7) Alcohol abuse Current Visit: Yes Status: Chronic Assessment & Plan: Info on inpatient rehab given to pt by discharge planning. Code(s): F10.10 - ALCOHOL ABUSE, UNCOMPLICATED - Discharge Disposition: Home, Self-Care Condition: Stable Prescriptions: New Sulfasalazine 500 mg [Azulfidine 500 mg] 500 mg PO BID 14 Days #28 tablet Prednisone 10 mg [Deltasone 10 mg] 10 mg PO DAILY #98 tablet Prednisone 20 mg [Deltasone 20 mg] 60 mg PO DAILY 14 Days #42 tablet Continue Prednisone 10 mg [Deltasone 10 mg] 10 mg PO DAILY Instructions: Gastrointestinal Bleeding (DC), Alcohol Withdrawal, Effects of Alcohol on Your Health Additional Instructions: YOU NEED TO COME TO [facility] ON TUESDAY [facility] TUESDAY FOR LABWORK. Follow up with: NAA GALAN [Primary Care Provider] - 03/16/23 2:00 pm (at [facility]) NADIRA CASTELLANOS MD [NON-STAFF PHY W/O PRIVILEGES] - 03/14/23 2:00 pm
[2023-03-09 12:15] VITALS: BP 94/47; O2SAT 96
== END 2023-03-09 12:45 | disposition home or self-care (01) ==
LOC: ED 22:08 → MED SURG 03-08 01:20 → INTOOBSV 03-08 01:20
PROVIDERS: ADMIT Family Medicine; ATTEND Family Medicine
DX: K51.90 Ulcerative colitis, unspecified, without complications (principal); D64.9 Anemia, unspecified; K92.1 Melena; R73.9 Hyperglycemia, unspecified; E83.51 Hypocalcemia; F10.10 Alcohol abuse, uncomplicated; Z79.899 Other long term (current) drug therapy; Z20.828 Contact with and (suspected) exposure to other viral communicable diseases; Z91.148 Patient's other noncompliance with medication regimen for other reason; Z72.0 Tobacco use
CPT/HCPCS: 0241U; 36000; 36415; 36430; 80053; 83036; 85014; 85018; 85025; 85027; 85610; 85652; 86140; 86850; 86900; 86901; 86922; 87493; 99284; 99291; P9016; 93268; J2060; J2405; A9270-GY; G0378

== ENCOUNTER 2023-03-29 17:58 | Emergency (ER) | payer MEDICAID ==
--- NOTE | 2023-03-29 18:23 | ERPHSYRPT ---
- History of Present Illness Source: patient, old records Exam Limitations: no limitations Timing/Duration: yesterday Severity: severe Modifying Factors: Improves With: movement Hx Tetanus, Diphtheria Vaccination/Date Given: No Hx Influenza Vaccination/Date Given: No Hx Pneumococcal Vaccination/Date Given: No <JORDYN GOVEA - Last Filed: 03/29/23 18:41> <LORENASARBJITO - Last Filed: 03/29/23 21:55> - History of Present Illness Time Seen by Provider: 03/29/23 18:17 Physician History: Patient is a 23-year-old male who presents with a primary complaint of pain in the palm of the left hand and pain on the medial aspect of the left ankle. He was seen yesterday at the [facility] and [facility] and was found to have according to him normal x-rays of his hand and his foot and he had blood work which showed an elevated sed rate only slightly however a platelet count of greater than 900,000 and an elevated white count. The patient's records here show he has had anemia from ulcerative colitis and at one time received transfusion here for a hemoglobin of 4 secondary to ulcerative colitis. He recently started seeing Dr. Edwards in [place]. Records we obtained fro [facility] show a white count of 17 6 a hemoglobin of 7.1 hematocrit of 26.2 RDW of 28 platelet count of 923,000 in addition he had a uric acid of 6.3 we. We did obtain x-rays reports from [facility] which did report normal x-rays of the left hand and left ankle. (JORDYN GOVEA) Allergies/Adverse Reactions: No Known Drug Allergies Allergy (Verified 03/07/23 22:34) Home Medications: Prednisone 10 mg [Deltasone 10 mg] 10 mg PO DAILY 09/18/22 [History] Travel Risk - Vaccine Status Have you recieved a Covid-19 vaccination: No <JORDYN GOVEA - Last Filed: 03/29/23 18:41> - Review of Systems Constitutional: No Fever, No Chills Eyes: No Symptoms Ears, Nose, & Throat: No Symptoms Respiratory: No Cough, No Dyspnea Cardiac: No Chest Pain, No Edema, No Syncope Abdominal/Gastrointestinal: No Abdominal Pain, No Nausea, No Vomiting, No Diarrhea Genitourinary Symptoms: No Dysuria Musculoskeletal: Joint Redness, Joint Pain, Joint Swelling (Left hand and left ankle), No Back Pain, No Neck Pain Skin: No Rash Neurological: No Dizziness, No Focal Weakness, No Sensory Changes Psychological: No Symptoms Endocrine: No Symptoms All Other Systems: Reviewed and Negative <JORDYN GOVEA Last Filed: 03/29/23 18:41> - Past Medical History Pertinent Past Medical History: Yes Neurological History: No Pertinent History ENT History: No Pertinent History Cardiac History: No Pertinent History Respiratory History: No Pertinent History Endocrine Medical History: No Pertinent History Musculoskeletal History: No Pertinent History GI Medical History: Colitis, GI Bleed, Irritable Bowel History: No Pertinent History Psycho-Social History: Anxiety, Depression Male Reproductive Disorders: No Pertinent History Other Medical History: pt has ADHD and oppositional defiance disorder. mult blood transfusions, anemia - Past Surgical History Past Surgical History: Yes Neuro Surgical History: No Pertinent History Cardiac: No Pertinent History Respiratory: No Pertinent History Gastrointestinal: No Pertinent History Genitourinary: No Pertinent History Musculoskeletal: Orthopedic Surgery Male Surgical History: No Pertinent History Other Surgical History: right wrist glass removed in surgery, colonoscopy - Social History Smoking Status: Current every day smoker How long have you smoked: 4 years Exposure to second hand smoke: Yes Drug Use: marijuana Patient Lives Alone: No Significant Family History: no pertinent family hx <JORDYN GOVEA Last Filed: 03/29/23 18:41> - Physical Exam General Appearance: mild distress Eye Exam: PERRL/EOMI, eyes nml inspection Ears, Nose, Throat Exam: normal ENT inspection, TMs normal, pharynx normal, moist mucous membranes Neck Exam: normal inspection, non-tender, supple, full range of motion Respiratory Exam: normal breath sounds, lungs clear, No respiratory distress Cardiovascular Exam: regular rate/rhythm, normal heart sounds, normal peripheral pulses Gastrointestinal/Abdomen Exam: soft, normal bowel sounds Back Exam: normal inspection Extremity Exam: other (Palm of the left hand is so tender he will not allow you to touch it the left ankle medially has redness and heat and tenderness.) Neurologic Exam: alert, oriented x 3, cooperative Skin Exam: normal color, warm, dry SpO2 Interpretation: normal O2 Delivery: Room Air <JORDYN GOVEA Last Filed: 03/29/23 18:41> - Nursing Vital Signs Nursing Vital Signs: Initial Vital Signs Temperature 98.9 F 03/29/23 18:03 Pulse Rate 123 H 03/29/23 18:03 Respiratory Rate 14 03/29/23 18:03 Blood Pressure 132/84 03/29/23 18:03 O2 Sat by Pulse Oximetry 100 03/29/23 18:03 Pain Scale Pain Intensity 9 - Course Nursing assessment & vital signs reviewed: Yes <JORDYN GOVEA - Last Filed: 03/29/23 18:41> Ordered Tests: Active Orders 24 hr Category Date Time Status Cold Application STAT Care 03/29/23 18:04 Active IV Insertion STAT Care 03/29/23 18:33 Active CHEST WITH CONTRAST [CT] Stat Exams 03/29/23 19:59 Ordered CBC W DIFF Stat Lab 03/29/23 18:30 Completed CMP Stat Lab 03/29/23 18:30 Completed D-DIMER QUANTITATIVE Stat Lab 03/29/23 18:30 Completed SED RATE [Erythrocyte Sedimentation Rate] Stat Lab 03/29/23 18:30 Completed Uric Acid Stat Lab 03/29/23 18:30 Completed Medication Summary Discontinued Medications Generic Name Dose Route Start Last Admin Trade Name Angel Luisq PRN Reason Stop Dose Admin Methylprednisolone Sodium 0 mg 03/29/23 21:15 03/29/23 21:25 Succinate 20 mg/ Sterile Water IV 03/29/23 21:16 20 mg 1 ml STAT STA Administration Hydromorphone HCl 1 mg 03/29/23 18:32 03/29/23 18:36 Hydromorphone 1 Mg/1ml Inj IV 03/29/23 18:33 1 mg STAT ONE Administration Hydromorphone HCl Confirm 03/29/23 18:36 Hydromorphone 1 Mg/1ml Inj Administered 03/29/23 18:37 Dose 1 mg .ROUTE .STK-MED ONE Hydromorphone HCl 1 mg 03/29/23 21:05 03/29/23 21:10 Hydromorphone 1 Mg/1ml Inj IV 03/29/23 21:06 1 mg STAT ONE Administration Hydromorphone HCl Confirm 03/29/23 21:07 Hydromorphone 1 Mg/1ml Inj Administered 03/29/23 21:08 Dose 1 mg .ROUTE .STK-MED ONE Methylprednisolone Sodium Succinate Confirm 03/29/23 21:24 Methylprednisolone Sod Suc 40m 40 Mg/Ml Vial Administered 03/29/23 21:25 Dose 40 mg .ROUTE .SetMeUp ONE Sterile Water Confirm 03/29/23 21:24 Water For Injection,Sterile 10 Ml Vial Administered 03/29/23 21:25 Dose 10 ml IJ .[employer]-MED ONE Lab/Rad Data: Laboratory Result Diagrams 03/29/23 18:30 03/29/23 18:30 Laboratory Results 03/29/23 03/29/23 03/29/23 Range/Units Unknown 18:30 18:30 WBC (4.0-10.5) x10^3/uL RBC (4.1-5.6) x10^6/uL Hgb (12.5-18.0) g/dL Hct (42-50) % MCV (78-100) fL MCH (26-32) pg MCHC (32-36) g/dL RDW (11.5-14.0) % Plt Count (150-450) x10^3/uL MPV (7.5-11.0) fL Gran % (36.0-66.0) % Immature Gran % (Auto) (0.00-0.4) % Nucleat RBC Rel Count (0.00-0.1) % Eos # (Auto) (0-0.5) x10^3/uL Immature Gran # (Auto) (0.00-0.03) x10^3u/L Absolute Lymphs (auto) (1.0-4.6) x10^3/uL Absolute Monos (auto) (0.0-1.3) x10^3/uL Absolute Nucleated RBC (0.00-0.01) x10^3u/L Lymphocytes % (24.0-44.0) % Monocytes % (0.0-12.0) % Eosinophils % (0.00-5.0) % Basophils % (0.0-0.4) % Absolute Granulocytes (1.4-6.9) x10^3/uL Basophils # (0-0.4) x10^3/uL ESR (0-15) mm/hr D-Dimer (0.0-0.50) mg/L Sodium 138 (137-145) mmol/L Potassium 3.9 (3.5-5.1) mmol/L Chloride 102 (98-107) mmol/L Carbon Dioxide 28 (22-30) mmol/L Anion Gap 12.5 (5-15) MEQ/L BUN 7 L (9-20) mg/dL Creatinine 0.77 (0.66-1.25) mg/dL Estimated GFR > 60.0 ML/MIN Glucose 99 (74-106) mg/dL Uric Acid (3.5-7.2) mg/dL Calcium 8.4 (8.4-10.2) mg/dL Total Bilirubin 0.30 (0.2-1.3) mg/dL AST 15 L (17-59) U/L ALT 11 (0-50) U/L Alkaline Phosphatase 76 (38-126) U/L Serum Total Protein 6.6 (6.3-8.2) g/dL Albumin 3.2 L (3.5-5.0) g/dL Slides for Path Review ABO Group A Rh Factor POSITIVE Antibody Screen NEGATIVE (NEGATIVE) Crossmatch COMPATIBLE COMPATIBLE (COMPATIBLE) 03/29/23 03/29/23 03/29/23 Range/Units 18:30 18:30 18:30 WBC (4.0-10.5) x10^3/uL RBC (4.1-5.6) x10^6/uL Hgb (12.5-18.0) g/dL Hct (42-50) % MCV (78-100) fL MCH (26-32) pg MCHC (32-36) g/dL RDW (11.5-14.0) % Plt Count (150-450) x10^3/uL MPV (7.5-11.0) fL Gran % (36.0-66.0) % Immature Gran % (Auto) (0.00-0.4) % Nucleat RBC Rel Count (0.00-0.1) % Eos # (Auto) (0-0.5) x10^3/uL Immature Gran # (Auto) (0.00-0.03) x10^3u/L Absolute Lymphs (auto) (1.0-4.6) x10^3/uL Absolute Monos (auto) (0.0-1.3) x10^3/uL Absolute Nucleated RBC (0.00-0.01) x10^3u/L Lymphocytes % (24.0-44.0) % Monocytes % (0.0-12.0) % Eosinophils % (0.00-5.0) % Basophils % (0.0-0.4) % Absolute Granulocytes (1.4-6.9) x10^3/uL Basophils # (0-0.4) x10^3/uL ESR 44 H (0-15) mm/hr D-Dimer 1.98 H* (0.0-0.50) mg/L Sodium (137-145) mmol/L Potassium (3.5-5.1) mmol/L Chloride (98-107) mmol/L Carbon Dioxide (22-30) mmol/L Anion Gap (5-15) MEQ/L BUN (9-20) mg/dL Creatinine (0.66-1.25) mg/dL Estimated GFR ML/MIN Glucose (74-106) mg/dL Uric Acid 6.7 (3.5-7.2) mg/dL Calcium (8.4-10.2) mg/dL Total Bilirubin (0.2-1.3) mg/dL AST (17-59) U/L ALT (0-50) U/L Alkaline Phosphatase (38-126) U/L Serum Total Protein (6.3-8.2) g/dL Albumin (3.5-5.0) g/dL Slides for Path Review ABO Group Rh Factor Antibody Screen (NEGATIVE) Crossmatch (COMPATIBLE) 03/29/23 Range/Units 18:30 WBC 16.5 H (4.0-10.5) x10^3/uL RBC 3.56 L (4.1-5.6) x10^6/uL Hgb 6.5 L* (12.5-18.0) g/dL Hct 23.7 L (42-50) % MCV 66.6 L (78-100) fL MCH 18.3 L (26-32) pg MCHC 27.4 L (32-36) g/dL RDW 28.0 H (11.5-14.0) % Plt Count 685 H (150-450) x10^3/uL MPV 8.9 (7.5-11.0) fL Gran % 76.8 H (36.0-66.0) % Immature Gran % (Auto) 0.4 (0.00-0.4) % Nucleat RBC Rel Count 0.1 (0.00-0.1) % Eos # (Auto) 0.71 H (0-0.5) x10^3/uL Immature Gran # (Auto) 0.06 H (0.00-0.03) x10^3u/L Absolute Lymphs (auto) 1.72 (1.0-4.6) x10^3/uL Absolute Monos (auto) 1.17 (0.0-1.3) x10^3/uL Absolute Nucleated RBC 0.02 H (0.00-0.01) x10^3u/L Lymphocytes % 10.4 L (24.0-44.0) % Monocytes % 7.1 (0.0-12.0) % Eosinophils % 4.3 (0.00-5.0) % Basophils % 1.0 (0.0-0.4) % Absolute Granulocytes 12.65 H (1.4-6.9) x10^3/uL Basophils # 0.17 (0-0.4) x10^3/uL ESR (0-15) mm/hr D-Dimer (0.0-0.50) mg/L Sodium (137-145) mmol/L Potassium (3.5-5.1) mmol/L Chloride (98-107) mmol/L Carbon Dioxide (22-30) mmol/L Anion Gap (5-15) MEQ/L BUN (9-20) mg/dL Creatinine (0.66-1.25) mg/dL Estimated GFR ML/MIN Glucose (74-106) mg/dL Uric Acid (3.5-7.2) mg/dL Calcium (8.4-10.2) mg/dL Total Bilirubin (0.2-1.3) mg/dL AST (17-59) U/L ALT (0-50) U/L Alkaline Phosphatase (38-126) U/L Serum Total Protein (6.3-8.2) g/dL Albumin (3.5-5.0) g/dL Slides for Path Review YES ABO Group Rh Factor Antibody Screen (NEGATIVE) Crossmatch (COMPATIBLE) - Progress Progress: unchanged <MANSHIP,JORDYN - Last Filed: 03/29/23 18:41> - Progress Counseled pt/family regarding: diagnosis, rad results <IVAN PAINTER - Last Filed: 03/29/23 21:55> - Progress Progress Note: Patient endorsed to Dr. Painter at approximately 7 PM. Patient is a 23-year-old m anant with a history of ulcerative colitis. Patient presents to our ED with what appears to be an extraintestinal manifestation of ulcerative colitis flareup. On physical examination patient has tenderness to left ankle and left wrist. However there is no increased heat production. No pain with small arcs of motion. Patient appears pale. There appears to be erythema nodosum on his left anterior tibia likely related to a ulcerative colitis flareup. Laboratory work- up reveals a leukocytosis. Patient has a microcytic anemia of 6.5. Patient also has a thrombocytosis of 685. Albumin 3.2. We contacted Dr. Doug Edwards who accepts transfer to [facility]. Plan of care discussed with patient. He agrees to transfer to [facility] for further evaluation and treatment. Additionally we discussed the need for transfusion and Dr. Edwards is in agreement with initiating transfusion. No further recommendations made. 03/29/23 19:[address] Leiva hospitalist at [facility] who accepts transfer. 03/29/23 20:11 Testing includes CBC CMP CRP D-dimer sed rate type and screen uric acid. Patient received Dilaudid 1 mg x 2. Patient also received a dose of methylp rednisolone steroid. CTA chest completed with results pending. It appears patient is experiencing a ulcerative colitis flareup. Patient will be transferred to [facility] for further evaluation and treatment. Patient educated on his disease process and the extraintestinal manifestations of ulcerative colitis. Complexity of problem addressed is moderate chronic illness with exacerbation Complexity data reviewed and analyzed is moderate. Test ordered. Test reviewed and analyzed. Management discussed with patient's GI physician who excepts transfer to [facility]. Patient transferred to [facility] in stable condition. Portions of this note were created with voice recognition technology. There may be grammatical, spelling, punctuation or sound alike errors 03/29/23 21:51 (IVAN PAINTER) Medical Desision Making - External Record(s) Reviewed Records reviewed as a part of evaluation & management: Inpatient (Records from [facility] and [facility] Clinic - Diagnostic Testing Diagnostic test were ordered, analyzed, and reviewed by me: Yes <JORDYN GOVEA - Last Filed: 03/29/23 18:41> - Departure Departure Disposition: Home Critical Care Time: No <JORDYN GOVEA - Last Filed: 03/29/23 18:41> <IVAN PAINTER - Last Filed: 03/29/23 21:55> - Departure Clinical Impression: Thrombocytosis, History of ulcerative colitis, Leukocytosis, Microcytic anemia, Hypoalbuminemia, Erythema nodosum, Ulcerative colitis flareup, Extraintestinal manifestation of inflammatory bowel disease Condition: Stable Referrals: NAA MURILLO [Primary Care Provider] - Follow up/PCP as directed
[2023-03-29] MEDS ORDERED: Hydromorphone 1 mg/ml Injection IV ONE ×2 (18:32→21:05)
[2023-03-29] MEDS ORDERED: Hydromorphone 1 mg/ml Injection ONE ×2 (18:36→21:07)
[2023-03-29 18:39] LABS: Absolute Neutrophil Ct (ANC) 12.65 x10^3/uL (1.4-6.9); Basophil (Absolute #) 0.17 x10^3/uL (0-0.4); Eosinophil % 4.3 % (0.00-5.0); Eosinophil (Absolute #) 0.71 x10^3/uL (0-0.5); Hematocrit 23.7 % (42-50); IMMATURE GRAN # 0.06 x10^3u/L (0.00-0.03); IMMATURE GRAN % 0.4 % (0.00-0.4); Lymphocyte (Absolute #) 1.72 x10^3/uL (1.0-4.6); Lymphocytes % 10.4 % (24.0-44.0); Mean Cell Volume 66.6 fL (78-100); Mean Corpuscular Hemoglobin 18.3 pg (26-32); Mean Corpuscular Hgb Concent. 27.4 g/dL (32-36); Mean Platelet Volume 8.9 fL (7.5-11.0); Monocyte (Absolute #) 1.17 x10^3/uL (0.0-1.3); Monocytes % 7.1 % (0.0-12.0); NUCLEATED RBC # 0.02 x10^3u/L (0.00-0.01); NUCLEATED RBC % 0.1 % (0.00-0.1); Neutrophil % 76.8 % (36.0-66.0); Platelet Count 685 x10^3/uL (150-450); Red Blood Count 3.56 x10^6/uL (4.1-5.6); White Blood Count 16.5 x10^3/uL (4.0-10.5)
[2023-03-29 19:01] LABS: ALBUMIN 3.2 g/dL (3.5-5.0); ALKALINE PHOSPHATASE 76 U/L (38-126); ANION GAP 12.5 MEQ/L (5-15); BLOOD UREA NITROGEN 7 mg/dL (9-20); CHLORIDE 102 mmol/L (98-107); Calcium 8.4 mg/dL (8.4-10.2); Carbon Dioxide 28 mmol/L (22-30); Creatinine 1 0.77 mg/dL (0.66-1.25); EST GLOMERULAR FILTRATION RATE > 60.0 ML/MIN; Glucose 99 mg/dL (74-106); Potassium 3.9 mmol/L (3.5-5.1); SGOT/AST 15 U/L (17-59); SGPT/ALT 11 U/L (0-50); SODIUM 138 mmol/L (137-145); Total Protein 6.6 g/dL (6.3-8.2)
[2023-03-29 19:04] LABS: Hemoglobin 6.5 g/dL (12.5-18.0)
[2023-03-29 20:06] LABS: ABO TYPING A; Antibody Screen NEGATIVE (NEGATIVE); RH TYPING POSITIVE
[2023-03-29 20:08] LABS: CROSS MATCH (PRBC) COMPATIBLE (COMPATIBLE)
[2023-03-29 20:10] LABS: CROSS MATCH (PRBC) COMPATIBLE (COMPATIBLE)
[2023-03-29 20:12] LABS: Slide Review 1 YES
[2023-03-29 21:09] VITALS: BP 111/75; PULSE 90; O2SAT 100
[2023-03-29] MEDS ORDERED: solu-MEDROL 20 MG, Sterile H2O 10 ml 1 ML IV STA ×2 (21:15)
[2023-03-29] MEDS ORDERED: Sterile H2O 10 ml IJ ONE (21:24)
[2023-03-29] MEDS ORDERED: solu-MEDROL ONE (21:24)
--- NOTE | 2023-03-30 08:38 | XRAY ---
Indication: Tachycardia. Elevated d-dimer. Multiple contiguous axial images obtained through the chest using 100 cc Isovue 370 contrast and PE protocol. Comparison: None Adequate opacification of the pulmonary arteries. Mild respiration artifact limits evaluation of the more distal lobar and segmental branches. No obvious pulmonary embolus. Heart is not enlarged. Aorta is normal in course and caliber. No pathologic mediastinal/hilar lymphadenopathy. Lungs demonstrates right lower lobe cavitary lesion without fluid leveling measuring at least 2.2 x 2.6 cm. Similar smaller irregular opacities seen in the right lower lobe, largest posteriorly measuring 1 cm. Additional 1.5 cm medial left upper irregular opacity. Findings probably infectious in this age group. Doubt malignancy. Also a few tiny calcified/noncalcified micronodules presumed granulomatous. No effusion or pneumothorax. Bony thorax intact. Limited upper abdomen including adrenal glands are unremarkable. Impression: 1. Respiration artifact limits pulmonary embolus evaluation. No obvious pulmonary embolus. 2. A few bilateral irregular opacities, largest right lower lobe appearing cavitary. Findings most likely infectious in this age group. Doubt malignancy. Recommend follow-up CT following treatment.
== END 2023-03-29 21:48 | disposition short-term general hospital (02) ==
LOC: ED 17:58
DX: K51.818 Other ulcerative colitis with other complication (principal); M07.69 Enteropathic arthropathies, multiple sites; L52 Erythema nodosum; D75.839 Thrombocytosis, unspecified; D72.829 Elevated white blood cell count, unspecified; D50.9 Iron deficiency anemia, unspecified; E88.09 Other disorders of plasma-protein metabolism, not elsewhere classified; M25.572 Pain in left ankle and joints of left foot; M79.642 Pain in left hand; Z79.52 Long term (current) use of systemic steroids; Z72.0 Tobacco use
CPT/HCPCS: 36000; 36415; 71260; 80053; 84550; 85025; 85379; 85652; 86140; 86850; 86900; 86901; 86922; 96374; 96376; 99285; J1170; J2920

== ENCOUNTER 2023-07-17 03:29 | Observation (INO) | payer MEDICAID ==
[2023-07-17] MEDS ORDERED: PROTONIX 40 MG IV IV ONE ×2 (03:58→04:10)
--- NOTE | 2023-07-17 03:58 | ERPHSYRPT ---
- History of Present Illness Time Seen by Provider: 07/17/23 03:58 Historian: patient Exam Limitations: no limitations Patient Subjective Stated Complaint: pt states I have these sores on my face and I can't stop itching them Triage Nursing Assessment: pt ambulated into the er with normal gait; pt is axo x3; skin is pale, warm, and dry; no respiratory distress present; vitals wnl; red scaly area to rt cheek Physician History: 23-year-old male presents the emergency room with history of ulcerative colitis for which she states he has had constant bloody bowel movements for years. He has had blood transfusions in the past. He is having exertional dyspnea and chest discomfort. He also has a nonpruritic skin rash on his face and chest that erupted recently. He has been taking his UC medications as prescribed. His last appointment with his hedis manager was less than a month ago. He denies any current fever or focal abdominal pain. No current nausea or vomiting reported. Timing/Duration: gradual onset Activities at Onset: activity Quality: tightness Abdominal Pain Onset Location: unknown Pain Radiation: no radiation Severity of Pain-Max: none Severity of Pain-Current: none Modifying Factors: Worsens With: exercise, walking Associated Symptoms: chest pain, fatigue, shortness of breath, weakness, No fever/chills Previous symptoms: same symptoms as today Allergies/Adverse Reactions: No Known Drug Allergies Allergy (Verified 07/17/23 03:35) Home Medications: Sulfasalazine 500 mg [Azulfidine 500 mg] 2 tab PO QID 07/17/23 [History] Hx Tetanus, Diphtheria Vaccination/Date Given: No Hx Influenza Vaccination/Date Given: No Hx Pneumococcal Vaccination/Date Given: No Immunizations Up to Date: Yes Travel Risk - International Travel Have you traveled outside of the country in past 3 weeks: No - Coronavirus Screening Are you exhibiting any of the following symptoms?: No Close contact with a COVID-19 positive Pt in past 14-21 Days: No - Vaccine Status Have you recieved a Covid-19 vaccination: No - Review of Systems Constitutional: Fatigue, Weakness, No Fever Eyes: No Symptoms Ears, Nose, & Throat: No Symptoms Respiratory: Dyspnea on Exertion (LU) Cardiac: Chest Pain Abdominal/Gastrointestinal: Hematochezia, Melena, No Abdominal Pain, No Nausea, No Vomiting Genitourinary Symptoms: No Symptoms Musculoskeletal: No Symptoms Skin: Rash Neurological: Dizziness Hematologic/Lymphatic: Anemia Immunological/Allergic: No Symptoms - Past Medical History Pertinent Past Medical History: Yes Neurological History: No Pertinent History ENT History: No Pertinent History Cardiac History: No Pertinent History Respiratory History: No Pertinent History Endocrine Medical History: No Pertinent History Musculoskeletal History: No Pertinent History GI Medical History: Colitis, GI Bleed, Irritable Bowel History: No Pertinent History Psycho-Social History: Anxiety, Depression Male Reproductive Disorders: No Pertinent History Other Medical History: pt has ADHD and oppositional defiance disorder. mult blood transfusions, anemia - Past Surgical History Past Surgical History: Yes Neuro Surgical History: No Pertinent History Cardiac: No Pertinent History Respiratory: No Pertinent History Gastrointestinal: No Pertinent History Genitourinary: No Pertinent History Musculoskeletal: Orthopedic Surgery Male Surgical History: No Pertinent History Other Surgical History: right wrist glass removed in surgery, colonoscopy - Social History Smoking Status: Current every day smoker How long have you smoked: 4 years Exposure to second hand smoke: Yes Drug Use: marijuana Patient Lives Alone: No Significant Family History: no pertinent family hx - Nursing Vital Signs Nursing Vital Signs: Initial Vital Signs O2 Sat by Pulse Oximetry 100 07/17/23 03:30 Pain Scale Pain Intensity 0 - Physical Exam General Appearance: no apparent distress, alert, thin Eye Exam: pale conjunctivae Ears, Nose, Throat Exam: normal ENT inspection Neck Exam: normal inspection, supple, full range of motion Respiratory Exam: normal breath sounds, lungs clear, airway intact, No chest tenderness, No respiratory distress Cardiovascular Exam: normal heart sounds, capillary refill 2-3 sec Gastrointestinal/Abdomen Exam: soft, normal bowel sounds, No tenderness, No distention Extremity Exam: normal inspection, normal range of motion Neurologic Exam: alert, oriented x 3, cooperative Skin Exam: rash (scattered areas of erythema w/ excoriations over face and anterior chest), pale Lymphatic Exam: No adenopathy SpO2 Interpretation: normal SpO2: 100 O2 Delivery: Room Air - Course Nursing assessment & vital signs reviewed: Yes EKG Interpreted by Me: RATE ([id number]), Sinus Rhythm, NORMAL AXIS, NORMAL INTERVALS, NORMAL QRS, NORMAL ST-T Ordered Tests: Active Orders 24 hr Category Date Time Status EKG-ER Only STAT Care 07/17/23 04:41 Active IV Insertion STAT Care 07/17/23 03:58 Active ABDOMEN AND PELVIS W CONTRAST [CT] Stat Exams 07/17/23 03:59 Ordered CBC W DIFF Stat Lab 07/17/23 04:20 Completed CMP Stat Lab 07/17/23 04:20 Completed Erythrocyte Sedimentation Rate Stat Lab 07/17/23 04:20 Completed Lactic Acid Stat Lab 07/17/23 04:25 Completed Occult Blood-Fecal Screen (Diagnostic) [OB-FECAL SCREEN Lab 07/17/23 Ordered ] Stat PROTIME WITH INR Stat Lab 07/17/23 04:20 Completed PTT Stat Lab 07/17/23 04:20 Completed TROPONIN Q4H Lab 07/17/23 04:20 Received TROPONIN Q4H Lab 07/17/23 08:45 Ordered TROPONIN Q4H Lab 07/17/23 12:45 Ordered UA W/RFX UR CULTURE Stat Lab 07/17/23 04:51 Ordered Transfer Order Routine Transfer 07/17/23 Ordered Medication Summary Discontinued Medications Generic Name Dose Route Start Last Admin Trade Name Freq PRN Reason Stop Dose Admin Pantoprazole Sodium 40 mg 07/17/23 03:58 07/17/23 04:23 Pantoprazole 40 Mg Vial IV 07/17/23 03:59 40 mg STAT ONE Administration Pantoprazole Sodium Confirm 07/17/23 04:10 Pantoprazole 40 Mg Vial Administered 07/17/23 04:11 Dose 40 mg IV .STtheBench-MED ONE Lab/Rad Data: Laboratory Result Diagrams 07/17/23 04:20 07/17/23 04:20 Laboratory Results 07/17/23 07/17/23 07/17/23 Range/Units 04:25 04:20 04:20 WBC (4.0-10.5) x10^3/uL RBC (4.1-5.6) x10^6/uL Hgb (12.5-18.0) g/dL Hct (42-50) % MCV (78-100) fL MCH (26-32) pg MCHC (32-36) g/dL RDW (11.5-14.0) % Plt Count (150-450) x10^3/uL MPV (7.5-11.0) fL Gran % (36.0-66.0) % Immature Gran % (Auto) (0.00-0.4) % Nucleat RBC Rel Count (0.00-0.1) % Eos # (Auto) (0-0.5) x10^3/uL Immature Gran # (Auto) (0.00-0.03) x10^3u/L Absolute Lymphs (auto) (1.0-4.6) x10^3/uL Absolute Monos (auto) (0.0-1.3) x10^3/uL Absolute Nucleated RBC (0.00-0.01) x10^3u/L Lymphocytes % (24.0-44.0) % Monocytes % (0.0-12.0) % Eosinophils % (0.00-5.0) % Basophils % (0.0-0.4) % Absolute Granulocytes (1.4-6.9) x10^3/uL Basophils # (0-0.4) x10^3/uL ESR 7 (0-15) mm/hr PT 10.9 (9.4-12.5) SECONDS INR 1.00 (0.8-3.0) APTT 23.9 L (25.1-36.5) SECONDS Sodium (137-145) mmol/L Potassium (3.5-5.1) mmol/L Chloride (98-107) mmol/L Carbon Dioxide (22-30) mmol/L Anion Gap (5-15) MEQ/L BUN (9-20) mg/dL Creatinine (0.66-1.25) mg/dL Estimated GFR ML/MIN Glucose (74-106) mg/dL Lactic Acid 1.3 (0.4-2.0) Calcium (8.4-10.2) mg/dL Total Bilirubin (0.2-1.3) mg/dL AST (17-59) U/L ALT (0-50) U/L Alkaline Phosphatase (38-126) U/L Serum Total Protein (6.3-8.2) g/dL Albumin (3.5-5.0) g/dL Slides for Path Review 07/17/23 07/17/23 Range/Units 04:20 04:20 WBC 9.5 (4.0-10.5) x10^3/uL RBC 2.90 L (4.1-5.6) x10^6/uL Hgb 4.1 L* (12.5-18.0) g/dL Hct 16.5 L (42-50) % MCV 56.9 L (78-100) fL MCH 14.1 L (26-32) pg MCHC 24.8 L (32-36) g/dL RDW 20.2 H (11.5-14.0) % Plt Count 510 H (150-450) x10^3/uL MPV 9.5 (7.5-11.0) fL Gran % 63.2 (36.0-66.0) % Immature Gran % (Auto) 0.2 (0.00-0.4) % Nucleat RBC Rel Count 0.3 H (0.00-0.1) % Eos # (Auto) 0.83 H (0-0.5) x10^3/uL Immature Gran # (Auto) 0.02 (0.00-0.03) x10^3u/L Absolute Lymphs (auto) 1.40 (1.0-4.6) x10^3/uL Absolute Monos (auto) 1.13 (0.0-1.3) x10^3/uL Absolute Nucleated RBC 0.03 H (0.00-0.01) x10^3u/L Lymphocytes % 14.8 L (24.0-44.0) % Monocytes % 11.9 (0.0-12.0) % Eosinophils % 8.8 H (0.00-5.0) % Basophils % 1.1 (0.0-0.4) % Absolute Granulocytes 6.00 (1.4-6.9) x10^3/uL Basophils # 0.10 (0-0.4) x10^3/uL ESR (0-15) mm/hr PT (9.4-12.5) SECONDS INR (0.8-3.0) APTT (25.1-36.5) SECONDS Sodium 138 (137-145) mmol/L Potassium 4.1 (3.5-5.1) mmol/L Chloride 102 (98-107) mmol/L Carbon Dioxide 25 (22-30) mmol/L Anion Gap 15.1 H (5-15) MEQ/L BUN 11 (9-20) mg/dL Creatinine 0.74 (0.66-1.25) mg/dL Estimated GFR > 60.0 ML/MIN Glucose 90 (74-106) mg/dL Lactic Acid (0.4-2.0) Calcium 8.3 L (8.4-10.2) mg/dL Total Bilirubin 0.30 (0.2-1.3) mg/dL AST 38 (17-59) U/L ALT 17 (0-50) U/L Alkaline Phosphatase 60 (38-126) U/L Serum Total Protein 6.9 (6.3-8.2) g/dL Albumin 4.1 (3.5-5.0) g/dL Slides for Path Review YES - Progress Progress: unchanged Progress Note: Hemoglobin resulted at 4.1. Type and screen already performed. Patient to be offered blood consent and once signed will order an initial 2 units of packed red blood cells. CT abdomen pelvis with contrast was ordered to evaluate for a potential abscess or other complications, but patient refused further imaging at this time. He continues to have chest discomfort as a result of the anemia so EKG was ordered at this time as well. The rest of laboratory evaluation is within normal limits at this time. 07/17/23 04:[address] Steven Peacock who excepted the patient for observation at [facility] this morning. 07/17/23 05:[address] Other (Steven Peacock) Will see patient in: hospital (observation) Counseled pt/family regarding: lab results, diagnosis, need for follow-up Medical Desision Making - Discussion of managment Care discussed with:: hospitalist Reviewed:: Test results Agreed on:: Treatment plan, place in obs Will see patient: in hospital - Diagnostic Testing Diagnostic test were ordered, analyzed, and reviewed by me: Yes Radiological Interpretation: Interpreted by me - Risk of complications The pt has a high risk of morbidity or mortality based on: Decision regarding hospitilization or escalation of hosp level of care - Departure Departure Disposition: Observation Clinical Impression: Anemia, Ulcerative colitis with rectal bleeding, Chest discomfort Condition: Stable Critical Care Time: No Referrals: DOCTOR,NO FAMILY [Primary Care Provider] - Follow up/PCP as directed MIKE GONZALEZ [NON-STAFF PHY W/O PRIVILEGES] - Follow up/PCP as directed Instructions: Blood transfusion
[2023-07-17 04:28] LABS: BASOPHIL % 1.1 % (0.0-0.4); Eosinophil % 8.8 % (0.00-5.0); Eosinophil (Absolute #) 0.83 x10^3/uL (0-0.5); Hematocrit 16.5 % (42-50); IMMATURE GRAN # 0.02 x10^3u/L (0.00-0.03); IMMATURE GRAN % 0.2 % (0.00-0.4); Lymphocytes % 14.8 % (24.0-44.0); Mean Cell Volume 56.9 fL (78-100); Mean Corpuscular Hemoglobin 14.1 pg (26-32); Mean Corpuscular Hgb Concent. 24.8 g/dL (32-36); Mean Platelet Volume 9.5 fL (7.5-11.0); Monocyte (Absolute #) 1.13 x10^3/uL (0.0-1.3); Monocytes % 11.9 % (0.0-12.0); NUCLEATED RBC # 0.03 x10^3u/L (0.00-0.01); NUCLEATED RBC % 0.3 % (0.00-0.1); Neutrophil % 63.2 % (36.0-66.0); Platelet Count 510 x10^3/uL (150-450); Red Cell Distribution Width 20.2 % (11.5-14.0); White Blood Count 9.5 x10^3/uL (4.0-10.5)
[2023-07-17 04:33] LABS: Hemoglobin 4.1 g/dL (12.5-18.0)
[2023-07-17 04:40] LABS: ALBUMIN 4.1 g/dL (3.5-5.0); ALKALINE PHOSPHATASE 60 U/L (38-126); ANION GAP 15.1 MEQ/L (5-15); BLOOD UREA NITROGEN 11 mg/dL (9-20); CHLORIDE 102 mmol/L (98-107); Calcium 8.3 mg/dL (8.4-10.2); Carbon Dioxide 25 mmol/L (22-30); Creatinine 1 0.74 mg/dL (0.66-1.25); EST GLOMERULAR FILTRATION RATE > 60.0 ML/MIN; Glucose 90 mg/dL (74-106); Potassium 4.1 mmol/L (3.5-5.1); SGOT/AST 38 U/L (17-59); SGPT/ALT 17 U/L (0-50); SODIUM 138 mmol/L (137-145); Total Protein 6.9 g/dL (6.3-8.2)
[2023-07-17 04:41] LABS: PROTIME 10.9 SECONDS (9.4-12.5); PTT 23.9 SECONDS (25.1-36.5)
[2023-07-17 04:52] VITALS: RESP 16
[2023-07-17 05:08] LABS: Slide Review 1 YES
[2023-07-17 05:17] LABS: Appearance Clear (Clear); Bacteria None Seen /HPF (None Seen); Bilirubin Negative (Negative); Blood Negative (Negative); Epithelial Cells None Seen /HPF (None Seen); Glucose, Urine Negative (Negative); Hyaline Casts NONE SEEN /LPF (0-2); Ketones Negative (Negative); Leukocyte Esterase Negative (Negative); Nitrite Negative (Negative); Protein,Urine Dip Trace (Negative); RBC 0-2 /HPF (0-5); Specific Gravity 1.025 (1.005-1.030); WBC 0-2 /HPF (0-5)
[2023-07-17 05:19] LABS: ADD URINE CULTURE? NO (NO)
[2023-07-17 05:52] LABS: ABO TYPING A; Antibody Screen NEGATIVE (NEGATIVE); RH TYPING POSITIVE
[2023-07-17 06:32] LABS: CROSS MATCH (PRBC) COMPATIBLE (COMPATIBLE)
[2023-07-17] MEDS: Sodium Chloride 0.9% 1000 ML 1,000 ML IV SCH ×2 (07:35→16:14)
--- NOTE | 2023-07-17 09:14 | PCM.HP ---
History of Present Illness - Chief Complaint Chief Complaint: Anemia, UC w/ rectal bleeding Date: 07/17/23 History of Present Illness: is a 23 year old male with a pmhx of ulcerative colitis on sulfasalazine presented 07/17/23 with c/o shortness of breath, fatigue, and pock- like rash to face and chest. Patient reports initial symptoms started about one week ago. He also reports that over the past week he has had throat and chest pain with swallowing, particularly on the left side of his throat. He states that it feel like maybe food is getting stuck when he swallows, which makes him gag frequently, one episode of vomiting. He does receive treatment by Dr. Cedillo (GI) for his UC, most recent visit a few weeks ago. He endorses hematochezia, melana, and mucus stools, but states this is normal for him. Patient initially refusing CT scans but now agreeable. He is scheduled for a small bowel follow through on 07/19/23. In ER Vitals stable. Labs significant for a Hgb of 4.1, and plt 210. Patient received Protonix and IVF. PCP: Dr. Galan GI: Dr. Cedillo Code Status: Full Code Seen on floor at 0800 07/17/23 - Review of Systems Constitutional: Fatigue, Weakness Eyes: No Symptoms Ears, Nose, & Throat: Painful Swallowing Respiratory: Short Of Breath (with ambulation) Cardiac: No Symptoms Abdominal/Gastrointestinal: Abdominal Pain, Nausea, Vomiting, Hematochezia, Melena, Appetite Changes Genitourinary Symptoms: No Symptoms Musculoskeletal: No Symptoms Skin: Rash (to face and chest ) Neurological: No Symptoms Psychological: No Symptoms Endocrine: No Symptoms Hematologic/Lymphatic: No Symptoms Medications & Allergies Home Medications: Home Medication List Sulfasalazine 500 mg [Azulfidine 500 mg] 2 tab PO QID 07/17/23 [History Confirmed 07/17/23] Allergies/Adverse Reactions: Allergies Allergy/AdvReac Type Severity Reaction Status Date / Time No Known Drug Allergies Allergy Verified 07/17/23 03:35 - Past Medical History Past Medical History: Yes Neurological History: No Pertinent History ENT History: No Pertinent History Cardiac History: No Pertinent History Respiratory History: No Pertinent History Endocrine Medical History: No Pertinent History Musculoskelatal History: No Pertinent History GI Medical History: Colitis, GI Bleed, Irritable Bowel History: No Pertinent History Pyscho-Social History: Anxiety, Depression Male Reproductive Disorders: No Pertinent History Comment: pt has ADHD and oppositional defiance disorder. mult blood transfusions, anemia - Past Surgical History Past Surgical History: Yes Neuro Surgical History: No Pertinent History Cardiac History: No Pertinent History Respiratory Surgery: No Pertinent History GI Surgical History: No Pertinent History Genitourinary Surgical Hx: No Pertinent History Musculskeletal Surgical Hx: Orthopedic Surgery Male Surgical History: No Pertinent History Other Surgical History: right wrist glass removed in surgery, colonoscopy - Social History Smoking Status: Current every day smoker How long have you smoked: 4 years Exposure to second hand smoke: Yes Alcohol: Daily Drug Use: marijuana Significant Family History: no pertinent family hx - Physical Exam Vital Signs: Vital Signs - 24 hr Temp Pulse Resp BP BP Pulse Ox 07/17/23 07:08 98.2 F 90 16 99/56 99 07/17/23 05:52 98.3 F 80 113/60 07/17/23 05:09 100 07/17/23 05:00 84 101/62 100 07/17/23 04:00 88 16 101/61 100 07/17/23 03:37 97.6 F 98 H 18 122/77 100 07/17/23 03:30 100 General Appearance: no apparent distress Neurologic Exam: alert, oriented x 3, cooperative Eye Exam: PERRL/EOMI Ears, Nose, Throat Exam: normal ENT inspection Neck Exam: normal inspection Respiratory Exam: normal breath sounds, lungs clear Cardiovascular Exam: regular rate/rhythm, normal heart sounds Gastrointestinal/Abdomen Exam: soft, normal bowel sounds, tenderness Rectal Exam: not done Back Exam: normal inspection Extremity Exam: normal inspection Skin Exam: rash (pock like lesion/scale x 3 to face and x 1 to RU chest) Results - Labs Lab/Micro Results: Lab Results-Last 24 Hours 07/17/23 07/17/23 07/17/23 Range/Units 04:20 04:20 04:20 WBC 9.5 (4.0-10.5) x10^3/uL RBC 2.90 L (4.1-5.6) x10^6/uL Hgb 4.1 L* (12.5-18.0) g/dL Hct 16.5 L (42-50) % MCV 56.9 L (78-100) fL MCH 14.1 L (26-32) pg MCHC 24.8 L (32-36) g/dL RDW 20.2 H (11.5-14.0) % Plt Count 510 H (150-450) x10^3/uL MPV 9.5 (7.5-11.0) fL Gran % 63.2 (36.0-66.0) % Immature Gran % (Auto) 0.2 (0.00-0.4) % Nucleat RBC Rel Count 0.3 H (0.00-0.1) % Eos # (Auto) 0.83 H (0-0.5) x10^3/uL Immature Gran # (Auto) 0.02 (0.00-0.03) x10^3u/L Absolute Lymphs (auto) 1.40 (1.0-4.6) x10^3/uL Absolute Monos (auto) 1.13 (0.0-1.3) x10^3/uL Absolute Nucleated RBC 0.03 H (0.00-0.01) x10^3u/L Lymphocytes % 14.8 L (24.0-44.0) % Monocytes % 11.9 (0.0-12.0) % Eosinophils % 8.8 H (0.00-5.0) % Basophils % 1.1 (0.0-0.4) % Absolute Granulocytes 6.00 (1.4-6.9) x10^3/uL Basophils # 0.10 (0-0.4) x10^3/uL ESR (0-15) mm/hr PT 10.9 (9.4-12.5) SECONDS INR 1.00 (0.8-3.0) APTT 23.9 L (25.1-36.5) SECONDS Sodium 138 (137-145) mmol/L Potassium 4.1 (3.5-5.1) mmol/L Chloride 102 (98-107) mmol/L Carbon Dioxide 25 (22-30) mmol/L Anion Gap 15.1 H (5-15) MEQ/L BUN 11 (9-20) mg/dL Creatinine 0.74 (0.66-1.25) mg/dL Estimated GFR > 60.0 ML/MIN Glucose 90 (74-106) mg/dL Lactic Acid (0.4-2.0) Calcium 8.3 L (8.4-10.2) mg/dL Total Bilirubin 0.30 (0.2-1.3) mg/dL AST 38 (17-59) U/L ALT 17 (0-50) U/L Alkaline Phosphatase 60 (38-126) U/L Troponin I (0.000-0.034) ng/mL Serum Total Protein 6.9 (6.3-8.2) g/dL Albumin 4.1 (3.5-5.0) g/dL Urine Color (Yellow) Urine Appearance (Clear) Urine pH (4.6-8.0) Ur Specific Hitchcock (1.005-1.030) Urine Protein (Negative) Urine Glucose (UA) (Negative) mg/dL Urine Ketones (Negative) Urine Blood (Negative) Urine Nitrite (Negative) Urine Bilirubin (Negative) Urine Urobilinogen (0.2) mg/dL Ur Leukocyte Esterase (Negative) U Hyaline Cast (Auto) (0-2) /LPF Urine Microscopic RBC (0-5) /HPF Urine Microscopic WBC (0-5) /HPF Ur Epithelial Cells (None Seen) /HPF Urine Bacteria (None Seen) /HPF Urine Culture Reflexed (NO) Slides for Path Review YES ABO Group Rh Factor Antibody Screen (NEGATIVE) Crossmatch (COMPATIBLE) 07/17/23 07/17/23 07/17/23 Range/Units 04:20 04:20 04:20 WBC (4.0-10.5) x10^3/uL RBC (4.1-5.6) x10^6/uL Hgb (12.5-18.0) g/dL Hct (42-50) % MCV (78-100) fL MCH (26-32) pg MCHC (32-36) g/dL RDW (11.5-14.0) % Plt Count (150-450) x10^3/uL MPV (7.5-11.0) fL Gran % (36.0-66.0) % Immature Gran % (Auto) (0.00-0.4) % Nucleat RBC Rel Count (0.00-0.1) % Eos # (Auto) (0-0.5) x10^3/uL Immature Gran # (Auto) (0.00-0.03) x10^3u/L Absolute Lymphs (auto) (1.0-4.6) x10^3/uL Absolute Monos (auto) (0.0-1.3) x10^3/uL Absolute Nucleated RBC (0.00-0.01) x10^3u/L Lymphocytes % (24.0-44.0) % Monocytes % (0.0-12.0) % Eosinophils % (0.00-5.0) % Basophils % (0.0-0.4) % Absolute Granulocytes (1.4-6.9) x10^3/uL Basophils # (0-0.4) x10^3/uL ESR 7 (0-15) mm/hr PT (9.4-12.5) SECONDS INR (0.8-3.0) APTT (25.1-36.5) SECONDS Sodium (137-145) mmol/L Potassium (3.5-5.1) mmol/L Chloride (98-107) mmol/L Carbon Dioxide (22-30) mmol/L Anion Gap (5-15) MEQ/L BUN (9-20) mg/dL Creatinine (0.66-1.25) mg/dL Estimated GFR ML/MIN Glucose (74-106) mg/dL Lactic Acid (0.4-2.0) Calcium (8.4-10.2) mg/dL Total Bilirubin (0.2-1.3) mg/dL AST (17-59) U/L ALT (0-50) U/L Alkaline Phosphatase (38-126) U/L Troponin I < 0.012 (0.000-0.034) ng/mL Serum Total Protein (6.3-8.2) g/dL Albumin (3.5-5.0) g/dL Urine Color (Yellow) Urine Appearance (Clear) Urine pH (4.6-8.0) Ur Specific Hitchcock (1.005-1.030) Urine Protein (Negative) Urine Glucose (UA) (Negative) mg/dL Urine Ketones (Negative) Urine Blood (Negative) Urine Nitrite (Negative) Urine Bilirubin (Negative) Urine Urobilinogen (0.2) mg/dL Ur Leukocyte Esterase (Negative) U Hyaline Cast (Auto) (0-2) /LPF Urine Microscopic RBC (0-5) /HPF Urine Microscopic WBC (0-5) /HPF Ur Epithelial Cells (None Seen) /HPF Urine Bacteria (None Seen) /HPF Urine Culture Reflexed (NO) Slides for Path Review ABO Group A Rh Factor POSITIVE Antibody Screen NEGATIVE (NEGATIVE) Crossmatch (COMPATIBLE) 07/17/23 07/17/23 07/17/23 Range/Units 04:20 04:20 04:25 WBC (4.0-10.5) x10^3/uL RBC (4.1-5.6) x10^6/uL Hgb (12.5-18.0) g/dL Hct (42-50) % MCV (78-100) fL MCH (26-32) pg MCHC (32-36) g/dL RDW (11.5-14.0) % Plt Count (150-450) x10^3/uL MPV (7.5-11.0) fL Gran % (36.0-66.0) % Immature Gran % (Auto) (0.00-0.4) % Nucleat RBC Rel Count (0.00-0.1) % Eos # (Auto) (0-0.5) x10^3/uL Immature Gran # (Auto) (0.00-0.03) x10^3u/L Absolute Lymphs (auto) (1.0-4.6) x10^3/uL Absolute Monos (auto) (0.0-1.3) x10^3/uL Absolute Nucleated RBC (0.00-0.01) x10^3u/L Lymphocytes % (24.0-44.0) % Monocytes % (0.0-12.0) % Eosinophils % (0.00-5.0) % Basophils % (0.0-0.4) % Absolute Granulocytes (1.4-6.9) x10^3/uL Basophils # (0-0.4) x10^3/uL ESR (0-15) mm/hr PT (9.4-12.5) SECONDS INR (0.8-3.0) APTT (25.1-36.5) SECONDS Sodium (137-145) mmol/L Potassium (3.5-5.1) mmol/L Chloride (98-107) mmol/L Carbon Dioxide (22-30) mmol/L Anion Gap (5-15) MEQ/L BUN (9-20) mg/dL Creatinine (0.66-1.25) mg/dL Estimated GFR ML/MIN Glucose (74-106) mg/dL Lactic Acid 1.3 (0.4-2.0) Calcium (8.4-10.2) mg/dL Total Bilirubin (0.2-1.3) mg/dL AST (17-59) U/L ALT (0-50) U/L Alkaline Phosphatase (38-126) U/L Troponin I (0.000-0.034) ng/mL Serum Total Protein (6.3-8.2) g/dL Albumin (3.5-5.0) g/dL Urine Color (Yellow) Urine Appearance (Clear) Urine pH (4.6-8.0) Ur Specific Hitchcock (1.005-1.030) Urine Protein (Negative) Urine Glucose (UA) (Negative) mg/dL Urine Ketones (Negative) Urine Blood (Negative) Urine Nitrite (Negative) Urine Bilirubin (Negative) Urine Urobilinogen (0.2) mg/dL Ur Leukocyte Esterase (Negative) U Hyaline Cast (Auto) (0-2) /LPF Urine Microscopic RBC (0-5) /HPF Urine Microscopic WBC (0-5) /HPF Ur Epithelial Cells (None Seen) /HPF Urine Bacteria (None Seen) /HPF Urine Culture Reflexed (NO) Slides for Path Review ABO Group Rh Factor Antibody Screen (NEGATIVE) Crossmatch COMPATIBLE COMPATIBLE (COMPATIBLE) 07/17/23 Range/Units 04:51 WBC (4.0-10.5) x10^3/uL RBC (4.1-5.6) x10^6/uL Hgb (12.5-18.0) g/dL Hct (42-50) % MCV (78-100) fL MCH (26-32) pg MCHC (32-36) g/dL RDW (11.5-14.0) % Plt Count (150-450) x10^3/uL MPV (7.5-11.0) fL Gran % (36.0-66.0) % Immature Gran % (Auto) (0.00-0.4) % Nucleat RBC Rel Count (0.00-0.1) % Eos # (Auto) (0-0.5) x10^3/uL Immature Gran # (Auto) (0.00-0.03) x10^3u/L Absolute Lymphs (auto) (1.0-4.6) x10^3/uL Absolute Monos (auto) (0.0-1.3) x10^3/uL Absolute Nucleated RBC (0.00-0.01) x10^3u/L Lymphocytes % (24.0-44.0) % Monocytes % (0.0-12.0) % Eosinophils % (0.00-5.0) % Basophils % (0.0-0.4) % Absolute Granulocytes (1.4-6.9) x10^3/uL Basophils # (0-0.4) x10^3/uL ESR (0-15) mm/hr PT (9.4-12.5) SECONDS INR (0.8-3.0) APTT (25.1-36.5) SECONDS Sodium (137-145) mmol/L Potassium (3.5-5.1) mmol/L Chloride (98-107) mmol/L Carbon Dioxide (22-30) mmol/L Anion Gap (5-15) MEQ/L BUN (9-20) mg/dL Creatinine (0.66-1.25) mg/dL Estimated GFR ML/MIN Glucose (74-106) mg/dL Lactic Acid (0.4-2.0) Calcium (8.4-10.2) mg/dL Total Bilirubin (0.2-1.3) mg/dL AST (17-59) U/L ALT (0-50) U/L Alkaline Phosphatase (38-126) U/L Troponin I (0.000-0.034) ng/mL Serum Total Protein (6.3-8.2) g/dL Albumin (3.5-5.0) g/dL Urine Color Yellow (Yellow) Urine Appearance Clear (Clear) Urine pH 6.0 (4.6-8.0) Ur Specific Hitchcock 1.025 (1.005-1.030) Urine Protein Trace A (Negative) Urine Glucose (UA) Negative (Negative) mg/dL Urine Ketones Negative (Negative) Urine Blood Negative (Negative) Urine Nitrite Negative (Negative) Urine Bilirubin Negative (Negative) Urine Urobilinogen 1.0 A (0.2) mg/dL Ur Leukocyte Esterase Negative (Negative) U Hyaline Cast (Auto) NONE SEEN (0-2) /LPF Urine Microscopic RBC 0-2 (0-5) /HPF Urine Microscopic WBC 0-2 (0-5) /HPF Ur Epithelial Cells None Seen (None Seen) /HPF Urine Bacteria None Seen (None Seen) /HPF Urine Culture Reflexed NO (NO) Slides for Path Review ABO Group Rh Factor Antibody Screen (NEGATIVE) Crossmatch (COMPATIBLE) Assessment/Plan (1) Ulcerative colitis with rectal bleeding Current Visit: Yes Status: Acute Assessment & Plan: Hemoglobin resulted at 4.1. Type and screen already performed. Patient to be offered blood consent and once signed will order an initial 2 units of packed red blood cells. CT abdomen pelvis with contrast was ordered to evaluate for a potential abscess or other complications, but patient refused further imaging at this time. He continues to have chest discomfort as a result of the anemia so EKG was ordered at this time as well. The rest of laboratory evaluation is within normal limits at this time. 07/17/23 04:43 07/17: -Patient now agreeable to CT, will obtain c/a/p for evaluation Code(s): K51.911 - ULCERATIVE COLITIS, UNSPECIFIED WITH RECTAL BLEEDING (2) Profound anemia Current Visit: Yes Status: Acute Qualifiers: Assessment & Plan: -2 units LPRBCs -Concern for GI bleed with h/o UC -telemetry - NPO except medications p midnoc -serial Hbg/Hct Q8H -start pantoprozole 80 mg x1 then 40 mg BID, ocreotide gtt -Type and cross for 2 units PRBC, transfuse 2 unit PRBC now and if Hgb < 7.0 or hemodynamically unstable, immediate Hgb/Hct p transfusion -Strict I&Os c emesis adn stool recording -Initiate NS @ 75 ml/hr -Initiate antiemetics and pain mgmt -CBC, BMP, Mg in am -Continue appropriate baseline home medications -DVT prophylaxis-BLE SCD - INR at 1 -Avoid ASA/NSAIDs/ Blood thinners -Consult for surg/GI for EGD/Colonoscopy -iron profile, b12/fo, ferritin Code(s): D64.9 - ANEMIA, UNSPECIFIED (3) Painful swallowing Current Visit: Yes Status: Acute Code(s): R13.10 - DYSPHAGIA, UNSPECIFIED (4) Erythema nodosum Current Visit: No Status: Acute Assessment & Plan: -?secondary to UC, mostly healed Code(s): L52 - ERYTHEMA NODOSUM
[2023-07-17] MEDS ORDERED: Zofran 4 MG/2 ML VIAL IV PRN (09:48)
[2023-07-17] MEDS ORDERED: PROTONIX 40 MG IV IV SCH (10:00)
--- NOTE | 2023-07-17 10:18 | PCM.DS ---
Discharge Summary Date of Admission: 07/17/23 05:17 Date of Discharge: 07/17/23 Admitting Physician: ALESSANDRA MONSIVAIS MD Primary Care Provider: NO FAMILY DOCTOR Allergies Allergies No Known Drug Allergies Allergy (Verified 07/17/23 03:35) Hospital Summary - Hospital Course Hospital Course: is a 23 year old male with a pmhx of ulcerative colitis on sulfasalazine presented 07/17/23 with c/o shortness of breath, fatigue, and pock- like rash to face and chest. Patient reports initial symptoms started about one week ago. He also reports that over the past week he has had throat and chest pain with swallowing, particularly on the left side of his throat. He states that it feel like maybe food is getting stuck when he swallows, which makes him gag frequently, one episode of vomiting. He does receive treatment by Dr. Cedillo (GI) for his UC, most recent visit a few weeks ago. He endorses hematochezia, melana, and mucus stools, but states this is normal for him. Patient initially refusing CT scans but now agreeable. He is scheduled for a small bowel follow through on 07/19/23. In ER Vitals stable. Labs significant for a Hgb of 4.1, and plt 210. Patient received Protonix and IVF. Patient to receive 2 units LPRBC, then transfer to Regional to higher level of care/GI not available for evaluation. (1) Ulcerative colitis with rectal bleeding Current Visit: Yes Status: Acute Assessment & Plan: Hemoglobin resulted at 4.1. Type and screen already performed. Patient to be offered blood consent and once signed will order an initial 2 units of packed red blood cells. CT abdomen pelvis with contrast was ordered to evaluate for a potential abscess or other complications, but patient refused further imaging at this time. He continues to have chest discomfort as a result of the anemia so EKG was ordered at this time as well. The rest of laboratory evaluation is within normal limits at this time. 07/17/23 04:43 07/17: -Patient now agreeable to CT, pt to transfer to regional for GI evaluation/workup Code(s): K51.911 - ULCERATIVE COLITIS, UNSPECIFIED WITH RECTAL BLEEDING (2) Profound anemia Current Visit: Yes Status: Acute Qualifiers: Assessment & Plan: -2 units LPRBCs -Concern for GI bleed with h/o UC -telemetry - NPO except medications p midnoc -serial Hbg/Hct Q8H -start pantoprozole 80 mg x1 then 40 mg BID, ocreotide gtt -Type and cross for 2 units PRBC, transfuse 2 unit PRBC now and if Hgb < 7.0 or hemodynamically unstable, immediate Hgb/Hct p transfusion -Strict I&Os c emesis adn stool recording -Initiate NS @ 75 ml/hr -Initiate antiemetics and pain mgmt -CBC, BMP, Mg in am -Continue appropriate baseline home medications -DVT prophylaxis-BLE SCD - INR at 1 -Avoid ASA/NSAIDs/ Blood thinners -Consult for surg/GI for EGD/Colonoscopy -iron profile, b12/fo, ferritin Code(s): D64.9 - ANEMIA, UNSPECIFIED (3) Painful swallowing Current Visit: Yes Status: Acute Code(s): R13.10 - DYSPHAGIA, UNSPECIFIED (4) Erythema nodosum Current Visit: No Status: Acute Assessment & Plan: -?secondary to UC, mostly healed Code(s): L52 - ERYTHEMA NODOSUM - Vitals & Intake/Output Vital Signs: Vital Signs Temperature 98.2 F 07/17/23 07:08 Pulse Rate 90 07/17/23 07:08 Respiratory Rate 16 07/17/23 07:08 Blood Pressure 99/56 07/17/23 07:08 O2 Sat by Pulse Oximetry 99 07/17/23 07:08 Intake & Output: Intake & Output 07/14/23 07/15/23 07/16/23 07/17/23 11:59 11:59 11:59 11:59 Intake Total 120 Balance 120 Weight 63.3 kg - Lab Result Diagrams: 07/17/23 04:20 07/17/23 04:20 Lab Results-Last 24 Hrs: Lab Results-Last 24 Hours 07/17/23 07/17/23 07/17/23 Range/Units 04:20 04:20 04:20 WBC 9.5 (4.0-10.5) x10^3/uL RBC 2.90 L (4.1-5.6) x10^6/uL Hgb 4.1 L* (12.5-18.0) g/dL Hct 16.5 L (42-50) % MCV 56.9 L (78-100) fL MCH 14.1 L (26-32) pg MCHC 24.8 L (32-36) g/dL RDW 20.2 H (11.5-14.0) % Plt Count 510 H (150-450) x10^3/uL MPV 9.5 (7.5-11.0) fL Gran % 63.2 (36.0-66.0) % Immature Gran % (Auto) 0.2 (0.00-0.4) % Nucleat RBC Rel Count 0.3 H (0.00-0.1) % Eos # (Auto) 0.83 H (0-0.5) x10^3/uL Immature Gran # (Auto) 0.02 (0.00-0.03) x10^3u/L Absolute Lymphs (auto) 1.40 (1.0-4.6) x10^3/uL Absolute Monos (auto) 1.13 (0.0-1.3) x10^3/uL Absolute Nucleated RBC 0.03 H (0.00-0.01) x10^3u/L Lymphocytes % 14.8 L (24.0-44.0) % Monocytes % 11.9 (0.0-12.0) % Eosinophils % 8.8 H (0.00-5.0) % Basophils % 1.1 (0.0-0.4) % Absolute Granulocytes 6.00 (1.4-6.9) x10^3/uL Basophils # 0.10 (0-0.4) x10^3/uL ESR (0-15) mm/hr PT 10.9 (9.4-12.5) SECONDS INR 1.00 (0.8-3.0) APTT 23.9 L (25.1-36.5) SECONDS Sodium 138 (137-145) mmol/L Potassium 4.1 (3.5-5.1) mmol/L Chloride 102 (98-107) mmol/L Carbon Dioxide 25 (22-30) mmol/L Anion Gap 15.1 H (5-15) MEQ/L BUN 11 (9-20) mg/dL Creatinine 0.74 (0.66-1.25) mg/dL Estimated GFR > 60.0 ML/MIN Glucose 90 (74-106) mg/dL Lactic Acid (0.4-2.0) Calcium 8.3 L (8.4-10.2) mg/dL Total Bilirubin 0.30 (0.2-1.3) mg/dL AST 38 (17-59) U/L ALT 17 (0-50) U/L Alkaline Phosphatase 60 (38-126) U/L Troponin I (0.000-0.034) ng/mL Serum Total Protein 6.9 (6.3-8.2) g/dL Albumin 4.1 (3.5-5.0) g/dL Urine Color (Yellow) Urine Appearance (Clear) Urine pH (4.6-8.0) Ur Specific [place] (1.005-1.030) Urine Protein (Negative) Urine Glucose (UA) (Negative) mg/dL Urine Ketones (Negative) Urine Blood (Negative) Urine Nitrite (Negative) Urine Bilirubin (Negative) Urine Urobilinogen (0.2) mg/dL Ur Leukocyte Esterase (Negative) U Hyaline Cast (Auto) (0-2) /LPF Urine Microscopic RBC (0-5) /HPF Urine Microscopic WBC (0-5) /HPF Ur Epithelial Cells (None Seen) /HPF Urine Bacteria (None Seen) /HPF Urine Culture Reflexed (NO) Slides for Path Review YES ABO Group Rh Factor Antibody Screen (NEGATIVE) Crossmatch (COMPATIBLE) 07/17/23 07/17/23 07/17/23 Range/Units 04:20 04:20 04:20 WBC (4.0-10.5) x10^3/uL RBC (4.1-5.6) x10^6/uL Hgb (12.5-18.0) g/dL Hct (42-50) % MCV (78-100) fL MCH (26-32) pg MCHC (32-36) g/dL RDW (11.5-14.0) % Plt Count (150-450) x10^3/uL MPV (7.5-11.0) fL Gran % (36.0-66.0) % Immature Gran % (Auto) (0.00-0.4) % Nucleat RBC Rel Count (0.00-0.1) % Eos # (Auto) (0-0.5) x10^3/uL Immature Gran # (Auto) (0.00-0.03) x10^3u/L Absolute Lymphs (auto) (1.0-4.6) x10^3/uL Absolute Monos (auto) (0.0-1.3) x10^3/uL Absolute Nucleated RBC (0.00-0.01) x10^3u/L Lymphocytes % (24.0-44.0) % Monocytes % (0.0-12.0) % Eosinophils % (0.00-5.0) % Basophils % (0.0-0.4) % Absolute Granulocytes (1.4-6.9) x10^3/uL Basophils # (0-0.4) x10^3/uL ESR 7 (0-15) mm/hr PT (9.4-12.5) SECONDS INR (0.8-3.0) APTT (25.1-36.5) SECONDS Sodium (137-145) mmol/L Potassium (3.5-5.1) mmol/L Chloride (98-107) mmol/L Carbon Dioxide (22-30) mmol/L Anion Gap (5-15) MEQ/L BUN (9-20) mg/dL Creatinine (0.66-1.25) mg/dL Estimated GFR ML/MIN Glucose (74-106) mg/dL Lactic Acid (0.4-2.0) Calcium (8.4-10.2) mg/dL Total Bilirubin (0.2-1.3) mg/dL AST (17-59) U/L ALT (0-50) U/L Alkaline Phosphatase (38-126) U/L Troponin I < 0.012 (0.000-0.034) ng/mL Serum Total Protein (6.3-8.2) g/dL Albumin (3.5-5.0) g/dL Urine Color (Yellow) Urine Appearance (Clear) Urine pH (4.6-8.0) Ur Specific [place] (1.005-1.030) Urine Protein (Negative) Urine Glucose (UA) (Negative) mg/dL Urine Ketones (Negative) Urine Blood (Negative) Urine Nitrite (Negative) Urine Bilirubin (Negative) Urine Urobilinogen (0.2) mg/dL Ur Leukocyte Esterase (Negative) U Hyaline Cast (Auto) (0-2) /LPF Urine Microscopic RBC (0-5) /HPF Urine Microscopic WBC (0-5) /HPF Ur Epithelial Cells (None Seen) /HPF Urine Bacteria (None Seen) /HPF Urine Culture Reflexed (NO) Slides for Path Review ABO Group A Rh Factor POSITIVE Antibody Screen NEGATIVE (NEGATIVE) Crossmatch (COMPATIBLE) 07/17/23 07/17/23 07/17/23 Range/Units 04:20 04:20 04:25 WBC (4.0-10.5) x10^3/uL RBC (4.1-5.6) x10^6/uL Hgb (12.5-18.0) g/dL Hct (42-50) % MCV (78-100) fL MCH (26-32) pg MCHC (32-36) g/dL RDW (11.5-14.0) % Plt Count (150-450) x10^3/uL MPV (7.5-11.0) fL Gran % (36.0-66.0) % Immature Gran % (Auto) (0.00-0.4) % Nucleat RBC Rel Count (0.00-0.1) % Eos # (Auto) (0-0.5) x10^3/uL Immature Gran # (Auto) (0.00-0.03) x10^3u/L Absolute Lymphs (auto) (1.0-4.6) x10^3/uL Absolute Monos (auto) (0.0-1.3) x10^3/uL Absolute Nucleated RBC (0.00-0.01) x10^3u/L Lymphocytes % (24.0-44.0) % Monocytes % (0.0-12.0) % Eosinophils % (0.00-5.0) % Basophils % (0.0-0.4) % Absolute Granulocytes (1.4-6.9) x10^3/uL Basophils # (0-0.4) x10^3/uL ESR (0-15) mm/hr PT (9.4-12.5) SECONDS INR (0.8-3.0) APTT (25.1-36.5) SECONDS Sodium (137-145) mmol/L Potassium (3.5-5.1) mmol/L Chloride (98-107) mmol/L Carbon Dioxide (22-30) mmol/L Anion Gap (5-15) MEQ/L BUN (9-20) mg/dL Creatinine (0.66-1.25) mg/dL Estimated GFR ML/MIN Glucose (74-106) mg/dL Lactic Acid 1.3 (0.4-2.0) Calcium (8.4-10.2) mg/dL Total Bilirubin (0.2-1.3) mg/dL AST (17-59) U/L ALT (0-50) U/L Alkaline Phosphatase (38-126) U/L Troponin I (0.000-0.034) ng/mL Serum Total Protein (6.3-8.2) g/dL Albumin (3.5-5.0) g/dL Urine Color (Yellow) Urine Appearance (Clear) Urine pH (4.6-8.0) Ur Specific [place] (1.005-1.030) Urine Protein (Negative) Urine Glucose (UA) (Negative) mg/dL Urine Ketones (Negative) Urine Blood (Negative) Urine Nitrite (Negative) Urine Bilirubin (Negative) Urine Urobilinogen (0.2) mg/dL Ur Leukocyte Esterase (Negative) U Hyaline Cast (Auto) (0-2) /LPF Urine Microscopic RBC (0-5) /HPF Urine Microscopic WBC (0-5) /HPF Ur Epithelial Cells (None Seen) /HPF Urine Bacteria (None Seen) /HPF Urine Culture Reflexed (NO) Slides for Path Review ABO Group Rh Factor Antibody Screen (NEGATIVE) Crossmatch COMPATIBLE COMPATIBLE (COMPATIBLE) 07/17/23 07/17/23 Range/Units 04:51 08:56 WBC (4.0-10.5) x10^3/uL RBC (4.1-5.6) x10^6/uL Hgb (12.5-18.0) g/dL Hct (42-50) % MCV (78-100) fL MCH (26-32) pg MCHC (32-36) g/dL RDW (11.5-14.0) % Plt Count (150-450) x10^3/uL MPV (7.5-11.0) fL Gran % (36.0-66.0) % Immature Gran % (Auto) (0.00-0.4) % Nucleat RBC Rel Count (0.00-0.1) % Eos # (Auto) (0-0.5) x10^3/uL Immature Gran # (Auto) (0.00-0.03) x10^3u/L Absolute Lymphs (auto) (1.0-4.6) x10^3/uL Absolute Monos (auto) (0.0-1.3) x10^3/uL Absolute Nucleated RBC (0.00-0.01) x10^3u/L Lymphocytes % (24.0-44.0) % Monocytes % (0.0-12.0) % Eosinophils % (0.00-5.0) % Basophils % (0.0-0.4) % Absolute Granulocytes (1.4-6.9) x10^3/uL Basophils # (0-0.4) x10^3/uL ESR (0-15) mm/hr PT (9.4-12.5) SECONDS INR (0.8-3.0) APTT (25.1-36.5) SECONDS Sodium (137-145) mmol/L Potassium (3.5-5.1) mmol/L Chloride (98-107) mmol/L Carbon Dioxide (22-30) mmol/L Anion Gap (5-15) MEQ/L BUN (9-20) mg/dL Creatinine (0.66-1.25) mg/dL Estimated GFR ML/MIN Glucose (74-106) mg/dL Lactic Acid (0.4-2.0) Calcium (8.4-10.2) mg/dL Total Bilirubin (0.2-1.3) mg/dL AST (17-59) U/L ALT (0-50) U/L Alkaline Phosphatase (38-126) U/L Troponin I < 0.012 (0.000-0.034) ng/mL Serum Total Protein (6.3-8.2) g/dL Albumin (3.5-5.0) g/dL Urine Color Yellow (Yellow) Urine Appearance Clear (Clear) Urine pH 6.0 (4.6-8.0) Ur Specific [place] 1.025 (1.005-1.030) Urine Protein Trace A (Negative) Urine Glucose (UA) Negative (Negative) mg/dL Urine Ketones Negative (Negative) Urine Blood Negative (Negative) Urine Nitrite Negative (Negative) Urine Bilirubin Negative (Negative) Urine Urobilinogen 1.0 A (0.2) mg/dL Ur Leukocyte Esterase Negative (Negative) U Hyaline Cast (Auto) NONE SEEN (0-2) /LPF Urine Microscopic RBC 0-2 (0-5) /HPF Urine Microscopic WBC 0-2 (0-5) /HPF Ur Epithelial Cells None Seen (None Seen) /HPF Urine Bacteria None Seen (None Seen) /HPF Urine Culture Reflexed NO (NO) Slides for Path Review ABO Group Rh Factor Antibody Screen (NEGATIVE) Crossmatch (COMPATIBLE) - Radiology Exams Ordered Rad Exams-Entire Visit: Radiology Procedures Category Date Time Status ABDOMEN AND PELVIS W CONTRAST [CT] Stat Exams 07/17/23 09:16 Ordered CHEST WITH CONTRAST [CT] Stat Exams 07/17/23 09:16 Ordered Discharge Exam General Appearance: no apparent distress Neurologic Exam: alert, oriented x 3, cooperative Eye Exam: PERRL Ears, Nose, Throat Exam: normal ENT inspection Respiratory Exam: normal breath sounds, lungs clear Cardiovascular Exam: regular rate/rhythm, normal heart sounds Gastrointestinal/Abdomen Exam: soft, tenderness Male Genitalia Exam: deferred Rectal Exam: deferred Back Exam: normal inspection Extremity Exam: normal inspection Skin Exam: rash (Rash (to face and chest )) Final Diagnosis/Problem List - Final Discharge Diagnosis/Problem (1) Ulcerative colitis with rectal bleeding Current Visit: Yes Status: Chronic Code(s): K51.911 - ULCERATIVE COLITIS, UNSPECIFIED WITH RECTAL BLEEDING (2) Profound anemia Current Visit: Yes Status: Acute Code(s): D64.9 - ANEMIA, UNSPECIFIED (3) Painful swallowing Current Visit: Yes Status: Acute Code(s): R13.10 - DYSPHAGIA, UNSPECIFIED (4) Erythema nodosum Current Visit: No Status: Acute Code(s): L52 - ERYTHEMA NODOSUM - Discharge Disposition: DC [facility] Condition: Stable Prescriptions: New Pantoprazole 40 mg [Protonix 40 mg IV] 40 mg IV BID Continue Sulfasalazine 500 mg [Azulfidine 500 mg] 2 tab PO QID Follow up with: DOCTOR,NO FAMILY [Primary Care Provider] -
[2023-07-17] MEDS: AZULFIDINE 500 MG PO SCH ×2 (10:42→14:14)
[2023-07-17 11:04] VITALS: O2SAT 98
[2023-07-17 12:52] LABS: Ferritin 2.06 ng/mL (17.9-464); Folate (Folic Acid) 8.62 ng/mL (2.76 - >20)
[2023-07-17 14:13] VITALS: BP 101/59; PULSE 86; TEMP 98.4
--- NOTE | 2023-07-17 15:42 | XRAY ---
CLINICAL HISTORY:anemia h/o UC COMPARISON:CT dated 03/29/2023. TECHNIQUE:Contiguous 3.[address] images of the chest were acquired with the administration of intravenous contrast. Coronal and sagittal reconstructions were obtained. 80 cc Isovue 370 was administered for post-contrast images. FINDINGS: Redemonstration of 4 mm solid intrapulmonary nodule in the posterior basal segment of the right lower lobe [series 4; image 51]. Previously seen other nodular opacities in the left upper right middle and lower lobes and cavitating nodules in the right lower lobe are not visualized in the current study. The scanned pulmonary parenchyma shows no definite consolidative lesions. No evidence of focal or diffuse abnormal enhancement was detected. No free or encysted pleural effusion. Heart size is normal, and there is no pericardial effusion. No pathologically enlarged mediastinal, hilar, or axillary lymph node was identified. There is no definite mass lesion in the chest wall. The scanned upper abdomen is unremarkable. Straightening of Thoracic lordosis is most likely due to muscle spasm. IMPRESSION: 1. In comparison, with the prior CT dated 03/29/2023, there is redemonstration of a 4 mm solid intrapulmonary nodule in the posterior basal segment of the right lower lobe [series 4; image 51]. Follow-up LDCT is recommended at 12 months. 2. Previously seen other nodular opacities in the left upper right middle and lower lobes and cavitating nodules in the right lower lobe are not visualized in the current study. 3. No major collapse or consolidation. Electronically Signed by: Angeles Padilla MD. (07/17/2023 14:40:54 COMPLIANCE LEAD)
--- NOTE | 2023-07-17 15:44 | XRAY ---
CLINICAL HISTORY:anemia h/o UC COMPARISON:CT dated 09/18/2022. TECHNIQUE:CT scan of the abdomen and pelvis with the administration of intravenous injection contrast. Reconstructed sagittal and coronal images were also obtained. FINDINGS: Redemonstration of the previously seen diffuse wall thickening involving the colon down to the rectum associated with stranding of the pericolic fat, mesenteric vascular congestion as well as small pericolic and mesenteric LNs. The appearance has not significantly changed since the previous study allowing for differences in the two exam techniques. The liver is of average size, displaying regular contour and homogeneous texture. No diffuse parenchymal changes or focal lesions could be detected. The spleen is of average size with no abnormal focal parenchymal attenuation or lorenzo splenic collection. Both kidneys are of average size, shape, and parenchymal thickness with no evidence of stones, back pressure changes, or space-occupying lesions. The pancreas, adrenal glands, and great vessels are grossly within normal limits. No significant lymph amy enlargement or ascetic fluid collection. The prostate is of average size and shape. Normal filling of the urinary bladder with no stones, masses, or diverticula. Bone window settings showed first-degree lytic spondylolisthesis of L5 over S1 2ry to bilateral L5 pars interarticularis breaks. Lung window settings showed a normal appearance of both basal lung segments. IMPRESSION: 1. Diffuse wall thickening involving the colon down to the rectum associated with stranding of the pericolic fat, mesenteric vascular congestion as well as small pericolic and mesenteric LNs. The appearance is suggestive of ulcerative colitis and has not significantly changed since the previous study. However; underlying pathology could not be ruled out, clinical correlation and colonoscopy would be recommended if clinically indicated. 2. 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 3. No other significant changes or new lesions. Electronically Signed by: Angeles Padilla MD. (07/17/2023 14:43:55 [employer])
[2023-07-17 15:51] LABS: Hematocrit 20.7 % (42-50)
[2023-07-17 15:55] LABS: Hemoglobin 5.8 g/dL (12.5-18.0)
[2023-07-17 16:20] LABS: CROSS MATCH (PRBC) COMPATIBLE (COMPATIBLE)
== END 2023-07-17 17:25 | disposition home or self-care (01) ==
LOC: ED 03:29 → MED SURG 05:17
PROVIDERS: ADMIT Student in an Organized Health Care Education/Training Program; ATTEND Student in an Organized Health Care Education/Training Program
DX: K51.911 Ulcerative colitis, unspecified with rectal bleeding (principal); D64.9 Anemia, unspecified; R13.10 Dysphagia, unspecified; L52 Erythema nodosum; Z79.899 Other long term (current) drug therapy; Z20.828 Contact with and (suspected) exposure to other viral communicable diseases; Z72.0 Tobacco use
CPT/HCPCS: 36000; 36415; 36430; 71260; 74177; 80053; 81001; 82607; 82728; 82746; 83540; 83605; 84484; 85014; 85018; 85025; 85610; 85652; 85730; 86140; 86850; 86900; 86901; 86922; 93005; 93268; 96374; 99284; G0378; P9016; A9270-GY

== ENCOUNTER 2024-07-03 11:36 | Inpatient (IN) | payer MEDICARE ==
--- NOTE | 2024-07-03 12:06 | ERPHSYRPT ---
- History of Present Illness Time Seen by Provider: 07/03/24 12:01 Source: patient Exam Limitations: no limitations Patient Subjective Stated Complaint: "I've been having bloody stools, nausea, and generally haven't felt well for about a month. I had a fever that started y esterday. I think my blood count is low. I have U.Colitis and had to have blood transfusions before. I started drinking alcohol a couple months ago, drinking about 10 shots of vodka a day but stopped about a month ago." Triage Nursing Assessment: GI bleed x 1 month Physician History: 24-year-old male history of ulcerative colitis on Humira presents to our ED for evaluation of nausea vomiting and rectal bleeding. Mild periumbilical lower abdominal discomfort as well. Patient states his rectal bleeding has been ongoing for approximately 1 month. Patient feels as though he needs a blood transfusion. Patient states he is pale. He has had a blood transfusion in the past. Patient attributes his worsening symptoms to his recent alcohol binge. Patient has been drinking vodka daily. Although patient states he has not had anything to drink in approximately 1 month he feels that his binge is because his symptomology. No trauma. Subjective fever. Patient otherwise feels well. He denies shortness of breath. Significant other at bedside. They voiced no other complaints or concerns at this time. Portions of this note were created with voice recognition technology. There may be grammatical, spelling, punctuation or sound alike errors Timing/Duration: other Severity: moderate (1 month) Modifying Factors: Improves With: nothing Associated Symptoms: denies symptoms Allergies/Adverse Reactions: No Known Drug Allergies Allergy (Verified 07/03/24 11:51) Home Medications: Adalimumab [Humira(Cf) Pen] 40 mg SQ WEEKLY 07/03/24 [History] Hx Tetanus, Diphtheria Vaccination/Date Given: Yes Hx Influenza Vaccination/Date Given: No Hx Pneumococcal Vaccination/Date Given: No Travel Risk - International Travel Have you traveled outside of the country in past 3 weeks: No - Emerging Infectious Disease Are you exhibiting symptoms associated with any current EIDs: No - Review of Systems Constitutional: No Symptoms, No Fever, No Chills Eyes: No Symptoms Ears, Nose, & Throat: No Symptoms Respiratory: No Symptoms, No Cough, No Dyspnea Cardiac: No Symptoms, No Chest Pain, No Edema, No Syncope Abdominal/Gastrointestinal: No Symptoms, No Abdominal Pain, No Nausea, No Vomiting, No Diarrhea Genitourinary Symptoms: No Symptoms, No Dysuria Musculoskeletal: No Symptoms, No Back Pain, No Neck Pain Skin: No Symptoms, No Rash Neurological: No Symptoms, No Dizziness, No Focal Weakness, No Sensory Changes Psychological: No Symptoms Endocrine: No Symptoms Hematologic/Lymphatic: No Symptoms Immunological/Allergic: No Symptoms All Other Systems: Reviewed and Negative - Past Medical History Pertinent Past Medical History: Yes Neurological History: No Pertinent History ENT History: No Pertinent History Cardiac History: No Pertinent History Respiratory History: No Pertinent History Endocrine Medical History: No Pertinent History Musculoskeletal History: No Pertinent History GI Medical History: Colitis, GI Bleed, Irritable Bowel History: No Pertinent History Psycho-Social History: Anxiety, Depression Male Reproductive Disorders: No Pertinent History Other Medical History: pt has ADHD and oppositional defiance disorder. mult blood transfusions, anemia - Past Surgical History Past Surgical History: Yes Neuro Surgical History: No Pertinent History Cardiac: No Pertinent History Respiratory: No Pertinent History Gastrointestinal: No Pertinent History Genitourinary: No Pertinent History Musculoskeletal: Orthopedic Surgery Male Surgical History: No Pertinent History Other Surgical History: right wrist glass removed in surgery, colonoscopy Significant Family History: no pertinent family hx - Social History Smoking Status: Current every day smoker How long have you smoked: 4 years Exposure to second hand smoke: Yes Drug Use: marijuana Patient Lives Alone: No - Social Determinants of Health Will the patient participate in the screening: Yes Do you worry about a steady place to live?: No Do you have any problems with any of the following?: No known problems In the past 12 months,have you had to go without utilities?: No Transportation Issues: No Has anyone in your support network made you feel unsafe?: No Have you or anyone in your house had to go without enough: No - Nursing Vital Signs Nursing Vital Signs: Initial Vital Signs Temperature 99.3 F 07/03/24 11:43 Pulse Rate 108 H 07/03/24 11:43 Respiratory Rate 18 07/03/24 11:43 Blood Pressure 112/74 07/03/24 11:43 O2 Sat by Pulse Oximetry 97 07/03/24 11:43 Pain Scale Pain Intensity 0 - Physical Exam General Appearance: no apparent distress, alert Eye Exam: PERRL/EOMI, eyes nml inspection Ears, Nose, Throat Exam: normal ENT inspection, moist mucous membranes Neck Exam: normal inspection, non-tender, supple, full range of motion Respiratory Exam: normal breath sounds, lungs clear, airway intact, No respiratory distress Cardiovascular Exam: regular rate/rhythm, normal heart sounds, normal peripheral pulses Gastrointestinal/Abdomen Exam: soft, normal bowel sounds, No tenderness, No mass Back Exam: normal inspection, normal range of motion, No CVA tenderness, No vertebral tenderness Extremity Exam: normal inspection, normal range of motion, pelvis stable Neurologic Exam: alert, oriented x 3, cooperative, normal mood/affect, sensation nml, No motor deficits Skin Exam: normal color, warm, dry, No rash Lymphatic Exam: No adenopathy SpO2 Interpretation: normal SpO2: 97 O2 Delivery: Room Air - Course Nursing assessment & vital signs reviewed: Yes - CT Exams Abdomen/Pelvis CT Interpretation: Tele-radiologist Report (Colitis. L5 spondylosis) Ordered Tests: Active Orders 24 hr Category Date Time Status IV Insertion STAT Care 07/03/24 12:02 Active IV Insertion-2nd Peripheral STAT Care 07/03/24 12:10 Active ABDOMEN AND PELVIS W/0 CONTRAS [CT] Stat Exams 07/03/24 12:02 Completed CBC W DIFF Stat Lab 07/03/24 12:00 Completed CMP Stat Lab 07/03/24 12:00 Completed LIPASE Stat Lab 07/03/24 12:00 Completed UA W/RFX UR CULTURE Stat Lab 07/03/24 12:02 Ordered Transfer Order Routine Transfer 07/03/24 Ordered Medication Summary Generic Name Dose Route Start Last Admin Trade Name Freq PRN Reason Stop Dose Admin Sodium Chloride 1,000 mls @ 100 mls/hr 07/03/24 12:15 07/03/24 13:26 Sodium Chloride 0.9% 1000 Ml IV 08/02/24 12:14 Infused .Q10H ALEXIS Infusion Sodium Chloride 1,000 mls @ 100 mls/hr 07/03/24 14:00 07/03/24 13:52 Sodium Chloride 0.9% 1000 Ml IV 08/02/24 13:59 100 mls/hr .Q10H ALEXIS Administration Levofloxacin/Dextrose 500 mg in 100 mls @ 100 mls/hr 07/03/24 14:35 Levofloxacin 500mg/100ml D5w IV 07/03/24 15:34 STAT STA Metronidazole 500 mg in 100 mls @ 200 mls/hr 07/03/24 14:36 Flagyl 500 Mg Ivpb IV 07/03/24 15:05 STAT STA Discontinued Medications Generic Name Dose Route Start Last Admin Trade Name Hans PRN Reason Stop Dose Admin Methylprednisolone Sodium 0 mg 07/03/24 14:37 Succinate 125 mg/ Sterile IV 07/03/24 14:38 Water 2 ml STAT ONE Metronidazole Confirm 07/03/24 14:41 Flagyl 500 Mg Ivpb Administered 07/03/24 14:42 Dose 500 mg in 100 mls @ ud IV .STK-MED ONE Levofloxacin/Dextrose Confirm 07/03/24 14:43 Levofloxacin 500mg/100ml D5w Administered 07/03/24 14:44 Dose 500 mg in 100 mls @ ud IV .STK-MED ONE Methylprednisolone Sodium Succinate Confirm 07/03/24 14:41 Methylprednis Sod Succ 125 Mg/2 Ml Vial Administered 07/03/24 14:42 Dose 125 mg .ROUTE .STK-MED ONE Pantoprazole Sodium 40 mg 07/03/24 12:02 07/03/24 12:17 Pantoprazole 40 Mg Vial IV 07/03/24 12:03 40 mg STAT ONE Administration Pantoprazole Sodium Confirm 07/03/24 12:11 Pantoprazole 40 Mg Vial Administered 07/03/24 12:12 Dose 40 mg IV .STK-MED ONE Sterile Water Confirm 07/03/24 14:41 Water For Injection,Sterile 10 Ml Vial Administered 07/03/24 14:42 Dose 10 ml IJ .STK-MED ONE Lab/Rad Data: Laboratory Result Diagrams 07/03/24 12:00 07/03/24 12:00 Laboratory Results 07/03/24 07/03/24 07/03/24 Range/Units 12:00 12:00 12:00 WBC (4.23-9.07) x10^3/uL RBC (4.63-6.08) x10^6/uL Hgb (13.7-17.5) g/dL Hct (40.1-51.0) % MCV (79.0-92.2) fL MCH (25.7-32.2) pg MCHC (32.3-36.5) g/dL RDW (11.6-14.4) % Plt Count (163-337) x10^3/uL MPV (9.4-12.4) fL Gran % (34.0-67.9) % Immature Gran % (Auto) (0.001-0.429) % Nucleat RBC Rel Count (0.00-0.2) % Eos # (Auto) (0.04-0.54) x10^3/uL Immature Gran # (Auto) (0.001-0.031) x10^3u/L Absolute Lymphs (auto) (1.32-3.57) x10^3/uL Absolute Monos (auto) (0.30-0.82) x10^3/uL Absolute Nucleated RBC (0.00-0.012) x10^3u/L Lymphocytes % (21.8-53.1) % Monocytes % (5.3-12.2) % Eosinophils % (0.8-7.0) % Basophils % (0.2-1.2) % Absolute Granulocytes (1.78-5.38) x10^3/uL Basophils # (0.01-0.08) x10^3/uL Sodium 135 (135-145) mmol/L Potassium 4.0 (3.5-5.1) mmol/L Chloride 101 (98-107) mmol/L Carbon Dioxide 25 (22-30) mmol/L Anion Gap 13.7 (5-15) MEQ/L BUN 8 L (9-20) mg/dL Creatinine 0.98 (0.66-1.25) mg/dL Estimated GFR 110.4 ML/MIN Glucose 92 (74-106) mg/dL Calcium 8.4 (8.4-10.2) mg/dL Total Bilirubin 0.30 (0.2-1.3) mg/dL AST 23 (17-59) U/L ALT 13 (0-50) U/L Alkaline Phosphatase 60 (38-126) U/L Serum Total Protein 6.4 (6.3-8.2) g/dL Albumin 3.6 (3.5-5.0) g/dL Lipase 24 (23-300) U/L ABO Group A Rh Factor POSITIVE Antibody Screen NEGATIVE (NEGATIVE) Crossmatch COMPATIBLE COMPATIBLE (COMPATIBLE) 07/03/24 Range/Units 12:00 WBC 7.0 (4.23-9.07) x10^3/uL RBC 3.30 L (4.63-6.08) x10^6/uL Hgb 6.9 L* (13.7-17.5) g/dL Hct 23.5 L (40.1-51.0) % MCV 71.2 L (79.0-92.2) fL MCH 20.9 L (25.7-32.2) pg MCHC 29.4 L (32.3-36.5) g/dL RDW 18.0 H (11.6-14.4) % Plt Count 444 H (163-337) x10^3/uL MPV 9.4 (9.4-12.4) fL Gran % 60.1 (34.0-67.9) % Immature Gran % (Auto) 0.4 (0.001-0.429) % Nucleat RBC Rel Count 0.0 (0.00-0.2) % Eos # (Auto) 0 L (0.04-0.54) x10^3/uL Immature Gran # (Auto) 0.03 (0.001-0.031) x10^3u/L Absolute Lymphs (auto) 1.62 (1.32-3.57) x10^3/uL Absolute Monos (auto) 1.10 H (0.30-0.82) x10^3/uL Absolute Nucleated RBC 0.00 (0.00-0.012) x10^3u/L Lymphocytes % 23.3 (21.8-53.1) % Monocytes % 15.8 H (5.3-12.2) % Eosinophils % 0.0 L (0.8-7.0) % Basophils % 0.4 (0.2-1.2) % Absolute Granulocytes 4.17 (1.78-5.38) x10^3/uL Basophils # 0.03 (0.01-0.08) x10^3/uL Sodium (135-145) mmol/L Potassium (3.5-5.1) mmol/L Chloride (98-107) mmol/L Carbon Dioxide (22-30) mmol/L Anion Gap (5-15) MEQ/L BUN (9-20) mg/dL Creatinine (0.66-1.25) mg/dL Estimated GFR ML/MIN Glucose (74-106) mg/dL Calcium (8.4-10.2) mg/dL Total Bilirubin (0.2-1.3) mg/dL AST (17-59) U/L ALT (0-50) U/L Alkaline Phosphatase (38-126) U/L Serum Total Protein (6.3-8.2) g/dL Albumin (3.5-5.0) g/dL Lipase (23-300) U/L ABO Group Rh Factor Antibody Screen (NEGATIVE) Crossmatch (COMPATIBLE) - Progress Progress: improved Progress Note: 24-year-old male with a history of ulcerative colitis presents to our ED for evaluation of rectal bleeding. Physical exam reveals mild abdominal tenderness. Overlying soft tissue intact. Laboratory workup reveals a hemoglobin of 6.9. MCV indicates a microcytic anemia. CT abdomen pelvis reveals a colitis. Aline ent received a typed and screened. Blood products ordered. Patient received Levaquin and Flagyl for colitis as well as steroids as the colitis is likely secondary due to a ulcerative colitis flareup. Patient will require hospitalization for further evaluation and treatment. Plan of care discussed with patient. He agrees to admission to [facility] for further evaluation and treatment. Portions of this note were created with voice recognition technology. There may be grammatical, spelling, punctuation or sound alike errors Complexity problem addresses high, severe exacerbation with threat to bodily function. Patient has profound symptomatic anemia Critical care time is approximately 1 hour and 80 minutes. Patient with lower GI bleed causing profound symptomatic anemia. Requiring an emergent blood transfusion to prevent further deterioration. Patient received a dose of Protonix Complex data reviewed and analyzed is extensive. Test ordered chest pain results analyzed and correlated clinically with history and physical exam. Management discussed with hospitalist accepts admission to observation. Risk of complication and or risk of morbidity/mortality patient management is high. Patient requires hospitalization for further evaluation and treatment. Vital stable. Time spent to admit patient is approximately 20 minutes. Plan of care established for shared decision making. No social determinants of health present. Follow-up. Portions of this note were created with voice recognition technology. There may be grammatical, spelling, punctuation or sound alike errors 07/03/24 14:49 Counseled pt/family regarding: lab results, diagnosis, rad results - Departure Departure Disposition: Observation Clinical Impression: Colitis, Lower GI bleed, Symptomatic anemia, Microcytic anemia, Thrombocytosis, 5 spondylosis, Ulcerative colitis flareup Condition: Stable Critical Care Time: Yes Critical Care Time(excluding separately billable procedures): Critical 165-194 mins Referrals: DOCTOR,NO FAMILY [Primary Care Provider] - Follow up/PCP as directed
[2024-07-03] MEDS ORDERED: PROTONIX 40 MG IV IV ONE (12:11)
[2024-07-03 12:15] LABS: Absolute Neutrophil Ct (ANC) 4.17 x10^3/uL (1.78-5.38); BASOPHIL % 0.4 % (0.2-1.2); Basophil (Absolute #) 0.03 x10^3/uL (0.01-0.08); Eosinophil (Absolute #) 0 x10^3/uL (0.04-0.54); Hematocrit 23.5 % (40.1-51.0); IMMATURE GRAN # 0.03 x10^3u/L (0.001-0.031); IMMATURE GRAN % 0.4 % (0.001-0.429); Lymphocyte (Absolute #) 1.62 x10^3/uL (1.32-3.57); Lymphocytes % 23.3 % (21.8-53.1); Mean Cell Volume 71.2 fL (79.0-92.2); Mean Corpuscular Hemoglobin 20.9 pg (25.7-32.2); Mean Corpuscular Hgb Concent. 29.4 g/dL (32.3-36.5); Mean Platelet Volume 9.4 fL (9.4-12.4); Monocytes % 15.8 % (5.3-12.2); Neutrophil % 60.1 % (34.0-67.9); Platelet Count 444 x10^3/uL (163-337)
[2024-07-03] MEDS: Sodium Chloride 0.9% 1000 ML 1,000 ML IV SCH ×2 (12:17→13:52)
[2024-07-03] MEDS: PROTONIX 40 MG IV IV ONE (12:17)
[2024-07-03 12:18] LABS: Hemoglobin 6.9 g/dL (13.7-17.5)
[2024-07-03 12:29] LABS: ALBUMIN 3.6 g/dL (3.5-5.0); ANION GAP 13.7 MEQ/L (5-15); BILIRUBIN,TOTAL 0.3 mg/dL (0.2-1.3); Calcium 8.4 mg/dL (8.4-10.2); Creatinine 1 0.98 mg/dL (0.66-1.25); EST GLOMERULAR FILTRATION RATE 110.4 ML/MIN; Total Protein 6.4 g/dL (6.3-8.2)
--- NOTE | 2024-07-03 13:06 | XRAY ---
Indication: Pain. Blood in stool. History of ulcerative colitis. Multiple contiguous axial images obtained through the abdomen and pelvis without contrast. Comparison: July 17, 2023. Lung bases clear again with incidental tiny posterior right base calcified granuloma. Heart not enlarged. Noncontrasted stomach and bowel loops appear nonobstructed. Transverse, descending, and sigmoid colon again demonstrates mild bowel wall thickening with minimal pericolonic stranding favoring colitis. No free fluid/air. Remaining liver, gallbladder, pancreas, spleen, adrenal glands, kidneys, ureters, bladder, and aorta are unremarkable for noncontrast exam. Osseous structures intact again with incidental bilateral L5 spondylolysis without listhesis. Impression: 1. Again CT findings favoring diffuse colitis. No complications. 2. Stable incidental L5 spondylolysis without listhesis. 3. Remaining CT abdomen/pelvis without contrast exam is negative.
[2024-07-03 13:13] LABS: ABO TYPING A; Antibody Screen NEGATIVE (NEGATIVE); RH TYPING POSITIVE
[2024-07-03 13:15] LABS: CROSS MATCH (PRBC) COMPATIBLE (COMPATIBLE)
[2024-07-03 13:16] LABS: CROSS MATCH (PRBC) COMPATIBLE (COMPATIBLE)
[2024-07-03] MEDS ORDERED: Sterile H2O 10 ml IJ ONE (14:41)
[2024-07-03] MEDS ORDERED: FLAGYL 500 MG IVPB 500 MG/100 ML BAG IV ONE (14:41)
[2024-07-03] MEDS ORDERED: solu-MEDROL ONE (14:41)
[2024-07-03] MEDS ORDERED: Levofloxacin 500MG/100ML D5W 500 MG/100 ML BAG IV ONE (14:43)
[2024-07-03] MEDS: solu-MEDROL 125 MG, Sterile H2O 10 ml 2 ML IV ONE (14:46)
[2024-07-03] MEDS: FLAGYL 500 MG IVPB 500 MG/100 ML BAG IV STA (14:46)
[2024-07-03] MEDS: Levofloxacin 500MG/100ML D5W 500 MG/100 ML BAG IV STA (14:47)
[2024-07-03] MEDS ORDERED: TYLENOL EXTRA STRENGTH 500 MG ONE (15:20)
[2024-07-03] MEDS: TYLENOL EXTRA STRENGTH 500 MG PO STA (15:22)
--- NOTE | 2024-07-03 15:56 | PCM.HP ---
History of Present Illness - Chief Complaint Chief Complaint: Symptomatic anemia, colitis, lower GI bleed Date: 07/03/24 History of Present Illness: is a 24 year old male with PMHX of daily smoker, ADHD, oppositional defiance disorder, depression, anxiety, chronic anemia, IBS, alcohol use, and ulcerative colitis (on Humeria). He reports he has been feeling sick with bloody stools, weakness, and N/V for 3 weeks now. He reports he knows he is stubborn and did not want to come to the hospital but finally decided to do so. He reported in the ER that he started drinking alcohol a couple months ago, drinking about 10 shots of vodka a day but stopped about a month ago. He has mild periumbilical lower abdominal discomfort. Patient states his rectal bleeding has been ongoing for approximately 1 month. Patient felt as though he needs a blood transfusion when he came to the ER today and has had them in the past. Patient states he is pale. Patient attributes his worsening symptoms to his recent alcohol binge. Patient has been drinking vodka daily. Although patient states he has not had anything to drink in approximately 1 month he feels that his binge cause his sxs. No trauma. Subjective fever. Patient otherwise feels well. Blood transfusion started in ER for HGB of 6.9. Will continue IV antibiotics, steroids, antiemetics, and start CIWA protocol. He denies CP, SOB. - Review of Systems Constitutional: No Fever, No Chills Eyes: No Symptoms Ears, Nose, & Throat: No Symptoms Respiratory: No Cough, No Short Of Breath Cardiac: No Chest Pain, No Edema, No Syncope Abdominal/Gastrointestinal: Abdominal Pain, Nausea, Vomiting, Diarrhea, Hematochezia Genitourinary Symptoms: No Dysuria Musculoskeletal: No Back Pain, No Neck Pain Skin: No Rash Neurological: No Dizziness, No Focal Weakness, No Sensory Changes Psychological: No Symptoms Endocrine: No Symptoms Hematologic/Lymphatic: No Symptoms Immunological/Allergic: No Symptoms Medications & Allergies Home Medications: Home Medication List Adalimumab [Humira(Cf) Pen] 40 mg SQ WEEKLY 07/03/24 [History Confirmed 07/03/24] Allergies/Adverse Reactions: Allergies Allergy/AdvReac Type Severity Reaction Status Date / Time No Known Drug Allergies Allergy Verified 07/03/24 11:51 - Past Medical History Past Medical History: Yes Neurological History: No Pertinent History ENT History: No Pertinent History Cardiac History: No Pertinent History Respiratory History: No Pertinent History Endocrine Medical History: No Pertinent History Musculoskelatal History: No Pertinent History GI Medical History: Colitis, GI Bleed, Irritable Bowel History: No Pertinent History Pyscho-Social History: Anxiety, Depression Male Reproductive Disorders: No Pertinent History Comment: pt has ADHD and oppositional defiance disorder. mult blood transfusions, anemia - Past Surgical History Past Surgical History: Yes Neuro Surgical History: No Pertinent History Cardiac History: No Pertinent History Respiratory Surgery: No Pertinent History GI Surgical History: No Pertinent History Genitourinary Surgical Hx: No Pertinent History Musculskeletal Surgical Hx: Orthopedic Surgery Male Surgical History: No Pertinent History Other Surgical History: right wrist glass removed in surgery, colonoscopy Significant Family History: no pertinent family hx - Social History Smoking Status: Current every day smoker How long have you smoked: 4 years Exposure to second hand smoke: Yes Alcohol: Daily Drug Use: marijuana - Social Determinants of Health Will the patient participate in the screening: Yes Do you worry about a steady place to live?: No Do you have any problems with any of the following?: No known problems In the past 12 months,have you had to go without utilities?: No Have you or anyone in your house had to go without enough: No Transportation Issues: No Has anyone in your support network made you feel unsafe?: No - Physical Exam Vital Signs: Vital Signs - 24 hr Temp Pulse Resp BP BP Pulse Ox 07/03/24 15:10 99.7 F 103 H 15 100 07/03/24 15:07 92 H 19 98 07/03/24 14:59 97 07/03/24 14:55 132/78 07/03/24 14:15 90 17 121/87 99 07/03/24 14:00 92 H 16 134/80 100 07/03/24 13:53 89 21 120/91 07/03/24 13:30 100 07/03/24 13:20 100 07/03/24 13:02 100 07/03/24 12:50 107/67 07/03/24 12:40 109/66 93 L 07/03/24 12:30 94 H 14 102/70 93 L 07/03/24 12:20 92 H 16 125/72 98 07/03/24 12:00 95 H 18 89/68 97 07/03/24 11:43 99.3 F 108 H 18 112/74 97 General Appearance: no apparent distress, alert Neurologic Exam: alert, oriented x 3, cooperative, normal mood/affect, nml cerebellar function, nml station & gait, sensation nml, No motor deficits Eye Exam: PERRL/EOMI, eyes nml inspection Ears, Nose, Throat Exam: normal ENT inspection, TMs normal, pharynx normal, moist mucous membranes Neck Exam: normal inspection, non-tender, supple, full range of motion Respiratory Exam: normal breath sounds, lungs clear, No respiratory distress Cardiovascular Exam: regular rate/rhythm, normal heart sounds, normal peripheral pulses Gastrointestinal/Abdomen Exam: soft, normal bowel sounds, tenderness (lorenzo- umbicial region), No mass Back Exam: normal inspection, normal range of motion, No CVA tenderness, No vertebral tenderness Extremity Exam: normal inspection, normal range of motion, pelvis stable Skin Exam: normal color, warm, dry, No rash Lymphatic Exam: No adenopathy Results - Labs Lab/Micro Results: Lab Results-Last 24 Hours 07/03/24 07/03/24 07/03/24 Range/Units 12:00 12:00 12:00 WBC 7.0 (4.23-9.07) x10^3/uL RBC 3.30 L (4.63-6.08) x10^6/uL Hgb 6.9 L* (13.7-17.5) g/dL Hct 23.5 L (40.1-51.0) % MCV 71.2 L (79.0-92.2) fL MCH 20.9 L (25.7-32.2) pg MCHC 29.4 L (32.3-36.5) g/dL RDW 18.0 H (11.6-14.4) % Plt Count 444 H (163-337) x10^3/uL MPV 9.4 (9.4-12.4) fL Gran % 60.1 (34.0-67.9) % Immature Gran % (Auto) 0.4 (0.001-0.429) % Nucleat RBC Rel Count 0.0 (0.00-0.2) % Eos # (Auto) 0 L (0.04-0.54) x10^3/uL Immature Gran # (Auto) 0.03 (0.001-0.031) x10^3u/L Absolute Lymphs (auto) 1.62 (1.32-3.57) x10^3/uL Absolute Monos (auto) 1.10 H (0.30-0.82) x10^3/uL Absolute Nucleated RBC 0.00 (0.00-0.012) x10^3u/L Lymphocytes % 23.3 (21.8-53.1) % Monocytes % 15.8 H (5.3-12.2) % Eosinophils % 0.0 L (0.8-7.0) % Basophils % 0.4 (0.2-1.2) % Absolute Granulocytes 4.17 (1.78-5.38) x10^3/uL Basophils # 0.03 (0.01-0.08) x10^3/uL Sodium 135 (135-145) mmol/L Potassium 4.0 (3.5-5.1) mmol/L Chloride 101 (98-107) mmol/L Carbon Dioxide 25 (22-30) mmol/L Anion Gap 13.7 (5-15) MEQ/L BUN 8 L (9-20) mg/dL Creatinine 0.98 (0.66-1.25) mg/dL Estimated GFR 110.4 ML/MIN Glucose 92 (74-106) mg/dL Calcium 8.4 (8.4-10.2) mg/dL Total Bilirubin 0.30 (0.2-1.3) mg/dL AST 23 (17-59) U/L ALT 13 (0-50) U/L Alkaline Phosphatase 60 (38-126) U/L Serum Total Protein 6.4 (6.3-8.2) g/dL Albumin 3.6 (3.5-5.0) g/dL Lipase 24 (23-300) U/L ABO Group A Rh Factor POSITIVE Antibody Screen NEGATIVE (NEGATIVE) Crossmatch COMPATIBLE (COMPATIBLE) 07/03/24 Range/Units 12:00 WBC (4.23-9.07) x10^3/uL RBC (4.63-6.08) x10^6/uL Hgb (13.7-17.5) g/dL Hct (40.1-51.0) % MCV (79.0-92.2) fL MCH (25.7-32.2) pg MCHC (32.3-36.5) g/dL RDW (11.6-14.4) % Plt Count (163-337) x10^3/uL MPV (9.4-12.4) fL Gran % (34.0-67.9) % Immature Gran % (Auto) (0.001-0.429) % Nucleat RBC Rel Count (0.00-0.2) % Eos # (Auto) (0.04-0.54) x10^3/uL Immature Gran # (Auto) (0.001-0.031) x10^3u/L Absolute Lymphs (auto) (1.32-3.57) x10^3/uL Absolute Monos (auto) (0.30-0.82) x10^3/uL Absolute Nucleated RBC (0.00-0.012) x10^3u/L Lymphocytes % (21.8-53.1) % Monocytes % (5.3-12.2) % Eosinophils % (0.8-7.0) % Basophils % (0.2-1.2) % Absolute Granulocytes (1.78-5.38) x10^3/uL Basophils # (0.01-0.08) x10^3/uL Sodium (135-145) mmol/L Potassium (3.5-5.1) mmol/L Chloride (98-107) mmol/L Carbon Dioxide (22-30) mmol/L Anion Gap (5-15) MEQ/L BUN (9-20) mg/dL Creatinine (0.66-1.25) mg/dL Estimated GFR ML/MIN Glucose (74-106) mg/dL Calcium (8.4-10.2) mg/dL Total Bilirubin (0.2-1.3) mg/dL AST (17-59) U/L ALT (0-50) U/L Alkaline Phosphatase (38-126) U/L Serum Total Protein (6.3-8.2) g/dL Albumin (3.5-5.0) g/dL Lipase (23-300) U/L ABO Group Rh Factor Antibody Screen (NEGATIVE) Crossmatch COMPATIBLE (COMPATIBLE) - Radiology Impressions Radiology Exams & Impressions: Radiology Procedures Category Date Time Status ABDOMEN AND PELVIS W/0 CONTRAS [CT] Stat Exams 07/03/24 12:02 Completed Assessment/Plan (1) Ulcerative colitis Current Visit: Yes Status: Acute Assessment & Plan: - Antibiotics, steroids, antiemetic, antipyretic, probiotic - 1 unit PRBC - tele - protonix 40 IV BID. Code(s): K51.90 - ULCERATIVE COLITIS, UNSPECIFIED, WITHOUT COMPLICATIONS (2) Alcohol abuse Current Visit: No Status: Chronic Assessment & Plan: - [facility] protocol - advised cessation - tele Code(s): F10.10 - ALCOHOL ABUSE, UNCOMPLICATED (3) Profound anemia Current Visit: No Status: Acute Qualifiers: Iron deficiency anemia type: chronic blood loss Assessment & Plan: - Hgb 6.9- 1 unit PRBC- recheck H& H after blood complete per protocol VTE: SCD's PPI: protonix D/C plan: 1-2 days. Code(s): D64.9 - ANEMIA, UNSPECIFIED
[2024-07-03] MEDS ORDERED: Valium 5 MG PO PRN (15:58)
[2024-07-03] MEDS ORDERED: TYLENOL 325 MG PO PRN (16:06)
[2024-07-03] MEDS ORDERED: ADALIMUMAB 40 MG/0.4 ML SQ SCH (16:15)
[2024-07-03] MEDS ORDERED: MEDICATION INTERVENTION MC SCH (16:30)
[2024-07-03] MEDS ORDERED: PROTONIX 40 MG IV IV SCH (16:30)
[2024-07-03] MEDS: THERAGRAN MULTIVITAMIN PO SCH (17:29)
[2024-07-03] MEDS: Acidophilus TABLET PO SCH (17:29)
[2024-07-03] MEDS: FOLATE 1 MG PO SCH (17:29)
[2024-07-03] MEDS: VITAMIN B-1 100 MG PO SCH (17:29)
[2024-07-03] MEDS: Compazine 10 MG/2 ML IV PRN (18:44)
[2024-07-03] MEDS: FLAGYL 500 MG IVPB 500 MG/100 ML BAG IV SCH (18:45)
[2024-07-03] MEDS ORDERED: Zofran 4 MG/2 ML VIAL IV PRN (19:09)
[2024-07-03 19:13] LABS: Appearance Clear (Clear); Bacteria None Seen /HPF (None Seen); Bilirubin Negative (Negative); Blood Negative (Negative); Epithelial Cells None Seen /HPF (None Seen); Glucose, Urine Negative (Negative); Hyaline Casts NONE SEEN /LPF (0-2); Ketones 15 (Negative); Leukocyte Esterase Negative (Negative); Nitrite Negative (Negative); Ph 5.5 (4.6-8.0); Protein,Urine Dip Negative (Negative); RBC 0-2 /HPF (0-5); Specific Gravity <=1.005 (1.005-1.030); Urobilinogen 0.2 mg/dL (0.2); WBC 0-2 /HPF (0-5)
[2024-07-03 19:15] LABS: ADD URINE CULTURE? NO (NO)
[2024-07-03] MEDS: xanAX 0.5 MG PO ONE (19:15)
[2024-07-03 19:25] LABS: Hematocrit 28.6 % (40.1-51.0)
[2024-07-03 19:55] LABS: Hemoglobin 8.9 g/dL (13.7-17.5)
[2024-07-03] MEDS: DELTASONE 20 MG PO SCH (22:18)
[2024-07-03] MEDS: PROTONIX 40 MG IV IV SCH (22:19)
[2024-07-04 05:05] LABS: Absolute Neutrophil Ct (ANC) 3.12 x10^3/uL (1.78-5.38); BASOPHIL % 0.2 % (0.2-1.2); Basophil (Absolute #) 0.01 x10^3/uL (0.01-0.08); Eosinophil (Absolute #) 0 x10^3/uL (0.04-0.54); Hematocrit 29.9 % (40.1-51.0); Hemoglobin 9.1 g/dL (13.7-17.5); IMMATURE GRAN # 0.02 x10^3u/L (0.001-0.031); IMMATURE GRAN % 0.4 % (0.001-0.429); Lymphocyte (Absolute #) 1.22 x10^3/uL (1.32-3.57); Lymphocytes % 24.6 % (21.8-53.1); Mean Corpuscular Hemoglobin 22.5 pg (25.7-32.2); Mean Corpuscular Hgb Concent. 30.4 g/dL (32.3-36.5); Mean Platelet Volume 9.1 fL (9.4-12.4); Monocyte (Absolute #) 0.58 x10^3/uL (0.30-0.82); Monocytes % 11.7 % (5.3-12.2); NUCLEATED RBC # 0.02 x10^3u/L (0.00-0.012); NUCLEATED RBC % 0.4 % (0.00-0.2); Neutrophil % 63.1 % (34.0-67.9); Platelet Count 434 x10^3/uL (163-337); Red Blood Count 4.04 x10^6/uL (4.63-6.08); Red Cell Distribution Width 18.5 % (11.6-14.4)
[2024-07-04 05:28] LABS: ALBUMIN 3.5 g/dL (3.5-5.0); ANION GAP 14.6 MEQ/L (5-15); BILIRUBIN,TOTAL 0.4 mg/dL (0.2-1.3); Calcium 8.4 mg/dL (8.4-10.2); Creatinine 1 0.8 mg/dL (0.66-1.25); EST GLOMERULAR FILTRATION RATE 126.7 ML/MIN; Potassium 4.3 mmol/L (3.5-5.1); Total Protein 6.3 g/dL (6.3-8.2)
[2024-07-04] MEDS: LEVOFLOXACIN 750MG/150ML D5W 750 MG/150 ML BAG IV SCH (09:06)
[2024-07-04] MEDS: ATARAX 25 MG PO PRN (09:26)
[2024-07-04 11:35] VITALS: PULSE 69
--- NOTE | 2024-07-04 12:28 | PCM.NOTE ---
Date and Time: 07/04/24 1222 Subjective Assessment: 07/03/24 is a 24 year old male with PMHX of daily smoker, ADHD, oppositional defiance disorder, depression, anxiety, chronic anemia, IBS, alcohol use, and ulcerative colitis (on Humeria). He reports he has been feeling sick with bloody stools, weakness, and N/V for 3 weeks now. He reports he knows he is stubborn and did not want to come to the hospital but finally decided to do so. He reported in the ER that he started drinking alcohol a couple months ago, drinking about 10 shots of vodka a day but stopped about a month ago. He has mild periumbilical lower abdominal discomfort. Patient states his rectal bleeding has been ongoing for approximately 1 month. Patient felt as though he needs a blood transfusion when he came to the ER today and has had them in the past. Patient states he is pale. Patient attributes his worsening symptoms to his recent alcohol binge. Patient has been drinking vodka daily. Although patient states he has not had anything to drink in approximately 1 month he feels that his binge cause his sxs. No trauma. Subjective fever. Patient otherwise feels well. Blood transfusion started in ER for HGB of 6.9. Will continue IV antibiotics, steroids, antiemetics, and start CIWA protocol. He denies CP, SOB. 07/04/24 Pt has been up and waking around in room today. He reports he continues to have diarrhea but no blood in stools today. He has continued abd. pain. Hgb stable at 9.1. He is refusing Tele. Continue antibiotics, steroids, IVF, and probiotics. He did well on a clear liquid diet this morning and will transition to a soft diet. Continue CIWA protocol. He denies CP, SOB, N/V. - Review of Systems Constitutional: No Fever, No Chills Eyes: No Symptoms Ears, Nose, & Throat: No Symptoms Respiratory: No Cough, No Short Of Breath Cardiac: No Chest Pain, No Edema, No Syncope Abdominal/Gastrointestinal: Abdominal Pain, Diarrhea, No Nausea, No Vomiting Genitourinary Symptoms: No Dysuria Musculoskeletal: No Back Pain, No Neck Pain Skin: No Rash Neurological: No Dizziness, No Focal Weakness, No Sensory Changes Psychological: No Symptoms Endocrine: No Symptoms Hematologic/Lymphatic: No Symptoms Immunological/Allergic: No Symptoms Objective Exam General Appearance: no apparent distress, alert Neurologic Exam: alert, oriented x 3, cooperative, normal mood/affect, nml cerebellar function, sensation nml, No motor deficits Skin Exam: normal color, warm, dry Eye Exam: PERRL, EOMI, eyes nml inspection Ears, Nose, Throat Exam: normal ENT inspection, pharynx normal, moist mucous membranes Neck Exam: normal inspection, non-tender, supple, full range of motion Respiratory Exam: normal breath sounds, lungs clear, No respiratory distress Cardiovascular Exam: regular rate/rhythm, normal heart sounds Gastrointestinal/Abdomen Exam: soft, tenderness (generalized with palpation), No mass Extremity Exam: normal inspection, normal range of motion Back Exam: normal inspection, normal range of motion, No CVA tenderness, No vertebral tenderness Male Genitalia Exam: deferred Rectal Exam: deferred Objective Data Vital Signs: Vital Signs - 24 hr Temp Pulse Resp BP BP Pulse Ox 07/04/24 11:35 97.7 F 69 16 114/59 92 L 07/04/24 08:00 96.4 F 71 16 107/57 97 07/04/24 06:51 97 07/04/24 04:00 97.9 F 65 18 115/61 98 07/04/24 00:00 97.6 F 57 L 16 103/61 97 07/03/24 20:00 98.6 F 68 16 101/58 98 07/03/24 19:40 95 07/03/24 16:44 97.9 F 91 H 20 116/61 99 07/03/24 16:10 99.4 F 91 H 16 116/61 99 07/03/24 15:43 98 07/03/24 15:10 99.7 F 103 H 15 100 07/03/24 15:07 92 H 19 98 07/03/24 14:59 97 07/03/24 14:55 132/78 07/03/24 14:15 90 17 121/87 99 07/03/24 14:00 92 H 16 134/80 100 07/03/24 13:53 89 21 120/91 07/03/24 13:30 100 07/03/24 13:20 100 07/03/24 13:02 100 07/03/24 12:50 107/67 07/03/24 12:40 109/66 93 L 07/03/24 12:30 94 H 14 102/70 93 L Pain Assessment - Last Documented Pain Intensity 2 Intake and Output: Intake & Output 07/02/24 07/03/24 07/04/24 07/05/24 11:59 11:59 11:59 11:59 Intake Total 2062 Balance 2062 Weight 65.9 kg 67.6 kg Lab Results: Lab Results-Last 24 Hours 07/03/24 07/03/24 07/03/24 Range/Units 12:00 12:00 12:00 WBC (4.23-9.07) x10^3/uL RBC (4.63-6.08) x10^6/uL Hgb (13.7-17.5) g/dL Hct (40.1-51.0) % MCV (79.0-92.2) fL MCH (25.7-32.2) pg MCHC (32.3-36.5) g/dL RDW (11.6-14.4) % Plt Count (163-337) x10^3/uL MPV (9.4-12.4) fL Gran % (34.0-67.9) % Immature Gran % (Auto) (0.001-0.429) % Nucleat RBC Rel Count (0.00-0.2) % Eos # (Auto) (0.04-0.54) x10^3/uL Immature Gran # (Auto) (0.001-0.031) x10^3u/L Absolute Lymphs (auto) (1.32-3.57) x10^3/uL Absolute Monos (auto) (0.30-0.82) x10^3/uL Absolute Nucleated RBC (0.00-0.012) x10^3u/L Lymphocytes % (21.8-53.1) % Monocytes % (5.3-12.2) % Eosinophils % (0.8-7.0) % Basophils % (0.2-1.2) % Absolute Granulocytes (1.78-5.38) x10^3/uL Basophils # (0.01-0.08) x10^3/uL Sodium 135 (135-145) mmol/L Potassium 4.0 (3.5-5.1) mmol/L Chloride 101 (98-107) mmol/L Carbon Dioxide 25 (22-30) mmol/L Anion Gap 13.7 (5-15) MEQ/L BUN 8 L (9-20) mg/dL Creatinine 0.98 (0.66-1.25) mg/dL Estimated GFR 110.4 ML/MIN Glucose 92 (74-106) mg/dL Calcium 8.4 (8.4-10.2) mg/dL Total Bilirubin 0.30 (0.2-1.3) mg/dL AST 23 (17-59) U/L ALT 13 (0-50) U/L Alkaline Phosphatase 60 (38-126) U/L Serum Total Protein 6.4 (6.3-8.2) g/dL Albumin 3.6 (3.5-5.0) g/dL Lipase 24 (23-300) U/L Urine Color (Yellow) Urine Appearance (Clear) Urine pH (4.6-8.0) Ur Specific [place] (1.005-1.030) Urine Protein (Negative) Urine Glucose (UA) (Negative) mg/dL Urine Ketones (Negative) Urine Blood (Negative) Urine Nitrite (Negative) Urine Bilirubin (Negative) Urine Urobilinogen (0.2) mg/dL Ur Leukocyte Esterase (Negative) U Hyaline Cast (Auto) (0-2) /LPF Urine Microscopic RBC (0-5) /HPF Urine Microscopic WBC (0-5) /HPF Ur Epithelial Cells (None Seen) /HPF Urine Bacteria (None Seen) /HPF Urine Culture Reflexed (NO) ABO Group A Rh Factor POSITIVE Antibody Screen NEGATIVE (NEGATIVE) Crossmatch COMPATIBLE COMPATIBLE (COMPATIBLE) 07/03/24 07/03/24 07/04/24 Range/Units 19:00 19:18 04:50 WBC 5.0 (4.23-9.07) x10^3/uL RBC 4.04 L (4.63-6.08) x10^6/uL Hgb 8.9 L D 9.1 L (13.7-17.5) g/dL Hct 28.6 L 29.9 L (40.1-51.0) % MCV 74.0 L (79.0-92.2) fL MCH 22.5 L (25.7-32.2) pg MCHC 30.4 L (32.3-36.5) g/dL RDW 18.5 H (11.6-14.4) % Plt Count 434 H (163-337) x10^3/uL MPV 9.1 L (9.4-12.4) fL Gran % 63.1 (34.0-67.9) % Immature Gran % (Auto) 0.4 (0.001-0.429) % Nucleat RBC Rel Count 0.4 H (0.00-0.2) % Eos # (Auto) 0 L (0.04-0.54) x10^3/uL Immature Gran # (Auto) 0.02 (0.001-0.031) x10^3u/L Absolute Lymphs (auto) 1.22 L (1.32-3.57) x10^3/uL Absolute Monos (auto) 0.58 (0.30-0.82) x10^3/uL Absolute Nucleated RBC 0.02 H (0.00-0.012) x10^3u/L Lymphocytes % 24.6 (21.8-53.1) % Monocytes % 11.7 (5.3-12.2) % Eosinophils % 0.0 L (0.8-7.0) % Basophils % 0.2 (0.2-1.2) % Absolute Granulocytes 3.12 (1.78-5.38) x10^3/uL Basophils # 0.01 (0.01-0.08) x10^3/uL Sodium (135-145) mmol/L Potassium (3.5-5.1) mmol/L Chloride (98-107) mmol/L Carbon Dioxide (22-30) mmol/L Anion Gap (5-15) MEQ/L BUN (9-20) mg/dL Creatinine (0.66-1.25) mg/dL Estimated GFR ML/MIN Glucose (74-106) mg/dL Calcium (8.4-10.2) mg/dL Total Bilirubin (0.2-1.3) mg/dL AST (17-59) U/L ALT (0-50) U/L Alkaline Phosphatase (38-126) U/L Serum Total Protein (6.3-8.2) g/dL Albumin (3.5-5.0) g/dL Lipase (23-300) U/L Urine Color Yellow (Yellow) Urine Appearance Clear (Clear) Urine pH 5.5 (4.6-8.0) Ur Specific [place] <=1.005 (1.005-1.030) Urine Protein Negative (Negative) Urine Glucose (UA) Negative (Negative) mg/dL Urine Ketones 15 A (Negative) Urine Blood Negative (Negative) Urine Nitrite Negative (Negative) Urine Bilirubin Negative (Negative) Urine Urobilinogen 0.2 (0.2) mg/dL Ur Leukocyte Esterase Negative (Negative) U Hyaline Cast (Auto) NONE SEEN (0-2) /LPF Urine Microscopic RBC 0-2 (0-5) /HPF Urine Microscopic WBC 0-2 (0-5) /HPF Ur Epithelial Cells None Seen (None Seen) /HPF Urine Bacteria None Seen (None Seen) /HPF Urine Culture Reflexed NO (NO) ABO Group Rh Factor Antibody Screen (NEGATIVE) Crossmatch (COMPATIBLE) 07/04/24 Range/Units 04:50 WBC (4.23-9.07) x10^3/uL RBC (4.63-6.08) x10^6/uL Hgb (13.7-17.5) g/dL Hct (40.1-51.0) % MCV (79.0-92.2) fL MCH (25.7-32.2) pg MCHC (32.3-36.5) g/dL RDW (11.6-14.4) % Plt Count (163-337) x10^3/uL MPV (9.4-12.4) fL Gran % (34.0-67.9) % Immature Gran % (Auto) (0.001-0.429) % Nucleat RBC Rel Count (0.00-0.2) % Eos # (Auto) (0.04-0.54) x10^3/uL Immature Gran # (Auto) (0.001-0.031) x10^3u/L Absolute Lymphs (auto) (1.32-3.57) x10^3/uL Absolute Monos (auto) (0.30-0.82) x10^3/uL Absolute Nucleated RBC (0.00-0.012) x10^3u/L Lymphocytes % (21.8-53.1) % Monocytes % (5.3-12.2) % Eosinophils % (0.8-7.0) % Basophils % (0.2-1.2) % Absolute Granulocytes (1.78-5.38) x10^3/uL Basophils # (0.01-0.08) x10^3/uL Sodium 137 (135-145) mmol/L Potassium 4.3 (3.5-5.1) mmol/L Chloride 103 (98-107) mmol/L Carbon Dioxide 24 (22-30) mmol/L Anion Gap 14.6 (5-15) MEQ/L BUN 9 (9-20) mg/dL Creatinine 0.80 (0.66-1.25) mg/dL Estimated GFR 126.7 ML/MIN Glucose 116 H (74-106) mg/dL Calcium 8.4 (8.4-10.2) mg/dL Total Bilirubin 0.40 (0.2-1.3) mg/dL AST 25 (17-59) U/L ALT 15 (0-50) U/L Alkaline Phosphatase 51 (38-126) U/L Serum Total Protein 6.3 (6.3-8.2) g/dL Albumin 3.5 (3.5-5.0) g/dL Lipase (23-300) U/L Urine Color (Yellow) Urine Appearance (Clear) Urine pH (4.6-8.0) Ur Specific [place] (1.005-1.030) Urine Protein (Negative) Urine Glucose (UA) (Negative) mg/dL Urine Ketones (Negative) Urine Blood (Negative) Urine Nitrite (Negative) Urine Bilirubin (Negative) Urine Urobilinogen (0.2) mg/dL Ur Leukocyte Esterase (Negative) U Hyaline Cast (Auto) (0-2) /LPF Urine Microscopic RBC (0-5) /HPF Urine Microscopic WBC (0-5) /HPF Ur Epithelial Cells (None Seen) /HPF Urine Bacteria (None Seen) /HPF Urine Culture Reflexed (NO) ABO Group Rh Factor Antibody Screen (NEGATIVE) Crossmatch (COMPATIBLE) Radiology Exams: Radiology Procedures Category Date Time Status ABDOMEN AND PELVIS W/0 CONTRAS [CT] Stat Exams 07/03/24 12:02 Completed Assessment/Plan (1) Ulcerative colitis Current Visit: Yes Status: Acute Code(s): K51.90 - ULCERATIVE COLITIS, UNSPECIFIED, WITHOUT COMPLICATIONS (2) Alcohol abuse Current Visit: No Status: Chronic Code(s): F10.10 - ALCOHOL ABUSE, UNCOMPLICATED (3) Profound anemia Current Visit: No Status: Acute Qualifiers: Iron deficiency anemia type: chronic blood loss Assessment & Plan: (1) Ulcerative colitis Current Visit: Yes Status: Acute Assessment & Plan: - Antibiotics, steroids, antiemetic, antipyretic, probiotic - 1 unit PRBC - tele - protonix 40 IV BID. 07/04 - Hgb stable - cont diarrhea w/o blood today - tolerated clear liquid diet- transition to soft diet Code(s): K51.90 - ULCERATIVE COLITIS, UNSPECIFIED, WITHOUT COMPLICATIONS (2) Alcohol abuse Current Visit: No Status: Chronic Assessment & Plan: - [facility] protocol - advised cessation - tele Code(s): F10.10 - ALCOHOL ABUSE, UNCOMPLICATED (3) Profound anemia Current Visit: No Status: Acute Qualifiers: Iron deficiency anemia type: chronic blood loss Assessment & Plan: - Hgb 6.9- 1 unit PRBC- recheck H& H after blood complete per protocol 07/04 - Hgb 9.1- trend VTE: SCD's PPI: protonix D/C plan: 1-2 days. Code(s): D64.9 - ANEMIA, UNSPECIFIED
[2024-07-04 16:34] VITALS: BP 106/51; RESP 18; TEMP 98
[2024-07-04 19:50] VITALS: O2SAT 100
--- NOTE | 2024-07-05 12:31 | PCM.DS ---
Discharge Summary Date of Admission: 07/03/24 15:40 Date of Discharge: 07/04/24 Admitting Physician: CHARLEE HERNÁNDEZ MD Primary Care Provider: NO FAMILY DOCTOR Allergies Allergies No Known Drug Allergies Allergy (Verified 07/03/24 11:51) Hospital Summary - Hospital Course Hospital Course: 07/03/24 is a 24 year old male with PMHX of daily smoker, ADHD, oppositional defiance disorder, depression, anxiety, chronic anemia, IBS, alcohol use, and ulcerative colitis (on Humeria). He reports he has been feeling sick with bloody stools, weakness, and N/V for 3 weeks now. He reports he knows he is stubborn and did not want to come to the hospital but finally decided to do so. He reported in the ER that he started drinking alcohol a couple months ago, drinking about 10 shots of vodka a day but stopped about a month ago. He has mild periumbilical lower abdominal discomfort. Patient states his rectal bleeding has been ongoing for approximately 1 month. Patient felt as though he needs a blood transfusion when he came to the ER today and has had them in the past. Patient states he is pale. Patient attributes his worsening symptoms to his recent alcohol binge. Patient has been drinking vodka daily. Although patient states he has not had anything to drink in approximately 1 month he feels that his binge cause his sxs. No trauma. Subjective fever. Patient otherwise feels well. Blood transfusion started in ER for HGB of 6.9. Will continue IV antibiotics, steroids, antiemetics, and start CIWA protocol. He denies CP, SOB. 07/04/24 Pt has been up and waking around in room today. He reports he continues to have diarrhea but no blood in stools today. He has continued abd. pain. Hgb stable at 9.1. He is refusing Tele. Continue antibiotics, steroids, IVF, and probiotics. He did well on a clear liquid diet this morning and will transition to a soft diet. Continue CIWA protocol. He denies CP, SOB, N/V. Apparently pt walked out last night at 1930 per staff. Pt left AMA. - Vitals & Intake/Output Vital Signs: Vital Signs Temperature 98.0 F 07/04/24 16:00 Pulse Rate 69 07/04/24 16:00 Respiratory Rate 18 07/04/24 16:00 Blood Pressure 106/51 07/04/24 16:00 O2 Sat by Pulse Oximetry 100 07/04/24 19:49 Intake & Output: Intake & Output 07/03/24 07/04/24 07/05/24 07/06/24 11:59 11:59 11:59 11:59 Intake Total 3 1508 Balance 2062 1508 Weight 65.9 kg 67.6 kg - Lab Result Diagrams: 07/04/24 04:50 07/04/24 04:50 - Radiology Exams Ordered Rad Exams-Entire Visit: Radiology Procedures Category Date Time Status ABDOMEN AND PELVIS W/0 CONTRAS [CT] Stat Exams 07/03/24 12:02 Completed - Procedures and Test Procedures and Tests throughout Hospitalization: Therapy Orders & Screens 07/03/24 16:31 ST Screen per Nursing Assess ONCE Comment: Protocol Order Physician Instructions: Greater than [address] Admission Screening Reason For Exam: Triggered on Admission Diagnosis: Symptomatic anemia, colitis, lower GI bleed CVA/Dyshpagia/Aphasia: No Cognitive Deficits: No Dehydration/Nutrition Deficit: Yes Reflux: No Oral-Motor Difficulties: No Pneumonia: No [facility] Resident: No Total Points: 5 Discharge Exam General Appearance: no apparent distress, alert Neurologic Exam: alert, oriented x 3, cooperative, normal mood/affect, nml cerebellar function, sensation nml, No motor deficits Eye Exam: PERRL, EOMI, eyes nml inspection Ears, Nose, Throat Exam: normal ENT inspection, pharynx normal, moist mucous membranes Neck Exam: normal inspection, non-tender, supple, full range of motion Respiratory Exam: normal breath sounds, lungs clear, No respiratory distress Cardiovascular Exam: regular rate/rhythm, normal heart sounds Gastrointestinal/Abdomen Exam: soft, tenderness, No mass Male Genitalia Exam: deferred Rectal Exam: deferred Back Exam: normal inspection, normal range of motion, No CVA tenderness, No vertebral tenderness Extremity Exam: normal inspection, normal range of motion Skin Exam: normal color, warm, dry Comments: 07/04/24 - this assessment is per his last exam earlier in the day. I was unable assess again prior to leaving [facility] [place] [facility]. Final Diagnosis/Problem List - Final Discharge Diagnosis/Problem (1) Ulcerative colitis Status: Acute Code(s): K51.90 - ULCERATIVE COLITIS, UNSPECIFIED, WITHOUT COMPLICATIONS (2) Alcohol abuse Status: Chronic Code(s): F10.10 - ALCOHOL ABUSE, UNCOMPLICATED (3) Profound anemia Status: Acute Assessment & Plan: (1) Ulcerative colitis Current Visit: Yes Status: Acute Assessment & Plan: - Antibiotics, steroids, antiemetic, antipyretic, probiotic - 1 unit PRBC - tele - protonix 40 IV BID. 07/04 - Hgb stable - cont diarrhea w/o blood today - tolerated clear liquid diet- transition to soft diet Code(s): K51.90 - ULCERATIVE COLITIS, UNSPECIFIED, WITHOUT COMPLICATIONS (2) Alcohol abuse Current Visit: No Status: Chronic Assessment & Plan: - [facility] protocol - advised cessation - tele Code(s): F10.10 - ALCOHOL ABUSE, UNCOMPLICATED (3) Profound anemia Current Visit: No Status: Acute Qualifiers: Iron deficiency anemia type: chronic blood loss Assessment & Plan: - Hgb 6.9- 1 unit PRBC- recheck H& H after blood complete per protocol 07/04 - Hgb 9.1- trend Code(s): D64.9 - ANEMIA, UNSPECIFIED - Discharge Discharge Date: 07/05/24 Disposition: Against Medical Advice Condition: Fair Prescriptions: Continue Adalimumab [Humira(Cf) Pen] 40 mg SQ WEEKLY Follow up with: DOCTOR,NO FAMILY [Primary Care Provider] -
== END 2024-07-04 19:31 | disposition left against medical advice (07) | DRG 387 ==
LOC: ED 11:36 → OBSVTOIN 15:40 → MED SURG 15:40
PROVIDERS: ADMIT Internal Medicine; ATTEND Internal Medicine
DX: K51.90 Ulcerative colitis, unspecified, without complications (principal); F10.10 Alcohol abuse, uncomplicated; D64.9 Anemia, unspecified; F17.200 Nicotine dependence, unspecified, uncomplicated; F41.9 Anxiety disorder, unspecified; F32.A Depression, unspecified; Z79.899 Other long term (current) drug therapy
CPT/HCPCS: 36000; 36415; 36430; 74176; 80053; 83690; 85025; 86850; 86900; 86901; 86922; 96365; 96368; 96374; 96375; 99285; 99291; 99292; P9016; 81001; 85014; 85018; 94762; J1956; J2919; A9270-GY

== ENCOUNTER 2024-08-29 00:54 | Emergency (ER) | payer MEDICARE ==
[2024-08-29 01:08] VITALS: TEMP 99
[2024-08-29 01:24] LABS: Absolute Neutrophil Ct (ANC) 4.29 x10^3/uL (1.78-5.38); BASOPHIL % 0.4 % (0.2-1.2); Basophil (Absolute #) 0.03 x10^3/uL (0.01-0.08); Eosinophil % 0.3 % (0.8-7.0); Eosinophil (Absolute #) 0.02 x10^3/uL (0.04-0.54); Hematocrit 31.1 % (40.1-51.0); Hemoglobin 8.8 g/dL (13.7-17.5); IMMATURE GRAN # 0.02 x10^3u/L (0.001-0.031); IMMATURE GRAN % 0.3 % (0.001-0.429); Lymphocyte (Absolute #) 2.37 x10^3/uL (1.32-3.57); Lymphocytes % 31.7 % (21.8-53.1); Mean Cell Volume 64.3 fL (79.0-92.2); Mean Corpuscular Hemoglobin 18.2 pg (25.7-32.2); Mean Corpuscular Hgb Concent. 28.3 g/dL (32.3-36.5); Mean Platelet Volume 8.8 fL (9.4-12.4); Monocyte (Absolute #) 0.74 x10^3/uL (0.30-0.82); Monocytes % 9.9 % (5.3-12.2); Neutrophil % 57.4 % (34.0-67.9); Platelet Count 371 x10^3/uL (163-337); Red Blood Count 4.84 x10^6/uL (4.63-6.08); Red Cell Distribution Width 19.5 % (11.6-14.4); White Blood Count 7.5 x10^3/uL (4.23-9.07)
[2024-08-29] MEDS ORDERED: NORCO 5/325 MG ONE (01:28)
[2024-08-29] MEDS: NORCO 5/325 MG PO ONE (01:29)
[2024-08-29 01:36] LABS: ALBUMIN 4.6 g/dL (3.5-5.0); ANION GAP 20.8 MEQ/L (5-15); BILIRUBIN,TOTAL 0.6 mg/dL (0.2-1.3); Calcium 8.6 mg/dL (8.4-10.2); Creatinine 1 0.8 mg/dL (0.66-1.25); EST GLOMERULAR FILTRATION RATE 126.7 ML/MIN; Total Protein 7.6 g/dL (6.3-8.2)
[2024-08-29] MEDS ORDERED: Klor Con ONE (01:52)
[2024-08-29] MEDS: Klor Con PO ONE (01:53)
[2024-08-29 01:57] VITALS: RESP 17
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
[2024-08-29 03:01] VITALS: BP 119/65; PULSE 69; O2SAT 98
[2024-08-29] MEDS ORDERED: TORAdol 30 mg Injection ONE (03:10)
[2024-08-29] MEDS: TORAdol 30 mg Injection IM ONE (03:11)
[2024-08-29 03:25] LABS: Slide Review 1 YES
== END 2024-08-29 03:16 | disposition home or self-care (01) ==
LOC: ED 00:54
DX: S01.01XA Laceration without foreign body of scalp, initial encounter (principal); Y00.XXXA Assault by blunt object, initial encounter; E87.6 Hypokalemia; D50.9 Iron deficiency anemia, unspecified; R51.9 Headache, unspecified; Z79.52 Long term (current) use of systemic steroids; Z79.899 Other long term (current) drug therapy; Z72.0 Tobacco use
CPT/HCPCS: 12001; 36415; 70450; 80053; 85025; 96372; 99284; J1885; A9270-GY